=== PATIENT | male | born 1950 | race Caucasian/White ===

== ENCOUNTER 2018-08-04 12:29 | Emergency (ER) | payer MEDICARE, SELFPAY ==
[2018-08-04] VITALS (8 sets, daily range): BP systolic 143–161; BP diastolic 68–82; PULSE 60–119; RESP 10–21; O2SAT 93–96
--- NOTE | 2018-08-04 14:41 | PC.NURSE ---
pt finished eating small bag of cheez-its, brought to chair romeo to have lab work drawn.
[2018-08-04 15:08] LABS: INR 3.7 (0.9-1.3); Prothrombin Time 44.6 SECONDS (10.1-12.7)
--- NOTE | 2018-08-04 15:08 | PC.NURSE ---
pt reports, not feeling well for one week, with nausea, headache and light headedness. denies vomiting and diarrhea. denies fever, just sweating. pt with hx of lower back pain and with physical therapy, future plan to have injections. pt denies trauma,injuries. takes warfarin for DE and Pacemaker
[2018-08-04 15:11] LABS: Add Manual Diff / Slide Review NO; Basophils Absolute Auto 0 /uL (0-100); Basophils Percent Auto 0.3 % (0-2); Eosinophils Absolute Auto 100 /uL (0-450); Hematocrit 38.1 % (41-53); Hemoglobin 12.3 g/dL (13.5-17.5); Lymphocytes Absolute Auto 800 /uL (1100-4500); Lymphocytes Percent Auto 14.9 % (25-40); Mean Corpuscular HGB Conc 32.2 % (30-36); Monocytes Absolute Auto 500 /uL (0-900); Monocytes Percent Auto 8.5 % (3-14); Neutrophils Absolute Auto 4000 /uL (1500-7000); Neutrophils Percent Auto 75.3 % (50-75); PTT Partial Thromboplastin Tim 59 SECONDS (26.4-36.2); Platelet Count 217 X10^3/uL (150-400); Red Blood Cell Count 4.38 X10^6/uL (4.5-5.9); Red Cell Distribution Width 15.3 % (11.6-14.8); White Blood Cell Count 5.4 X10^3/uL (4.5-11.0)
[2018-08-04 15:12] LABS: Alanine Aminotransferase 25 IU/L (21-72); Albumin 4.4 g/dL (3.5-5.0); Albumin Globulin Ratio 1.5 (1.0-2.8); Alkaline Phosphatase 89 U/L (38-126); Aspartate Aminotransferase 24 IU/L (17-59); BUN Creatinine Ratio 21.1 (6-22); Bilirubin Total 1.1 mg/dL (0.2-1.3); Blood Urea Nitrogen 19 mg/dL (9-20); Calcium 9.3 mg/dL (8.4-10.2); Carbon Dioxide 25 mmol/L (22-32); Chloride 104 mmol/L (98-107); Estimated Glomerular Filt Rate > 60.0 mL/min (>60); Globulin 2.9 g/dL (1.7-4.1); Glucose 103 mg/dL (80-110); HEMOLYSIS < 15 (0-50); Lipase < 10 U/L (23-300); Potassium 4.3 mmol/L (3.4-5.1); Sodium 137 mmol/L (137-145); Total Protein 7.3 g/dL (6.3-8.2)
--- NOTE | 2018-08-04 16:38 | ED.NAVMDI ---
HPI - Nausea/Vomiting/Diarrhea <Liza BRI Gipson - Last Filed: 08/04/18 23:29> General Chief complaint: Nausea/Vomiting/Diarrhea Stated complaint: NAUSEA LIGHT HEADED LOWER BACK PAIN Time Seen by Provider: 08/04/18 16:22 Source: patient Mode of arrival: ambulatory Limitations: no limitations History of Present Illness HPI Narrative: 68-year-old male with past medical history of open heart surgery, aortic valve replacement, pacemaker insertion, knee replacement, presents emergency department for nausea for the past week and intermittent headache. States that he has also felt off-balance the past 4 days and this morning he was diaphoretic. Denies vomiting, diarrhea, chest, syncope, vertigo, shortness of breath, abdominal pain, orthopnea, dysuria, change in bowel movements. Related Data Home Medications Medication Instructions Recorded Confirmed Lactobacillus #2-Bifidobacter 1 cap PO DAILY 08/04/18 08/04/18 #1-S. therm 112.5 billion cell capsule acetaminophen 325 mg capsule 325 mg PO Q6H PRN 08/04/18 08/04/18 albuterol sulfate HFA 90 2 puff INHALATION Q6H PRN 08/04/18 08/04/18 mcg/actuation aerosol inhaler amlodipine 10 mg tablet 10 mg PO DAILY 08/04/18 08/04/18 aspirin 81 mg tablet,delayed 81 mg PO DAILY 08/04/18 08/04/18 release atorvastatin 40 mg tablet 40 mg PO DAILY 08/04/18 08/04/18 bupropion HCl SR 150 mg tablet,12 150 mg PO BID 08/04/18 08/04/18 hr sustained-release colchicine 0.6 mg tablet 0.6 mg PO DAILY 08/04/18 08/04/18 disulfiram 250 mg tablet 250 mg PO DAILY 08/04/18 08/04/18 duloxetine 60 mg capsule,delayed 60 mg PO DAILY 08/04/18 08/04/18 release furosemide 20 mg tablet 20 mg PO DAILY 08/04/18 08/04/18 gabapentin 300 mg capsule 300 mg PO DAILY 08/04/18 08/04/18 metoprolol succinate ER 50 mg 50 mg PO DAILY 08/04/18 08/04/18 capsule sprinkle, ext. release 24 hr oxycodone-acetaminophen 5 mg-325 1 tab PO Q4-6H PRN 08/04/18 08/04/[address] 40 mg granules 40 mg PO DAILY 08/04/18 08/04/18 delayed-release for susp in packet potassium chloride ER 10 mEq 10 meq PO DAILY 08/04/18 08/04/18 capsule,extended release sildenafil 50 mg tablet 50 mg PO DAILY PRN 08/04/18 08/04/18 spironolactone 25 mg tablet 25 mg PO DAILY 08/04/18 08/04/18 tadalafil 5 mg tablet 5 mg PO DAILY 08/04/18 08/04/18 tiotropium bromide 18 mcg capsule 1 cap INHALATION DAILY 08/04/18 08/04/18 with inhalation device tramadol 50 mg tablet 50 mg PO DAILY 08/04/18 08/04/18 warfarin 3 mg tablet 3 mg PO DAILY 08/04/18 08/04/18 Allergies Allergy/AdvReac Type Severity Reaction Status Date / Time No Known Drug Allergies Allergy Verified 08/04/18 11:53 Review of Systems <BRI Mccall - Last Filed: 08/04/18 23:29> Constitutional Denies chills, Denies fever(s), Reports headache(s) (Low grade headache for the past few days. ), Denies lethargy and Denies weakness Eyes Denies change in vision, Denies eye discharge, Denies irritation and Denies loss of vision ENT Ears, Nose, Mouth, and Throat: Denies change in voice, Reports headache(s) (Low grade headache for the past few days. ), Denies neck pain and Denies sore throat Cardiovascular Denies chest pain, Denies irregular heart rhythm, Denies lightheadedness, Denies palpitations, Denies dyspnea, Denies dyspnea on exertion and Denies orthopnea Respiratory Denies cough, Denies dyspnea, Denies dyspnea on exertion and Denies wheezing Gastrointestinal Gastrointestinal: Denies abdominal pain, Denies change in bowel habits, Denies diarrhea, Reports nausea and Denies vomiting Genitourinary Denies hematuria, Denies flank pain, Denies urinary incontinence and Denies urinary urgency Musculoskeletal Denies neck pain Integumentary/Breasts Denies pruritus, Denies erythema, Denies rash and Denies wounds Neurologic Denies confusion, Reports headache(s) (Low grade headache for the past few days. ), Denies loss of vision and Denies weakness Psychiatric Denies anxiety, Denies confusion, Denies depression, Denies homicidal ideation and Denies suicidal ideation Endocrine Denies palpitations Hematologic/Lymphatic Denies easy bruising Allergic/Immunologic Denies wheezing PFSH <BRI Mccall - Last Filed: 08/04/18 23:29> Medical History Pacemaker (Chronic) Social History Smoking Status: Former smoker Social History Smoking Status: Former smoker Exam <BRI Mccall - Last Filed: 08/04/18 23:29> Initial Vital Signs Initial Vital Signs: Vital Signs Pulse Rate 119 H 08/04/18 12:34 Respiratory Rate 20 08/04/18 12:34 Blood Pressure 161/82 H 08/04/18 12:34 Pulse Oximetry 93 08/04/18 12:34 Const General: cooperative and well developed Nutritional Appearance: well nourished Orientation: alert, awake, oriented x3 and not confused HENWA Head: normocephalic and atraumatic Ears: external ears normal Nose: external nose normal and No nasal discharge Face and sinus: sinuses nontender, face symmetric, no sinus tenderness and No dry mucous membranes Mouth: oral mucosae normal and moist mucous membranes Teeth and gingiva: dentition normal Throat: tonsils normal and uvula midline Eyes General: appearance normal, both eyes and all related structures Eyelids: eyelids normal Conjunctivae: conjunctivae normal Sclera: sclerae normal Pupils: PERRL EOM: EOM intact bilaterally Neck Neck: normal visual inspection, trachea midline, No lymphadenopathy, No midline deformity and No JVD Lymphatic: No lymphedema Chest Chest: normal inspection of the chest Other: Pacemaker noted on chest. Resp Effort & Inspection: normal respiratory effort, able to speak in complete sentences, no respiratory distress and no use of accessory muscles Auscultation: clear to auscultation bilaterally, no rales, no rhonchi and no wheezes Cardio Rate: regular rate Rhythm: regular rhythm Heart Sounds: no click, no gallops, no murmurs and no rubs Pulses: normal peripheral pulses GI Inspection: non-distended Palpation: soft, no hepatosplenomegaly, No guarding, No pulsatile mass and No tender Auscultation: normal bowel sounds Back/Spine/Pelvis Back: No CVA tenderness Thoracic/Lumbar Spine: thoracic and lumbar spine normal to inspection Skin General: no rashes or lesions noted, No jaundice and No petechiae Neuro General: alert, oriented x3, gait normal and no focal motor deficits Speech: speech normal Extrem General: full ROM, no clubbing, cyanosis or edema, no pedal edema and no calf tenderness Psych Appearance: well kempt Mental Status: mental status grossly normal Attitude: cooperative Thought Content: normal and suicidality Judgment: judgment good <Ayde Grady MD - Last Filed: 08/06/18 12:10> Initial Vital Signs Initial Vital Signs: Vital Signs Pulse Rate 119 H 08/04/18 12:34 Respiratory Rate 20 08/04/18 12:34 Blood Pressure 161/82 H 08/04/18 12:34 Pulse Oximetry 93 08/04/18 12:34 Course <BRI Mccall - Last Filed: 08/04/18 23:29> Course Narrative: After administration of Zofran, patient stated he felt better and wanted to go home. Orders Ordered: Discontinued Medications Sodium Chloride (Normal Saline 0.9%) 1,000 mls @ 500 mls/hr IV BOLUS ONE Stop: 08/04/18 18:45 Last Infusion: 08/04/18 17:57 Dose: 0 mls/hr Admin: 08/04/18 16:57 Dose: 500 mls/hr Ondansetron HCl (Zofran) 4 mg IV NOW ONE Stop: 08/04/18 16:37 Last Admin: 08/04/18 16:46 Dose: 4 mg Consultations Consultation #1: Patient staffed with Dr. Grady Vital Signs - 8 hr 08/04/18 15:47 08/04/18 16:00 08/04/18 16:45 Pulse Rate 65 65 61 Respiratory Rate 15 16 10 L Blood Pressure [Left Arm] 143/72 H 151/68 H 144/69 H Pulse Oximetry 96 95 96 08/04/18 17:00 08/04/18 17:30 08/04/18 18:00 Pulse Rate 63 62 60 Respiratory Rate 14 10 L 12 Blood Pressure [Left Arm] 151/71 H 149/75 H 154/72 H Pulse Oximetry 96 96 96 <Ayde Grady MD - Last Filed: 08/06/18 12:10> Orders Ordered: Discontinued Medications Sodium Chloride (Normal Saline 0.9%) 1,000 mls @ 500 mls/hr IV BOLUS ONE Stop: 08/04/18 18:45 Last Infusion: 08/04/18 17:57 Dose: 0 mls/hr Admin: 08/04/18 16:57 Dose: 500 mls/hr Ondansetron HCl (Zofran) 4 mg IV NOW ONE Stop: 08/04/18 16:37 Last Admin: 08/04/18 16:46 Dose: 4 mg Vital Signs - 8 hr 08/04/18 15:47 08/04/18 16:00 08/04/18 16:45 Pulse Rate 65 65 61 Respiratory Rate 15 16 10 L Blood Pressure [Left Arm] 143/72 H 151/68 H 144/69 H Pulse Oximetry 96 95 96 08/04/18 17:00 08/04/18 17:30 08/04/18 18:00 Pulse Rate 63 62 60 Respiratory Rate 14 10 L 12 Blood Pressure [Left Arm] 151/71 H 149/75 H 154/72 H Pulse Oximetry 96 96 96 MDM - Nausea/Vomiting/Diarrhea <BRI Mccall - Last Filed: 08/04/18 23:29> Medical Records Attestation: I reviewed the patient's medical records. Lab Data Attestation: I reviewed the patient's lab results. Result diagrams: 08/04/18 14:53 08/04/18 14:53 Lab Results 08/04/18 08/04/18 08/04/18 Range/Units 14:53 14:53 14:53 WBC 5.4 (4.5-11.0) X10^3/uL RBC 4.38 L (4.5-5.9) X10^6/uL Hgb 12.3 L (13.5-17.5) g/dL Hct 38.1 L (41-53) % MCV 87.0 (80-100) fL MCH 28.0 (26-34) PG MCHC 32.2 (30-36) % RDW 15.3 H (11.6-14.8) % Plt Count 217 (150-400) X10^3/uL Neut % (Auto) 75.3 H (50-75) % Lymph % (Auto) 14.9 L (25-40) % [place] % (Auto) 8.5 (3-14) % Eos % (Auto) 1.0 L (2-4) % Baso % (Auto) 0.3 (0-2) % Neut # (Auto) 4000 (3135-5768) /uL Lymph # (Auto) 800 L (1837-6380) /uL [place] # (Auto) 500 (0-900) /uL Eos # (Auto) 100 (0-450) /uL Baso # (Auto) 0 (0-100) /uL PT 44.6 H (10.1-12.7) SECONDS INR 3.7 H (0.9-1.3) APTT 59 H (26.4-36.2) SECONDS Sodium 137 (137-145) mmol/L Potassium 4.3 (3.4-5.1) mmol/L Chloride 104 (98-107) mmol/L Carbon Dioxide 25 (22-32) mmol/L BUN 19 (9-20) mg/dL Creatinine 0.90 (0.66-1.25) mg/dL Estimated GFR > 60.0 (>60) mL/min BUN/Creatinine Ratio 21.1 (6-22) Glucose 103 (80-110) mg/dL Calcium 9.3 (8.4-10.2) mg/dL Total Bilirubin 1.1 (0.2-1.3) mg/dL AST 24 (17-59) IU/L ALT 25 (21-72) IU/L Alkaline Phosphatase 89 (38-126) U/L Total Creatine Kinase (55-170) U/L CK-MB (CK-2) CK-MB (CK-2) Rel Index Troponin I (0.01-0.034) ng/mL Total Protein 7.3 (6.3-8.2) g/dL Albumin 4.4 (3.5-5.0) g/dL Globulin 2.9 (1.7-4.1) g/dL Albumin/Globulin Ratio 1.5 (1.0-2.8) Lipase < 10 L (23-300) U/L Urine RBC (0-5/HPF) Urine WBC (0-5/HPF) Urine Bacteria (None) Ur Culture Indicated? 08/04/18 08/04/18 Range/Units 14:53 16:30 WBC (4.5-11.0) X10^3/uL RBC (4.5-5.9) X10^6/uL Hgb (13.5-17.5) g/dL Hct (41-53) % MCV (80-100) fL MCH (26-34) PG MCHC (30-36) % RDW (11.6-14.8) % Plt Count (150-400) X10^3/uL Neut % (Auto) (50-75) % Lymph % (Auto) (25-40) % [place] % (Auto) (3-14) % Eos % (Auto) (2-4) % Baso % (Auto) (0-2) % Neut # (Auto) (1611-5232) /uL Lymph # (Auto) (6031-4759) /uL [place] # (Auto) (0-900) /uL Eos # (Auto) (0-450) /uL Baso # (Auto) (0-100) /uL PT (10.1-12.7) SECONDS INR (0.9-1.3) APTT (26.4-36.2) SECONDS Sodium (137-145) mmol/L Potassium (3.4-5.1) mmol/L Chloride (98-107) mmol/L Carbon Dioxide (22-32) mmol/L BUN (9-20) mg/dL Creatinine (0.66-1.25) mg/dL Estimated GFR (>60) mL/min BUN/Creatinine Ratio (6-22) Glucose (80-110) mg/dL Calcium (8.4-10.2) mg/dL Total Bilirubin (0.2-1.3) mg/dL AST (17-59) IU/L ALT (21-72) IU/L Alkaline Phosphatase (38-126) U/L Total Creatine Kinase 63 (55-170) U/L CK-MB (CK-2) TNP CK-MB (CK-2) Rel Index TNP Troponin I 0.013 (0.01-0.034) ng/mL Total Protein (6.3-8.2) g/dL Albumin (3.5-5.0) g/dL Globulin (1.7-4.1) g/dL Albumin/Globulin Ratio (1.0-2.8) Lipase (23-300) U/L Urine RBC 1-5/hpf (0-5/HPF) Urine WBC 0-1/hpf (0-5/HPF) Urine Bacteria Occasional (0-1) (None) Ur Culture Indicated? Cult not indicated Urine Dip Bedside Urine Glucose Negative Bedside Urine Bilirubin - Negative Bedside Urine Ketone - Negative Urine Specific [place] 1.015 Bedside Urine Occult Blood ++ Bedside Urine pH 6.5 Bedside Urine Protein - Negative Bedside Urine Urobilinogen +/- 1mg Bedside Urine Nitrite - Negative Bedside Urine Leukocytes - Negative Esterase Imaging Data Chest x-ray: Radiologist's impression: [address] [address] XRay Report Signed Patient: Sylvester Singleton#: [id number] : 2Acct:[id number] Age/Sex: 68 / MDate of Service: 08/04/18 Loc: ED Accession Number: [id number] Procedure: XR chest 1V Ordering Provider: Liza Gipson PROCEDURE: XR CHEST 1V INDICATIONS: General malaise, hx of open heart surgery/pacemaker TECHNIQUE: One view of the chest was acquired. COMPARISON: None. FINDINGS: Surgical changes and devices: Sternotomy wires, pacemaking device with dual chamber leads in normal position.. Lungs and pleura: Lungs are abnormal with a mild degree of interstitial prominence perhaps related to prior smoking.. No pleural effusions or pneumothorax. Mediastinum: Mediastinal contours appear normal. Heart size is at the upper limits of normal. Bones and chest wall: No suspicious bony lesions. Overlying soft tissues appear unremarkable. IMPRESSION: Pacemaker device and dual chamber leads normal, prior sternotomy, presumably CABG. Mild interstitial prominence within the lung parenchyma may reflect prior smoking history. No acute CHF or pneumonia seen. Dictated by: Pineda Cox M.D. on 08/04/2018 at 17:04 Approved by: Pineda Cox M.D. on 08/04/2018 at 17:05 ECG Data Attestation: I personally reviewed and interpreted this ECG as follows: Interpretation: Irregular rhythm, heart rate 60 beats per minute, VT interval 170, QTC 494, no ectopy noted in pacemaker noted on EKG. EKG appears like other EKGs. Dr. Grady viewed EKG as well. MDM Narrative Medical decision making narrative: Unclear etiology of the nausea, possibly viral in nature. Less likely cardiac in origin due to negative exam and normal labs. Less likely cholecystitis, pancreatitis, or appendicitis due to abnormal labs. Headache less likely neurologic in origin due to negative neuro exam, no for focal neurological changes, resolution of symptoms after nausea subsided. Discussed the importance of following up with primary care provider for further testing if needed. Strict return precautions given. <Ayde Grady MD - Last Filed: 08/06/18 12:10> Lab Data Lab Results 08/04/18 08/04/18 08/04/18 Range/Units 14:53 14:53 14:53 WBC 5.4 (4.5-11.0) X10^3/uL RBC 4.38 L (4.5-5.9) X10^6/uL Hgb 12.3 L (13.5-17.5) g/dL Hct 38.1 L (41-53) % MCV 87.0 (80-100) fL MCH 28.0 (26-34) PG MCHC 32.2 (30-36) % RDW 15.3 H (11.6-14.8) % Plt Count 217 (150-400) X10^3/uL Neut % (Auto) 75.3 H (50-75) % Lymph % (Auto) 14.9 L (25-40) % [place] % (Auto) 8.5 (3-14) % Eos % (Auto) 1.0 L (2-4) % Baso % (Auto) 0.3 (0-2) % Neut # (Auto) 4000 (8479-2144) /uL Lymph # (Auto) 800 L (5513-8933) /uL [place] # (Auto) 500 (0-900) /uL Eos # (Auto) 100 (0-450) /uL Baso # (Auto) 0 (0-100) /uL PT 44.6 H (10.1-12.7) SECONDS INR 3.7 H (0.9-1.3) APTT 59 H (26.4-36.2) SECONDS Sodium 137 (137-145) mmol/L Potassium 4.3 (3.4-5.1) mmol/L Chloride 104 (98-107) mmol/L Carbon Dioxide 25 (22-32) mmol/L BUN 19 (9-20) mg/dL Creatinine 0.90 (0.66-1.25) mg/dL Estimated GFR > 60.0 (>60) mL/min BUN/Creatinine Ratio 21.1 (6-22) Glucose 103 (80-110) mg/dL Calcium 9.3 (8.4-10.2) mg/dL Total Bilirubin 1.1 (0.2-1.3) mg/dL AST 24 (17-59) IU/L ALT 25 (21-72) IU/L Alkaline Phosphatase 89 (38-126) U/L Total Creatine Kinase (55-170) U/L CK-MB (CK-2) CK-MB (CK-2) Rel Index Troponin I (0.01-0.034) ng/mL Total Protein 7.3 (6.3-8.2) g/dL Albumin 4.4 (3.5-5.0) g/dL Globulin 2.9 (1.7-4.1) g/dL Albumin/Globulin Ratio 1.5 (1.0-2.8) Lipase < 10 L (23-300) U/L Urine RBC (0-5/HPF) Urine WBC (0-5/HPF) Urine Bacteria (None) Ur Culture Indicated? 08/04/18 08/04/18 Range/Units 14:53 16:30 WBC (4.5-11.0) X10^3/uL RBC (4.5-5.9) X10^6/uL Hgb (13.5-17.5) g/dL Hct (41-53) % MCV (80-100) fL MCH (26-34) PG MCHC (30-36) % RDW (11.6-14.8) % Plt Count (150-400) X10^3/uL Neut % (Auto) (50-75) % Lymph % (Auto) (25-40) % [place] % (Auto) (3-14) % Eos % (Auto) (2-4) % Baso % (Auto) (0-2) % Neut # (Auto) (4659-8154) /uL Lymph # (Auto) (5469-7739) /uL [place] # (Auto) (0-900) /uL Eos # (Auto) (0-450) /uL Baso # (Auto) (0-100) /uL PT (10.1-12.7) SECONDS INR (0.9-1.3) APTT (26.4-36.2) SECONDS Sodium (137-145) mmol/L Potassium (3.4-5.1) mmol/L Chloride (98-107) mmol/L Carbon Dioxide (22-32) mmol/L BUN (9-20) mg/dL Creatinine (0.66-1.25) mg/dL Estimated GFR (>60) mL/min BUN/Creatinine Ratio (6-22) Glucose (80-110) mg/dL Calcium (8.4-10.2) mg/dL Total Bilirubin (0.2-1.3) mg/dL AST (17-59) IU/L ALT (21-72) IU/L Alkaline Phosphatase (38-126) U/L Total Creatine Kinase 63 (55-170) U/L CK-MB (CK-2) TNP CK-MB (CK-2) Rel Index TNP Troponin I 0.013 (0.01-0.034) ng/mL Total Protein (6.3-8.2) g/dL Albumin (3.5-5.0) g/dL Globulin (1.7-4.1) g/dL Albumin/Globulin Ratio (1.0-2.8) Lipase (23-300) U/L Urine RBC 1-5/hpf (0-5/HPF) Urine WBC 0-1/hpf (0-5/HPF) Urine Bacteria Occasional (0-1) (None) Ur Culture Indicated? Cult not indicated Urine Dip Bedside Urine Glucose Negative Bedside Urine Bilirubin - Negative Bedside Urine Ketone - Negative Urine Specific [place] 1.015 Bedside Urine Occult Blood ++ Bedside Urine pH 6.5 Bedside Urine Protein - Negative Bedside Urine Urobilinogen +/- 1mg Bedside Urine Nitrite - Negative Bedside Urine Leukocytes - Negative Esterase Discharge Plan Departure Patient Disposition: Home Clinical Impression: Nausea Discharge Date/Time: 08/04/18 18:25 Interventions: ED Discharge Assessment Last Done: 08/04/18 18:24 Instructions: DI for Nausea -- Adult Activity Restrictions/Additional Instructions: As discussed your labs, and imaging are negative for concerning findings. Please follow up with her primary care provider in the next week or so. Return to the emergency department for concerning symptoms such as chest pain, shortness of breath, syncope, dizziness, facial droop, or other concerning symptoms. Prescriptions: No Action atorvastatin 40 mg tablet 40 mg PO DAILY RF: 0 bupropion HCl [Wellbutrin SR] 150 mg tablet sustained-release 12 hr 150 mg PO BID RF: 0 potassium chloride 10 mEq capsule, extended release 10 meq PO DAILY RF: 0 sildenafil 50 mg tablet 50 mg PO DAILY PRN (Reason: Erectile Dysfunction) RF: 0 aspirin [Adult Aspirin Regimen] 81 mg tablet,delayed release (DR/EC) 81 mg PO DAILY RF: 0 tramadol 50 mg tablet 50 mg PO DAILY RF: 0 spironolactone 25 mg tablet 25 mg PO DAILY RF: 0 disulfiram 250 mg tablet 250 mg PO DAILY RF: 0 warfarin 3 mg tablet 3 mg PO DAILY RF: 0 oxycodone-acetaminophen [Percocet] 5-325 mg tablet 1 tab PO Q4-6H PRN (Reason: pain) RF: 0 amlodipine 10 mg tablet 10 mg PO DAILY RF: 0 gabapentin 300 mg capsule 300 mg PO DAILY RF: 0 furosemide 20 mg tablet 20 mg PO DAILY RF: 0 albuterol sulfate [ProAir HFA] 90 mcg/actuation HFA aerosol inhaler 2 puff INHALATION Q6H PRN (Reason: Shortness Of Breath) RF: 0 colchicine 0.6 mg tablet 0.6 mg PO DAILY RF: 0 tadalafil 5 mg tablet 5 mg PO DAILY RF: 0 tiotropium bromide 18 mcg capsule, w/inhalation device 1 cap INHALATION DAILY RF: 0 duloxetine 60 mg capsule,delayed release(DR/EC) 60 mg PO DAILY RF: 0 acetaminophen 325 mg capsule 325 mg PO Q6H PRN (Reason: pain) RF: 0 VSL#3 112.5 billion cell capsule 1 cap PO DAILY RF: 0 pantoprazole [address] for susp in packet 40 mg PO DAILY RF: 0 metoprolol succinate 50 mg cap,sprinkle,ER 24hr dose pack 50 mg PO DAILY RF: 0
[2018-08-04] MEDS: ONDANSETRON 4 MG/2 ML INJ IV (16:46)
--- NOTE | 2018-08-04 16:48 | DI.RAD.S_ITS ---
PROCEDURE: XR CHEST 1V INDICATIONS: General malaise, hx of open heart surgery/pacemaker TECHNIQUE: One view of the chest was acquired. COMPARISON: None. FINDINGS: Surgical changes and devices: Sternotomy wires, pacemaking device with dual chamber leads in normal position.. Lungs and pleura: Lungs are abnormal with a mild degree of interstitial prominence perhaps related to prior smoking.. No pleural effusions or pneumothorax. Mediastinum: Mediastinal contours appear normal. Heart size is at the upper limits of normal. Bones and chest wall: No suspicious bony lesions. Overlying soft tissues appear unremarkable. IMPRESSION: Pacemaker device and dual chamber leads normal, prior sternotomy, presumably CABG. Mild interstitial prominence within the lung parenchyma may reflect prior smoking history. No acute CHF or pneumonia seen. Dictated by: Pineda Cox M.D. on 08/04/2018 at 17:04 Approved by: Pineda Cox M.D. on 08/04/2018 at 17:05
[2018-08-04] MEDS: SODIUM CHLORIDE 0.9% 1,000 ML 500 ML IV (16:57)
[2018-08-04 17:04] LABS: Creatine Kinase 63 U/L (55-170)
[2018-08-04 17:10] LABS: Bacteria Urine Occasional (0-1); Culture Indicated Urine Cult Not Indicated; RBC Urine 1-5/HPF (0-5/HPF); WBC Urine 0-1/HPF (0-5/HPF)
[2018-08-04 17:17] LABS: Troponin I 0.013 ng/mL (0.01-0.034)
== END 2018-08-04 18:25 | disposition home or self-care (01) ==
PROVIDERS: Emergency Medicine; Emergency Provider Nurse Practitioner
DX: R11.0 Nausea (principal); R61 Generalized hyperhidrosis; R51 Headache; R27.0 Ataxia, unspecified; Z95.0 Presence of cardiac pacemaker; Z95.2 Presence of prosthetic heart valve
CPT/HCPCS: 36415; 71045; 80053; 81003; 81015; 82550; 83690; 84484; 85025; 85610; 85730; 93005; 96361; 96374; 99284; 99285; J2405

== ENCOUNTER 2018-09-19 11:44 | Emergency (ER) | payer MEDICARE, SELFPAY ==
[2018-09-19] VITALS (8 sets, daily range): BP systolic 144–159; BP diastolic 60–85; PULSE 67–74; RESP 12–19; TEMP 36.6–36.8; O2SAT 95–99
--- NOTE | 2018-09-19 11:48 | DI.RAD.S_ITS ---
PROCEDURE: XR CHEST 1V INDICATIONS: chest pain TECHNIQUE: One view of the chest was acquired. COMPARISON: [facility], CR, XR CHEST 1V, 08/04/2018, 16:53. FINDINGS: Surgical changes and devices: A left-sided cardiac pacer/defibrillator is present. Median sternotomy changes are noted. Lungs and pleura: Prominent perihilar interstitial markings are identified which have increased in the interim. No definite area of pulmonary consolidation is evident. There is no definite pneumothorax or effusion. Mediastinum: Mediastinal contours appear normal. Heart size is enlarged. There is aortic atherosclerosis. Bones and chest wall: No suspicious bony lesions. Overlying soft tissues appear unremarkable. IMPRESSION: Cardiomegaly with findings suggesting pulmonary edema. Please correlate clinically. Dictated by: Michael Yepez M.D. on 09/19/2018 at 11:24 Approved by: Michael Yepez M.D. on 09/19/2018 at 11:25
--- NOTE | 2018-09-19 11:50 | ED.CHESTPAIN ---
HPI - Chest Pain General Chief Complaint: Chest Pain Stated Complaint: Right arm and Jaw Pain Time Seen by Provider: 09/19/18 11:48 Source: patient and EMS Mode of arrival: EMS Limitations: no limitations History of Present Illness HPI narrative: Patient is a 68-year-old male presenting with chest discomfort. 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 He says that he was walking today your sharp chest pain all across his chest it lasted for about 30 seconds and he had to stop walking. He is now chest pain-free. He says this has never happened to him before. He denies any shortness of breath. He has previously had a pleural effusion when they 1st found his aortic valve abnormality. He says he certainly does not feel like that. Currently pain free. complaint: chest pain Onset (ago): minute(s) Duration: now resolved Onset: during exertion Pain location: substernal Severity: severe Quality: tightness, aching and heaviness Pain radiation: none Relieving factors: rest Exacerbating factors: exertion Related Data Home Medications Medication Instructions Recorded Confirmed Lactobacillus #2-Bifidobacter 1 cap PO DAILY 08/04/18 08/04/18 #1-S. therm 112.5 billion cell capsule acetaminophen 325 mg capsule 325 mg PO Q6H PRN 08/04/18 08/04/18 albuterol sulfate HFA 90 2 puff INHALATION Q6H PRN 08/04/18 08/04/18 mcg/actuation aerosol inhaler amlodipine 10 mg tablet 10 mg PO DAILY 08/04/18 08/04/18 aspirin 81 mg tablet,delayed 81 mg PO DAILY 08/04/18 08/04/18 release atorvastatin 40 mg tablet 40 mg PO DAILY 08/04/18 08/04/18 bupropion HCl SR 150 mg tablet,12 150 mg PO BID 08/04/18 08/04/18 hr sustained-release colchicine 0.6 mg tablet 0.6 mg PO DAILY 08/04/18 08/04/18 disulfiram 250 mg tablet 250 mg PO DAILY 08/04/18 08/04/18 duloxetine 60 mg capsule,delayed 60 mg PO DAILY 08/04/18 08/04/18 release furosemide 20 mg tablet 20 mg PO DAILY 08/04/18 08/04/18 gabapentin 300 mg capsule 300 mg PO DAILY 08/04/18 08/04/18 metoprolol succinate ER 50 mg 50 mg PO DAILY 08/04/18 08/04/18 capsule sprinkle, ext. release 24 hr oxycodone-acetaminophen 5 mg-325 1 tab PO Q4-6H PRN 08/04/18 08/04/[address] 40 mg granules 40 mg PO DAILY 08/04/18 08/04/18 delayed-release for susp in packet potassium chloride ER 10 mEq 10 meq PO DAILY 08/04/18 08/04/18 capsule,extended release sildenafil 50 mg tablet 50 mg PO DAILY PRN 08/04/18 08/04/18 spironolactone 25 mg tablet 25 mg PO DAILY 08/04/18 08/04/18 tadalafil 5 mg tablet 5 mg PO DAILY 08/04/18 08/04/18 tiotropium bromide 18 mcg capsule 1 cap INHALATION DAILY 08/04/18 08/04/18 with inhalation device tramadol 50 mg tablet 50 mg PO DAILY 08/04/18 08/04/18 warfarin 3 mg tablet 3 mg PO DAILY 08/04/18 08/04/18 Allergies Allergy/AdvReac Type Severity Reaction Status Date / Time No Known Drug Allergies Allergy Verified 08/04/18 11:53 Review of Systems Review of Systems GENERAL: Denies chills, fatigue, malaise, fever, sweats, travel HEENT: Denies sinus pain, ear pain, sore throat, difficulty swallowing, neck pain RESPIRATORY: Denies dyspnea, cough, wheezing, hemoptysis, sputum. CARDIOVASCULAR: See HPI GASTROINTESTINAL: Denies nausea, vomiting, abdominal pain, diarrhea, constipation, melena. : Denies dysuria, frequency, incontinence, hematuria, urinary retention, flank pain. MUSCULOSKELETAL: Denies weakness, joint pain, or bony pain SKIN: No rash, no erythema, no pruritus NEUROLOGIC: Denies weakness, dizziness, headache, numbness, change in speech, confusion PSYCHIATRIC: No concerning psychosocial issues. 12 point review of systems is negative except for those stated above and HPI [facility] Medical History Coronary artery disease (Acute) Hypertension (Acute) Pacemaker (Chronic) Surgical History H/O aortic valve replacement (Acute) Social History Smoking Status: Former smoker Social History Smoking Status: Former smoker Exam Initial Vital Signs Initial Vital Signs: Vital Signs Temperature 98.2 F 09/19/18 11:45 Pulse Rate 73 09/19/18 11:45 Respiratory Rate 19 09/19/18 11:45 Blood Pressure 159/85 H 09/19/18 11:45 Pulse Oximetry 99 09/19/18 11:45 GENERAL: Well-appearing, well-nourished and in no acute distress. HEENT: Head atraumatic,EOMI, pupils reactive, face symmetric, CARDIOVASCULAR: Regular rate bowel noted, scar noted on chest RESPIRATORY: Breath sounds equal bilaterally, no wheezes rales or rhonchi. ABDOMEN: Soft, nontender. Normoactive bowel sounds all 4 quadrants. No guarding or rebound. EXTREMITIES: Normal range of motion, no clubbing or edema. Neurovascularly intact NEUROLOGICAL: Alert and oriented x4.Normal gait and speech. Cranial nerves II through XII grossly intact. SKIN: Warm, dry, no laceration, no petechiae, no rashes or lesions. Course Orders Ordered: ED Orders 09/19/18 11:30 B Type Natriuretic Peptide Stat Complete Blood Count AUTO DIFF Stat Comprehensive Metabolic Panel Stat Lipase Stat Partial Thromboplastin Time Stat Prothrombin Time INR Stat Troponin & CK Cardiac Panel Stat 09/19/18 11:48 XR chest 1V Stat EKG-12 Lead Stat 09/19/18 14:30 Troponin I Stat Vital Signs - 8 hr 09/19/18 11:45 09/19/18 12:00 09/19/18 12:30 Temperature 98.2 F Pulse Rate 73 70 71 Respiratory Rate 19 19 15 Blood Pressure 159/85 H Blood Pressure [Left Arm] 149/79 H 145/83 H Pulse Oximetry 99 95 97 09/19/18 13:00 09/19/18 14:00 09/19/18 15:00 Temperature Pulse Rate 71 72 73 Respiratory Rate 16 18 16 Blood Pressure Blood Pressure [Left Arm] 144/60 H 149/74 H 151/75 H Pulse Oximetry 98 98 98 09/19/18 16:12 09/19/18 16:36 Temperature 97.9 F Pulse Rate 74 74 Respiratory Rate 16 19 Blood Pressure 148/75 H Blood Pressure [Left Arm] 148/75 H Pulse Oximetry 97 99 MDM - Chest Pain Lab Data Attestation: I reviewed the patient's lab results. Result diagrams: 09/19/18 11:30 09/19/18 11:30 Lab Results 09/19/18 09/19/18 09/19/18 Range/Units 11:30 11:30 11:30 WBC 7.0 (4.5-11.0) X10^3/uL RBC 4.01 L (4.5-5.9) X10^6/uL Hgb 11.7 L (13.5-17.5) g/dL Hct 35.6 L (41-53) % MCV 88.8 (80-100) fL MCH 29.1 (26-34) PG MCHC 32.8 (30-36) % RDW 16.5 H (11.6-14.8) % Plt Count 257 (150-400) X10^3/uL Neut % (Auto) 74.1 (50-75) % Lymph % (Auto) 11.7 L (25-40) % Treasure % (Auto) 11.9 (3-14) % Eos % (Auto) 2.0 (2-4) % Baso % (Auto) 0.3 (0-2) % Neut # (Auto) 5200 (4024-7346) /uL Lymph # (Auto) 800 L (8946-4766) /uL Treasure # (Auto) 800 (0-900) /uL Eos # (Auto) 100 (0-450) /uL Baso # (Auto) 0 (0-100) /uL PT 32.1 H (10.1-12.7) SECONDS INR 2.7 H (0.9-1.3) APTT 54 H D (26.4-36.2) SECONDS Sodium 140 (137-145) mmol/L Potassium 4.3 (3.4-5.1) mmol/L Chloride 104 (98-107) mmol/L Carbon Dioxide 28 (22-32) mmol/L BUN 18 (9-20) mg/dL Creatinine 0.80 (0.66-1.25) mg/dL Estimated GFR > 60.0 (>60) mL/min BUN/Creatinine Ratio 22.5 H (6-22) Glucose 114 H (80-110) mg/dL Calcium 9.0 (8.4-10.2) mg/dL Total Bilirubin 0.9 (0.2-1.3) mg/dL AST 32 (17-59) IU/L ALT 41 (21-72) IU/L Alkaline Phosphatase 143 H (38-126) U/L Total Creatine Kinase 148 (55-170) U/L CK-MB (CK-2) 1.98 (<2.37) ng/mL CK-MB (CK-2) Rel Index 1.3 L (1.5-5.0) % Troponin I 0.016 (0.01-0.034) ng/mL B-Natriuretic Peptide 489 H (<100) Total Protein 6.9 (6.3-8.2) g/dL Albumin 3.8 (3.5-5.0) g/dL Globulin 3.1 (1.7-4.1) g/dL Albumin/Globulin Ratio 1.2 (1.0-2.8) Lipase 11 L (23-300) U/L 09/19/18 Range/Units 14:30 WBC (4.5-11.0) X10^3/uL RBC (4.5-5.9) X10^6/uL Hgb (13.5-17.5) g/dL Hct (41-53) % MCV (80-100) fL MCH (26-34) PG MCHC (30-36) % RDW (11.6-14.8) % Plt Count (150-400) X10^3/uL Neut % (Auto) (50-75) % Lymph % (Auto) (25-40) % Treasure % (Auto) (3-14) % Eos % (Auto) (2-4) % Baso % (Auto) (0-2) % Neut # (Auto) (5038-3388) /uL Lymph # (Auto) (8176-7434) /uL Treasure # (Auto) (0-900) /uL Eos # (Auto) (0-450) /uL Baso # (Auto) (0-100) /uL PT (10.1-12.7) SECONDS INR (0.9-1.3) APTT (26.4-36.2) SECONDS Sodium (137-145) mmol/L Potassium (3.4-5.1) mmol/L Chloride (98-107) mmol/L Carbon Dioxide (22-32) mmol/L BUN (9-20) mg/dL Creatinine (0.66-1.25) mg/dL Estimated GFR (>60) mL/min BUN/Creatinine Ratio (6-22) Glucose (80-110) mg/dL Calcium (8.4-10.2) mg/dL Total Bilirubin (0.2-1.3) mg/dL AST (17-59) IU/L ALT (21-72) IU/L Alkaline Phosphatase (38-126) U/L Total Creatine Kinase (55-170) U/L CK-MB (CK-2) (<2.37) ng/mL CK-MB (CK-2) Rel Index (1.5-5.0) % Troponin I 0.015 (0.01-0.034) ng/mL B-Natriuretic Peptide (<100) Total Protein (6.3-8.2) g/dL Albumin (3.5-5.0) g/dL Globulin (1.7-4.1) g/dL Albumin/Globulin Ratio (1.0-2.8) Lipase (23-300) U/L Imaging Data Chest x-ray: Radiologist's impression: PROCEDURE: XR CHEST 1V INDICATIONS: chest pain TECHNIQUE: One view of the chest was acquired. COMPARISON: [facility], , XR CHEST 1V, 08/04/2018, 16:53. FINDINGS: Surgical changes and devices: A left-sided cardiac pacer/defibrillator is present. Median sternotomy changes are noted. Lungs and pleura: Prominent perihilar interstitial markings are identified which have increased in the interim. No definite area of pulmonary consolidation is evident. There is no definite pneumothorax or effusion. Mediastinum: Mediastinal contours appear normal. Heart size is enlarged. There is aortic atherosclerosis. Bones and chest wall: No suspicious bony lesions. Overlying soft tissues appear unremarkable. IMPRESSION: Cardiomegaly with findings suggesting pulmonary edema. Please correlate clinically. Dictated by: Michael Yepez M.D. on 09/19/2018 at 11:24 ECG Data Attestation: I personally reviewed and interpreted this ECG as follows: Prior ECG tracings: not available for review Interpretation: Paced rhythm rate [address] changes similar to previous EKG EKG 2. Paced rhythm rate [address] changes similar to prior MDM Narrative Medical decision making narrative: 13:20 Dr. Smith cardiology as [facility] has been consulted. I have updated him on patient's symptoms and test results. Sounds like stable angina. Recommend increasing his metoprolol he was previously on 50 mg once a day recommend increasing it to 75mg once daily. I called and spoke with the pharmacy he states that he is on 150 mg once a day to in the morning 1 at night. Supple increase it to 200 mg twice a day. He will follow up with his home health care respiratory therapist at in [place] Patient has 2-troponins he has been chest pain-free in the ED his entire stay. Discharge Plan Departure Patient Disposition: Home Clinical Impression: Stable angina Discharge Date/Time: 09/19/18 16:36 Interventions: ED Discharge Assessment Last Done: 09/19/18 16:36 Instructions: DI for Angina Activity Restrictions/Additional Instructions: *You have been diagnosed with stable angina *What to do: I spoke with your home health care respiratory therapist he recommended increasing your metoprolol. Please follow up with her Cardiology will likely need LP stress test. *Continue to take medications as directed Increase metoprolol to 200 mg daily divided by 100 in the morning and 100 at night *Follow up with your primary care provider in 2-3 days *Return to ER if you should have increasing chest pain shortness of breath passing out or any new, worsening or concerning symptoms Prescriptions: No Action atorvastatin 40 mg tablet 40 mg PO DAILY RF: 0 bupropion HCl [Wellbutrin SR] 150 mg tablet sustained-release 12 hr 150 mg PO BID RF: 0 potassium chloride 10 mEq capsule, extended release 10 meq PO DAILY RF: 0 sildenafil 50 mg tablet 50 mg PO DAILY PRN (Reason: Erectile Dysfunction) RF: 0 aspirin [Adult Aspirin Regimen] 81 mg tablet,delayed release (DR/EC) 81 mg PO DAILY RF: 0 tramadol 50 mg tablet 50 mg PO DAILY RF: 0 spironolactone 25 mg tablet 25 mg PO DAILY RF: 0 disulfiram 250 mg tablet 250 mg PO DAILY RF: 0 warfarin 3 mg tablet 3 mg PO DAILY RF: 0 oxycodone-acetaminophen [Percocet] 5-325 mg tablet 1 tab PO Q4-6H PRN (Reason: pain) RF: 0 amlodipine 10 mg tablet 10 mg PO DAILY RF: 0 gabapentin 300 mg capsule 300 mg PO DAILY RF: 0 furosemide 20 mg tablet 20 mg PO DAILY RF: 0 albuterol sulfate [ProAir HFA] 90 mcg/actuation HFA aerosol inhaler 2 puff INHALATION Q6H PRN (Reason: Shortness Of Breath) RF: 0 colchicine 0.6 mg tablet 0.6 mg PO DAILY RF: 0 tadalafil 5 mg tablet 5 mg PO DAILY RF: 0 tiotropium bromide 18 mcg capsule, w/inhalation device 1 cap INHALATION DAILY RF: 0 duloxetine 60 mg capsule,delayed release(DR/EC) 60 mg PO DAILY RF: 0 acetaminophen 325 mg capsule 325 mg PO Q6H PRN (Reason: pain) RF: 0 VSL#3 112.5 billion cell capsule 1 cap PO DAILY RF: 0 pantoprazole [address] for susp in packet 40 mg PO DAILY RF: 0 metoprolol succinate 50 mg cap,sprinkle,ER 24hr dose pack 50 mg PO DAILY RF: 0
--- NOTE | 2018-09-19 11:54 | ED_ITS ---
HPI - Chest Pain General Chief Complaint: Chest Pain Stated Complaint: Right arm and Jaw Pain Time Seen by Provider: 09/19/18 11:48 Source: patient and EMS Mode of arrival: EMS Limitations: no limitations History of Present Illness HPI narrative: Patient is a 68-year-old male presenting with chest discomfort. 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 He says that he was walking today your sharp chest pain all across his chest it lasted for about 30 seconds and he had to stop walking. He is now chest pain-free. He says this has never happened to him before. He denies any shortness of breath. He has previously had a pleural effusion when they 1st found his aortic valve abnormality. He says he certainly does not feel like that. Currently pain free. complaint: chest pain Onset (ago): minute(s) Duration: now resolved Onset: during exertion Pain location: substernal Severity: severe Quality: tightness, aching and heaviness Pain radiation: none Relieving factors: rest Exacerbating factors: exertion Related Data Home Medications Medication Instructions Recorded Confirmed Lactobacillus #2-Bifidobacter 1 cap PO DAILY 08/04/18 08/04/18 #1-S. therm 112.5 billion cell capsule acetaminophen 325 mg capsule 325 mg PO Q6H PRN 08/04/18 08/04/18 albuterol sulfate HFA 90 2 puff INHALATION Q6H PRN 08/04/18 08/04/18 mcg/actuation aerosol inhaler amlodipine 10 mg tablet 10 mg PO DAILY 08/04/18 08/04/18 aspirin 81 mg tablet,delayed 81 mg PO DAILY 08/04/18 08/04/18 release atorvastatin 40 mg tablet 40 mg PO DAILY 08/04/18 08/04/18 bupropion HCl SR 150 mg tablet,12 150 mg PO BID 08/04/18 08/04/18 hr sustained-release colchicine 0.6 mg tablet 0.6 mg PO DAILY 08/04/18 08/04/18 disulfiram 250 mg tablet 250 mg PO DAILY 08/04/18 08/04/18 duloxetine 60 mg capsule,delayed 60 mg PO DAILY 08/04/18 08/04/18 release furosemide 20 mg tablet 20 mg PO DAILY 08/04/18 08/04/18 gabapentin 300 mg capsule 300 mg PO DAILY 08/04/18 08/04/18 metoprolol succinate ER 50 mg 50 mg PO DAILY 08/04/18 08/04/18 capsule sprinkle, ext. release 24 hr oxycodone-acetaminophen 5 mg-325 1 tab PO Q4-6H PRN 08/04/18 08/04/[address] 40 mg granules 40 mg PO DAILY 08/04/18 08/04/18 delayed-release for susp in packet potassium chloride ER 10 mEq 10 meq PO DAILY 08/04/18 08/04/18 capsule,extended release sildenafil 50 mg tablet 50 mg PO DAILY PRN 08/04/18 08/04/18 spironolactone 25 mg tablet 25 mg PO DAILY 08/04/18 08/04/18 tadalafil 5 mg tablet 5 mg PO DAILY 08/04/18 08/04/18 tiotropium bromide 18 mcg capsule 1 cap INHALATION DAILY 08/04/18 08/04/18 with inhalation device tramadol 50 mg tablet 50 mg PO DAILY 08/04/18 08/04/18 warfarin 3 mg tablet 3 mg PO DAILY 08/04/18 08/04/18 Allergies Allergy/AdvReac Type Severity Reaction Status Date / Time No Known Drug Allergies Allergy Verified 08/04/18 11:53 Review of Systems Review of Systems GENERAL: Denies chills, fatigue, malaise, fever, sweats, travel HEENT: Denies sinus pain, ear pain, sore throat, difficulty swallowing, neck pa in RESPIRATORY: Denies dyspnea, cough, wheezing, hemoptysis, sputum. CARDIOVASCULAR: See HPI GASTROINTESTINAL: Denies nausea, vomiting, abdominal pain, diarrhea, constipation, melena. : Denies dysuria, frequency, incontinence, hematuria, urinary retention, flank pain. MUSCULOSKELETAL: Denies weakness, joint pain, or bony pain SKIN: No rash, no erythema, no pruritus NEUROLOGIC: Denies weakness, dizziness, headache, numbness, change in speech, confusion PSYCHIATRIC: No concerning psychosocial issues. 12 point review of systems is negative except for those stated above and HPI [facility] Medical History Coronary artery disease (Acute) Hypertension (Acute) Pacemaker (Chronic) Surgical History H/O aortic valve replacement (Acute) Social History Smoking Status: Former smoker Social History Smoking Status: Former smoker Exam Initial Vital Signs Initial Vital Signs: Vital Signs Temperature 98.2 F 09/19/18 11:45 Pulse Rate 73 09/19/18 11:45 Respiratory Rate 19 09/19/18 11:45 Blood Pressure 159/85 H 09/19/18 11:45 Pulse Oximetry 99 09/19/18 11:45 GENERAL: Well-appearing, well-nourished and in no acute distress. HEENT: Head atraumatic,EOMI, pupils reactive, face symmetric, CARDIOVASCULAR: Regular rate bowel noted, scar noted on chest RESPIRATORY: Breath sounds equal bilaterally, no wheezes rales or rhonchi. ABDOMEN: Soft, nontender. Normoactive bowel sounds all 4 quadrants. No guarding or rebound. EXTREMITIES: Normal range of motion, no clubbing or edema. Neurovascularly in tact NEUROLOGICAL: Alert and oriented x4.Normal gait and speech. Cranial nerves II through XII grossly intact. SKIN: Warm, dry, no laceration, no petechiae, no rashes or lesions. Course Orders Ordered: ED Orders 09/19/18 11:30 B Type Natriuretic Peptide Stat Complete Blood Count AUTO DIFF Stat Comprehensive Metabolic Panel Stat Lipase Stat Partial Thromboplastin Time Stat Prothrombin Time INR Stat Troponin & CK Cardiac Panel Stat 09/19/18 11:48 XR chest 1V Stat EKG-12 Lead Stat 09/19/18 14:30 Troponin I Stat Vital Signs - 8 hr 09/19/18 11:45 09/19/18 12:00 09/19/18 12:30 Temperature 98.2 F Pulse Rate 73 70 71 Respiratory Rate 19 19 15 Blood Pressure 159/85 H Blood Pressure [Left Arm] 149/79 H 145/83 H Pulse Oximetry 99 95 97 09/19/18 13:00 09/19/18 14:00 09/19/18 15:00 Temperature Pulse Rate 71 72 73 Respiratory Rate 16 18 16 Blood Pressure Blood Pressure [Left Arm] 144/60 H 149/74 H 151/75 H Pulse Oximetry 98 98 98 09/19/18 16:12 09/19/18 16:36 Temperature 97.9 F Pulse Rate 74 74 Respiratory Rate 16 19 Blood Pressure 148/75 H Blood Pressure [Left Arm] 148/75 H Pulse Oximetry 97 99 MDM - Chest Pain Lab Data Attestation: I reviewed the patient's lab results. Result diagrams: 09/19/18 11:30 09/19/18 11:30 Lab Results 09/19/18 09/19/18 09/19/18 Range/Units 11:30 11:30 11:30 WBC 7.0 (4.5-11.0) X10^3/uL RBC 4.01 L (4.5-5.9) X10^6/uL Hgb 11.7 L (13.5-17.5) g/dL Hct 35.6 L (41-53) % MCV 88.8 (80-100) fL MCH 29.1 (26-34) PG MCHC 32.8 (30-36) % RDW 16.5 H (11.6-14.8) % Plt Count 257 (150-400) X10^3/uL Neut % (Auto) 74.1 (50-75) % Lymph % (Auto) 11.7 L (25-40) % [place] % (Auto) 11.9 (3-14) % Eos % (Auto) 2.0 (2-4) % Baso % (Auto) 0.3 (0-2) % Neut # (Auto) 5200 (6244-4723) /uL Lymph # (Auto) 800 L (6725-0452) /uL [place] # (Auto) 800 (0-900) /uL Eos # (Auto) 100 (0-450) /uL Baso # (Auto) 0 (0-100) /uL PT 32.1 H (10.1-12.7) SECONDS INR 2.7 H (0.9-1.3) APTT 54 H D (26.4-36.2) SECONDS Sodium 140 (137-145) mmol/L Potassium 4.3 (3.4-5.1) mmol/L Chloride 104 (98-107) mmol/L Carbon Dioxide 28 (22-32) mmol/L BUN 18 (9-20) mg/dL Creatinine 0.80 (0.66-1.25) mg/dL Estimated GFR > 60.0 (>60) mL/min BUN/Creatinine Ratio 22.5 H (6-22) Glucose 114 H (80-110) mg/dL Calcium 9.0 (8.4-10.2) mg/dL Total Bilirubin 0.9 (0.2-1.3) mg/dL AST 32 (17-59) IU/L ALT 41 (21-72) IU/L Alkaline Phosphatase 143 H (38-126) U/L Total Creatine Kinase 148 (55-170) U/L CK-MB (CK-2) 1.98 (<2.37) ng/mL CK-MB (CK-2) Rel Index 1.3 L (1.5-5.0) % Troponin I 0.016 (0.01-0.034) ng/mL B-Natriuretic Peptide 489 H (<100) Total Protein 6.9 (6.3-8.2) g/dL Albumin 3.8 (3.5-5.0) g/dL Globulin 3.1 (1.7-4.1) g/dL Albumin/Globulin Ratio 1.2 (1.0-2.8) Lipase 11 L (23-300) U/L /09/02 Range/Units 14:30 WBC (4.5-11.0) X10^3/uL RBC (4.5-5.9) X10^6/uL Hgb (13.5-17.5) g/dL Hct (41-53) % MCV (80-100) fL MCH (26-34) PG MCHC (30-36) % RDW (11.6-14.8) % Plt Count (150-400) X10^3/uL Neut % (Auto) (50-75) % Lymph % (Auto) (25-40) % [place] % (Auto) (3-14) % Eos % (Auto) (2-4) % Baso % (Auto) (0-2) % Neut # (Auto) (3552-0539) /uL Lymph # (Auto) (6600-0252) /uL [place] # (Auto) (0-900) /uL Eos # (Auto) (0-450) /uL Baso # (Auto) (0-100) /uL PT (10.1-12.7) SECONDS INR (0.9-1.3) APTT (26.4-36.2) SECONDS Sodium (137-145) mmol/L Potassium (3.4-5.1) mmol/L Chloride (98-107) mmol/L Carbon Dioxide (22-32) mmol/L BUN (9-20) mg/dL Creatinine (0.66-1.25) mg/dL Estimated GFR (>60) mL/min BUN/Creatinine Ratio (6-22) Glucose (80-110) mg/dL Calcium (8.4-10.2) mg/dL Total Bilirubin (0.2-1.3) mg/dL AST (17-59) IU/L ALT (21-72) IU/L Alkaline Phosphatase (38-126) U/L Total Creatine Kinase (55-170) U/L CK-MB (CK-2) (<2.37) ng/mL CK-MB (CK-2) Rel Index (1.5-5.0) % Troponin I 0.015 (0.01-0.034) ng/mL B-Natriuretic Peptide (<100) Total Protein (6.3-8.2) g/dL Albumin (3.5-5.0) g/dL Globulin (1.7-4.1) g/dL Albumin/Globulin Ratio (1.0-2.8) Lipase (23-300) U/L Imaging Data Chest x-ray: Radiologist's impression: PROCEDURE: XR CHEST 1V INDICATIONS: chest pain TECHNIQUE: One view of the chest was acquired. COMPARISON: [facility], , XR CHEST 1V, 08/04/2018, 16:53. FINDINGS: Surgical changes and devices: A left-sided cardiac pacer/defibrillator is present. Median sternotomy changes are noted. Lungs and pleura: Prominent perihilar interstitial markings are identified which have increased in the interim. No definite area of pulmonary consolidation is evident. There is no definite pneumothorax or effusion. Mediastinum: Mediastinal contours appear normal. Heart size is enlarged. There is aortic atherosclerosis. Bones and chest wall: No suspicious bony lesions. Overlying soft tissues appear unremarkable. IMPRESSION: Cardiomegaly with findings suggesting pulmonary edema. Please correlate clinically. Dictated by: Michael Yepez M.D. on 09/19/2018 at 11:24 ECG Data Attestation: I personally reviewed and interpreted this ECG as follows: Prior ECG tracings: not available for review Interpretation: Paced rhythm rate [address] changes similar to previous EKG EKG 2. Paced rhythm rate [address] changes similar to prior MDM Narrative Medical decision making narrative: 13:20 Dr. Smith cardiology as [facility] has been consulted. I have updated him on patient's symptoms and test results. Sounds like stable angina. Recommend increasing his metoprolol he was previously on 50 mg once a day recommend increasing it to 75mg once daily. I called and spoke with the pharmacy he states that he is on 150 mg once a day to in the morning 1 at night. Supple increase it to 200 mg twice a day. He will follow up with his commercial relationship manager at in [place] Patient has 2-troponins he has been chest pain-free in the ED his entire stay. Discharge Plan Departure Patient Disposition: Home Clinical Impression: Stable angina Discharge Date/Time: 09/19/18 16:36 Interventions: ED Discharge Assessment Last Done: 09/19/18 16:36 Instructions: DI for Angina Activity Restrictions/Additional Instructions: *You have been diagnosed with stable angina *What to do: I spoke with your commercial relationship manager he recommended increasing your metoprolol. Please follow up with her Cardiology will likely need LP stress test. *Continue to take medications as directed Increase metoprolol to 200 mg daily divided by 100 in the morning and 100 at night *Follow up with your primary care provider in 2-3 days *Return to ER if you should have increasing chest pain shortness of breath passing out or any new, worsening or concerning symptoms Prescriptions: No Action atorvastatin 40 mg tablet 40 mg PO DAILY RF: 0 bupropion HCl [Wellbutrin SR] 150 mg tablet sustained-release 12 hr 150 mg PO BID RF: 0 potassium chloride 10 mEq capsule, extended release 10 meq PO DAILY RF: 0 sildenafil 50 mg tablet 50 mg PO DAILY PRN (Reason: Erectile Dysfunction) RF: 0 aspirin [Adult Aspirin Regimen] 81 mg tablet,delayed release (DR/EC) 81 mg PO DAILY RF: 0 tramadol 50 mg tablet 50 mg PO DAILY RF: 0 spironolactone 25 mg tablet 25 mg PO DAILY RF: 0 disulfiram 250 mg tablet 250 mg PO DAILY RF: 0 warfarin 3 mg tablet 3 mg PO DAILY RF: 0 oxycodone-acetaminophen [Percocet] 5-325 mg tablet 1 tab PO Q4-6H PRN (Reason: pain) RF: 0 amlodipine 10 mg tablet 10 mg PO DAILY RF: 0 gabapentin 300 mg capsule 300 mg PO DAILY RF: 0 furosemide 20 mg tablet 20 mg PO DAILY RF: 0 albuterol sulfate [ProAir HFA] 90 mcg/actuation HFA aerosol inhaler 2 puff INHALATION Q6H PRN (Reason: Shortness Of Breath) RF: 0 colchicine 0.6 mg tablet 0.6 mg PO DAILY RF: 0 tadalafil 5 mg tablet 5 mg PO DAILY RF: 0 tiotropium bromide 18 mcg capsule, w/inhalation device 1 cap INHALATION DAILY RF: 0 duloxetine 60 mg capsule,delayed release(DR/EC) 60 mg PO DAILY RF: 0 acetaminophen 325 mg capsule 325 mg PO Q6H PRN (Reason: pain) RF: 0 VSL#3 112.5 billion cell capsule 1 cap PO DAILY RF: 0 pantoprazole [address] for susp in packet 40 mg PO DAILY RF: 0 metoprolol succinate 50 mg cap,sprinkle,ER 24hr dose pack 50 mg PO DAILY RF: 0
[2018-09-19 12:08] LABS: Add Manual Diff / Slide Review NO; Basophils Absolute Auto 0 /uL (0-100); Basophils Percent Auto 0.3 % (0-2); Eosinophils Absolute Auto 100 /uL (0-450); Hematocrit 35.6 % (41-53); Hemoglobin 11.7 g/dL (13.5-17.5); Lymphocytes Absolute Auto 800 /uL (1100-4500); Lymphocytes Percent Auto 11.7 % (25-40); Mean Corpuscular HGB Conc 32.8 % (30-36); Mean Corpuscular Hemoglobin 29.1 PG (26-34); Mean Corpuscular Volume 88.8 fL (80-100); Monocytes Absolute Auto 800 /uL (0-900); Monocytes Percent Auto 11.9 % (3-14); Neutrophils Absolute Auto 5200 /uL (1500-7000); Neutrophils Percent Auto 74.1 % (50-75); Platelet Count 257 X10^3/uL (150-400); Red Blood Cell Count 4.01 X10^6/uL (4.5-5.9); Red Cell Distribution Width 16.5 % (11.6-14.8)
[2018-09-19 12:09] LABS: INR 2.7 (0.9-1.3); Prothrombin Time 32.1 SECONDS (10.1-12.7)
[2018-09-19 12:12] LABS: PTT Partial Thromboplastin Tim 54 SECONDS (26.4-36.2)
[2018-09-19 12:14] LABS: Alanine Aminotransferase 41 IU/L (21-72); Albumin 3.8 g/dL (3.5-5.0); Albumin Globulin Ratio 1.2 (1.0-2.8); Alkaline Phosphatase 143 U/L (38-126); Aspartate Aminotransferase 32 IU/L (17-59); BUN Creatinine Ratio 22.5 (6-22); Bilirubin Total 0.9 mg/dL (0.2-1.3); Blood Urea Nitrogen 18 mg/dL (9-20); Carbon Dioxide 28 mmol/L (22-32); Chloride 104 mmol/L (98-107); Creatine Kinase 148 U/L (55-170); Estimated Glomerular Filt Rate > 60.0 mL/min (>60); Globulin 3.1 g/dL (1.7-4.1); Glucose 114 mg/dL (80-110); HEMOLYSIS < 15 (0-50); Lipase 11 U/L (23-300); Potassium 4.3 mmol/L (3.4-5.1); Sodium 140 mmol/L (137-145); Total Protein 6.9 g/dL (6.3-8.2)
[2018-09-19 12:25] LABS: Troponin I 0.016 ng/mL (0.01-0.034)
[2018-09-19 12:29] LABS: B Type Natriuretic Peptide 489 (<100); CKMB % Relative Index 1.3 % (1.5-5.0); Creatine Kinase MB 1.98 ng/mL (<2.37)
--- NOTE | 2018-09-19 13:14 | PC.NURSE ---
Patient resting quietly. Denies any needs at this time. Advised of need for repeat lab draw and 1430. Denies pain at this time in his chest. States I always have a little dull pain in my right shoulder. It has problems.
[2018-09-19 16:13] LABS: Troponin I 0.015 ng/mL (0.01-0.034)
== END 2018-09-19 16:36 | disposition home or self-care (01) ==
PROVIDERS: Emergency Provider Emergency Medicine
DX: I20.8 Other forms of angina pectoris (principal); Z95.1 Presence of aortocoronary bypass graft
CPT/HCPCS: 36415; 36591; 71045; 80053; 82550; 82553; 83690; 83880; 84484; 85025; 85610; 85730; 93005; 93010; 99284; 99285

== ENCOUNTER → 2018-12-23 11:19 | Outpatient (CLI) | payer MEDICARE, SELFPAY ==
--- NOTE | 2018-12-23 11:21 | DI.RAD.S_ITS ---
PROCEDURE: XR SHOULDER RT MIN 2V INDICATIONS: Shoulder dislocation TECHNIQUE: 3 views of the shoulder were acquired. COMPARISON: None. FINDINGS: Bones: No fractures or dislocations. No suspicious bony lesions. Visualized ribs appear intact. Soft tissues: No suspicious soft tissue calcifications. IMPRESSION: No acute radiographic findings. If there is continued pain, followup exam or additional imaging such as MRI or CT could be performed for further assessment. Dictated by: Dayanara Lewis M.D. on 12/23/2018 at 16:18 Approved by: Dayanara Lewis M.D. on 12/23/2018 at 16:18
== END ==
PROVIDERS: Visit Provider Physical Medicine & Rehabilitation
DX: M25.511 Pain in right shoulder (principal); M24.411 Recurrent dislocation, right shoulder; M47.27 Other spondylosis with radiculopathy, lumbosacral region; M41.50 Other secondary scoliosis, site unspecified; Z95.2 Presence of prosthetic heart valve; Z96.653 Presence of artificial knee joint, bilateral
CPT/HCPCS: 73030; 99214

== ENCOUNTER 2019-02-10 08:15 | Outpatient (RCR) | payer MEDICARE, SELFPAY ==
--- NOTE | 2018-08-18 18:03 | PT.OIE ---
Current Diagnoses Intracardiac thrombosis, not elsewhere classified (08/18/18) Spinal stenosis, lumbar region without neurogenic claudication (08/18/18) Radiculopathy, lumbar region (08/18/18) Lumbago with sciatica, unspecified side (08/18/18) Unspecified abnormalities of gait and mobility (08/18/18) Abnormal posture (08/18/18) Weakness (08/18/18) Encounter for therapeutic drug level monitoring (08/18/18) snf (current) use of anticoagulants (08/18/18) Past Medical History (Last Reviewed 08/04/18 @ 23:22 by BRI Mccall) Pacemaker (Chronic) Provider Visit Care Team Role Provider Type Salome Kee Attending Provider Non-Staff Specialty: Physical Medicine and Rehab Address: [address] [place] [address], [id number] Email: Physical Therapy Initial Evaluation PT-OP-A Visit Information Start: 08/17/18 18:53 Freq: Status: Active Protocol: Document 08/18/18 10:30 [facility] (Rec: 08/18/18 11:16 [facility] [id number]) Out-Patient Physical Therapy Visit Information Visit Information Visit Type Initial Evaluation Visit Start Time 10:30 Visit Stop Time 11:30 Total Visit Minutes 60 Visit Number 1/ Number of ESCROW CLERK Visits 0 PT-OP-B Current Condition Start: 08/17/18 18:53 Freq: Status: Active Protocol: Document 08/18/18 10:30 [facility] (Rec: 08/18/18 11:16 [facility] [id number]) Current Condition History of Current Condition Onset Date 2 months ago flare up Current Complaints LBP & R leg pain History of Current Condition Pt reports 30 year history of back pain with a recent episode. 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 Pt reports he was walking to get the paper about 2 months ago and his R side gave out and pain went down leg and had to grab mailbox to stay up. THis is the first time it has gone down his leg. He went to a doctor who sent him to do PT. Pt reports he has B ant ankle pain that limits his mobility. Reports he has scoliosis. He has talked to doctor about doing traction because manual traction has helped in the past. Prior Treatments and Tests PT on and off over the years; reports xrays; chiropractic in the past Future Testing and Treatments Planned Epidural possibly Treatment Goals Patient/Caregiver Goals Wants to be able to walk and back to walking about a 3 mile walk and at least 1 mile; be able to exercise to lose weight PT-OP-C Subjective Start: 08/17/18 18:53 Freq: Status: Active Protocol: Document 08/18/18 10:30 [facility] (Rec: 08/18/18 11:16 [facility] [id number]) Patient Questionnaires Oswestry Low Back Index Oswestry Score 40 OP-PT Pain Assessment Location low back Pain Location Details R sided ant hip & thigh Intensity 7 Scale Used Numeric (1 - 10) Description Aching Sharp Description- Other 10/10 at worst Frequency Constant Pain Duration about 1 hour if he does heat, stretches & rests Pain Aggravating Factors Standing Walking Lifting Pain Alleviating Factors Heat Sitting Other Pain Alleviating Factors bending stretch; laying down PT-OP-F Manual Assessment Start: 08/17/18 18:53 Freq: Status: Active Protocol: Document 08/18/18 10:30 [facility] (Rec: 08/18/18 11:16 [facility] [id number]) Manual Assessments Soft Tissue Assessment Soft Tissue Mobility Assessment Tightness R paraspinals & QL & glutes R>L Joint Mobility Assessment Joint Mobility Assessment Iliac crest & R greater trochanter higher in standing; PT-OP-G Mobility & Gait Start: 08/17/18 18:53 Freq: Status: Active Protocol: Document 08/18/18 10:30 [facility] (Rec: 08/18/18 11:16 [facility] [id number]) OP Gait Assessment Comments Gait Comments Pt has lat leaning during push off with no ant elevation/ post depression PT-OP-J Posture/Palpation/Skin Start: 08/17/18 18:53 Freq: Status: Active Protocol: Document 08/18/18 10:30 [facility] (Rec: 08/18/18 11:16 [facility] [id number]) Posture Evaluation Loida Postural Classification System Loida Postural Classifications Anterior/Posterior Lumbar Protective Mechanism Left AP 1 Lumbar Protective Mechanism Right AP 1 Lumbar Protective Mechanism Left PA 1 Lumbar Protective Mechanism Right PA 1 PT-OP-K Range of Motion Start: 08/17/18 18:53 Freq: Status: Active Protocol: Document 08/18/18 10:30 [facility] (Rec: 08/18/18 11:16 [facility] [id number]) Lumbar Spine Range of Motion Lumbar Spine Active Degrees Flexion 51 Extension 20 Rotation Left 60 Rotation Right 48 Lateral Flexion Left 15 Lateral Flexion Right 23 ROM Limitations Pain PT-OP-L Special Tests Start: 08/17/18 18:53 Freq: Status: Active Protocol: Document 08/18/18 10:30 [facility] (Rec: 08/18/18 11:16 [facility] [id number]) Special Tests Lumbar Spine Special Tests traction Test Results long axis -relief Straight Leg Raise Test Results positive R; HS tight L Slump Test Results positive R PT-OP-M Strength Start: 08/17/18 18:53 Freq: Status: Active Protocol: Document 08/18/18 10:30 [facility] (Rec: 08/18/18 11:16 [facility] [id number]) Hip Strength Hip Manual Muscle Testing Right Flexion (L2) 4- Good- Abduction 3+ Fair+ External Rotation 4- Good- Internal Rotation 5 Normal Left Flexion (L2) 4- Good- Extension (S1) 3+ Fair+ Abduction 3+ Fair+ External Rotation 4+ Good+ Internal Rotation 5 Normal Knee Strength Knee Manual Muscle Testing Right Flexion (S2) 4+ Good+ Extension (L3) 4 Good Left Flexion (S2) 5 Normal Extension (L3) 5 Normal Ankle/Foot Strength Ankle and Foot Manual Muscle Testing Right Dorsiflexion (L4) 5 Normal Plantarflexion (S1) 4 Good Comments tested seated Left Dorsiflexion (L4) 5 Normal Plantarflexion (S1) 5 Normal Comments tested seated PT-OP-Q Treatments Start: 08/17/18 18:53 Freq: Status: Active Protocol: Document 08/18/18 10:30 [facility] (Rec: 08/18/18 11:16 [facility] [id number]) Therapeutic Exercises Supine Exercises pelvic tilt Supine Exercise Name post Reps/Minutes 5 Comments focus on breathing Sidelying Exercises abd Sidelying Exercise Name hip Side bilateral Reps/Minutes 15 PT-OP-R Modalities Start: 08/17/18 18:53 Freq: Status: Active Protocol: Document 08/18/18 10:30 [facility] (Rec: 08/18/18 17:58 [facility] [id number]) Hot Pack/Cold Pack Treatment Hot Pack Location lumbar Patient Position Hooklying Treatment Duration (minutes) 15 PT-OP-T Assessment and Plan Start: 08/17/18 18:53 Freq: Status: Active Protocol: Document 08/18/18 10:30 [facility] (Rec: 08/18/18 11:16 [facility] [id number]) Physical Therapy Assessment Rehab Potential Rehabilitation Potential Good Evaluation Complexity Number of Personal Factors/Comorbidities 3 or More Number of Body Systems Impaired 4 or More Clinical Presentation at Evaluation Evolving Impairments Impairments Activity Tolerance Balance Functional Activities Functional Mobility Gait Pain Posture ROM Soft Tissue Mobility Strength Goals gait Lock Stitch Channeler Goal (LTG) Pt will be able to amb 1 mile with no more than 2 point on 0 -10 pain scale increase. LTG Duration 10/18/18 SRINATH Short Term Goal (STG) Pt will show an improvement in functional ability with improvement of SRINATH to 15/50. STG Duration 09/17/18 Lock Stitch Channeler Goal (LTG) Pt will show an improvement in functional ability with improvement of SRINATH to 10/50. LTG Duration 10/18/18 strength Short Term Goal (STG) Pt will be indep with appropriate HEP & gym program in order to cont on his pain management & weight management safely. STG Duration 09/17/18 Longterm Goal (LTG) Pt will score 4/5 LPM & 5/5 LE strength in order to demonstrate improved core control & improve his ability to do daily tasks. LTG Duration 10/18/18 Assessment Summary Assessment Pt presents with exhasterbation of chronic LBP with this onset including radicular RLE symptoms. Pt does not have current home program for management or appropriate strength/cardio program for his back in order to work on his ability to lose weight. He is significantly limited in his functional tasks and would benefit from skilled PT to address dec ROM, dec strength, impaired gait & dec activity tolerance. Physical Therapy Plan Frequency and Duration Frequency of Treatment 2x/Week Duration of Treatment 2 months Plan of Care Start Date 08/18/18 Plan of Care End Date 10/18/18 Therapeutic Interventions Therapeutic Interventions Aquatic Therapy Balance Training Gait Training Home Exercise Program Joint Mobilizations Manual Therapy Neuromuscular Re-education Patient/Caregiver Education Self-Care/Home Management Soft Tissue Mobilization Taping Therapeutic Activities Therapeutic Exercises Modalities Cold Pack/Ice Massage Electric Stimulation Hot Packs Infrared Therapy Traction- Mechanical Ultrasound Next Visit Focus/Plan Next Note Type Treatment Note Next Visit Plan Advance core stability & postural training; STM & joint mobility; mechanical traction
--- NOTE | 2018-08-18 18:03 | PT.OPPOC ---
Current Diagnoses Intracardiac thrombosis, not elsewhere classified (08/18/18) Spinal stenosis, lumbar region without neurogenic claudication (08/18/18) Radiculopathy, lumbar region (08/18/18) Lumbago with sciatica, unspecified side (08/18/18) Unspecified abnormalities of gait and mobility (08/18/18) Abnormal posture (08/18/18) Weakness (08/18/18) Encounter for therapeutic drug level monitoring (08/18/18) care home (current) use of anticoagulants (08/18/18) Provider Visit Care Team Role Provider Type Salome Kee Attending Provider Non-Staff Specialty: Physical Medicine and Rehab Address: [address] [place] [address], [facility] Email: Plan Of Care PT-OP-T Assessment and Plan Start: 08/17/18 18:53 Freq: Status: Active Protocol: Document 08/18/18 10:30 [facility] (Rec: 08/18/18 11:16 [facility] [id number]) Physical Therapy Assessment Rehab Potential Rehabilitation Potential Good Evaluation Complexity Number of Personal Factors/Comorbidities 3 or More Number of Body Systems Impaired 4 or More Clinical Presentation at Evaluation Evolving Impairments Impairments Activity Tolerance Balance Functional Activities Functional Mobility Gait Pain Posture ROM Soft Tissue Mobility Strength Goals gait Detention Goal (LTG) Pt will be able to amb 1 mile with no more than 2 point on 0 -10 pain scale increase. LTG Duration 10/18/18 SRINATH Short Term Goal (STG) Pt will show an improvement in functional ability with improvement of SRINATH to 15/50. STG Duration 09/17/18 Detention Goal (LTG) Pt will show an improvement in functional ability with improvement of SRINATH to 10/50. LTG Duration 10/18/18 strength Short Term Goal (STG) Pt will be indep with appropriate HEP & gym program in order to cont on his pain management & weight management safely. STG Duration 09/17/18 District Customs Director Goal (LTG) Pt will score 4/5 LPM & 5/5 LE strength in order to demonstrate improved core control & improve his ability to do daily tasks. LTG Duration 10/18/18 Assessment Summary Assessment Pt presents with exhasterbation of chronic LBP with this onset including radicular RLE symptoms. Pt does not have current home program for management or appropriate strength/cardio program for his back in order to work on his ability to lose weight. He is significantly limited in his functional tasks and would benefit from skilled PT to address dec ROM, dec strength, impaired gait & dec activity tolerance. Physical Therapy Plan Frequency and Duration Frequency of Treatment 2x/Week Duration of Treatment 2 months Plan of Care Start Date 08/18/18 Plan of Care End Date 10/18/18 Therapeutic Interventions Therapeutic Interventions Aquatic Therapy Balance Training Gait Training Home Exercise Program Joint Mobilizations Manual Therapy Neuromuscular Re-education Patient/Caregiver Education Self-Care/Home Management Soft Tissue Mobilization Taping Therapeutic Activities Therapeutic Exercises Modalities Cold Pack/Ice Massage Electric Stimulation Hot Packs Infrared Therapy Traction- Mechanical Ultrasound Next Visit Focus/Plan Next Note Type Treatment Note Next Visit Plan Advance core stability & postural training; STM & joint mobility; mechanical traction Plan of Care Dates Plan of Care Start Date 08/18/18 Plan of Care End Date 10/18/18 Please Sign and Return: I have reviewed this Plan of Care and certify that the skilled therapy services above are required to meet the patient?s needs. Physician Signature Date Printed Name and Credentials Clinical Instructor Signature Printed Name and Credentials
--- NOTE | 2018-08-20 10:43 | PT.OTN ---
Current Diagnoses Intracardiac thrombosis, not elsewhere classified (08/20/18) Spinal stenosis, lumbar region without neurogenic claudication (08/20/18) Radiculopathy, lumbar region (08/20/18) Lumbago with sciatica, unspecified side (08/20/18) Unspecified abnormalities of gait and mobility (08/20/18) Abnormal posture (08/20/18) Weakness (08/20/18) Encounter for therapeutic drug level monitoring (08/20/18) [facility] (current) use of anticoagulants (08/20/18) Physical Therapy Treatment Note PT-OP-A Visit Information Start: 08/17/18 18:53 Freq: Status: Active Protocol: Document 08/20/18 09:50 [facility] (Rec: 08/20/18 10:43 [facility] [id number]) Out-Patient Physical Therapy Visit Information Visit Information Visit Type Treatment Note Visit Start Time 09:50 Visit Stop Time 10:45 Total Visit Minutes 55 Visit Number 2/10 Number of BOOSTER PUMP OILER Visits 0 PT-OP-B Current Condition Start: 08/17/18 18:53 Freq: Status: Active Protocol: Document 08/18/18 10:30 [facility] (Rec: 08/18/18 11:16 [facility] [id number]) Current Condition History of Current Condition Onset Date 2 months ago flare up Current Complaints LBP & R leg pain History of Current Condition Pt reports 30 year history of back pain with a recent episode. 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 Pt reports he was walking to get the paper about 2 months ago and his R side gave out and pain went down leg and had to grab mailbox to stay up. THis is the first time it has gone down his leg. He went to a doctor who sent him to do PT. Pt reports he has B ant ankle pain that limits his mobility. Reports he has scoliosis. He has talked to doctor about doing traction because manual traction has helped in the past. Prior Treatments and Tests PT on and off over the years; reports xrays; chiropractic in the past Future Testing and Treatments Planned Epidural possibly Treatment Goals Patient/Caregiver Goals Wants to be able to walk and back to walking about a 3 mile walk and at least 1 mile; be able to exercise to lose weight PT-OP-C Subjective Start: 08/17/18 18:53 Freq: Status: Active Protocol: Document 08/20/18 09:50 [facility] (Rec: 08/20/18 10:43 [facility] [id number]) OP-PT Subjective Patient Comments Patient Comments Pt reports he did his exercises. PT-OP-F Manual Assessment Start: 08/17/18 18:53 Freq: Status: Active Protocol: Document 08/18/18 10:30 [facility] (Rec: 08/18/18 11:16 [facility] [id number]) Manual Assessments Soft Tissue Assessment Soft Tissue Mobility Assessment Tightness R paraspinals & QL & glutes R>L Joint Mobility Assessment Joint Mobility Assessment Iliac crest & R greater trochanter higher in standing; PT-OP-G Mobility & Gait Start: 08/17/18 18:53 Freq: Status: Active Protocol: Document 08/18/18 10:30 [facility] (Rec: 08/18/18 11:16 [facility] [id number]) OP Gait Assessment Comments Gait Comments Pt has lat leaning during push off with no ant elevation/ post depression PT-OP-J Posture/Palpation/Skin Start: 08/17/18 18:53 Freq: Status: Active Protocol: Document 08/18/18 10:30 [facility] (Rec: 08/18/18 11:16 [facility] [id number]) Posture Evaluation Loida Postural Classification System Loida Postural Classifications Anterior/Posterior Lumbar Protective Mechanism Left AP 1 Lumbar Protective Mechanism Right AP 1 Lumbar Protective Mechanism Left PA 1 Lumbar Protective Mechanism Right PA 1 PT-OP-K Range of Motion Start: 08/17/18 18:53 Freq: Status: Active Protocol: Document 08/18/18 10:30 [facility] (Rec: 08/18/18 11:16 [facility] [id number]) Lumbar Spine Range of Motion Lumbar Spine Active Degrees Flexion 51 Extension 20 Rotation Left 60 Rotation Right 48 Lateral Flexion Left 15 Lateral Flexion Right 23 ROM Limitations Pain PT-OP-L Special Tests Start: 08/17/18 18:53 Freq: Status: Active Protocol: Document 08/18/18 10:30 [facility] (Rec: 08/18/18 11:16 [facility] [id number]) Special Tests Lumbar Spine Special Tests traction Test Results long axis -relief Straight Leg Raise Test Results positive R; HS tight L Slump Test Results positive R PT-OP-M Strength Start: 08/17/18 18:53 Freq: Status: Active Protocol: Document 08/18/18 10:30 [facility] (Rec: 08/18/18 11:16 [facility] [id number]) Hip Strength Hip Manual Muscle Testing Right Flexion (L2) 4- Good- Abduction 3+ Fair+ External Rotation 4- Good- Internal Rotation 5 Normal Left Flexion (L2) 4- Good- Extension (S1) 3+ Fair+ Abduction 3+ Fair+ External Rotation 4+ Good+ Internal Rotation 5 Normal Knee Strength Knee Manual Muscle Testing Right Flexion (S2) 4+ Good+ Extension (L3) 4 Good Left Flexion (S2) 5 Normal Extension (L3) 5 Normal Ankle/Foot Strength Ankle and Foot Manual Muscle Testing Right Dorsiflexion (L4) 5 Normal Plantarflexion (S1) 4 Good Comments tested seated Left Dorsiflexion (L4) 5 Normal Plantarflexion (S1) 5 Normal Comments tested seated PT-OP-Q Treatments Start: 08/17/18 18:53 Freq: Status: Active Protocol: Document 08/20/18 09:50 [facility] (Rec: 08/20/18 10:43 [facility] [id number]) Cardio Equipment Recumbent Stepper (Sci-Fit) Duration (Minutes) 7 Resistance 4 Seat Position 15 Gym Equipment Shuttle Recovery Bilateral Squats Resistance 100# Shuttle Recovery Platform Stable Reps/Time 2 sets to fatigue Therapeutic Exercises Supine Exercises pelvic tilt Supine Exercise Name post Reps/Minutes 15 Comments focus on breathing Sidelying Exercises abd Sidelying Exercise Name hip Side bilateral Reps/Minutes 15 Manual Therapy Treatment Soft Tissue Mobilization QL & ES R Body Location R Mobilization Type Rolling Intensity/Depth Moderate PT-OP-R Modalities Start: 08/17/18 18:53 Freq: Status: Active Protocol: Document 08/20/18 09:50 [facility] (Rec: 08/20/18 10:43 [facility] [id number]) Hot Pack/Cold Pack Treatment Hot Pack Location lumbar Patient Position Hooklying Treatment Duration (minutes) 15 Spinal Traction Traction Treatment Lumbar Method Mechanical Patient Position Hooklying Duration of Treatment (Minutes) 10 Traction Treatment Comment Urvashi PT-OP-T Assessment and Plan Start: 08/17/18 18:53 Freq: Status: Active Protocol: Document 08/20/18 09:50 [facility] (Rec: 08/20/18 10:43 [facility] [id number]) Physical Therapy Assessment Goals gait Biology Tutor Goal (LTG) Pt will be able to amb 1 mile with no more than 2 point on 0 -10 pain scale increase. LTG Duration 10/18/18 SRINATH Short Term Goal (STG) Pt will show an improvement in functional ability with improvement of SRINATH to 15/50. STG Duration 09/17/18 Snf Goal (LTG) Pt will show an improvement in functional ability with improvement of SRINATH to 10/50. LTG Duration 10/18/18 strength Short Term Goal (STG) Pt will be indep with appropriate HEP & gym program in order to cont on his pain management & weight management safely. STG Duration 09/17/18 Snf Goal (LTG) Pt will score 4/5 LPM & 5/5 LE strength in order to demonstrate improved core control & improve his ability to do daily tasks. LTG Duration 10/18/18 Assessment Summary Assessment Pt was able to tolerate gym machines well without inc pain and required cueing with his HEP. Pt reports relief with traction and no increase in pain. Relief with heat. Physical Therapy Plan Frequency and Duration Frequency of Treatment 2x/Week Duration of Treatment 2 months Plan of Care Start Date 08/18/18 Plan of Care End Date 10/18/18 Next Visit Focus/Plan Next Note Type Treatment Note Next Visit Plan Advance core stability & assess tolerance to traction
--- NOTE | 2018-08-24 09:51 | PT.OTN ---
Current Diagnoses Intracardiac thrombosis, not elsewhere classified (08/24/18) Spinal stenosis, lumbar region without neurogenic claudication (08/24/18) Radiculopathy, lumbar region (08/24/18) Lumbago with sciatica, unspecified side (08/24/18) Unspecified abnormalities of gait and mobility (08/24/18) Abnormal posture (08/24/18) Weakness (08/24/18) Encounter for therapeutic drug level monitoring (08/24/18) [facility] (current) use of anticoagulants (08/24/18) Physical Therapy Treatment Note PT-OP-A Visit Information Start: 08/17/18 18:53 Freq: Status: Active Protocol: Document 08/24/18 09:00 [facility] (Rec: 08/24/18 09:51 [facility] [id number]) Out-Patient Physical Therapy Visit Information Visit Information Visit Type Treatment Note Visit Start Time 09:00 Visit Stop Time 09:55 Total Visit Minutes 55 Visit Number 3/10 Number of LPN HOME HEALTH Visits 0 PT-OP-B Current Condition Start: 08/17/18 18:53 Freq: Status: Active Protocol: Document 08/18/18 10:30 [facility] (Rec: 08/18/18 11:16 [facility] [id number]) Current Condition History of Current Condition Onset Date 2 months ago flare up Current Complaints LBP & R leg pain History of Current Condition Pt reports 30 year history of back pain with a recent episode. 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 Pt reports he was walking to get the paper about 2 months ago and his R side gave out and pain went down leg and had to grab mailbox to stay up. THis is the first time it has gone down his leg. He went to a doctor who sent him to do PT. Pt reports he has B ant ankle pain that limits his mobility. Reports he has scoliosis. He has talked to doctor about doing traction because manual traction has helped in the past. Prior Treatments and Tests PT on and off over the years; reports xrays; chiropractic in the past Future Testing and Treatments Planned Epidural possibly Treatment Goals Patient/Caregiver Goals Wants to be able to walk and back to walking about a 3 mile walk and at least 1 mile; be able to exercise to lose weight PT-OP-C Subjective Start: 08/17/18 18:53 Freq: Status: Active Protocol: Document 08/24/18 09:00 [facility] (Rec: 08/24/18 09:51 [facility] [id number]) OP-PT Subjective Patient Comments Patient Comments Pt reports he did not do his exercises. Reports he felt good after last session. PT-OP-F Manual Assessment Start: 08/17/18 18:53 Freq: Status: Active Protocol: Document 08/18/18 10:30 [facility] (Rec: 08/18/18 11:16 [facility] [id number]) Manual Assessments Soft Tissue Assessment Soft Tissue Mobility Assessment Tightness R paraspinals & QL & glutes R>L Joint Mobility Assessment Joint Mobility Assessment Iliac crest & R greater trochanter higher in standing; PT-OP-G Mobility & Gait Start: 08/17/18 18:53 Freq: Status: Active Protocol: Document 08/18/18 10:30 [facility] (Rec: 08/18/18 11:16 [facility] [id number]) OP Gait Assessment Comments Gait Comments Pt has lat leaning during push off with no ant elevation/ post depression PT-OP-J Posture/Palpation/Skin Start: 08/17/18 18:53 Freq: Status: Active Protocol: Document 08/18/18 10:30 [facility] (Rec: 08/18/18 11:16 [facility] [id number]) Posture Evaluation L[place]a Postural Classification System L[place]a Postural Classifications Anterior/Posterior Lumbar Protective Mechanism Left AP 1 Lumbar Protective Mechanism Right AP 1 Lumbar Protective Mechanism Left PA 1 Lumbar Protective Mechanism Right PA 1 PT-OP-K Range of Motion Start: 08/17/18 18:53 Freq: Status: Active Protocol: Document 08/18/18 10:30 [facility] (Rec: 08/18/18 11:16 [facility] [id number]) Lumbar Spine Range of Motion Lumbar Spine Active Degrees Flexion 51 Extension 20 Rotation Left 60 Rotation Right 48 Lateral Flexion Left 15 Lateral Flexion Right 23 ROM Limitations Pain PT-OP-L Special Tests Start: 08/17/18 18:53 Freq: Status: Active Protocol: Document 08/18/18 10:30 [facility] (Rec: 08/18/18 11:16 [facility] [id number]) Special Tests Lumbar Spine Special Tests traction Test Results long axis -relief Straight Leg Raise Test Results positive R; HS tight L Slump Test Results positive R PT-OP-M Strength Start: 08/17/18 18:53 Freq: Status: Active Protocol: Document 08/18/18 10:30 [facility] (Rec: 08/18/18 11:16 [facility] [id number]) Hip Strength Hip Manual Muscle Testing Right Flexion (L2) 4- Good- Abduction 3+ Fair+ External Rotation 4- Good- Internal Rotation 5 Normal Left Flexion (L2) 4- Good- Extension (S1) 3+ Fair+ Abduction 3+ Fair+ External Rotation 4+ Good+ Internal Rotation 5 Normal Knee Strength Knee Manual Muscle Testing Right Flexion (S2) 4+ Good+ Extension (L3) 4 Good Left Flexion (S2) 5 Normal Extension (L3) 5 Normal Ankle/Foot Strength Ankle and Foot Manual Muscle Testing Right Dorsiflexion (L4) 5 Normal Plantarflexion (S1) 4 Good Comments tested seated Left Dorsiflexion (L4) 5 Normal Plantarflexion (S1) 5 Normal Comments tested seated PT-OP-Q Treatments Start: 08/17/18 18:53 Freq: Status: Active Protocol: Document 08/24/18 09:00 [facility] (Rec: 08/24/18 09:51 [facility] [id number]) Cardio Equipment Recumbent Bicycle Duration (Minutes) 6 Resistance 6 Seat Position 10 Gym Equipment Cable Column (Body Solid) Hip Abduction Resistance 3 plates Reps/Time 2 sets to fatigue Shuttle Recovery Bilateral Squats Resistance 100# Shuttle Recovery Platform Stable Reps/Time 2 sets to fatigue Manual Therapy Treatment Soft Tissue Mobilization QL & ES R Body Location R Mobilization Type Rolling Intensity/Depth Moderate PT-OP-R Modalities Start: 08/17/18 18:53 Freq: Status: Active Protocol: Document 08/24/18 09:00 [facility] (Rec: 08/24/18 09:51 [facility] [id number]) Hot Pack/Cold Pack Treatment Hot Pack Location lumbar Patient Position Hooklying Treatment Duration (minutes) 15 Spinal Traction Traction Treatment Lumbar Method Mechanical Patient Position Hooklying Force Applied (Pounds) 55 Duration of Treatment (Minutes) 10 Traction Treatment Comment Urvashi PT-OP-T Assessment and Plan Start: 08/17/18 18:53 Freq: Status: Active Protocol: Document 08/24/18 09:00 [facility] (Rec: 08/24/18 09:51 [facility] [id number]) Physical Therapy Assessment Goals gait Fpc Goal (LTG) Pt will be able to amb 1 mile with no more than 2 point on 0 -10 pain scale increase. LTG Duration 10/18/18 SRINATH Short Term Goal (STG) Pt will show an improvement in functional ability with improvement of SRINATH to 15/50. STG Duration 09/17/18 Communication Electronic Technician Goal (LTG) Pt will show an improvement in functional ability with improvement of SRINATH to 10/50. LTG Duration 10/18/18 strength Short Term Goal (STG) Pt will be indep with appropriate HEP & gym program in order to cont on his pain management & weight management safely. STG Duration 09/17/18 Communication Electronic Technician Goal (LTG) Pt will score 4/5 LPM & 5/5 LE strength in order to demonstrate improved core control & improve his ability to do daily tasks. LTG Duration 10/18/18 Assessment Summary Assessment Pt able to tolerate new exercise machines today without inc pain and was educated on use of these gym options. He required dec cueing for breathing today and was educated on starting small bouts of walking as tolerated. Physical Therapy Plan Frequency and Duration Frequency of Treatment 2x/Week Duration of Treatment 2 months Plan of Care Start Date 08/18/18 Plan of Care End Date 10/18/18 Next Visit Focus/Plan Next Note Type Treatment Note Next Visit Plan Cont to advance core stability & encourage HEP independence
--- NOTE | 2018-08-28 15:55 | PT.OTN ---
Current Diagnoses Intracardiac thrombosis, not elsewhere classified (08/28/18) Spinal stenosis, lumbar region without neurogenic claudication (08/28/18) Radiculopathy, lumbar region (08/28/18) Lumbago with sciatica, unspecified side (08/28/18) Unspecified abnormalities of gait and mobility (08/28/18) Abnormal posture (08/28/18) Weakness (08/28/18) Encounter for therapeutic drug level monitoring (08/28/18) detention (current) use of anticoagulants (08/28/18) Physical Therapy Treatment Note PT-OP-A Visit Information Start: 08/17/18 18:53 Freq: Status: Active Protocol: Document 08/28/18 12:30 [facility] (Rec: 08/28/18 15:55 [facility] [id number]) Out-Patient Physical Therapy Visit Information Visit Information Visit Type Aquatic Treatment Note Visit Start Time 12:30 Visit Stop Time 13:15 Total Visit Minutes 45 Visit Number 4/10 Number of BLOCKER HAND Visits 1 PT-OP-B Current Condition Start: 08/17/18 18:53 Freq: Status: Active Protocol: Document 08/18/18 10:30 [facility] (Rec: 08/18/18 11:16 [facility] [id number]) Current Condition History of Current Condition Onset Date 2 months ago flare up Current Complaints LBP & R leg pain History of Current Condition Pt reports 30 year history of back pain with a recent episode. 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 Pt reports he was walking to get the paper about 2 months ago and his R side gave out and pain went down leg and had to grab mailbox to stay up. THis is the first time it has gone down his leg. He went to a doctor who sent him to do PT. Pt reports he has B ant ankle pain that limits his mobility. Reports he has scoliosis. He has talked to doctor about doing traction because manual traction has helped in the past. Prior Treatments and Tests PT on and off over the years; reports xrays; chiropractic in the past Future Testing and Treatments Planned Epidural possibly Treatment Goals Patient/Caregiver Goals Wants to be able to walk and back to walking about a 3 mile walk and at least 1 mile; be able to exercise to lose weight PT-OP-C Subjective Start: 08/17/18 18:53 Freq: Status: Active Protocol: Document 08/28/18 12:30 [facility] (Rec: 08/28/18 15:55 [facility] [id number]) OP-PT Subjective Patient Comments Patient Comments Pt states he is not experiencing pain right now, just back stiffness. Reports having cortisone injection which reduced the pain. PT-OP-F Manual Assessment Start: 08/17/18 18:53 Freq: Status: Active Protocol: Document 08/18/18 10:30 [facility] (Rec: 08/18/18 11:16 [facility] [id number]) Manual Assessments Soft Tissue Assessment Soft Tissue Mobility Assessment Tightness R paraspinals & QL & glutes R>L Joint Mobility Assessment Joint Mobility Assessment Iliac crest & R greater trochanter higher in standing; PT-OP-G Mobility & Gait Start: 08/17/18 18:53 Freq: Status: Active Protocol: Document 08/18/18 10:30 [facility] (Rec: 08/18/18 11:16 [facility] [id number]) OP Gait Assessment Comments Gait Comments Pt has lat leaning during push off with no ant elevation/ post depression PT-OP-J Posture/Palpation/Skin Start: 08/17/18 18:53 Freq: Status: Active Protocol: Document 08/18/18 10:30 [facility] (Rec: 08/18/18 11:16 [facility] [id number]) Posture Evaluation [place] Postural Classification System [place] Postural Classifications Anterior/Posterior Lumbar Protective Mechanism Left AP 1 Lumbar Protective Mechanism Right AP 1 Lumbar Protective Mechanism Left PA 1 Lumbar Protective Mechanism Right PA 1 PT-OP-K Range of Motion Start: 08/17/18 18:53 Freq: Status: Active Protocol: Document 08/18/18 10:30 [facility] (Rec: 08/18/18 11:16 [facility] [id number]) Lumbar Spine Range of Motion Lumbar Spine Active Degrees Flexion 51 Extension 20 Rotation Left 60 Rotation Right 48 Lateral Flexion Left 15 Lateral Flexion Right 23 ROM Limitations Pain PT-OP-L Special Tests Start: 08/17/18 18:53 Freq: Status: Active Protocol: Document 08/18/18 10:30 [facility] (Rec: 08/18/18 11:16 [facility] [id number]) Special Tests Lumbar Spine Special Tests traction Test Results long axis -relief Straight Leg Raise Test Results positive R; HS tight L Slump Test Results positive R PT-OP-M Strength Start: 08/17/18 18:53 Freq: Status: Active Protocol: Document 08/18/18 10:30 [facility] (Rec: 08/18/18 11:16 [facility] [id number]) Hip Strength Hip Manual Muscle Testing Right Flexion (L2) 4- Good- Abduction 3+ Fair+ External Rotation 4- Good- Internal Rotation 5 Normal Left Flexion (L2) 4- Good- Extension (S1) 3+ Fair+ Abduction 3+ Fair+ External Rotation 4+ Good+ Internal Rotation 5 Normal Knee Strength Knee Manual Muscle Testing Right Flexion (S2) 4+ Good+ Extension (L3) 4 Good Left Flexion (S2) 5 Normal Extension (L3) 5 Normal Ankle/Foot Strength Ankle and Foot Manual Muscle Testing Right Dorsiflexion (L4) 5 Normal Plantarflexion (S1) 4 Good Comments tested seated Left Dorsiflexion (L4) 5 Normal Plantarflexion (S1) 5 Normal Comments tested seated PT-OP-Q Treatments Start: 08/17/18 18:53 Freq: Status: Active Protocol: Document 08/24/18 09:00 [facility] (Rec: 08/24/18 09:51 [facility] [id number]) Cardio Equipment Recumbent Bicycle Duration (Minutes) 6 Resistance 6 Seat Position 10 Gym Equipment Cable Column (Body Solid) Hip Abduction Resistance 3 plates Reps/Time 2 sets to fatigue Shuttle Recovery Bilateral Squats Resistance 100# Shuttle Recovery Platform Stable Reps/Time 2 sets to fatigue Manual Therapy Treatment Soft Tissue Mobilization QL & ES R Body Location R Mobilization Type Rolling Intensity/Depth Moderate PT-OP-R Modalities Start: 08/17/18 18:53 Freq: Status: Active Protocol: Document 08/24/18 09:00 [facility] (Rec: 08/24/18 09:51 [facility] [id number]) Hot Pack/Cold Pack Treatment Hot Pack Location lumbar Patient Position Hooklying Treatment Duration (minutes) 15 Spinal Traction Traction Treatment Lumbar Method Mechanical Patient Position Hooklying Force Applied (Pounds) 55 Duration of Treatment (Minutes) 10 Traction Treatment Comment Urvashi PT-OP-S Aquatic Treatment Start: 08/28/18 15:27 Freq: Status: Active Protocol: Document 08/28/18 12:30 [facility] (Rec: 08/28/18 15:55 [facility]J [id number]) Aquatics Treatment Pool Entry/Exit Pool Entry/Exit Method Stairs Assistance Standby Assistance Verbal Cues Water Walking Sideways Water Level Chest Level Level of Assistance Standby Assistance Verbal Cues Monster Walk Water Level Chest Level Level of Assistance Standby Assistance Verbal Cues [place] May Water Level Chest Level Level of Assistance Standby Assistance Verbal Cues Backwards Water Level Chest Level Level of Assistance Standby Assistance Verbal Cues Forwards Water Level Chest Level Level of Assistance Standby Assistance Verbal Cues Comments cues for posture and recrip gait pattern Lower Extremity Exercises squats at wall Water Level Chest Level Comments cuing for mm activation sequence Hs curls Body Position Standing Water Level Chest Level Comments manual assist for posture flex/ext, ab/ad Details at wall Water Level Chest Level Reps/Duration 10 bilat Comments gentle mvmts Lower Extremity Stretches SKTC bilat Details at wall Water Level Chest Level Reps/Duration 2 x 30 Comments with posterior pelvic tilt HS, ITB Details standing at wall Equipment Small Noodle Reps/Duration 2 x 30 Upper Extremity Exercises flex/ext, ab/ad, horiz ab/ad Body Position Standing Water Level Chest Level Reps/Duration 10 each Comments cues for core stabilization Spinal Exercises squat at wall Details facing wall for support Water Level Chest Level Reps/Duration 10 Comments mm sequence activation Balance SLS Details hand hold Reps/Duration 2 min alternating perturbations Body Position Standing Water Level Chest Level Reps/Duration 2 min Comments cues for core activation Erath Activities Erath Activities Bicycle [place] Hip Abduction/Adduction Equipment blue float Duration 15 min Comments gentle movements encouraging glute activation and upright posture Manual Techniques Aquatic Manual Traction wall hang with 2.5 wts 8 min PT-OP-T Assessment and Plan Start: 08/17/18 18:53 Freq: Status: Active Protocol: Document 08/28/18 12:30 [facility] (Rec: 08/28/18 15:55 [facility] [id number]) Physical Therapy Assessment Rehab Potential Rehabilitation Potential Good Evaluation Complexity Number of Personal Factors/Comorbidities 3 or More Number of Body Systems Impaired 4 or More Clinical Presentation at Evaluation Evolving Impairments Impairments Activity Tolerance Balance Functional Activities Functional Mobility Gait Pain Posture ROM Soft Tissue Mobility Strength Other Concerns Fall Risk walking on pool deck Goals gait Group Home Goal (LTG) Pt will be able to amb 1 mile with no more than 2 point on 0 -10 pain scale increase. LTG Duration 10/18/18 SRINATH Short Term Goal (STG) Pt will show an improvement in functional ability with improvement of SRINATH to 15/50. STG Duration 09/17/18 Group Home Goal (LTG) Pt will show an improvement in functional ability with improvement of SRINATH to 10/50. LTG Duration 10/18/18 strength Short Term Goal (STG) Pt will be indep with appropriate HEP & gym program in order to cont on his pain management & weight management safely. STG Duration 09/17/18 Student Affairs Vice President Goal (LTG) Pt will score 4/5 LPM & 5/5 LE strength in order to demonstrate improved core control & improve his ability to do daily tasks. LTG Duration 10/18/18 Assessment Summary Assessment Pt directed to keep exercises gentle due to recent injection . Requires cuing for posture and muscle activation. Tolerated exercises well. Physical Therapy Plan Frequency and Duration Frequency of Treatment 2x/Week Duration of Treatment 2 months Plan of Care Start Date 08/18/18 Plan of Care End Date 10/18/18 Therapeutic Interventions Therapeutic Interventions Aquatic Therapy Balance Training Gait Training Home Exercise Program Joint Mobilizations Manual Therapy Neuromuscular Re-education Patient/Caregiver Education Self-Care/Home Management Soft Tissue Mobilization Taping Therapeutic Activities Therapeutic Exercises Modalities Cold Pack/Ice Massage Electric Stimulation Hot Packs Infrared Therapy Traction- Mechanical Ultrasound Next Visit Focus/Plan Next Note Type Treatment Note Next Visit Plan Cont to advance core stability & encourage HEP independence, Increase intensity as tolerated focusing on glute and core strength.
--- NOTE | 2018-08-31 14:09 | PT.OTN ---
Current Diagnoses Intracardiac thrombosis, not elsewhere classified (08/28/18) Spinal stenosis, lumbar region without neurogenic claudication (08/28/18) Radiculopathy, lumbar region (08/28/18) Lumbago with sciatica, unspecified side (08/28/18) Unspecified abnormalities of gait and mobility (08/28/18) Abnormal posture (08/28/18) Weakness (08/28/18) Encounter for therapeutic drug level monitoring (08/28/18) [facility] (current) use of anticoagulants (08/28/18) Physical Therapy Treatment Note PT-OP-A Visit Information Start: 08/17/18 18:53 Freq: Status: Active Protocol: Document 08/28/18 12:30 LJ (Rec: 08/28/18 15:55 LJ [id number]) Out-Patient Physical Therapy Visit Information Visit Information Visit Type Aquatic Treatment Note Visit Start Time 12:30 Visit Stop Time 13:15 Total Visit Minutes 45 Visit Number 4/10 Number of PHOTOGRAPHIC LABORATORY TECHNICIAN Visits 1 PT-OP-B Current Condition Start: 08/17/18 18:53 Freq: Status: Active Protocol: Document 08/18/18 10:30 [facility] (Rec: 08/18/18 11:16 [facility] [id number]) Current Condition History of Current Condition Onset Date 2 months ago flare up Current Complaints LBP & R leg pain History of Current Condition Pt reports 30 year history of back pain with a recent episode. 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 Pt reports he was walking to get the paper about 2 months ago and his R side gave out and pain went down leg and had to grab mailbox to stay up. THis is the first time it has gone down his leg. He went to a doctor who sent him to do PT. Pt reports he has B ant ankle pain that limits his mobility. Reports he has scoliosis. He has talked to doctor about doing traction because manual traction has helped in the past. Prior Treatments and Tests PT on and off over the years; reports xrays; chiropractic in the past Future Testing and Treatments Planned Epidural possibly Treatment Goals Patient/Caregiver Goals Wants to be able to walk and back to walking about a 3 mile walk and at least 1 mile; be able to exercise to lose weight PT-OP-C Subjective Start: 08/17/18 18:53 Freq: Status: Active Protocol: Document 08/31/18 14:09 LJ (Rec: 08/31/18 14:09 LJ [id number]) OP-PT Subjective Patient Comments Patient Comments Now show PT-OP-F Manual Assessment Start: 08/17/18 18:53 Freq: Status: Active Protocol: Document 08/18/18 10:30 LR (Rec: 08/18/18 11:16 [facility] [id number]) Manual Assessments Soft Tissue Assessment Soft Tissue Mobility Assessment Tightness R paraspinals & QL & glutes R>L Joint Mobility Assessment Joint Mobility Assessment Iliac crest & R greater trochanter higher in standing; PT-OP-G Mobility & Gait Start: 08/17/18 18:53 Freq: Status: Active Protocol: Document 08/18/18 10:30 LR (Rec: 08/18/18 11:16 [facility] [id number]) OP Gait Assessment Comments Gait Comments Pt has lat leaning during push off with no ant elevation/ post depression PT-OP-J Posture/Palpation/Skin Start: 08/17/18 18:53 Freq: Status: Active Protocol: Document 08/18/18 10:30 [facility] (Rec: 08/18/18 11:16 [facility] [id number]) Posture Evaluation [place] Postural Classification System [place] Postural Classifications Anterior/Posterior Lumbar Protective Mechanism Left AP 1 Lumbar Protective Mechanism Right AP 1 Lumbar Protective Mechanism Left PA 1 Lumbar Protective Mechanism Right PA 1 PT-OP-K Range of Motion Start: 08/17/18 18:53 Freq: Status: Active Protocol: Document 08/18/18 10:30 [facility] (Rec: 08/18/18 11:16 [facility] [id number]) Lumbar Spine Range of Motion Lumbar Spine Active Degrees Flexion 51 Extension 20 Rotation Left 60 Rotation Right 48 Lateral Flexion Left 15 Lateral Flexion Right 23 ROM Limitations Pain PT-OP-L Special Tests Start: 08/17/18 18:53 Freq: Status: Active Protocol: Document 08/18/18 10:30 [facility] (Rec: 08/18/18 11:16 [facility] [id number]) Special Tests Lumbar Spine Special Tests traction Test Results long axis -relief Straight Leg Raise Test Results positive R; HS tight L Slump Test Results positive R PT-OP-M Strength Start: 08/17/18 18:53 Freq: Status: Active Protocol: Document 08/18/18 10:30 [facility] (Rec: 08/18/18 11:16 [facility] [id number]) Hip Strength Hip Manual Muscle Testing Right Flexion (L2) 4- Good- Abduction 3+ Fair+ External Rotation 4- Good- Internal Rotation 5 Normal Left Flexion (L2) 4- Good- Extension (S1) 3+ Fair+ Abduction 3+ Fair+ External Rotation 4+ Good+ Internal Rotation 5 Normal Knee Strength Knee Manual Muscle Testing Right Flexion (S2) 4+ Good+ Extension (L3) 4 Good Left Flexion (S2) 5 Normal Extension (L3) 5 Normal Ankle/Foot Strength Ankle and Foot Manual Muscle Testing Right Dorsiflexion (L4) 5 Normal Plantarflexion (S1) 4 Good Comments tested seated Left Dorsiflexion (L4) 5 Normal Plantarflexion (S1) 5 Normal Comments tested seated PT-OP-Q Treatments Start: 08/17/18 18:53 Freq: Status: Active Protocol: Document 08/24/18 09:00 [facility] (Rec: 08/24/18 09:51 [facility] [id number]) Cardio Equipment Recumbent Bicycle Duration (Minutes) 6 Resistance 6 Seat Position 10 Gym Equipment Cable Column (Body Solid) Hip Abduction Resistance 3 plates Reps/Time 2 sets to fatigue Shuttle Recovery Bilateral Squats Resistance 100# Shuttle Recovery Platform Stable Reps/Time 2 sets to fatigue Manual Therapy Treatment Soft Tissue Mobilization QL & ES R Body Location R Mobilization Type Rolling Intensity/Depth Moderate PT-OP-R Modalities Start: 08/17/18 18:53 Freq: Status: Active Protocol: Document 08/24/18 09:00 [facility] (Rec: 08/24/18 09:51 [facility] [id number]) Hot Pack/Cold Pack Treatment Hot Pack Location lumbar Patient Position Hooklying Treatment Duration (minutes) 15 Spinal Traction Traction Treatment Lumbar Method Mechanical Patient Position Hooklying Force Applied (Pounds) 55 Duration of Treatment (Minutes) 10 Traction Treatment Comment [place] PT-OP-S Aquatic Treatment Start: 08/28/18 15:27 Freq: Status: Active Protocol: Document 08/28/18 12:30 LJ (Rec: 08/28/18 15:55 LJ [email or web address]) Aquatics Treatment Pool Entry/Exit Pool Entry/Exit Method Stairs Assistance Standby Assistance Verbal Cues Water Walking Sideways Water Level Chest Level Level of Assistance Standby Assistance Verbal Cues Monster Walk Water Level Chest Level Level of Assistance Standby Assistance Verbal Cues [place] Water Level Chest Level Level of Assistance Standby Assistance Verbal Cues Backwards Water Level Chest Level Level of Assistance Standby Assistance Verbal Cues Forwards Water Level Chest Level Level of Assistance Standby Assistance Verbal Cues Comments cues for posture and recrip gait pattern Lower Extremity Exercises squats at wall Water Level Chest Level Comments cuing for mm activation sequence Hs curls Body Position Standing Water Level Chest Level Comments manual assist for posture flex/ext, ab/ad Details at wall Water Level Chest Level Reps/Duration 10 bilat Comments gentle mvmts Lower Extremity Stretches SKTC bilat Details at wall Water Level Chest Level Reps/Duration 2 x 30 Comments with posterior pelvic tilt HS, ITB Details standing at wall Equipment Small Noodle Reps/Duration 2 x 30 Upper Extremity Exercises flex/ext, ab/ad, horiz ab/ad Body Position Standing Water Level Chest Level Reps/Duration 10 each Comments cues for core stabilization Spinal Exercises squat at wall Details facing wall for support Water Level Chest Level Reps/Duration 10 Comments mm sequence activation Balance SLS Details hand hold Reps/Duration 2 min alternating perturbations Body Position Standing Water Level Chest Level Reps/Duration 2 min Comments cues for core activation [place] Activities [place] Activities Bicycle [place] Hip Abduction/Adduction Equipment blue float Duration 15 min Comments gentle movements encouraging glute activation and upright posture Manual Techniques Aquatic Manual Traction wall hang with 2.5 wts 8 min PT-OP-T Assessment and Plan Start: 08/17/18 18:53 Freq: Status: Active Protocol: Document 08/28/18 12:30 SON (Rec: 08/28/18 15:55 [facility] [id number]) Physical Therapy Assessment Rehab Potential Rehabilitation Potential Good Evaluation Complexity Number of Personal Factors/Comorbidities 3 or More Number of Body Systems Impaired 4 or More Clinical Presentation at Evaluation Evolving Impairments Impairments Activity Tolerance Balance Functional Activities Functional Mobility Gait Pain Posture ROM Soft Tissue Mobility Strength Other Concerns Fall Risk walking on pool deck Goals gait [employer] Goal (LTG) Pt will be able to amb 1 mile with no more than 2 point on 0 -10 pain scale increase. LTG Duration 10/18/18 SRINATH Short Term Goal (STG) Pt will show an improvement in functional ability with improvement of SRINATH to 15/50. STG Duration 09/17/18 Correction Goal (LTG) Pt will show an improvement in functional ability with improvement of SRINATH to 10/50. LTG Duration 10/18/18 strength Short Term Goal (STG) Pt will be indep with appropriate HEP & gym program in order to cont on his pain management & weight management safely. STG Duration 09/17/18 [employer] Goal (LTG) Pt will score 4/5 LPM & 5/5 LE strength in order to demonstrate improved core control & improve his ability to do daily tasks. LTG Duration 10/18/18 Assessment Summary Assessment Pt directed to keep exercises gentle due to recent injection . Requires cuing for posture and muscle activation. Tolerated exercises well. Physical Therapy Plan Frequency and Duration Frequency of Treatment 2x/Week Duration of Treatment 2 months Plan of Care Start Date 08/18/18 Plan of Care End Date 10/18/18 Therapeutic Interventions Therapeutic Interventions Aquatic Therapy Balance Training Gait Training Home Exercise Program Joint Mobilizations Manual Therapy Neuromuscular Re-education Patient/Caregiver Education Self-Care/Home Management Soft Tissue Mobilization Taping Therapeutic Activities Therapeutic Exercises Modalities Cold Pack/Ice Massage Electric Stimulation Hot Packs Infrared Therapy Traction- Mechanical Ultrasound Next Visit Focus/Plan Next Note Type Treatment Note Next Visit Plan Cont to advance core stability & encourage HEP independence, Increase intensity as tolerated focusing on glute and core strength.
--- NOTE | 2018-09-03 15:00 | PT.OTN ---
Current Diagnoses Intracardiac thrombosis, not elsewhere classified (09/03/18) Spinal stenosis, lumbar region without neurogenic claudication (09/03/18) Radiculopathy, lumbar region (09/03/18) Lumbago with sciatica, unspecified side (09/03/18) Unspecified abnormalities of gait and mobility (09/03/18) Abnormal posture (09/03/18) Weakness (09/03/18) Encounter for therapeutic drug level monitoring (09/03/18) [facility] (current) use of anticoagulants (09/03/18) Physical Therapy Treatment Note PT-OP-A Visit Information Start: 08/17/18 18:53 Freq: Status: Active Protocol: Document 09/03/18 10:33 [facility]N (Rec: 09/03/18 11:19 N [id number]) Out-Patient Physical Therapy Visit Information Visit Information Visit Type Treatment Note Visit Start Time 10:33 Visit Stop Time 11:18 Total Visit Minutes 45 Visit Number 07/24 PT-OP-B Current Condition Start: 08/17/18 18:53 Freq: Status: Active Protocol: Document 08/18/18 10:30 LR (Rec: 08/18/18 11:16 [facility] [id number]) Current Condition History of Current Condition Onset Date 2 months ago flare up Current Complaints LBP & R leg pain History of Current Condition Pt reports 30 year history of back pain with a recent episode. 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 Pt reports he was walking to get the paper about 2 months ago and his R side gave out and pain went down leg and had to grab mailbox to stay up. THis is the first time it has gone down his leg. He went to a doctor who sent him to do PT. Pt reports he has B ant ankle pain that limits his mobility. Reports he has scoliosis. He has talked to doctor about doing traction because manual traction has helped in the past. Prior Treatments and Tests PT on and off over the years; reports xrays; chiropractic in the past Future Testing and Treatments Planned Epidural possibly Treatment Goals Patient/Caregiver Goals Wants to be able to walk and back to walking about a 3 mile walk and at least 1 mile; be able to exercise to lose weight PT-OP-C Subjective Start: 08/17/18 18:53 Freq: Status: Active Protocol: Document 09/03/18 10:33 [facility] (Rec: 09/03/18 11:19 LR [id number]) OP-PT Subjective Patient Comments Patient Comments Had aquatic therapy last Fri and that night threw back out during the night. Pain today 06/24. Had epidural in the back 9 days ago. Pain in the R leg was better, and the leg didn't feel like his leg was going to collapse. Now having intermittent onset of R leg pain. PT-OP-F Manual Assessment Start: 08/17/18 18:53 Freq: Status: Active Protocol: Document 08/18/18 10:30 [facility] (Rec: 08/18/18 11:16 [facility] [id number]) Manual Assessments Soft Tissue Assessment Soft Tissue Mobility Assessment Tightness R paraspinals & QL & glutes R>L Joint Mobility Assessment Joint Mobility Assessment Iliac crest & R greater trochanter higher in standing; PT-OP-G Mobility & Gait Start: 08/17/18 18:53 Freq: Status: Active Protocol: Document 08/18/18 10:30 [facility] (Rec: 08/18/18 11:16 [facility] [id number]) OP Gait Assessment Comments Gait Comments Pt has lat leaning during push off with no ant elevation/ post depression PT-OP-J Posture/Palpation/Skin Start: 08/17/18 18:53 Freq: Status: Active Protocol: Document 08/18/18 10:30 [facility] (Rec: 08/18/18 11:16 [facility] [id number]) Posture Evaluation [facility] Postural Classification System [place] Postural Classifications Anterior/Posterior Lumbar Protective Mechanism Left AP 1 Lumbar Protective Mechanism Right AP 1 Lumbar Protective Mechanism Left PA 1 Lumbar Protective Mechanism Right PA 1 PT-OP-K Range of Motion Start: 08/17/18 18:53 Freq: Status: Active Protocol: Document 08/18/18 10:30 LR (Rec: 08/18/18 11:16 [facility] [id number]) Lumbar Spine Range of Motion Lumbar Spine Active Degrees Flexion 51 Extension 20 Rotation Left 60 Rotation Right 48 Lateral Flexion Left 15 Lateral Flexion Right 23 ROM Limitations Pain PT-OP-L Special Tests Start: 08/17/18 18:53 Freq: Status: Active Protocol: Document 08/18/18 10:30 [facility] (Rec: 08/18/18 11:16 [facility] [id number]) Special Tests Lumbar Spine Special Tests traction Test Results long axis -relief Straight Leg Raise Test Results positive R; HS tight L Slump Test Results positive R PT-OP-M Strength Start: 08/17/18 18:53 Freq: Status: Active Protocol: Document 08/18/18 10:30 LR (Rec: 08/18/18 11:16 [facility] [id number]) Hip Strength Hip Manual Muscle Testing Right Flexion (L2) 4- Good- Abduction 3+ Fair+ External Rotation 4- Good- Internal Rotation 5 Normal Left Flexion (L2) 4- Good- Extension (S1) 3+ Fair+ Abduction 3+ Fair+ External Rotation 4+ Good+ Internal Rotation 5 Normal Knee Strength Knee Manual Muscle Testing Right Flexion (S2) 4+ Good+ Extension (L3) 4 Good Left Flexion (S2) 5 Normal Extension (L3) 5 Normal Ankle/Foot Strength Ankle and Foot Manual Muscle Testing Right Dorsiflexion (L4) 5 Normal Plantarflexion (S1) 4 Good Comments tested seated Left Dorsiflexion (L4) 5 Normal Plantarflexion (S1) 5 Normal Comments tested seated PT-OP-Q Treatments Start: 08/17/18 18:53 Freq: Status: Active Protocol: Document 09/03/18 10:33 LR (Rec: 09/03/18 11:19 [facility] [id number]) Gym Equipment Cable Column (Body Solid) Hip Abduction Resistance 3 plates Reps/Time 2 sets to fatigue Shuttle Recovery Bilateral Squats Details with breathing cuing as needed Resistance 100# Shuttle Recovery Platform Stable Reps/Time 20x 2 sets Therapeutic Exercises Sitting Exercises Sit to Stand Sitting Exercise Name Sit to stand, hip hinging Reps/Minutes 6x Comments Pt legs fatigued at end. Knee Flex/Ext w/core neutral Sitting Exercise Name Knee flex ext w/core neutral Side bilateral Equipment Used 5# on each leg Reps/Minutes 10x3 Standing Exercises Step ups Standing Exercise Name Step ups: 8, 4 Side bilateral Equipment Used 8, 4 steps & parallel bars Comments Primarily 4 step due to lack of trunk control with 8 step; posture trng Therapeutic Activity Therapeutic Activity Sit to Stand Name Sit to Stand (hip hinging) Reps/Minutes 3' Manual Therapy Treatment Manual Traction Lumbar Details Manual Lumbar traction with belt Body Position Hooklying Reps/Duration 5' Comments Pain decreased 4/10 to 2/10. Self-Care/Home Management Treatment Education Patient Education Body Mechanics Home Exercise Program Posture Other Education Body mechanics training/ education for moving of garbage cans with suggestion of pt pushing garbage cans one at a time vs both together. Activities Self-Care/Home Management Activities I/S pt in self care ex: Sit to Stand with sitting on solid to the ground chair to avoid sliding of the chair out from under him; Step ups onto a solid surface of 4 or less with hand support and squeezing of gluteals while stepping up and at end of sequence, and proper posturing ; and handling one garbage can at a time to give opportunity to increase walking distance. PT-OP-R Modalities Start: 08/17/18 18:53 Freq: Status: Active Protocol: Document 08/24/18 09:00 [facility] (Rec: 08/24/18 09:51 [facility] [id number]) Hot Pack/Cold Pack Treatment Hot Pack Location lumbar Patient Position Hooklying Treatment Duration (minutes) 15 Spinal Traction Traction Treatment Lumbar Method Mechanical Patient Position Hooklying Force Applied (Pounds) 55 Duration of Treatment (Minutes) 10 Traction Treatment Comment [place] PT-OP-S Aquatic Treatment Start: 08/28/18 15:27 Freq: Status: Active Protocol: Document 08/28/18 12:30 LJ (Rec: 08/28/18 15:55 LJ [id number]) Aquatics Treatment Pool Entry/Exit Pool Entry/Exit Method Stairs Assistance Standby Assistance Verbal Cues Water Walking Sideways Water Level Chest Level Level of Assistance Standby Assistance Verbal Cues Monster Walk Water Level Chest Level Level of Assistance Standby Assistance Verbal Cues [place] Water Level Chest Level Level of Assistance Standby Assistance Verbal Cues Backwards Water Level Chest Level Level of Assistance Standby Assistance Verbal Cues [place] Water Level Chest Level Level of Assistance Standby Assistance Verbal Cues Comments cues for posture and recrip gait pattern Lower Extremity Exercises squats at wall Water Level Chest Level Comments cuing for mm activation sequence Hs curls Body Position Standing Water Level Chest Level Comments manual assist for posture flex/ext, ab/ad Details at wall Water Level Chest Level Reps/Duration 10 bilat Comments gentle mvmts Lower Extremity Stretches SKTC bilat Details at wall Water Level Chest Level Reps/Duration 2 x 30 Comments with posterior pelvic tilt HS, ITB Details standing at wall Equipment Small Noodle Reps/Duration 2 x 30 Upper Extremity Exercises flex/ext, ab/ad, horiz ab/ad Body Position Standing Water Level Chest Level Reps/Duration 10 each Comments cues for core stabilization Spinal Exercises squat at wall Details facing wall for support Water Level Chest Level Reps/Duration 10 Comments mm sequence activation Balance SLS Details hand hold Reps/Duration 2 min alternating perturbations Body Position Standing Water Level Chest Level Reps/Duration 2 min Comments cues for core activation [place] Activities [place] Activities Bicycle [place] Hip Abduction/Adduction Equipment blue float Duration 15 min Comments gentle movements encouraging glute activation and upright posture Manual Techniques Aquatic Manual Traction wall hang with 2.5 wts 8 min PT-OP-T Assessment and Plan Start: 08/17/18 18:53 Freq: Status: Active Protocol: Document 09/03/18 10:33 [facility] (Rec: 09/03/18 11:19 [facility] [id number]) Physical Therapy Assessment Assessment Summary Assessment Pt may need further body mechanics training for ADLs. He showed improved form with sit to stand transfers but had poor posturing with stair ambulation. Pt is having some return of pain post injection that very well may be posture and body mechanics form related. +response to manual lumbar traction. Physical Therapy Plan Frequency and Duration Frequency of Treatment 2x/Week Duration of Treatment 2 months Plan of Care Start Date 08/18/18 Plan of Care End Date 10/18/18 Next Visit Focus/Plan Next Note Type Treatment Note Next Visit Plan Cont to advance core stability & encourage HEP independence, Increase intensity as tolerated focusing on gluteal and core strength. Might try adding TM for initiation of walking program.
--- NOTE | 2018-09-07 13:22 | PT.OTN ---
Current Diagnoses Intracardiac thrombosis, not elsewhere classified (09/03/18) Spinal stenosis, lumbar region without neurogenic claudication (09/03/18) Radiculopathy, lumbar region (09/03/18) Lumbago with sciatica, unspecified side (09/03/18) Unspecified abnormalities of gait and mobility (09/03/18) Abnormal posture (09/03/18) Weakness (09/03/18) Encounter for therapeutic drug level monitoring (09/03/18) residential (current) use of anticoagulants (09/03/18) Physical Therapy Treatment Note PT-OP-A Visit Information Start: 08/17/18 18:53 Freq: Status: Active Protocol: Document 09/07/18 11:00 CLB (Rec: 09/07/18 13:22 CLB [id number]) Out-Patient Physical Therapy Visit Information Visit Information Visit Type Aquatic Treatment Note Visit Start Time 11:00 Visit Stop Time 11:45 Total Visit Minutes 46 Visit Number 6/10 Number of RN PRIVATE DUTY Visits 1 PT-OP-B Current Condition Start: 08/17/18 18:53 Freq: Status: Active Protocol: Document 08/18/18 10:30 [facility] (Rec: 08/18/18 11:16 [facility] [id number]) Current Condition History of Current Condition Onset Date 2 months ago flare up Current Complaints LBP & R leg pain History of Current Condition Pt reports 30 year history of back pain with a recent episode. 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 Pt reports he was walking to get the paper about 2 months ago and his R side gave out and pain went down leg and had to grab mailbox to stay up. THis is the first time it has gone down his leg. He went to a doctor who sent him to do PT. Pt reports he has B ant ankle pain that limits his mobility. Reports he has scoliosis. He has talked to doctor about doing traction because manual traction has helped in the past. Prior Treatments and Tests PT on and off over the years; reports xrays; chiropractic in the past Future Testing and Treatments Planned Epidural possibly Treatment Goals Patient/Caregiver Goals Wants to be able to walk and back to walking about a 3 mile walk and at least 1 mile; be able to exercise to lose weight PT-OP-C Subjective Start: 08/17/18 18:53 Freq: Status: Active Protocol: Document 09/07/18 11:00 CLB (Rec: 09/07/18 13:22 CLB [id number]) OP-PT Subjective Patient Comments Patient Comments Pt stated he was very stiff for four days after last weeks aquatic session. Pt also stated he fell outside on his bottom on but was not injured. He stated he has a 4WW but does not like to use it. PT-OP-F Manual Assessment Start: 08/17/18 18:53 Freq: Status: Active Protocol: Document 08/18/18 10:30 LR (Rec: 08/18/18 11:16 [facility] [id number]) Manual Assessments Soft Tissue Assessment Soft Tissue Mobility Assessment Tightness R paraspinals & QL & glutes R>L Joint Mobility Assessment Joint Mobility Assessment Iliac crest & R greater trochanter higher in standing; PT-OP-G Mobility & Gait Start: 08/17/18 18:53 Freq: Status: Active Protocol: Document 08/18/18 10:30 LR (Rec: 08/18/18 11:16 [facility] [id number]) OP Gait Assessment Comments Gait Comments Pt has lat leaning during push off with no ant elevation/ post depression PT-OP-J Posture/Palpation/Skin Start: 08/17/18 18:53 Freq: Status: Active Protocol: Document 08/18/18 10:30 LR (Rec: 08/18/18 11:16 [facility] [id number]) Posture Evaluation Loida Postural Classification System Loida Postural Classifications Anterior/Posterior Lumbar Protective Mechanism Left AP 1 Lumbar Protective Mechanism Right AP 1 Lumbar Protective Mechanism Left PA 1 Lumbar Protective Mechanism Right PA 1 PT-OP-K Range of Motion Start: 08/17/18 18:53 Freq: Status: Active Protocol: Document 08/18/18 10:30 LR (Rec: 08/18/18 11:16 [facility] [id number]) Lumbar Spine Range of Motion Lumbar Spine Active Degrees Flexion 51 Extension 20 Rotation Left 60 Rotation Right 48 Lateral Flexion Left 15 Lateral Flexion Right 23 ROM Limitations Pain PT-OP-L Special Tests Start: 08/17/18 18:53 Freq: Status: Active Protocol: Document 08/18/18 10:30 LR (Rec: 08/18/18 11:16 [facility] [id number]) Special Tests Lumbar Spine Special Tests traction Test Results long axis -relief Straight Leg Raise Test Results positive R; HS tight L Slump Test Results positive R PT-OP-M Strength Start: 08/17/18 18:53 Freq: Status: Active Protocol: Document 08/18/18 10:30 LR (Rec: 08/18/18 11:16 LR [id number]) Hip Strength Hip Manual Muscle Testing Right Flexion (L2) 4- Good- Abduction 3+ Fair+ External Rotation 4- Good- Internal Rotation 5 Normal Left Flexion (L2) 4- Good- Extension (S1) 3+ Fair+ Abduction 3+ Fair+ External Rotation 4+ Good+ Internal Rotation 5 Normal Knee Strength Knee Manual Muscle Testing Right Flexion (S2) 4+ Good+ Extension (L3) 4 Good Left Flexion (S2) 5 Normal Extension (L3) 5 Normal Ankle/Foot Strength Ankle and Foot Manual Muscle Testing Right Dorsiflexion (L4) 5 Normal Plantarflexion (S1) 4 Good Comments tested seated Left Dorsiflexion (L4) 5 Normal Plantarflexion (S1) 5 Normal Comments tested seated PT-OP-Q Treatments Start: 08/17/18 18:53 Freq: Status: Active Protocol: Document 09/03/18 10:33 LRN (Rec: 09/03/18 11:19 LRN [id number]) Gym Equipment Cable Column (Body Solid) Hip Abduction Resistance 3 plates Reps/Time 2 sets to fatigue Shuttle Recovery Bilateral Squats Details with breathing cuing as needed Resistance 100# Shuttle Recovery Platform Stable Reps/Time 20x 2 sets Therapeutic Exercises Sitting Exercises Sit to Stand Sitting Exercise Name Sit to stand, hip hinging Reps/Minutes 6x Comments Pt legs fatigued at end. Knee Flex/Ext w/core neutral Sitting Exercise Name Knee flex ext w/core neutral Side bilateral Equipment Used 5# on each leg Reps/Minutes 10x3 Standing Exercises Step ups Standing Exercise Name Step ups: 8, 4 Side bilateral Equipment Used 8, 4 steps & parallel bars Comments Primarily 4 step due to lack of trunk control with 8 step; posture trng Therapeutic Activity Therapeutic Activity Sit to Stand Name Sit to Stand (hip hinging) Reps/Minutes 3' Manual Therapy Treatment Manual Traction Lumbar Details Manual Lumbar traction with belt Body Position Hooklying Reps/Duration 5' Comments Pain decreased 4/10 to 2/10. Self-Care/Home Management Treatment Education Patient Education Body Mechanics Home Exercise Program Posture Other Education Body mechanics training/ education for moving of garbage cans with suggestion of pt pushing garbage cans one at a time vs both together. Activities Self-Care/Home Management Activities I/S pt in self care ex: Sit to Stand with sitting on solid to the ground chair to avoid sliding of the chair out from under him; Step ups onto a solid surface of 4 or less with hand support and squeezing of gluteals while stepping up and at end of sequence, and proper posturing ; and handling one garbage can at a time to give opportunity to increase walking distance. PT-OP-R Modalities Start: 08/17/18 18:53 Freq: Status: Active Protocol: Document 08/24/18 09:00 LRH (Rec: 08/24/18 09:51 LR [id number]) Hot Pack/Cold Pack Treatment Hot Pack Location lumbar Patient Position Hooklying Treatment Duration (minutes) 15 Spinal Traction Traction Treatment Lumbar Method Mechanical Patient Position Hooklying Force Applied (Pounds) 55 Duration of Treatment (Minutes) 10 Traction Treatment Comment Urvashi PT-OP-S Aquatic Treatment Start: 08/28/18 15:27 Freq: Status: Active Protocol: Document 09/07/18 11:00 CLB (Rec: 09/07/18 13:22 CLB [id number]) Aquatics Treatment Pool Entry/Exit Pool Entry/Exit Method Stairs Assistance Standby Assistance Verbal Cues Water Walking Sideways Water Level Chest Level Level of Assistance Standby Assistance Verbal Cues Monster Walk Water Level Chest Level Level of Assistance Standby Assistance Verbal Cues [place] Water Level Chest Level Level of Assistance Standby Assistance Verbal Cues Backwards Water Level Chest Level Level of Assistance Standby Assistance Verbal Cues [place] Water Level Chest Level Level of Assistance Standby Assistance Verbal Cues Comments cues for posture and recrip gait pattern Lower Extremity Exercises squats at wall Water Level Chest Level Comments cuing for mm activation sequence Hs curls Body Position Standing Water Level Chest Level Comments manual assist for posture flex/ext, ab/ad Details at wall Water Level Chest Level Reps/Duration 10 bilat Comments gentle mvmts Lower Extremity Stretches SKTC bilat Details at wall Water Level Chest Level Reps/Duration 2 x 30 Comments with posterior pelvic tilt HS, ITB Details standing at wall Equipment Small Noodle Reps/Duration 2 x 30 [place] Activities [place] Activities Bicycle [place] Hip Abduction/Adduction Equipment blue float Duration 10 min Comments gentle movements encouraging glute activation and upright posture Manual Techniques Aquatic Manual Traction wall hang with 2.5 wts 8 min PT-OP-T Assessment and Plan Start: 08/17/18 18:53 Freq: Status: Active Protocol: Document 09/07/18 11:00 CLB (Rec: 09/07/18 13:22 CLB [id number]) Physical Therapy Assessment Goals gait Hot Plate Plywood Press Offbearer Goal (LTG) Pt will be able to amb 1 mile with no more than 2 point on 0 -10 pain scale increase. LTG Duration 10/18/18 SRINATH Short Term Goal (STG) Pt will show an improvement in functional ability with improvement of SRINATH to 15/50. STG Duration 09/17/18 Hot Plate Plywood Press Offbearer Goal (LTG) Pt will show an improvement in functional ability with improvement of SRINATH to 10/50. LTG Duration 10/18/18 strength Short Term Goal (STG) Pt will be indep with appropriate HEP & gym program in order to cont on his pain management & weight management safely. STG Duration 09/17/18 Intermediate Goal (LTG) Pt will score 4/5 LPM & 5/5 LE strength in order to demonstrate improved core control & improve his ability to do daily tasks. LTG Duration 10/18/18 Assessment Summary Assessment Pt able to perform all aquatic exercises without c/o increased pain. Pt requires verbal cues for mm activation and posture throughout tx session. Physical Therapy Plan Frequency and Duration Frequency of Treatment 2x/Week Duration of Treatment 2 months Plan of Care Start Date 08/18/18 Plan of Care End Date 10/18/18 Therapeutic Interventions Therapeutic Interventions Aquatic Therapy Balance Training Gait Training Home Exercise Program Joint Mobilizations Manual Therapy Neuromuscular Re-education Patient/Caregiver Education Self-Care/Home Management Soft Tissue Mobilization Taping Therapeutic Activities Therapeutic Exercises Modalities Cold Pack/Ice Massage Electric Stimulation Hot Packs Infrared Therapy Traction- Mechanical Ultrasound Next Visit Focus/Plan Next Note Type Treatment Note Next Visit Plan Cont to advance core stability & encourage HEP independence, Increase intensity as tolerated focusing on gluteal and core strength. Might try adding TM for initiation of walking program.
--- NOTE | 2018-09-08 15:43 | PT.OTN ---
Current Diagnoses Intracardiac thrombosis, not elsewhere classified (09/08/18) Spinal stenosis, lumbar region without neurogenic claudication (09/08/18) Radiculopathy, lumbar region (09/08/18) Lumbago with sciatica, unspecified side (09/08/18) Unspecified abnormalities of gait and mobility (09/08/18) Abnormal posture (09/08/18) Weakness (09/08/18) Encounter for therapeutic drug level monitoring (09/08/18) long-term (current) use of anticoagulants (09/08/18) Physical Therapy Treatment Note PT-OP-A Visit Information Start: 08/17/18 18:53 Freq: Status: Active Protocol: Document 09/08/18 11:15 GGD (Rec: 09/08/18 15:42 GGD [id number]) Out-Patient Physical Therapy Visit Information Visit Information Visit Type Treatment Note Visit Start Time 11:15 Visit Stop Time 12:00 Total Visit Minutes 45 Visit Number 6/10 Number of OIL LABORATORY ANALYST Visits 2 PT-OP-B Current Condition Start: 08/17/18 18:53 Freq: Status: Active Protocol: Document 08/18/18 10:30 [facility] (Rec: 08/18/18 11:16 [facility] [id number]) Current Condition History of Current Condition Onset Date 2 months ago flare up Current Complaints LBP & R leg pain History of Current Condition Pt reports 30 year history of back pain with a recent episode. 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 Pt reports he was walking to get the paper about 2 months ago and his R side gave out and pain went down leg and had to grab mailbox to stay up. THis is the first time it has gone down his leg. He went to a doctor who sent him to do PT. Pt reports he has B ant ankle pain that limits his mobility. Reports he has scoliosis. He has talked to doctor about doing traction because manual traction has helped in the past. Prior Treatments and Tests PT on and off over the years; reports xrays; chiropractic in the past Future Testing and Treatments Planned Epidural possibly Treatment Goals Patient/Caregiver Goals Wants to be able to walk and back to walking about a 3 mile walk and at least 1 mile; be able to exercise to lose weight PT-OP-C Subjective Start: 08/17/18 18:53 Freq: Status: Active Protocol: Document 09/08/18 11:15 GGD (Rec: 09/08/18 15:42 GGD [id number]) OP-PT Subjective Patient Comments Patient Comments Pt state he is stiff after the pool yesterday. HE reports having very little sleep yesterday. PT-OP-F Manual Assessment Start: 08/17/18 18:53 Freq: Status: Active Protocol: Document 08/18/18 10:30 LR (Rec: 08/18/18 11:16 [facility] [id number]) Manual Assessments Soft Tissue Assessment Soft Tissue Mobility Assessment Tightness R paraspinals & QL & glutes R>L Joint Mobility Assessment Joint Mobility Assessment Iliac crest & R greater trochanter higher in standing; PT-OP-G Mobility & Gait Start: 08/17/18 18:53 Freq: Status: Active Protocol: Document 08/18/18 10:30 LR (Rec: 08/18/18 11:16 [facility] [id number]) OP Gait Assessment Comments Gait Comments Pt has lat leaning during push off with no ant elevation/ post depression PT-OP-J Posture/Palpation/Skin Start: 08/17/18 18:53 Freq: Status: Active Protocol: Document 08/18/18 10:30 [facility] (Rec: 08/18/18 11:16 [facility] [id number]) Posture Evaluation Loida Postural Classification System [place] Postural Classifications Anterior/Posterior Lumbar Protective Mechanism Left AP 1 Lumbar Protective Mechanism Right AP 1 Lumbar Protective Mechanism Left PA 1 Lumbar Protective Mechanism Right PA 1 PT-OP-K Range of Motion Start: 08/17/18 18:53 Freq: Status: Active Protocol: Document 08/18/18 10:30 LR (Rec: 08/18/18 11:16 [facility] [id number]) Lumbar Spine Range of Motion Lumbar Spine Active Degrees Flexion 51 Extension 20 Rotation Left 60 Rotation Right 48 Lateral Flexion Left 15 Lateral Flexion Right 23 ROM Limitations Pain PT-OP-L Special Tests Start: 08/17/18 18:53 Freq: Status: Active Protocol: Document 08/18/18 10:30 LR (Rec: 08/18/18 11:16 [facility] [id number]) Special Tests Lumbar Spine Special Tests traction Test Results long axis -relief Straight Leg Raise Test Results positive R; HS tight L Slump Test Results positive R PT-OP-M Strength Start: 08/17/18 18:53 Freq: Status: Active Protocol: Document 08/18/18 10:30 [facility] (Rec: 08/18/18 11:16 [facility] [id number]) Hip Strength Hip Manual Muscle Testing Right Flexion (L2) 4- Good- Abduction 3+ Fair+ External Rotation 4- Good- Internal Rotation 5 Normal Left Flexion (L2) 4- Good- Extension (S1) 3+ Fair+ Abduction 3+ Fair+ External Rotation 4+ Good+ Internal Rotation 5 Normal Knee Strength Knee Manual Muscle Testing Right Flexion (S2) 4+ Good+ Extension (L3) 4 Good Left Flexion (S2) 5 Normal Extension (L3) 5 Normal Ankle/Foot Strength Ankle and Foot Manual Muscle Testing Right Dorsiflexion (L4) 5 Normal Plantarflexion (S1) 4 Good Comments tested seated Left Dorsiflexion (L4) 5 Normal Plantarflexion (S1) 5 Normal Comments tested seated PT-OP-Q Treatments Start: 08/17/18 18:53 Freq: Status: Active Protocol: Document 09/08/18 11:15 GGD (Rec: 09/08/18 15:42 GGD [id number]) Gym Equipment Cable Column (Body Solid) Hip Abduction Resistance 3 plates Reps/Time 2 sets to fatigue Shuttle Recovery Bilateral Squats Details with breathing cuing as needed Resistance 100# Shuttle Recovery Platform Stable Reps/Time 20x 2 sets Therapeutic Exercises Sitting Exercises Sit to Stand Sitting Exercise Name Sit to stand, hip hinging Reps/Minutes 6x Comments Pt legs fatigued at end. Knee Flex/Ext w/core neutral Sitting Exercise Name Knee flex ext w/core neutral Side bilateral Equipment Used 5# on each leg Reps/Minutes 10x3 Manual Therapy Treatment Soft Tissue Mobilization QL & ES R Body Location R Mobilization Type Rolling Intensity/Depth Moderate Body Position Sidelying Manual Traction Lumbar Details Manual Lumbar traction with belt Body Position Hooklying Reps/Duration 5' Comments Pain decreased 4/10 to 2/10. PT-OP-R Modalities Start: 08/17/18 18:53 Freq: Status: Active Protocol: Document 08/24/18 09:00 [facility] (Rec: 08/24/18 09:51 [facility] [id number]) Hot Pack/Cold Pack Treatment Hot Pack Location lumbar Patient Position Hooklying Treatment Duration (minutes) 15 Spinal Traction Traction Treatment Lumbar Method Mechanical Patient Position Hooklying Force Applied (Pounds) 55 Duration of Treatment (Minutes) 10 Traction Treatment Comment Urvashi PT-OP-S Aquatic Treatment Start: 08/28/18 15:27 Freq: Status: Active Protocol: Document 09/07/18 11:00 CLB (Rec: 09/07/18 13:22 CLB [id number]) Aquatics Treatment Pool Entry/Exit Pool Entry/Exit Method Stairs Assistance Standby Assistance Verbal Cues Water Walking Sideways Water Level Chest Level Level of Assistance Standby Assistance Verbal Cues Monster Walk Water Level Chest Level Level of Assistance Standby Assistance Verbal Cues [employer] Water Level Chest Level Level of Assistance Standby Assistance Verbal Cues Backwards Water Level Chest Level Level of Assistance Standby Assistance Verbal Cues [place] Water Level Chest Level Level of Assistance Standby Assistance Verbal Cues Comments cues for posture and recrip gait pattern Lower Extremity Exercises squats at wall Water Level Chest Level Comments cuing for mm activation sequence Hs curls Body Position Standing Water Level Chest Level Comments manual assist for posture flex/ext, ab/ad Details at wall Water Level Chest Level Reps/Duration 10 bilat Comments gentle mvmts Lower Extremity Stretches SKTC bilat Details at wall Water Level Chest Level Reps/Duration 2 x 30 Comments with posterior pelvic tilt HS, ITB Details standing at wall Equipment Small Noodle Reps/Duration 2 x 30 [place] Activities [place] Activities Bicycle [place] Hip Abduction/Adduction Equipment blue float Duration 10 min Comments gentle movements encouraging glute activation and upright posture Manual Techniques Aquatic Manual Traction wall hang with 2.5 wts 8 min PT-OP-T Assessment and Plan Start: 08/17/18 18:53 Freq: Status: Active Protocol: Document 09/08/18 11:15 GGD (Rec: 09/08/18 15:42 GGD [id number]) Physical Therapy Assessment Assessment Summary Assessment Pt fatigued quickly with exercises. He need cues for body mechanics. HE did have decrease in pain with treatment. Physical Therapy Plan Frequency and Duration Frequency of Treatment 2x/Week Duration of Treatment 2 months Plan of Care Start Date 08/18/18 Plan of Care End Date 10/18/18 Next Visit Focus/Plan Next Note Type Treatment Note Next Visit Plan Cont to advance core stability & encourage HEP independence, Increase intensity as tolerated focusing on gluteal and core strength. Might try adding TM for initiation of walking program.
--- NOTE | 2018-09-22 18:15 | PT.OTN ---
Current Diagnoses Intracardiac thrombosis, not elsewhere classified (09/22/18) Spinal stenosis, lumbar region without neurogenic claudication (09/22/18) Radiculopathy, lumbar region (09/22/18) Lumbago with sciatica, unspecified side (09/22/18) Unspecified abnormalities of gait and mobility (09/22/18) Abnormal posture (09/22/18) Weakness (09/22/18) Encounter for therapeutic drug level monitoring (09/22/18) jail (current) use of anticoagulants (09/22/18) Physical Therapy Treatment Note PT-OP-A Visit Information Start: 08/17/18 18:53 Freq: Status: Active Protocol: Document 09/22/18 16:50 [facility] (Rec: 09/22/18 18:14 [facility] [id number]) Out-Patient Physical Therapy Visit Information Visit Information Visit Type Treatment Note Visit Start Time 16:45 Visit Stop Time 17:25 Total Visit Minutes 40 Visit Number 9/10 Number of PERINATAL SPECIALIST Visits 0 PT-OP-B Current Condition Start: 08/17/18 18:53 Freq: Status: Active Protocol: Document 08/18/18 10:30 [facility] (Rec: 08/18/18 11:16 [facility] [id number]) Current Condition History of Current Condition Onset Date 2 months ago flare up Current Complaints LBP & R leg pain History of Current Condition Pt reports 30 year history of back pain with a recent episode. 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 Pt reports he was walking to get the paper about 2 months ago and his R side gave out and pain went down leg and had to grab mailbox to stay up. THis is the first time it has gone down his leg. He went to a doctor who sent him to do PT. Pt reports he has B ant ankle pain that limits his mobility. Reports he has scoliosis. He has talked to doctor about doing traction because manual traction has helped in the past. Prior Treatments and Tests PT on and off over the years; reports xrays; chiropractic in the past Future Testing and Treatments Planned Epidural possibly Treatment Goals Patient/Caregiver Goals Wants to be able to walk and back to walking about a 3 mile walk and at least 1 mile; be able to exercise to lose weight PT-OP-C Subjective Start: 08/17/18 18:53 Freq: Status: Active Protocol: Document 09/22/18 16:50 [facility] (Rec: 09/22/18 18:14 [facility] [id number]) OP-PT Subjective Patient Comments Patient Comments Pt reports feeling better with PT. REports he has not done much d/t having bronchitis and seeing MD re: this. PT-OP-F Manual Assessment Start: 08/17/18 18:53 Freq: Status: Active Protocol: Document 08/18/18 10:30 [facility] (Rec: 08/18/18 11:16 [facility] [id number]) Manual Assessments Soft Tissue Assessment Soft Tissue Mobility Assessment Tightness R paraspinals & QL & glutes R>L Joint Mobility Assessment Joint Mobility Assessment Iliac crest & R greater trochanter higher in standing; PT-OP-G Mobility & Gait Start: 08/17/18 18:53 Freq: Status: Active Protocol: Document 08/18/18 10:30 [facility] (Rec: 08/18/18 11:16 [facility] [id number]) OP Gait Assessment Comments Gait Comments Pt has lat leaning during push off with no ant elevation/ post depression PT-OP-J Posture/Palpation/Skin Start: 08/17/18 18:53 Freq: Status: Active Protocol: Document 08/18/18 10:30 [facility] (Rec: 08/18/18 11:16 [facility] [id number]) Posture Evaluation [place] Postural Classification System [place] Postural Classifications Anterior/Posterior Lumbar Protective Mechanism Left AP 1 Lumbar Protective Mechanism Right AP 1 Lumbar Protective Mechanism Left PA 1 Lumbar Protective Mechanism Right PA 1 PT-OP-K Range of Motion Start: 08/17/18 18:53 Freq: Status: Active Protocol: Document 08/18/18 10:30 [facility] (Rec: 08/18/18 11:16 [facility] [id number]) Lumbar Spine Range of Motion Lumbar Spine Active Degrees Flexion 51 Extension 20 Rotation Left 60 Rotation Right 48 Lateral Flexion Left 15 Lateral Flexion Right 23 ROM Limitations Pain PT-OP-L Special Tests Start: 08/17/18 18:53 Freq: Status: Active Protocol: Document 08/18/18 10:30 [facility] (Rec: 08/18/18 11:16 [facility] [id number]) Special Tests Lumbar Spine Special Tests traction Test Results long axis -relief Straight Leg Raise Test Results positive R; HS tight L Slump Test Results positive R PT-OP-M Strength Start: 08/17/18 18:53 Freq: Status: Active Protocol: Document 08/18/18 10:30 [facility] (Rec: 08/18/18 11:16 [facility] [id number]) Hip Strength Hip Manual Muscle Testing Right Flexion (L2) 4- Good- Abduction 3+ Fair+ External Rotation 4- Good- Internal Rotation 5 Normal Left Flexion (L2) 4- Good- Extension (S1) 3+ Fair+ Abduction 3+ Fair+ External Rotation 4+ Good+ Internal Rotation 5 Normal Knee Strength Knee Manual Muscle Testing Right Flexion (S2) 4+ Good+ Extension (L3) 4 Good Left Flexion (S2) 5 Normal Extension (L3) 5 Normal Ankle/Foot Strength Ankle and Foot Manual Muscle Testing Right Dorsiflexion (L4) 5 Normal Plantarflexion (S1) 4 Good Comments tested seated Left Dorsiflexion (L4) 5 Normal Plantarflexion (S1) 5 Normal Comments tested seated PT-OP-Q Treatments Start: 08/17/18 18:53 Freq: Status: Active Protocol: Document 09/22/18 16:50 [facility] (Rec: 09/22/18 18:14 [facility] [id number]) Cardio Equipment Recumbent Bicycle Duration (Minutes) 5 Resistance 9 Seat Position 11 Gym Equipment Shuttle Balance yellow clips Details WBOS fwd & side Comments in neutral and with head turns Therapeutic Exercises Standing Exercises side step Side bilateral Reps/Minutes 20ft Step ups Standing Exercise Name 5 in Side bilateral Reps/Minutes 2x10 Manual Therapy Treatment Soft Tissue Mobilization QL & ES R Body Location R Mobilization Type Rolling Intensity/Depth Moderate Body Position Sidelying Manual Traction Lumbar Details Manual Lumbar traction with belt & long axis Body Position Supine Reps/Duration 5' Comments Pain decreased Neuro Re-Education Treatment Balance Activities tandem stance Details B PT-OP-R Modalities Start: 08/17/18 18:53 Freq: Status: Active Protocol: Document 08/24/18 09:00 [facility] (Rec: 08/24/18 09:51 [facility] [id number]) Hot Pack/Cold Pack Treatment Hot Pack Location lumbar Patient Position Hooklying Treatment Duration (minutes) 15 Spinal Traction Traction Treatment Lumbar Method Mechanical Patient Position Hooklying Force Applied (Pounds) 55 Duration of Treatment (Minutes) 10 Traction Treatment Comment Urvashi PT-OP-S Aquatic Treatment Start: 08/28/18 15:27 Freq: Status: Active Protocol: Document 09/14/18 12:15 [facility] (Rec: 09/22/18 16:34 [facility] [id number]) Aquatics Treatment Pool Entry/Exit Pool Entry/Exit Method Stairs Assistance Standby Assistance Verbal Cues Water Walking Sideways Water Level Chest Level Level of Assistance Standby Assistance Verbal Cues Monster Walk Water Level Chest Level Level of Assistance Standby Assistance Verbal Cues Lamar May Water Level Chest Level Level of Assistance Standby Assistance Verbal Cues Backwards Water Level Chest Level Level of Assistance Standby Assistance Verbal Cues Forwards Water Level Chest Level Level of Assistance Standby Assistance Verbal Cues Comments cues for posture and recrip gait pattern Lower Extremity Exercises squats at wall Water Level Chest Level Comments cuing for mm activation sequence Hs curls Body Position Standing Water Level Chest Level Comments manual assist for posture flex/ext, ab/ad Details at wall Water Level Chest Level Reps/Duration 10 bilat Comments gentle mvmts Lower Extremity Stretches SKTC bilat Details at wall Water Level Chest Level Reps/Duration 2 x 30 Comments with posterior pelvic tilt HS, ITB Details standing at wall Equipment Small Noodle Reps/Duration 2 x 30 Upper Extremity Exercises flex/ext, ab/ad, horiz ab/ad Body Position Standing Water Level Chest Level Reps/Duration 10 each Comments cues for core stabilization [place] Activities [place] Activities Bicycle [place] Hip Abduction/Adduction Equipment blue float Duration 10 min Comments gentle movements encouraging glute activation and upright posture Manual Techniques Aquatic Manual Traction wall hang with 2.5 wts 8 min PT-OP-T Assessment and Plan Start: 08/17/18 18:53 Freq: Status: Active Protocol: Document 09/22/18 16:50 [facility] (Rec: 09/22/18 18:14 [facility] [id number]) Physical Therapy Assessment Goals gait Aba Therapist Goal (LTG) Pt will be able to amb 1 mile with no more than 2 point on 0 -10 pain scale increase. LTG Duration 10/18/18 SRINATH Short Term Goal (STG) Pt will show an improvement in functional ability with improvement of SRINATH to 15/50. STG Duration 09/17/18 Senior Living Goal (LTG) Pt will show an improvement in functional ability with improvement of SRINATH to 10/50. LTG Duration 10/18/18 strength Short Term Goal (STG) Pt will be indep with appropriate HEP & gym program in order to cont on his pain management & weight management safely. STG Duration 09/17/18 Senior Living Goal (LTG) Pt will score 4/5 LPM & 5/5 LE strength in order to demonstrate improved core control & improve his ability to do daily tasks. LTG Duration 10/18/18 Assessment Summary Assessment Pt improved with ability to perform step ups when given PT hands vs use of rail in order to dec UE use & further LE use. He is improving with soft tissue mobility and reports relief with traction.
--- NOTE | 2018-10-05 13:00 | PT.OPPN ---
Current Diagnoses Intracardiac thrombosis, not elsewhere classified (10/05/18) Spinal stenosis, lumbar region without neurogenic claudication (10/05/18) Radiculopathy, lumbar region (10/05/18) Lumbago with sciatica, unspecified side (10/05/18) Unspecified abnormalities of gait and mobility (10/05/18) Abnormal posture (10/05/18) Weakness (10/05/18) Encounter for therapeutic drug level monitoring (10/05/18) detention (current) use of anticoagulants (10/05/18) Physical Therapy Progress Note PT-OP-A Visit Information Start: 08/17/18 18:53 Freq: Status: Active Protocol: Document 10/05/18 13:00 LJ (Rec: 10/05/18 14:56 LJ [email or web address]) Out-Patient Physical Therapy Visit Information Visit Information Visit Type Aquatic Treatment Note Visit Start Time 13:00 Visit Stop Time 13:45 Total Visit Minutes 45 Visit Number 10/10 Number of WAREHOUSE MANAGER Visits 1 PT-OP-B Current Condition Start: 08/17/18 18:53 Freq: Status: Active Protocol: Document 08/18/18 10:30 [facility] (Rec: 08/18/18 11:16 [facility] [id number]) Current Condition History of Current Condition Onset Date 2 months ago flare up Current Complaints LBP & R leg pain History of Current Condition Pt reports 30 year history of back pain with a recent episode. 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 Pt reports he was walking to get the paper about 2 months ago and his R side gave out and pain went down leg and had to grab mailbox to stay up. THis is the first time it has gone down his leg. He went to a doctor who sent him to do PT. Pt reports he has B ant ankle pain that limits his mobility. Reports he has scoliosis. He has talked to doctor about doing traction because manual traction has helped in the past. Prior Treatments and Tests PT on and off over the years; reports xrays; chiropractic in the past Future Testing and Treatments Planned Epidural possibly Treatment Goals Patient/Caregiver Goals Wants to be able to walk and back to walking about a 3 mile walk and at least 1 mile; be able to exercise to lose weight PT-OP-C Subjective Start: 08/17/18 18:53 Freq: Status: Active Protocol: Document 10/05/18 13:00 LJ (Rec: 10/05/18 14:56 LJ [email or web address]) OP-PT Subjective Patient Comments Patient Comments Pt states he is feeling better since having bronchitis. He says his back has not been bothering him but he has felt weak. PT-OP-F Manual Assessment Start: 08/17/18 18:53 Freq: Status: Active Protocol: Document 08/18/18 10:30 LR (Rec: 08/18/18 11:16 [facility] [id number]) Manual Assessments Soft Tissue Assessment Soft Tissue Mobility Assessment Tightness R paraspinals & QL & glutes R>L Joint Mobility Assessment Joint Mobility Assessment Iliac crest & R greater trochanter higher in standing; PT-OP-G Mobility & Gait Start: 08/17/18 18:53 Freq: Status: Active Protocol: Document 08/18/18 10:30 [facility] (Rec: 08/18/18 11:16 [facility] [id number]) OP Gait Assessment Comments Gait Comments Pt has lat leaning during push off with no ant elevation/ post depression PT-OP-J Posture/Palpation/Skin Start: 08/17/18 18:53 Freq: Status: Active Protocol: Document 08/18/18 10:30 [facility] (Rec: 08/18/18 11:16 [facility] [id number]) Posture Evaluation Loida Postural Classification System Loida Postural Classifications Anterior/Posterior Lumbar Protective Mechanism Left AP 1 Lumbar Protective Mechanism Right AP 1 Lumbar Protective Mechanism Left PA 1 Lumbar Protective Mechanism Right PA 1 PT-OP-K Range of Motion Start: 08/17/18 18:53 Freq: Status: Active Protocol: Document 08/18/18 10:30 [facility] (Rec: 08/18/18 11:16 [facility] [id number]) Lumbar Spine Range of Motion Lumbar Spine Active Degrees Flexion 51 Extension 20 Rotation Left 60 Rotation Right 48 Lateral Flexion Left 15 Lateral Flexion Right 23 ROM Limitations Pain PT-OP-L Special Tests Start: 08/17/18 18:53 Freq: Status: Active Protocol: Document 08/18/18 10:30 [facility] (Rec: 08/18/18 11:16 [facility] [id number]) Special Tests Lumbar Spine Special Tests traction Test Results long axis -relief Straight Leg Raise Test Results positive R; HS tight L Slump Test Results positive R PT-OP-M Strength Start: 08/17/18 18:53 Freq: Status: Active Protocol: Document 08/18/18 10:30 [facility] (Rec: 08/18/18 11:16 [facility] [id number]) Hip Strength Hip Manual Muscle Testing Right Flexion (L2) 4- Good- Abduction 3+ Fair+ External Rotation 4- Good- Internal Rotation 5 Normal Left Flexion (L2) 4- Good- Extension (S1) 3+ Fair+ Abduction 3+ Fair+ External Rotation 4+ Good+ Internal Rotation 5 Normal Knee Strength Knee Manual Muscle Testing Right Flexion (S2) 4+ Good+ Extension (L3) 4 Good Left Flexion (S2) 5 Normal Extension (L3) 5 Normal Ankle/Foot Strength Ankle and Foot Manual Muscle Testing Right Dorsiflexion (L4) 5 Normal Plantarflexion (S1) 4 Good Comments tested seated Left Dorsiflexion (L4) 5 Normal Plantarflexion (S1) 5 Normal Comments tested seated PT-OP-T Assessment and Plan Start: 08/17/18 18:53 Freq: Status: Active Protocol: Document 10/05/18 13:00 SON (Rec: 10/05/18 14:56 LJ [email or web address]) Physical Therapy Assessment Goals gait Director [employer] Goal (LTG) Pt will be able to amb 1 mile with no more than 2 point on 0 -10 pain scale increase. LTG Duration 10/18/18 SRINATH Short Term Goal (STG) Pt will show an improvement in functional ability with improvement of SRINATH to 15/50. STG Duration 09/17/18 Detention Goal (LTG) Pt will show an improvement in functional ability with improvement of SRINATH to 10/50. LTG Duration 10/18/18 strength Short Term Goal (STG) Pt will be indep with appropriate HEP & gym program in order to cont on his pain management & weight management safely. STG Duration 09/17/18 Detention Goal (LTG) Pt will score 4/5 LPM & 5/5 LE strength in order to demonstrate improved core control & improve his ability to do daily tasks. LTG Duration 10/18/18 Assessment Summary Assessment Pt requiring cuing for posture and core stabilization. Able to correct without difficulty but eventually looses stabilization and needs cuing again. Physical Therapy Plan Frequency and Duration Frequency of Treatment 2x/Week Duration of Treatment 2 months Plan of Care Start Date 08/18/18 Plan of Care End Date 10/18/18 Therapeutic Interventions Therapeutic Interventions Aquatic Therapy Balance Training Gait Training Home Exercise Program Joint Mobilizations Manual Therapy Neuromuscular Re-education Patient/Caregiver Education Self-Care/Home Management Soft Tissue Mobilization Taping Therapeutic Activities Therapeutic Exercises Modalities Cold Pack/Ice Massage Electric Stimulation Hot Packs Infrared Therapy Traction- Mechanical Ultrasound Next Visit Focus/Plan Next Note Type Treatment Note Next Visit Plan Progress ther ex as tolerated for core stabilization and pain management.
--- NOTE | 2018-10-05 14:56 | PT.OTN ---
Current Diagnoses Intracardiac thrombosis, not elsewhere classified (09/22/18) Spinal stenosis, lumbar region without neurogenic claudication (09/22/18) Radiculopathy, lumbar region (09/22/18) Lumbago with sciatica, unspecified side (09/22/18) Unspecified abnormalities of gait and mobility (09/22/18) Abnormal posture (09/22/18) Weakness (09/22/18) Encounter for therapeutic drug level monitoring (09/22/18) snf (current) use of anticoagulants (09/22/18) Physical Therapy Treatment Note PT-OP-A Visit Information Start: 08/17/18 18:53 Freq: Status: Active Protocol: Document 10/05/18 13:00 LJ (Rec: 10/05/18 14:56 LJ [email or web address]) Out-Patient Physical Therapy Visit Information Visit Information Visit Type Aquatic Treatment Note Visit Start Time 13:00 Visit Stop Time 13:45 Total Visit Minutes 45 Visit Number 10/10 Number of MANAGER GOVERNMENT Visits 1 PT-OP-B Current Condition Start: 08/17/18 18:53 Freq: Status: Active Protocol: Document 08/18/18 10:30 [facility] (Rec: 08/18/18 11:16 [facility] [id number]) Current Condition History of Current Condition Onset Date 2 months ago flare up Current Complaints LBP & R leg pain History of Current Condition Pt reports 30 year history of back pain with a recent episode. 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 Pt reports he was walking to get the paper about 2 months ago and his R side gave out and pain went down leg and had to grab mailbox to stay up. THis is the first time it has gone down his leg. He went to a doctor who sent him to do PT. Pt reports he has B ant ankle pain that limits his mobility. Reports he has scoliosis. He has talked to doctor about doing traction because manual traction has helped in the past. Prior Treatments and Tests PT on and off over the years; reports xrays; chiropractic in the past Future Testing and Treatments Planned Epidural possibly Treatment Goals Patient/Caregiver Goals Wants to be able to walk and back to walking about a 3 mile walk and at least 1 mile; be able to exercise to lose weight PT-OP-C Subjective Start: 08/17/18 18:53 Freq: Status: Active Protocol: Document 10/05/18 13:00 LJ (Rec: 10/05/18 14:56 LJ [email or web address]) OP-PT Subjective Patient Comments Patient Comments Pt states he is feeling better since having bronchitis. He says his back has not been bothering him but he has felt weak. PT-OP-F Manual Assessment Start: 08/17/18 18:53 Freq: Status: Active Protocol: Document 08/18/18 10:30 LR (Rec: 08/18/18 11:16 [facility] [id number]) Manual Assessments Soft Tissue Assessment Soft Tissue Mobility Assessment Tightness R paraspinals & QL & glutes R>L Joint Mobility Assessment Joint Mobility Assessment Iliac crest & R greater trochanter higher in standing; PT-OP-G Mobility & Gait Start: 08/17/18 18:53 Freq: Status: Active Protocol: Document 08/18/18 10:30 [facility] (Rec: 08/18/18 11:16 [facility] [id number]) OP Gait Assessment Comments Gait Comments Pt has lat leaning during push off with no ant elevation/ post depression PT-OP-J Posture/Palpation/Skin Start: 08/17/18 18:53 Freq: Status: Active Protocol: Document 08/18/18 10:30 [facility] (Rec: 08/18/18 11:16 [facility] [id number]) Posture Evaluation [place] Postural Classification System [place] Postural Classifications Anterior/Posterior Lumbar Protective Mechanism Left AP 1 Lumbar Protective Mechanism Right AP 1 Lumbar Protective Mechanism Left PA 1 Lumbar Protective Mechanism Right PA 1 PT-OP-K Range of Motion Start: 08/17/18 18:53 Freq: Status: Active Protocol: Document 08/18/18 10:30 [facility] (Rec: 08/18/18 11:16 [facility] [id number]) Lumbar Spine Range of Motion Lumbar Spine Active Degrees Flexion 51 Extension 20 Rotation Left 60 Rotation Right 48 Lateral Flexion Left 15 Lateral Flexion Right 23 ROM Limitations Pain PT-OP-L Special Tests Start: 08/17/18 18:53 Freq: Status: Active Protocol: Document 08/18/18 10:30 [facility] (Rec: 08/18/18 11:16 [facility] [id number]) Special Tests Lumbar Spine Special Tests traction Test Results long axis -relief Straight Leg Raise Test Results positive R; HS tight L Slump Test Results positive R PT-OP-M Strength Start: 08/17/18 18:53 Freq: Status: Active Protocol: Document 08/18/18 10:30 [facility] (Rec: 08/18/18 11:16 [facility] [id number]) Hip Strength Hip Manual Muscle Testing Right Flexion (L2) 4- Good- Abduction 3+ Fair+ External Rotation 4- Good- Internal Rotation 5 Normal Left Flexion (L2) 4- Good- Extension (S1) 3+ Fair+ Abduction 3+ Fair+ External Rotation 4+ Good+ Internal Rotation 5 Normal Knee Strength Knee Manual Muscle Testing Right Flexion (S2) 4+ Good+ Extension (L3) 4 Good Left Flexion (S2) 5 Normal Extension (L3) 5 Normal Ankle/Foot Strength Ankle and Foot Manual Muscle Testing Right Dorsiflexion (L4) 5 Normal Plantarflexion (S1) 4 Good Comments tested seated Left Dorsiflexion (L4) 5 Normal Plantarflexion (S1) 5 Normal Comments tested seated PT-OP-Q Treatments Start: 08/17/18 18:53 Freq: Status: Active Protocol: Document 09/22/18 16:50 [facility] (Rec: 09/22/18 18:14 [facility] [id number]) Cardio Equipment Recumbent Bicycle Duration (Minutes) 5 Resistance 9 Seat Position 11 Gym Equipment Shuttle Balance yellow clips Details WBOS fwd & side Comments in neutral and with head turns Therapeutic Exercises Standing Exercises side step Side bilateral Reps/Minutes 20ft Step ups Standing Exercise Name 5 in Side bilateral Reps/Minutes 2x10 Manual Therapy Treatment Soft Tissue Mobilization QL & ES R Body Location R Mobilization Type Rolling Intensity/Depth Moderate Body Position Sidelying Manual Traction Lumbar Details Manual Lumbar traction with belt & long axis Body Position Supine Reps/Duration 5' Comments Pain decreased Neuro Re-Education Treatment Balance Activities tandem stance Details B PT-OP-R Modalities Start: 08/17/18 18:53 Freq: Status: Active Protocol: Document 08/24/18 09:00 [facility] (Rec: 08/24/18 09:51 [facility] [id number]) Hot Pack/Cold Pack Treatment Hot Pack Location lumbar Patient Position Hooklying Treatment Duration (minutes) 15 Spinal Traction Traction Treatment Lumbar Method Mechanical Patient Position Hooklying Force Applied (Pounds) 55 Duration of Treatment (Minutes) 10 Traction Treatment Comment [place] PT-OP-S Aquatic Treatment Start: 08/28/18 15:27 Freq: Status: Active Protocol: Document 10/05/18 13:00 (Rec: 10/05/18 14:56 [email or web address]) Aquatics Treatment Pool Entry/Exit Pool Entry/Exit Method Stairs Assistance Standby Assistance Verbal Cues Water Walking Sideways Water Level Chest Level Level of Assistance Standby Assistance Verbal Cues Comments ab/ad arms Monster Walk Water Level Chest Level Level of Assistance Standby Assistance Verbal Cues [place] Water Level Chest Level Level of Assistance Standby Assistance Verbal Cues Backwards Water Level Chest Level Level of Assistance Standby Assistance Verbal Cues [place] Water Level Chest Level Level of Assistance Standby Assistance Verbal Cues Comments cues for posture and recrip gait pattern Lower Extremity Exercises squats at wall Water Level Chest Level Comments cuing for mm activation sequence Hs curls Body Position Standing Water Level Chest Level Comments manual assist for posture Lower Extremity Stretches SKTC bilat Details at wall Water Level Chest Level Reps/Duration 2 x 30 Comments with posterior pelvic tilt HS, ITB Details standing at wall Equipment Small Noodle Reps/Duration 2 x 30 Upper Extremity Exercises flex/ext, ab/ad, horiz ab/ad Body Position Standing Water Level Chest Level Reps/Duration 10 each Comments cues for core stabilization [place] Activities [place] Activities Bicycle [place] Hip Abduction/Adduction Equipment blue float Duration 10 min Comments gentle movements encouraging glute activation and upright posture PT-OP-T Assessment and Plan Start: 08/17/18 18:53 Freq: Status: Active Protocol: Document 10/05/18 13:00 (Rec: 10/05/18 14:56 [email or web address]) Physical Therapy Assessment Goals gait Spinning Machine Tender Goal (LTG) Pt will be able to amb 1 mile with no more than 2 point on 0 -10 pain scale increase. LTG Duration 10/18/18 SRINATH Short Term Goal (STG) Pt will show an improvement in functional ability with improvement of SRINATH to 15/50. STG Duration 09/17/18 Shelter Goal (LTG) Pt will show an improvement in functional ability with improvement of SRINATH to 10/50. LTG Duration 10/18/18 strength Short Term Goal (STG) Pt will be indep with appropriate HEP & gym program in order to cont on his pain management & weight management safely. STG Duration 09/17/18 Shelter Goal (LTG) Pt will score 4/5 LPM & 5/5 LE strength in order to demonstrate improved core control & improve his ability to do daily tasks. LTG Duration 10/18/18 Assessment Summary Assessment Pt requiring cuing for posture and core stabilization. Able to correct without difficulty but eventually looses stabilization and needs cuing again. Physical Therapy Plan Frequency and Duration Frequency of Treatment 2x/Week Duration of Treatment 2 months Plan of Care Start Date 08/18/18 Plan of Care End Date 10/18/18 Therapeutic Interventions Therapeutic Interventions Aquatic Therapy Balance Training Gait Training Home Exercise Program Joint Mobilizations Manual Therapy Neuromuscular Re-education Patient/Caregiver Education Self-Care/Home Management Soft Tissue Mobilization Taping Therapeutic Activities Therapeutic Exercises Modalities Cold Pack/Ice Massage Electric Stimulation Hot Packs Infrared Therapy Traction- Mechanical Ultrasound Next Visit Focus/Plan Next Note Type Treatment Note Next Visit Plan Progress ther ex as tolerated for core stabilization and pain management.
--- NOTE | 2018-10-12 15:01 | PT.OTN ---
Current Diagnoses Intracardiac thrombosis, not elsewhere classified (10/05/18) Spinal stenosis, lumbar region without neurogenic claudication (10/05/18) Radiculopathy, lumbar region (10/05/18) Lumbago with sciatica, unspecified side (10/05/18) Unspecified abnormalities of gait and mobility (10/05/18) Abnormal posture (10/05/18) Weakness (10/05/18) Encounter for therapeutic drug level monitoring (10/05/18) prison (current) use of anticoagulants (10/05/18) Physical Therapy Treatment Note PT-OP-A Visit Information Start: 08/17/18 18:53 Freq: Status: Active Protocol: Document 10/12/18 12:15 LJ (Rec: 10/12/18 15:00 LJ [email or web address]) Out-Patient Physical Therapy Visit Information Visit Information Visit Type Aquatic Treatment Note Visit Start Time 12:15 Visit Stop Time 13:00 Total Visit Minutes 45 Visit Number 11 Number of BOTTOMING MACHINE OPERATOR Visits 2 PT-OP-B Current Condition Start: 08/17/18 18:53 Freq: Status: Active Protocol: Document 08/18/18 10:30 [facility] (Rec: 08/18/18 11:16 [facility] [id number]) Current Condition History of Current Condition Onset Date 2 months ago flare up Current Complaints LBP & R leg pain History of Current Condition Pt reports 30 year history of back pain with a recent episode. 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 Pt reports he was walking to get the paper about 2 months ago and his R side gave out and pain went down leg and had to grab mailbox to stay up. THis is the first time it has gone down his leg. He went to a doctor who sent him to do PT. Pt reports he has B ant ankle pain that limits his mobility. Reports he has scoliosis. He has talked to doctor about doing traction because manual traction has helped in the past. Prior Treatments and Tests PT on and off over the years; reports xrays; chiropractic in the past Future Testing and Treatments Planned Epidural possibly Treatment Goals Patient/Caregiver Goals Wants to be able to walk and back to walking about a 3 mile walk and at least 1 mile; be able to exercise to lose weight PT-OP-C Subjective Start: 08/17/18 18:53 Freq: Status: Active Protocol: Document 10/12/18 12:15 LJ (Rec: 10/12/18 15:00 LJ [email or web address]) OP-PT Subjective Patient Comments Patient Comments Pt states his back is sore today. Uncertain as to the cause of increased pain. PT-OP-F Manual Assessment Start: 08/17/18 18:53 Freq: Status: Active Protocol: Document 08/18/18 10:30 [facility] (Rec: 08/18/18 11:16 [facility] [id number]) Manual Assessments Soft Tissue Assessment Soft Tissue Mobility Assessment Tightness R paraspinals & QL & glutes R>L Joint Mobility Assessment Joint Mobility Assessment Iliac crest & R greater trochanter higher in standing; PT-OP-G Mobility & Gait Start: 08/17/18 18:53 Freq: Status: Active Protocol: Document 08/18/18 10:30 [facility] (Rec: 08/18/18 11:16 [facility] [id number]) OP Gait Assessment Comments Gait Comments Pt has lat leaning during push off with no ant elevation/ post depression PT-OP-J Posture/Palpation/Skin Start: 08/17/18 18:53 Freq: Status: Active Protocol: Document 08/18/18 10:30 [facility] (Rec: 08/18/18 11:16 [facility] [id number]) Posture Evaluation Loida Postural Classification System Loida Postural Classifications Anterior/Posterior Lumbar Protective Mechanism Left AP 1 Lumbar Protective Mechanism Right AP 1 Lumbar Protective Mechanism Left PA 1 Lumbar Protective Mechanism Right PA 1 PT-OP-K Range of Motion Start: 08/17/18 18:53 Freq: Status: Active Protocol: Document 08/18/18 10:30 [facility] (Rec: 08/18/18 11:16 [facility] [id number]) Lumbar Spine Range of Motion Lumbar Spine Active Degrees Flexion 51 Extension 20 Rotation Left 60 Rotation Right 48 Lateral Flexion Left 15 Lateral Flexion Right 23 ROM Limitations Pain PT-OP-L Special Tests Start: 08/17/18 18:53 Freq: Status: Active Protocol: Document 08/18/18 10:30 [facility] (Rec: 08/18/18 11:16 [facility] [id number]) Special Tests Lumbar Spine Special Tests traction Test Results long axis -relief Straight Leg Raise Test Results positive R; HS tight L Slump Test Results positive R PT-OP-M Strength Start: 08/17/18 18:53 Freq: Status: Active Protocol: Document 08/18/18 10:30 LR (Rec: 08/18/18 11:16 [facility] [id number]) Hip Strength Hip Manual Muscle Testing Right Flexion (L2) 4- Good- Abduction 3+ Fair+ External Rotation 4- Good- Internal Rotation 5 Normal Left Flexion (L2) 4- Good- Extension (S1) 3+ Fair+ Abduction 3+ Fair+ External Rotation 4+ Good+ Internal Rotation 5 Normal Knee Strength Knee Manual Muscle Testing Right Flexion (S2) 4+ Good+ Extension (L3) 4 Good Left Flexion (S2) 5 Normal Extension (L3) 5 Normal Ankle/Foot Strength Ankle and Foot Manual Muscle Testing Right Dorsiflexion (L4) 5 Normal Plantarflexion (S1) 4 Good Comments tested seated Left Dorsiflexion (L4) 5 Normal Plantarflexion (S1) 5 Normal Comments tested seated PT-OP-Q Treatments Start: 08/17/18 18:53 Freq: Status: Active Protocol: Document 09/22/18 16:50 [facility] (Rec: 09/22/18 18:14 [facility] [id number]) Cardio Equipment Recumbent Bicycle Duration (Minutes) 5 Resistance 9 Seat Position 11 Gym Equipment Shuttle Balance yellow clips Details WBOS fwd & side Comments in neutral and with head turns Therapeutic Exercises Standing Exercises side step Side bilateral Reps/Minutes 20ft Step ups Standing Exercise Name 5 in Side bilateral Reps/Minutes 2x10 Manual Therapy Treatment Soft Tissue Mobilization QL & ES R Body Location R Mobilization Type Rolling Intensity/Depth Moderate Body Position Sidelying Manual Traction Lumbar Details Manual Lumbar traction with belt & long axis Body Position Supine Reps/Duration 5' Comments Pain decreased Neuro Re-Education Treatment Balance Activities tandem stance Details B PT-OP-R Modalities Start: 08/17/18 18:53 Freq: Status: Active Protocol: Document 08/24/18 09:00 LR (Rec: 08/24/18 09:51 [facility] [id number]) Hot Pack/Cold Pack Treatment Hot Pack Location lumbar Patient Position Hooklying Treatment Duration (minutes) 15 Spinal Traction Traction Treatment Lumbar Method Mechanical Patient Position Hooklying Force Applied (Pounds) 55 Duration of Treatment (Minutes) 10 Traction Treatment Comment Urvahsi PT-OP-S Aquatic Treatment Start: 08/28/18 15:27 Freq: Status: Active Protocol: Document 10/12/18 12:15 LJ (Rec: 10/12/18 15:00 SON [email or web address]) Aquatics Treatment Pool Entry/Exit Pool Entry/Exit Method Stairs Assistance Standby Assistance Verbal Cues Water Walking Sideways Water Level Chest Level Walking Equipment Ankle Weight- 2.5# Level of Assistance Standby Assistance Verbal Cues Comments ab/ad arms Monster Walk Water Level Chest Level Walking Equipment Ankle Weight- 2.5# Level of Assistance Standby Assistance Verbal Cues [place] March Water Level Chest Level Level of Assistance Standby Assistance Verbal Cues Comments diagonal and straight Backwards Water Level Chest Level Walking Equipment Ankle Weight- 2.5# Level of Assistance Standby Assistance Verbal Cues Comments reverse breast stroke arms Forwards Water Level Chest Level Walking Equipment Ankle Weight- 2.5# Level of Assistance Standby Assistance Verbal Cues Comments cues for posture and recrip gait pattern Lower Extremity Exercises squats at wall Water Level Chest Level Comments cuing for mm activation sequence Hs curls Body Position Standing Water Level Chest Level Comments manual assist for posture Lower Extremity Stretches SKTC bilat Details at wall Water Level Chest Level Reps/Duration 2 x 30 Comments with posterior pelvic tilt HS, ITB Details standing at wall Equipment Small Noodle Reps/Duration 2 x 30 Spinal Exercises rotation with hand paddles Body Position Standing Water Level Chest Level Equipment UE paddles Reps/Duration 15 each direction Comments cuing for scap depression and activating obliques Ocate Activities Ocate Activities Bicycle [place] Equipment blue float Duration 15 Comments gentle movements encouraging glute activation and upright posture Manual Techniques Aquatic Manual Traction wall hang with 2.5 wts 8 min PT-OP-T Assessment and Plan Start: 08/17/18 18:53 Freq: Status: Active Protocol: Document 10/12/18 12:15 SON (Rec: 10/12/18 15:00 SON [email or web address]) Physical Therapy Assessment Goals gait Biofuels Production Technician Goal (LTG) Pt will be able to amb 1 mile with no more than 2 point on 0 -10 pain scale increase. 10/05/18: goal progress LTG Duration 10/18/18 SRINATH Short Term Goal (STG) Pt will show an improvement in functional ability with improvement of SRINATH to 15/50. 10/05/18: goal progress STG Duration 09/17/18 Biofuels Production Technician Goal (LTG) Pt will show an improvement in functional ability with improvement of SRINATH to 10/50. LTG Duration 10/18/18 strength Short Term Goal (STG) Pt will be indep with appropriate HEP & gym program in order to cont on his pain management & weight management safely. 10/05/18: goal progress STG Duration 09/17/18 Halfway Goal (LTG) Pt will score 4/5 LPM & 5/5 LE strength in order to demonstrate improved core control & improve his ability to do daily tasks. LTG Duration 10/18/18 Assessment Summary Assessment Pt requiring cuing for most shallow water exercises for maintaining upright posture and bringing lower up to chest rather than chest down to knees. With manual cuing pt able to retract shoulder blades and maintain better posture but needs frequent reminders. Physical Therapy Plan Frequency and Duration Frequency of Treatment 2x/Week Duration of Treatment 2 months Plan of Care Start Date 08/18/18 Plan of Care End Date 10/18/18 Therapeutic Interventions Therapeutic Interventions Aquatic Therapy Balance Training Gait Training Home Exercise Program Joint Mobilizations Manual Therapy Neuromuscular Re-education Patient/Caregiver Education Self-Care/Home Management Soft Tissue Mobilization Taping Therapeutic Activities Therapeutic Exercises Modalities Cold Pack/Ice Massage Electric Stimulation Hot Packs Infrared Therapy Traction- Mechanical Ultrasound Next Visit Focus/Plan Next Note Type Treatment Note Next Visit Plan Progress ther ex as tolerated for core stabilization and pain management.
--- NOTE | 2018-10-15 13:56 | PT.OTN ---
Current Diagnoses Intracardiac thrombosis, not elsewhere classified (10/15/18) Spinal stenosis, lumbar region without neurogenic claudication (10/15/18) Radiculopathy, lumbar region (10/15/18) Lumbago with sciatica, unspecified side (10/15/18) Unspecified abnormalities of gait and mobility (10/15/18) Abnormal posture (10/15/18) Weakness (10/15/18) Encounter for therapeutic drug level monitoring (10/15/18) [facility] (current) use of anticoagulants (10/15/18) Physical Therapy Treatment Note PT-OP-A Visit Information Start: 08/17/18 18:53 Freq: Status: Active Protocol: Document 10/15/18 11:34 AR (Rec: 10/15/18 11:45 AR [id number]) Out-Patient Physical Therapy Visit Information Visit Information Visit Type Progress Note Visit Start Time 09:05 Visit Stop Time 09:45 Total Visit Minutes 40 Visit Number 12 Number of MOBILE NURSE Visits 0 PT-OP-B Current Condition Start: 08/17/18 18:53 Freq: Status: Active Protocol: Document 08/18/18 10:30 [facility] (Rec: 08/18/18 11:16 [facility] [id number]) Current Condition History of Current Condition Onset Date 2 months ago flare up Current Complaints LBP & R leg pain History of Current Condition Pt reports 30 year history of back pain with a recent episode. 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 Pt reports he was walking to get the paper about 2 months ago and his R side gave out and pain went down leg and had to grab mailbox to stay up. THis is the first time it has gone down his leg. He went to a doctor who sent him to do PT. Pt reports he has B ant ankle pain that limits his mobility. Reports he has scoliosis. He has talked to doctor about doing traction because manual traction has helped in the past. Prior Treatments and Tests PT on and off over the years; reports xrays; chiropractic in the past Future Testing and Treatments Planned Epidural possibly Treatment Goals Patient/Caregiver Goals Wants to be able to walk and back to walking about a 3 mile walk and at least 1 mile; be able to exercise to lose weight PT-OP-C Subjective Start: 08/17/18 18:53 Freq: Status: Active Protocol: Document 10/15/18 11:34 AR (Rec: 10/15/18 11:45 AR [email or web address]) OP-PT Subjective Patient Comments Patient Comments Pt reports he cannot schedule aquatic and land therapy on consecutive days as he was very sore after the last aquatic session. Pt reported that he will be going to acupuncture soon to help his back pain. Pt is still hoping to go to the gym but has not looked into a membership yet. PT-OP-F Manual Assessment Start: 08/17/18 18:53 Freq: Status: Active Protocol: Document 08/18/18 10:30 LR (Rec: 08/18/18 11:16 [facility] [id number]) Manual Assessments Soft Tissue Assessment Soft Tissue Mobility Assessment Tightness R paraspinals & QL & glutes R>L Joint Mobility Assessment Joint Mobility Assessment Iliac crest & R greater trochanter higher in standing; PT-OP-G Mobility & Gait Start: 08/17/18 18:53 Freq: Status: Active Protocol: Document 08/18/18 10:30 LR (Rec: 08/18/18 11:16 [facility] [id number]) OP Gait Assessment Comments Gait Comments Pt has lat leaning during push off with no ant elevation/ post depression PT-OP-J Posture/Palpation/Skin Start: 08/17/18 18:53 Freq: Status: Active Protocol: Document 08/18/18 10:30 LR (Rec: 08/18/18 11:16 [facility] [id number]) Posture Evaluation Loida Postural Classification System Loid[place] Postural Classifications Anterior/Posterior Lumbar Protective Mechanism Left AP 1 Lumbar Protective Mechanism Right AP 1 Lumbar Protective Mechanism Left PA 1 Lumbar Protective Mechanism Right PA 1 PT-OP-K Range of Motion Start: 08/17/18 18:53 Freq: Status: Active Protocol: Document 08/18/18 10:30 LR (Rec: 08/18/18 11:16 [facility] [id number]) Lumbar Spine Range of Motion Lumbar Spine Active Degrees Flexion 51 Extension 20 Rotation Left 60 Rotation Right 48 Lateral Flexion Left 15 Lateral Flexion Right 23 ROM Limitations Pain PT-OP-L Special Tests Start: 08/17/18 18:53 Freq: Status: Active Protocol: Document 08/18/18 10:30 LR (Rec: 08/18/18 11:16 [facility] [id number]) Special Tests Lumbar Spine Special Tests traction Test Results long axis -relief Straight Leg Raise Test Results positive R; HS tight L Slump Test Results positive R PT-OP-M Strength Start: 08/17/18 18:53 Freq: Status: Active Protocol: Document 08/18/18 10:30 [facility] (Rec: 08/18/18 11:16 [facility] [id number]) Hip Strength Hip Manual Muscle Testing Right Flexion (L2) 4- Good- Abduction 3+ Fair+ External Rotation 4- Good- Internal Rotation 5 Normal Left Flexion (L2) 4- Good- Extension (S1) 3+ Fair+ Abduction 3+ Fair+ External Rotation 4+ Good+ Internal Rotation 5 Normal Knee Strength Knee Manual Muscle Testing Right Flexion (S2) 4+ Good+ Extension (L3) 4 Good Left Flexion (S2) 5 Normal Extension (L3) 5 Normal Ankle/Foot Strength Ankle and Foot Manual Muscle Testing Right Dorsiflexion (L4) 5 Normal Plantarflexion (S1) 4 Good Comments tested seated Left Dorsiflexion (L4) 5 Normal Plantarflexion (S1) 5 Normal Comments tested seated PT-OP-Q Treatments Start: 08/17/18 18:53 Freq: Status: Active Protocol: Document 10/15/18 11:34 AR (Rec: 10/15/18 11:45 AR [email or web address]) Cardio Equipment Recumbent Bicycle Duration (Minutes) 7 Resistance 4 Other 3 minutes at resistance 8, 4 minutes at resistance 4. pt needed break Gym Equipment Cable Column (Body Solid) knee ext Details knee ext Resistance 3# Reps/Time 2x10 reps HS curls Details HS curls Resistance 4# Reps/Time 2x15 reps Hip Abduction Details hip abd/add Resistance 3# Reps/Time 2x10 reps Manual Therapy Treatment Manual Traction Lumbar Details Manual Lumbar traction with belt & long axis Body Position Hooklying Reps/Duration 10' Comments hip/knees @ 90/90. Pain decreased Self-Care/Home Management Treatment Education Patient Education Home Exercise Program Other Education HEP and gym exercise program. pt educated on types of machines and how to use them PT-OP-R Modalities Start: 08/17/18 18:53 Freq: Status: Active Protocol: Document 08/24/18 09:00 [facility] (Rec: 08/24/18 09:51 [facility] [id number]) Hot Pack/Cold Pack Treatment Hot Pack Location lumbar Patient Position Hooklying Treatment Duration (minutes) 15 Spinal Traction Traction Treatment Lumbar Method Mechanical Patient Position Hooklying Force Applied (Pounds) 55 Duration of Treatment (Minutes) 10 Traction Treatment Comment Urvashi PT-OP-S Aquatic Treatment Start: 08/28/18 15:27 Freq: Status: Active Protocol: Document 10/12/18 12:15 LJ (Rec: 10/12/18 15:00 LJ [email or web address]) Aquatics Treatment Pool Entry/Exit Pool Entry/Exit Method Stairs Assistance Standby Assistance Verbal Cues Water Walking Sideways Water Level Chest Level Walking Equipment Ankle Weight- 2.5# Level of Assistance Standby Assistance Verbal Cues Comments ab/ad arms Monster Walk Water Level Chest Level Walking Equipment Ankle Weight- 2.5# Level of Assistance Standby Assistance Verbal Cues [place] March Water Level Chest Level Level of Assistance Standby Assistance Verbal Cues Comments diagonal and straight Backwards Water Level Chest Level Walking Equipment Ankle Weight- 2.5# Level of Assistance Standby Assistance Verbal Cues Comments reverse breast stroke arms Forwards Water Level Chest Level Walking Equipment Ankle Weight- 2.5# Level of Assistance Standby Assistance Verbal Cues Comments cues for posture and recrip gait pattern Lower Extremity Exercises squats at wall Water Level Chest Level Comments cuing for mm activation sequence Hs curls Body Position Standing Water Level Chest Level Comments manual assist for posture Lower Extremity Stretches SKTC bilat Details at wall Water Level Chest Level Reps/Duration 2 x 30 Comments with posterior pelvic tilt HS, ITB Details standing at wall Equipment Small Noodle Reps/Duration 2 x 30 Spinal Exercises rotation with hand paddles Body Position Standing Water Level Chest Level Equipment UE paddles Reps/Duration 15 each direction Comments cuing for scap depression and activating obliques Cascade Activities Cascade Activities Bicycle [place] Equipment blue float Duration 15 Comments gentle movements encouraging glute activation and upright posture Manual Techniques Aquatic Manual Traction wall hang with 2.5 wts 8 min PT-OP-T Assessment and Plan Start: 08/17/18 18:53 Freq: Status: Active Protocol: Document 10/15/18 11:34 AR (Rec: 10/15/18 11:45 AR [email or web address]) Physical Therapy Assessment Goals gait Real Estate Closing Coordinator Goal (LTG) Pt will be able to amb 1 mile with no more than 2 point on 0 -10 pain scale increase. 10/05/18: goal progress LTG Duration not met SRINATH Short Term Goal (STG) Pt will show an improvement in functional ability with improvement of SRINATH to 15/50. 10/05/18: goal progress STG Duration 09/17/18 Real Estate Closing Coordinator Goal (LTG) Pt will show an improvement in functional ability with improvement of SRINATH to 10/50. LTG Duration not tested today strength Short Term Goal (STG) Pt will be indep with appropriate HEP & gym program in order to cont on his pain management & weight management safely. 10/05/18: goal progress STG Duration 09/17/18 Fdc Goal (LTG) Pt will score 4/5 LPM & 5/5 LE strength in order to demonstrate improved core control & improve his ability to do daily tasks. LTG Duration strength not tested today Assessment Summary Assessment Pt has not met goals d/t recent hospitalization and decreased compliance with HEP. Pt was encouraged to join a gym and was educated on gym program he can complete w/o pain. Pt heavily educated on imporance of HEP and core stability to dec pain. Pt was encouraged to notify aquatic therapists when he has done too much exercise, as pt reports he can barely walk after he gets out of the pool. Pt was able to maintain good form during gym exercises and feels confident he can perform them on his own. Pt's LE strength and SRINATH were not re- evaluated today d/t recent hospitalization and bronchitis impacting PT treatment. Pt does report pain relief from coming to therapy and feels it is helpful. Physical Therapy Plan Frequency and Duration Frequency of Treatment 1-2x/week Duration of Treatment 2 months Plan of Care Start Date 10/15/18 Plan of Care End Date 12/15/18 Therapeutic Interventions Therapeutic Interventions Aquatic Therapy Balance Training Coordination Training Gait Training Home Exercise Program Joint Mobilizations Manual Therapy Neuromuscular Re-education Patient/Caregiver Education Self-Care/Home Management Soft Tissue Mobilization Taping Therapeutic Activities Therapeutic Exercises Modalities Cold Pack/Ice Massage Electric Stimulation Hot Packs Infrared Therapy Iontophoresis Traction- Mechanical Next Visit Focus/Plan Next Note Type Treatment Note Next Visit Plan progress core stabilization, add resisted walking. progress balance trng
--- NOTE | 2018-10-15 13:57 | PT.OPPOC ---
Current Diagnoses Intracardiac thrombosis, not elsewhere classified (10/15/18) Spinal stenosis, lumbar region without neurogenic claudication (10/15/18) Radiculopathy, lumbar region (10/15/18) Lumbago with sciatica, unspecified side (10/15/18) Unspecified abnormalities of gait and mobility (10/15/18) Abnormal posture (10/15/18) Weakness (10/15/18) Encounter for therapeutic drug level monitoring (10/15/18) care home (current) use of anticoagulants (10/15/18) Provider Visit Care Team Role Provider Type Salome Kee Attending Provider Non-Staff Specialty: Physical Medicine and Rehab Address: [address] [place] [address], [facility] Email: Plan Of Care PT-OP-T Assessment and Plan Start: 08/17/18 18:53 Freq: Status: Active Protocol: Document 10/15/18 11:34 AR (Rec: 10/15/18 11:45 AR [email or web address]) Physical Therapy Assessment Goals gait [employer] Goal (LTG) Pt will be able to amb 1 mile with no more than 2 point on 0 -10 pain scale increase. 10/05/18: goal progress LTG Duration not met SRINATH Short Term Goal (STG) Pt will show an improvement in functional ability with improvement of SRINATH to 15/50. 10/05/18: goal progress STG Duration 09/17/18 [employer] Goal (LTG) Pt will show an improvement in functional ability with improvement of SRINATH to 10/50. LTG Duration not tested today strength Short Term Goal (STG) Pt will be indep with appropriate HEP & gym program in order to cont on his pain management & weight management safely. 10/05/18: goal progress STG Duration 09/17/18 Custodial Goal (LTG) Pt will score 4/5 LPM & 5/5 LE strength in order to demonstrate improved core control & improve his ability to do daily tasks. LTG Duration strength not tested today Assessment Summary Assessment Pt has not met goals d/t recent hospitalization and decreased compliance with HEP. Pt was encouraged to join a gym and was educated on gym program he can complete w/o pain. Pt heavily educated on imporance of HEP and core stability to dec pain. Pt was encouraged to notify aquatic therapists when he has done too much exercise, as pt reports he can barely walk after he gets out of the pool. Pt was able to maintain good form during gym exercises and feels confident he can perform them on his own. Pt's LE strength and SRINATH were not re- evaluated today d/t recent hospitalization and bronchitis impacting PT treatment. Pt does report pain relief from coming to therapy and feels it is helpful. Physical Therapy Plan Frequency and Duration Frequency of Treatment 1-2x/week Duration of Treatment 2 months Plan of Care Start Date 10/15/18 Plan of Care End Date 12/15/18 Therapeutic Interventions Therapeutic Interventions Aquatic Therapy Balance Training Coordination Training Gait Training Home Exercise Program Joint Mobilizations Manual Therapy Neuromuscular Re-education Patient/Caregiver Education Self-Care/Home Management Soft Tissue Mobilization Taping Therapeutic Activities Therapeutic Exercises Modalities Cold Pack/Ice Massage Electric Stimulation Hot Packs Infrared Therapy Iontophoresis Traction- Mechanical Next Visit Focus/Plan Next Note Type Treatment Note Next Visit Plan progress core stabilization, add resisted walking. progress balance trng Plan of Care Dates Plan of Care Start Date 10/15/18 Plan of Care End Date 12/15/18 Please Sign and Return: I have reviewed this Plan of Care and certify that the skilled therapy services above are required to meet the patient?s needs. Physician Signature Date Printed Name and Credentials Clinical Instructor Signature Printed Name and Credentials
--- NOTE | 2018-10-20 15:01 | PT.OTN ---
Current Diagnoses Intracardiac thrombosis, not elsewhere classified (10/20/18) Spinal stenosis, lumbar region without neurogenic claudication (10/20/18) Radiculopathy, lumbar region (10/20/18) Lumbago with sciatica, unspecified side (10/20/18) Unspecified abnormalities of gait and mobility (10/20/18) Abnormal posture (10/20/18) Weakness (10/20/18) Encounter for therapeutic drug level monitoring (10/20/18) correction (current) use of anticoagulants (10/20/18) Physical Therapy Treatment Note PT-OP-A Visit Information Start: 08/17/18 18:53 Freq: Status: Active Protocol: Document 10/20/18 08:15 AR (Rec: 10/20/18 09:48 AR [email or web address]) Out-Patient Physical Therapy Visit Information Visit Information Visit Type Treatment Note Visit Start Time 08:13 Visit Stop Time 09:15 Total Visit Minutes 62 Visit Number 13 Number of FORKLIFT OPERATOR Visits 0 PT-OP-B Current Condition Start: 08/17/18 18:53 Freq: Status: Active Protocol: Document 08/18/18 10:30 [facility] (Rec: 08/18/18 11:16 [facility] [id number]) Current Condition History of Current Condition Onset Date 2 months ago flare up Current Complaints LBP & R leg pain History of Current Condition Pt reports 30 year history of back pain with a recent episode. 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 Pt reports he was walking to get the paper about 2 months ago and his R side gave out and pain went down leg and had to grab mailbox to stay up. THis is the first time it has gone down his leg. He went to a doctor who sent him to do PT. Pt reports he has B ant ankle pain that limits his mobility. Reports he has scoliosis. He has talked to doctor about doing traction because manual traction has helped in the past. Prior Treatments and Tests PT on and off over the years; reports xrays; chiropractic in the past Future Testing and Treatments Planned Epidural possibly Treatment Goals Patient/Caregiver Goals Wants to be able to walk and back to walking about a 3 mile walk and at least 1 mile; be able to exercise to lose weight PT-OP-C Subjective Start: 08/17/18 18:53 Freq: Status: Active Protocol: Document 10/20/18 08:15 AR (Rec: 10/20/18 09:48 AR [email or web address]) OP-PT Subjective Patient Comments Patient Comments Pt reports his pain is still limiting activity and he has not been compliant with HEP. He slept poorly last night and his body is sore today. He also reported he had a fall last week when going to the bathroom in the middle of the night and jammed his right shoulder. PT-OP-F Manual Assessment Start: 08/17/18 18:53 Freq: Status: Active Protocol: Document 08/18/18 10:30 LR (Rec: 08/18/18 11:16 [facility] [id number]) Manual Assessments Soft Tissue Assessment Soft Tissue Mobility Assessment Tightness R paraspinals & QL & glutes R>L Joint Mobility Assessment Joint Mobility Assessment Iliac crest & R greater trochanter higher in standing; PT-OP-G Mobility & Gait Start: 08/17/18 18:53 Freq: Status: Active Protocol: Document 08/18/18 10:30 LR (Rec: 08/18/18 11:16 [facility] [id number]) OP Gait Assessment Comments Gait Comments Pt has lat leaning during push off with no ant elevation/ post depression PT-OP-J Posture/Palpation/Skin Start: 08/17/18 18:53 Freq: Status: Active Protocol: Document 08/18/18 10:30 LR (Rec: 08/18/18 11:16 [facility] [id number]) Posture Evaluation [place] Postural Classification System [place] Postural Classifications Anterior/Posterior Lumbar Protective Mechanism Left AP 1 Lumbar Protective Mechanism Right AP 1 Lumbar Protective Mechanism Left PA 1 Lumbar Protective Mechanism Right PA 1 PT-OP-K Range of Motion Start: 08/17/18 18:53 Freq: Status: Active Protocol: Document 08/18/18 10:30 LR (Rec: 08/18/18 11:16 [facility] [id number]) Lumbar Spine Range of Motion Lumbar Spine Active Degrees Flexion 51 Extension 20 Rotation Left 60 Rotation Right 48 Lateral Flexion Left 15 Lateral Flexion Right 23 ROM Limitations Pain PT-OP-L Special Tests Start: 08/17/18 18:53 Freq: Status: Active Protocol: Document 08/18/18 10:30 LR (Rec: 08/18/18 11:16 [facility] [id number]) Special Tests Lumbar Spine Special Tests traction Test Results long axis -relief Straight Leg Raise Test Results positive R; HS tight L Slump Test Results positive R PT-OP-M Strength Start: 08/17/18 18:53 Freq: Status: Active Protocol: Document 10/20/18 08:15 [facility] (Rec: 10/20/18 08:45 [facility] [id number]) Hip Strength Hip Manual Muscle Testing Right Flexion (L2) 3+ Fair+ Extension (S1) 3+ Fair+ Abduction 3+ Fair+ External Rotation 4- Good- Internal Rotation 4+ Good+ Left Flexion (L2) 3+ Fair+ Extension (S1) 3+ Fair+ Abduction 4- Good- External Rotation 4- Good- Internal Rotation 4+ Good+ Knee Strength Knee Manual Muscle Testing Right Flexion (S2) 5 Normal Extension (L3) 5 Normal Left Flexion (S2) 4+ Good+ Extension (L3) 5 Normal Ankle/Foot Strength Ankle and Foot Manual Muscle Testing Right Dorsiflexion (L4) 4+ Good+ Plantarflexion (S1) 5 Normal Comments tested seated B Left Dorsiflexion (L4) 4+ Good+ Plantarflexion (S1) 4+ Good+ PT-OP-Q Treatments Start: 08/17/18 18:53 Freq: Status: Active Protocol: Document 10/20/18 08:15 AR (Rec: 10/20/18 10:00 AR [email or web address]) Cardio Equipment Recumbent Bicycle Duration (Minutes) 6 Resistance 4 Therapeutic Exercises Supine Exercises knee rockers Supine Exercise Name lumbar rotation Side bilateral Reps/Minutes 2x15 reps Comments added to HEP. cueing for small ROM SKTC stretch Supine Exercise Name single knee to chest stretch Side bilateral Reps/Minutes 4x30 sec holds Comments added to HEP TA c marches Supine Exercise Name TA c marches Side bilateral Reps/Minutes 2x10 reps Comments cueing for pelvic stability pelvic tilt Supine Exercise Name PPT Side bilateral Reps/Minutes 20 reps Comments added to HEP. pt able to achieve but fatigues quickly Sidelying Exercises clamshells Sidelying Exercise Name clamshells Side bilateral Resistance none Reps/Minutes 15 each side Comments pt unable to perform sidelying SLR w proper form. cueing for pelvic stab. Manual Therapy Treatment Manual Traction Lumbar Details Manual Lumbar traction with belt & long axis Body Position Hooklying Reps/Duration 10' Comments hip/knees @ 90/90. Pain decreased PT-OP-R Modalities Start: 08/17/18 18:53 Freq: Status: Active Protocol: Document 10/20/18 08:15 AR (Rec: 10/20/18 10:00 AR [email or web address]) Hot Pack/Cold Pack Treatment Hot Pack Location lumbar spine Patient Position Hooklying Treatment Duration (minutes) 15 PT-OP-S Aquatic Treatment Start: 08/28/18 15:27 Freq: Status: Active Protocol: Document 10/12/18 12:15 LJ (Rec: 10/12/18 15:00 LJ [email or web address]) Aquatics Treatment Pool Entry/Exit Pool Entry/Exit Method Stairs Assistance Standby Assistance Verbal Cues Water Walking Sideways Water Level Chest Level Walking Equipment Ankle Weight- 2.5# Level of Assistance Standby Assistance Verbal Cues Comments ab/ad arms Monster Walk Water Level Chest Level Walking Equipment Ankle Weight- 2.5# Level of Assistance Standby Assistance Verbal Cues [place] March Water Level Chest Level Level of Assistance Standby Assistance Verbal Cues Comments diagonal and straight Backwards Water Level Chest Level Walking Equipment Ankle Weight- 2.5# Level of Assistance Standby Assistance Verbal Cues Comments reverse breast stroke arms Forwards Water Level Chest Level Walking Equipment Ankle Weight- 2.5# Level of Assistance Standby Assistance Verbal Cues Comments cues for posture and recrip gait pattern Lower Extremity Exercises squats at wall Water Level Chest Level Comments cuing for mm activation sequence Hs curls Body Position Standing Water Level Chest Level Comments manual assist for posture Lower Extremity Stretches SKTC bilat Details at wall Water Level Chest Level Reps/Duration 2 x 30 Comments with posterior pelvic tilt HS, ITB Details standing at wall Equipment Small Noodle Reps/Duration 2 x 30 Spinal Exercises rotation with hand paddles Body Position Standing Water Level Chest Level Equipment UE paddles Reps/Duration 15 each direction Comments cuing for scap depression and activating obliques Addison Activities Addison Activities Bicycle [place] Equipment blue float Duration 15 Comments gentle movements encouraging glute activation and upright posture Manual Techniques Aquatic Manual Traction wall hang with 2.5 wts 8 min PT-OP-T Assessment and Plan Start: 08/17/18 18:53 Freq: Status: Active Protocol: Document 10/20/18 08:15 AR (Rec: 10/20/18 10:00 AR [email or web address]) Physical Therapy Assessment Goals gait [employer] [place] Goal (LTG) Pt will be able to amb 1 mile with no more than 2 point on 0 -10 pain scale increase. 10/05/18: goal progress LTG Duration not met SRINATH Short Term Goal (STG) Pt will show an improvement in functional ability with improvement of SRINATH to 15/50. 10/05/18: goal progress STG Duration 09/17/18 Custodial Goal (LTG) Pt will show an improvement in functional ability with improvement of SRINATH to 10/50. LTG Duration not tested today strength Short Term Goal (STG) Pt will be indep with appropriate HEP & gym program in order to cont on his pain management & weight management safely. 10/05/18: goal progress STG Duration 09/17/18 [employer] [place] Goal (LTG) Pt will score 4/5 LPM & 5/5 LE strength in order to demonstrate improved core control & improve his ability to do daily tasks. LTG Duration strength not tested today Assessment Summary Assessment Pt has not been compliant with HEP so majority of today's session was spent on reviewing exercises and making sure pt knew the importance of them. Pt still presents with antaglic gait with inc lateral motion and dec pelvic stability. Pt was also encouraged to get back to walking when his pain is tolerable. Pt will benefit from continued skilled therapy to address balance and LE weakness to dec fall risk. Physical Therapy Plan Frequency and Duration Frequency of Treatment 1-2x/week Duration of Treatment 2 months Plan of Care Start Date 10/15/18 Plan of Care End Date 12/15/18 Next Visit Focus/Plan Next Note Type Treatment Note Next Visit Plan educate on home tripping hazards, adding night light. review HEP
--- NOTE | 2018-10-27 15:08 | PT.OTN ---
Current Diagnoses Intracardiac thrombosis, not elsewhere classified (10/27/18) Spinal stenosis, lumbar region without neurogenic claudication (10/27/18) Radiculopathy, lumbar region (10/27/18) Lumbago with sciatica, unspecified side (10/27/18) Unspecified abnormalities of gait and mobility (10/27/18) Abnormal posture (10/27/18) Weakness (10/27/18) Encounter for therapeutic drug level monitoring (10/27/18) senior living (current) use of anticoagulants (10/27/18) Physical Therapy Treatment Note PT-OP-A Visit Information Start: 08/17/18 18:53 Freq: Status: Active Protocol: Document 10/27/18 08:15 AR (Rec: 10/27/18 09:05 AR [id number]) Out-Patient Physical Therapy Visit Information Visit Information Visit Type Treatment Note Visit Start Time 08:15 Visit Stop Time 09:15 Total Visit Minutes 60 Visit Number 14 Number of RIB MATCHER AND FITTER Visits 0 PT-OP-B Current Condition Start: 08/17/18 18:53 Freq: Status: Active Protocol: Document 08/18/18 10:30 [facility] (Rec: 08/18/18 11:16 [facility] [id number]) Current Condition History of Current Condition Onset Date 2 months ago flare up Current Complaints LBP & R leg pain History of Current Condition Pt reports 30 year history of back pain with a recent episode. 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 Pt reports he was walking to get the paper about 2 months ago and his R side gave out and pain went down leg and had to grab mailbox to stay up. THis is the first time it has gone down his leg. He went to a doctor who sent him to do PT. Pt reports he has B ant ankle pain that limits his mobility. Reports he has scoliosis. He has talked to doctor about doing traction because manual traction has helped in the past. Prior Treatments and Tests PT on and off over the years; reports xrays; chiropractic in the past Future Testing and Treatments Planned Epidural possibly Treatment Goals Patient/Caregiver Goals Wants to be able to walk and back to walking about a 3 mile walk and at least 1 mile; be able to exercise to lose weight PT-OP-C Subjective Start: 08/17/18 18:53 Freq: Status: Active Protocol: Document 10/27/18 08:15 AR (Rec: 10/27/18 08:25 AR [id number]) OP-PT Subjective Patient Comments Patient Comments Pt is in a lot of pain today. He drove to [facility] yesterday for acupuncture and they did not accept his insurance and would not treat him. He is frustrated with them and his back doctor, as they referred him to the orthopedic physician assistant. Pt reports he has ankle pain after grocery shopping ( walking for 30 minutes). Pt said he [place] but is worried to walk on it if he can't even tolerate grocery shopping without pain. PT-OP-F Manual Assessment Start: 08/17/18 18:53 Freq: Status: Active Protocol: Document 08/18/18 10:30 [facility] (Rec: 08/18/18 11:16 [facility] [id number]) Manual Assessments Soft Tissue Assessment Soft Tissue Mobility Assessment Tightness R paraspinals & QL & glutes R>L Joint Mobility Assessment Joint Mobility Assessment Iliac crest & R greater trochanter higher in standing; PT-OP-G Mobility & Gait Start: 08/17/18 18:53 Freq: Status: Active Protocol: Document 08/18/18 10:30 [facility] (Rec: 08/18/18 11:16 [facility] [id number]) OP Gait Assessment Comments Gait Comments Pt has lat leaning during push off with no ant elevation/ post depression PT-OP-J Posture/Palpation/Skin Start: 08/17/18 18:53 Freq: Status: Active Protocol: Document 08/18/18 10:30 [facility] (Rec: 08/18/18 11:16 [facility] [id number]) Posture Evaluation [place] Postural Classification System [place] Postural Classifications Anterior/Posterior Lumbar Protective Mechanism Left AP 1 Lumbar Protective Mechanism Right AP 1 Lumbar Protective Mechanism Left PA 1 Lumbar Protective Mechanism Right PA 1 PT-OP-K Range of Motion Start: 08/17/18 18:53 Freq: Status: Active Protocol: Document 08/18/18 10:30 [facility] (Rec: 08/18/18 11:16 [facility] [id number]) Lumbar Spine Range of Motion Lumbar Spine Active Degrees Flexion 51 Extension 20 Rotation Left 60 Rotation Right 48 Lateral Flexion Left 15 Lateral Flexion Right 23 ROM Limitations Pain PT-OP-L Special Tests Start: 08/17/18 18:53 Freq: Status: Active Protocol: Document 08/18/18 10:30 [facility] (Rec: 08/18/18 11:16 [facility] [id number]) Special Tests Lumbar Spine Special Tests traction Test Results long axis -relief Straight Leg Raise Test Results positive R; HS tight L Slump Test Results positive R PT-OP-M Strength Start: 08/17/18 18:53 Freq: Status: Active Protocol: Document 10/20/18 08:15 LR (Rec: 10/20/18 08:45 [facility] [id number]) Hip Strength Hip Manual Muscle Testing Right Flexion (L2) 3+ Fair+ Extension (S1) 3+ Fair+ Abduction 3+ Fair+ External Rotation 4- Good- Internal Rotation 4+ Good+ Left Flexion (L2) 3+ Fair+ Extension (S1) 3+ Fair+ Abduction 4- Good- External Rotation 4- Good- Internal Rotation 4+ Good+ Knee Strength Knee Manual Muscle Testing Right Flexion (S2) 5 Normal Extension (L3) 5 Normal Left Flexion (S2) 4+ Good+ Extension (L3) 5 Normal Ankle/Foot Strength Ankle and Foot Manual Muscle Testing Right Dorsiflexion (L4) 4+ Good+ Plantarflexion (S1) 5 Normal Comments tested seated B Left Dorsiflexion (L4) 4+ Good+ Plantarflexion (S1) 4+ Good+ PT-OP-Q Treatments Start: 08/17/18 18:53 Freq: Status: Active Protocol: Document 10/27/18 08:15 AR (Rec: 10/27/18 08:25 AR [id number]) Cardio Equipment Recumbent Bicycle Duration (Minutes) 6 Resistance 5 Gym Equipment Shuttle Recovery Bilateral Squats Details B squats Resistance 100# Shuttle Recovery Platform Stable Reps/Time 3x10 reps Therapeutic Exercises Supine Exercises hip flex w manual resist Supine Exercise Name hip flex with contralateral self-resistence Side bilateral Resistance gentle, self-resist. Reps/Minutes 2x10 sec holds Comments pt able to get good TA activation Sitting Exercises LAQ Sitting Exercise Name knee ext Side bilateral Resistance 2# Equipment Used ankle weights Reps/Minutes 15 reps each Comments pt was able to maintain trunk and pelvic stability Therapeutic Activity Therapeutic Activity Sit to Stand Name STS Reps/Minutes 20 reps Comments 15 reps w raised table, 5 with lowered table. focus on hip hinge. no hands used Manual Therapy Treatment Manual Traction Lumbar Details Manual Lumbar traction with belt & long axis Body Position Hooklying Reps/Duration 10' Comments hip/knees @ 90/90. Pain decreased Neuro Re-Education Treatment Balance Activities Shuttle Board Details blue clips, black rope tight Reps/Duration 4 min Comments pt was very unstable today. unable to keep board from rocking. tandem stance Details tandem stance EC Surface level Reps/Duration 4 min Comments pt able to maintain balance with eyes closed for 30 sec each side. reached for railing to regain balance PT-OP-R Modalities Start: 08/17/18 18:53 Freq: Status: Active Protocol: Document 10/27/18 08:15 AR (Rec: 10/27/18 13:03 AR [id number]) Hot Pack/Cold Pack Treatment Hot Pack Location lumbar spine Patient Position Hooklying Treatment Duration (minutes) 15 PT-OP-S Aquatic Treatment Start: 08/28/18 15:27 Freq: Status: Active Protocol: Document 10/12/18 12:15 LJ (Rec: 10/12/18 15:00 LJ [email or web address]) Aquatics Treatment Pool Entry/Exit Pool Entry/Exit Method Stairs Assistance Standby Assistance Verbal Cues Water Walking Sideways Water Level Chest Level Walking Equipment Ankle Weight- 2.5# Level of Assistance Standby Assistance Verbal Cues Comments ab/ad arms Monster Walk Water Level Chest Level Walking Equipment Ankle Weight- 2.5# Level of Assistance Standby Assistance Verbal Cues [place] Water Level Chest Level Level of Assistance Standby Assistance Verbal Cues Comments diagonal and straight Backwards Water Level Chest Level Walking Equipment Ankle Weight- 2.5# Level of Assistance Standby Assistance Verbal Cues Comments reverse breast stroke arms Forwards Water Level Chest Level Walking Equipment Ankle Weight- 2.5# Level of Assistance Standby Assistance Verbal Cues Comments cues for posture and recrip gait pattern Lower Extremity Exercises squats at wall Water Level Chest Level Comments cuing for mm activation sequence Hs curls Body Position Standing Water Level Chest Level Comments manual assist for posture Lower Extremity Stretches SKTC bilat Details at wall Water Level Chest Level Reps/Duration 2 x 30 Comments with posterior pelvic tilt HS, ITB Details standing at wall Equipment Small Noodle Reps/Duration 2 x 30 Spinal Exercises rotation with hand paddles Body Position Standing Water Level Chest Level Equipment UE paddles Reps/Duration 15 each direction Comments cuing for scap depression and activating obliques [place] Activities [place] Activities Bicycle [place] Equipment blue float Duration 15 Comments gentle movements encouraging glute activation and upright posture Manual Techniques Aquatic Manual Traction wall hang with 2.5 wts 8 min PT-OP-T Assessment and Plan Start: 08/17/18 18:53 Freq: Status: Active Protocol: Document 10/27/18 08:15 AR (Rec: 10/27/18 13:03 AR [email or web address]) Physical Therapy Assessment Goals gait Studio Hand Goal (LTG) Pt will be able to amb 1 mile with no more than 2 point on 0 -10 pain scale increase. 10/05/18: goal progress LTG Duration 12/15/2018 SRINATH Short Term Goal (STG) Pt will show an improvement in functional ability with improvement of SRINATH to 15/50. 10/05/18: goal progress STG Duration 09/17/18 Halfway Goal (LTG) Pt will show an improvement in functional ability with improvement of SRINATH to 10/50. 10/15/18- not tested today LTG Duration 12/15/2018 strength Short Term Goal (STG) Pt will be indep with appropriate HEP & gym program in order to cont on his pain management & weight management safely. 10/05/18: goal progress STG Duration 09/17/18 Studio Hand Goal (LTG) Pt will score 4/5 LPM & 5/5 LE strength in order to demonstrate improved core control & improve his ability to do daily tasks. 10/15/18- strength not tested today LTG Duration 12/15/2018 Assessment Summary Assessment Pt's reports of ankle and low back pain as well as balance are strongly correlated with LE weakness and lack of core engagement. Pt was very unstable on an uneven surface today and he fatigued quickly with LE strengthening exercises. Pt was able to demonstrate TA activation and reports he has been performing HEP. Pt was encouraged to do HEP more often, as he feels it is helpful for his LBP. Physical Therapy Plan Frequency and Duration Frequency of Treatment 1-2x/week Duration of Treatment 2 months Plan of Care Start Date 10/15/18 Plan of Care End Date 12/15/18 Next Visit Focus/Plan Next Note Type Treatment Note Next Visit Plan inc LE strengthening exercises . review STS form
--- NOTE | 2018-11-03 18:52 | PT.OTN ---
Current Diagnoses Intracardiac thrombosis, not elsewhere classified (11/03/18) Spinal stenosis, lumbar region without neurogenic claudication (11/03/18) Radiculopathy, lumbar region (11/03/18) Lumbago with sciatica, unspecified side (11/03/18) Unspecified abnormalities of gait and mobility (11/03/18) Abnormal posture (11/03/18) Weakness (11/03/18) Encounter for therapeutic drug level monitoring (11/03/18) snf (current) use of anticoagulants (11/03/18) Physical Therapy Treatment Note PT-OP-A Visit Information Start: 08/17/18 18:53 Freq: Status: Active Protocol: Document 11/03/18 14:30 AR (Rec: 11/03/18 16:03 AR [email or web address]) Out-Patient Physical Therapy Visit Information Visit Information Visit Type Treatment Note Visit Start Time 14:30 Visit Stop Time 15:10 Total Visit Minutes 40 Visit Number 15 Number of SPEECH AND LANGUAGE SPECIALIST Visits 0 PT-OP-B Current Condition Start: 08/17/18 18:53 Freq: Status: Active Protocol: Document 08/18/18 10:30 [facility] (Rec: 08/18/18 11:16 [facility] [id number]) Current Condition History of Current Condition Onset Date 2 months ago flare up Current Complaints LBP & R leg pain History of Current Condition Pt reports 30 year history of back pain with a recent episode. 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 Pt reports he was walking to get the paper about 2 months ago and his R side gave out and pain went down leg and had to grab mailbox to stay up. THis is the first time it has gone down his leg. He went to a doctor who sent him to do PT. Pt reports he has B ant ankle pain that limits his mobility. Reports he has scoliosis. He has talked to doctor about doing traction because manual traction has helped in the past. Prior Treatments and Tests PT on and off over the years; reports xrays; chiropractic in the past Future Testing and Treatments Planned Epidural possibly Treatment Goals Patient/Caregiver Goals Wants to be able to walk and back to walking about a 3 mile walk and at least 1 mile; be able to exercise to lose weight PT-OP-C Subjective Start: 08/17/18 18:53 Freq: Status: Active Protocol: Document 11/03/18 14:30 AR (Rec: 11/03/18 16:03 AR [email or web address]) OP-PT Subjective Patient Comments Patient Comments Pt got acupuncture today and they popped his shoulder back in place. The field service coordinator recommended that he get shoulder surgery and orthotics for his shoes d/t flat feet. Pt reports he has not been completing his exercise program every day, but when he does it is helpful. He was able to go grocery shopping yesterday and did not have back or ankle pain after. PT-OP-F Manual Assessment Start: 08/17/18 18:53 Freq: Status: Active Protocol: Document 08/18/18 10:30 [facility] (Rec: 08/18/18 11:16 [facility] [id number]) Manual Assessments Soft Tissue Assessment Soft Tissue Mobility Assessment Tightness R paraspinals & QL & glutes R>L Joint Mobility Assessment Joint Mobility Assessment Iliac crest & R greater trochanter higher in standing; PT-OP-G Mobility & Gait Start: 08/17/18 18:53 Freq: Status: Active Protocol: Document 08/18/18 10:30 [facility] (Rec: 08/18/18 11:16 [facility] [id number]) OP Gait Assessment Comments Gait Comments Pt has lat leaning during push off with no ant elevation/ post depression PT-OP-J Posture/Palpation/Skin Start: 08/17/18 18:53 Freq: Status: Active Protocol: Document 08/18/18 10:30 [facility] (Rec: 08/18/18 11:16 [facility] [id number]) Posture Evaluation [facility] Postural Classification System [place] Postural Classifications Anterior/Posterior Lumbar Protective Mechanism Left AP 1 Lumbar Protective Mechanism Right AP 1 Lumbar Protective Mechanism Left PA 1 Lumbar Protective Mechanism Right PA 1 PT-OP-K Range of Motion Start: 08/17/18 18:53 Freq: Status: Active Protocol: Document 08/18/18 10:30 LR (Rec: 08/18/18 11:16 [facility] [id number]) Lumbar Spine Range of Motion Lumbar Spine Active Degrees Flexion 51 Extension 20 Rotation Left 60 Rotation Right 48 Lateral Flexion Left 15 Lateral Flexion Right 23 ROM Limitations Pain PT-OP-L Special Tests Start: 08/17/18 18:53 Freq: Status: Active Protocol: Document 08/18/18 10:30 LR (Rec: 08/18/18 11:16 [facility] [id number]) Special Tests Lumbar Spine Special Tests traction Test Results long axis -relief Straight Leg Raise Test Results positive R; HS tight L Slump Test Results positive R PT-OP-M Strength Start: 08/17/18 18:53 Freq: Status: Active Protocol: Document 10/20/18 08:15 [facility] (Rec: 10/20/18 08:45 [facility] [id number]) Hip Strength Hip Manual Muscle Testing Right Flexion (L2) 3+ Fair+ Extension (S1) 3+ Fair+ Abduction 3+ Fair+ External Rotation 4- Good- Internal Rotation 4+ Good+ Left Flexion (L2) 3+ Fair+ Extension (S1) 3+ Fair+ Abduction 4- Good- External Rotation 4- Good- Internal Rotation 4+ Good+ Knee Strength Knee Manual Muscle Testing Right Flexion (S2) 5 Normal Extension (L3) 5 Normal Left Flexion (S2) 4+ Good+ Extension (L3) 5 Normal Ankle/Foot Strength Ankle and Foot Manual Muscle Testing Right Dorsiflexion (L4) 4+ Good+ Plantarflexion (S1) 5 Normal Comments tested seated B Left Dorsiflexion (L4) 4+ Good+ Plantarflexion (S1) 4+ Good+ PT-OP-Q Treatments Start: 08/17/18 18:53 Freq: Status: Active Protocol: Document 11/03/18 14:30 AR (Rec: 11/03/18 16:03 AR [email or web address]) Cardio Equipment Recumbent Bicycle Duration (Minutes) 5 Resistance 7 Therapeutic Exercises Supine Exercises hip flex w manual resist Supine Exercise Name heels on tball & rolling in, self-resistence at knees hold Side bilateral Resistance self-resist at 90 deg hip flex Reps/Minutes 20 reps, 5x10 sec holds Comments pt had difficulty maintaining stability of ball Sitting Exercises LAQ Sitting Exercise Name knee ext Side bilateral Resistance 4# Equipment Used ankle weights Reps/Minutes 15 reps each Comments pt was able to maintain trunk and pelvic stability w arms across chest Standing Exercises mini lunge Standing Exercise Name small stance lunges Side bilateral Equipment Used railing Reps/Minutes 10 each side Comments pain in L ankle when that LE was back step overs Standing Exercise Name step overs Side bilateral Equipment Used 6 hurdles Reps/Minutes 6 rounds Comments hit hurdles 4x throughout. cued to DF Therapeutic Activity Therapeutic Activity Sit to Stand Name STS Reps/Minutes 4 min Comments from chair no hands used. pt fatigued quickly. Manual Therapy Treatment Manual Traction Lumbar Details Manual Lumbar traction with belt & long axis Body Position Hooklying Reps/Duration 10' Comments hip/knees @ 90/90. Neuro Re-Education Treatment Balance Activities Shuttle Board Details blue clips Reps/Duration 4 min Comments pt was very unstable today. unable to keep board from rocking. PT-OP-R Modalities Start: 08/17/18 18:53 Freq: Status: Active Protocol: Document 10/27/18 08:15 AR (Rec: 10/27/18 13:03 AR [email or web address]) Hot Pack/Cold Pack Treatment Hot Pack Location lumbar spine Patient Position Hooklying Treatment Duration (minutes) 15 PT-OP-S Aquatic Treatment Start: 08/28/18 15:27 Freq: Status: Active Protocol: Document 10/12/18 12:15 LJ (Rec: 10/12/18 15:00 LJ [email or web address]) Aquatics Treatment Pool Entry/Exit Pool Entry/Exit Method Stairs Assistance Standby Assistance Verbal Cues Water Walking Sideways Water Level Chest Level Walking Equipment Ankle Weight- 2.5# Level of Assistance Standby Assistance Verbal Cues Comments ab/ad arms Monster Walk Water Level Chest Level Walking Equipment Ankle Weight- 2.5# Level of Assistance Standby Assistance Verbal Cues [place] Water Level Chest Level Level of Assistance Standby Assistance Verbal Cues Comments diagonal and straight Backwards Water Level Chest Level Walking Equipment Ankle Weight- 2.5# Level of Assistance Standby Assistance Verbal Cues Comments reverse breast stroke arms Forwards Water Level Chest Level Walking Equipment Ankle Weight- 2.5# Level of Assistance Standby Assistance Verbal Cues Comments cues for posture and recrip gait pattern Lower Extremity Exercises squats at wall Water Level Chest Level Comments cuing for mm activation sequence Hs curls Body Position Standing Water Level Chest Level Comments manual assist for posture Lower Extremity Stretches SKTC bilat Details at wall Water Level Chest Level Reps/Duration 2 x 30 Comments with posterior pelvic tilt HS, ITB Details standing at wall Equipment Small Noodle Reps/Duration 2 x 30 Spinal Exercises rotation with hand paddles Body Position Standing Water Level Chest Level Equipment UE paddles Reps/Duration 15 each direction Comments cuing for scap depression and activating obliques [place] Activities [place] Activities Bicycle [place] Equipment blue float Duration 15 Comments gentle movements encouraging glute activation and upright posture Manual Techniques Aquatic Manual Traction wall hang with 2.5 wts 8 min PT-OP-T Assessment and Plan Start: 08/17/18 18:53 Freq: Status: Active Protocol: Document 11/03/18 14:30 AR (Rec: 11/03/18 15:14 AR [email or web address]) Physical Therapy Assessment Goals gait Supervisor Fertilizer Goal (LTG) Pt will be able to amb 1 mile with no more than 2 point on 0 -10 pain scale increase. 10/05/18: goal progress LTG Duration 12/15/2018 SRINATH Short Term Goal (STG) Pt will show an improvement in functional ability with improvement of SRINATH to 15/50. 10/05/18: goal progress STG Duration 09/17/18 Supervisor Fertilizer Goal (LTG) Pt will show an improvement in functional ability with improvement of SRINATH to 10/50. 10/15/18- not tested today LTG Duration 12/15/2018 strength Short Term Goal (STG) Pt will be indep with appropriate HEP & gym program in order to cont on his pain management & weight management safely. 10/05/18: goal progress STG Duration 09/17/18 Supervisor Fertilizer Goal (LTG) Pt will score 4/5 LPM & 5/5 LE strength in order to demonstrate improved core control & improve his ability to do daily tasks. 10/15/18- strength not tested today LTG Duration 12/15/2018 Assessment Summary Assessment Pt was able to tolerate inc in LE strengthening exercises today but fatigued quickly. Pt 's progress seems to be limited by decreased adherence to HEP. Pt was educated on the importance of strengthening at home and he recognizes that exercises are helpful for pain. Physical Therapy Plan Frequency and Duration Frequency of Treatment 1-2x/week Duration of Treatment 2 months Plan of Care Start Date 10/15/18 Plan of Care End Date 12/15/18 Next Visit Focus/Plan Next Note Type Treatment Note Next Visit Plan progress balance training. exercises
--- NOTE | 2018-11-18 15:25 | PT.OTN ---
Current Diagnoses Intracardiac thrombosis, not elsewhere classified (11/18/18) Spinal stenosis, lumbar region without neurogenic claudication (11/18/18) Radiculopathy, lumbar region (11/18/18) Lumbago with sciatica, unspecified side (11/18/18) Unspecified abnormalities of gait and mobility (11/18/18) Abnormal posture (11/18/18) Weakness (11/18/18) Encounter for therapeutic drug level monitoring (11/18/18) intermediate (current) use of anticoagulants (11/18/18) Physical Therapy Treatment Note PT-OP-A Visit Information Start: 08/17/18 18:53 Freq: Status: Active Protocol: Document 11/18/18 13:16 AR (Rec: 11/18/18 13:32 AR [id number]) Out-Patient Physical Therapy Visit Information Visit Information Visit Type Treatment Note Visit Start Time 19:48 Visit Stop Time 10:45 Total Visit Minutes 57 Visit Number 16 Number of FIXTURE MAKER Visits 0 PT-OP-B Current Condition Start: 08/17/18 18:53 Freq: Status: Active Protocol: Document 08/18/18 10:30 [facility] (Rec: 08/18/18 11:16 [facility] [id number]) Current Condition History of Current Condition Onset Date 2 months ago flare up Current Complaints LBP & R leg pain History of Current Condition Pt reports 30 year history of back pain with a recent episode. 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 Pt reports he was walking to get the paper about 2 months ago and his R side gave out and pain went down leg and had to grab mailbox to stay up. THis is the first time it has gone down his leg. He went to a doctor who sent him to do PT. Pt reports he has B ant ankle pain that limits his mobility. Reports he has scoliosis. He has talked to doctor about doing traction because manual traction has helped in the past. Prior Treatments and Tests PT on and off over the years; reports xrays; chiropractic in the past Future Testing and Treatments Planned Epidural possibly Treatment Goals Patient/Caregiver Goals Wants to be able to walk and back to walking about a 3 mile walk and at least 1 mile; be able to exercise to lose weight PT-OP-C Subjective Start: 08/17/18 18:53 Freq: Status: Active Protocol: Document 11/18/18 13:16 AR (Rec: 11/18/18 13:32 AR [id number]) OP-PT Subjective Patient Comments Patient Comments Pt has been performing HEP but had a question about form for knee rockers. He is going to see Dr. German for his shoulder, as his cylinder batcher recommended he do so. He is still concerned about it popping out of place. He got insoles for his shoed which have helped to dec his pain during grocery shopping and walking. PT-OP-F Manual Assessment Start: 08/17/18 18:53 Freq: Status: Active Protocol: Document 08/18/18 10:30 LR (Rec: 08/18/18 11:16 [facility] [id number]) Manual Assessments Soft Tissue Assessment Soft Tissue Mobility Assessment Tightness R paraspinals & QL & glutes R>L Joint Mobility Assessment Joint Mobility Assessment Iliac crest & R greater trochanter higher in standing; PT-OP-G Mobility & Gait Start: 08/17/18 18:53 Freq: Status: Active Protocol: Document 08/18/18 10:30 LR (Rec: 08/18/18 11:16 [facility] [id number]) OP Gait Assessment Comments Gait Comments Pt has lat leaning during push off with no ant elevation/ post depression PT-OP-J Posture/Palpation/Skin Start: 08/17/18 18:53 Freq: Status: Active Protocol: Document 08/18/18 10:30 LR (Rec: 08/18/18 11:16 [facility] [id number]) Posture Evaluation L[place] Postural Classification System Loida Postural Classifications Anterior/Posterior Lumbar Protective Mechanism Left AP 1 Lumbar Protective Mechanism Right AP 1 Lumbar Protective Mechanism Left PA 1 Lumbar Protective Mechanism Right PA 1 PT-OP-K Range of Motion Start: 08/17/18 18:53 Freq: Status: Active Protocol: Document 08/18/18 10:30 LR (Rec: 08/18/18 11:16 [facility] [id number]) Lumbar Spine Range of Motion Lumbar Spine Active Degrees Flexion 51 Extension 20 Rotation Left 60 Rotation Right 48 Lateral Flexion Left 15 Lateral Flexion Right 23 ROM Limitations Pain PT-OP-L Special Tests Start: 08/17/18 18:53 Freq: Status: Active Protocol: Document 08/18/18 10:30 LR (Rec: 08/18/18 11:16 [facility] [id number]) Special Tests Lumbar Spine Special Tests traction Test Results long axis -relief Straight Leg Raise Test Results positive R; HS tight L Slump Test Results positive R PT-OP-M Strength Start: 08/17/18 18:53 Freq: Status: Active Protocol: Document 10/20/18 08:15 [facility] (Rec: 10/20/18 08:45 [facility] [id number]) Hip Strength Hip Manual Muscle Testing Right Flexion (L2) 3+ Fair+ Extension (S1) 3+ Fair+ Abduction 3+ Fair+ External Rotation 4- Good- Internal Rotation 4+ Good+ Left Flexion (L2) 3+ Fair+ Extension (S1) 3+ Fair+ Abduction 4- Good- External Rotation 4- Good- Internal Rotation 4+ Good+ Knee Strength Knee Manual Muscle Testing Right Flexion (S2) 5 Normal Extension (L3) 5 Normal Left Flexion (S2) 4+ Good+ Extension (L3) 5 Normal Ankle/Foot Strength Ankle and Foot Manual Muscle Testing Right Dorsiflexion (L4) 4+ Good+ Plantarflexion (S1) 5 Normal Comments tested seated B Left Dorsiflexion (L4) 4+ Good+ Plantarflexion (S1) 4+ Good+ PT-OP-Q Treatments Start: 08/17/18 18:53 Freq: Status: Active Protocol: Document 11/18/18 13:16 AR (Rec: 11/18/18 13:32 AR [id number]) Cardio Equipment Recumbent Bicycle Duration (Minutes) 7 Resistance 3-6 Other increased over time Therapeutic Exercises Supine Exercises bridge Supine Exercise Name bridge w TA and glute squeeze Reps/Minutes 20 reps Comments added to HEP. pt reported it felt good on his back knee rockers Supine Exercise Name knee rockers Side bilateral Reps/Minutes 30 reps Comments cued to dec ROM, reviewed from HEP SKTC stretch Supine Exercise Name single knee to chest stretch Side bilateral Reps/Minutes 45 sec hold ea Comments cued to avoid pain, find gentle stretch. reviewed from HEP TA c marches Supine Exercise Name TA isometrics Reps/Minutes 20 reps, 5 sec hold Comments pt had difficulty holding isometric while breathing Sidelying Exercises clamshells Sidelying Exercise Name clamshells Side bilateral Resistance none Reps/Minutes 15 ea Comments reviewed from HEP. corrected form to lay sidelying not supine, dec ROM Manual Therapy Treatment Manual Traction Lumbar Details skipped today to work on balance ex Neuro Re-Education Treatment Balance Activities NBOS Details NBOS eyes closed Surface level Equipment railing Reps/Duration 2 min Comments pt reached for railing to regain balance but was able to employ ankle strategy more often than previous sessions stagger stance Details stagger stance w balloon volley Surface level Equipment railing Reps/Duration 6 min Comments more challenging with RLE forward. Shuttle Board Details yellow clips, eyes closed Reps/Duration 4 min Comments pt was more stable on less challenging clips, was able to maint balance w EC for 30+ sec. tandem stance Details tandem stance EC Surface level Reps/Duration 4 min Comments pt able to maintain balance with eyes closed for 30 sec each side. was able to emply ankle strategy PT-OP-R Modalities Start: 08/17/18 18:53 Freq: Status: Active Protocol: Document 11/18/18 13:16 AR (Rec: 11/18/18 13:32 AR [id number]) Hot Pack/Cold Pack Treatment Hot Pack Location lumbar spine Patient Position Hooklying Treatment Duration (minutes) 15 PT-OP-S Aquatic Treatment Start: 08/28/18 15:27 Freq: Status: Active Protocol: Document 10/12/18 12:15 LJ (Rec: 10/12/18 15:00 LJ [id number]) Aquatics Treatment Pool Entry/Exit Pool Entry/Exit Method Stairs Assistance Standby Assistance,Verbal Cues Water Walking Sideways Water Level Chest Level Walking Equipment Ankle Weight- 2.5# Level of Assistance Standby Assistance,Verbal Cues Comments ab/ad arms Monster Walk Water Level Chest Level Walking Equipment Ankle Weight- 2.5# Level of Assistance Standby Assistance,Verbal Cues [place] Water Level Chest Level Level of Assistance Standby Assistance,Verbal Cues Comments diagonal and straight Backwards Water Level Chest Level Walking Equipment Ankle Weight- 2.5# Level of Assistance Standby Assistance,Verbal Cues Comments reverse breast stroke arms Forwards Water Level Chest Level Walking Equipment Ankle Weight- 2.5# Level of Assistance Standby Assistance,Verbal Cues Comments cues for posture and recrip gait pattern Lower Extremity Exercises squats at wall Water Level Chest Level Comments cuing for mm activation sequence Hs curls Body Position Standing Water Level Chest Level Comments manual assist for posture Lower Extremity Stretches SKTC bilat Details at wall Water Level Chest Level Reps/Duration 2 x 30 Comments with posterior pelvic tilt HS, ITB Details standing at wall Equipment Small Noodle Reps/Duration 2 x 30 Spinal Exercises rotation with hand paddles Body Position Standing Water Level Chest Level Equipment UE paddles Reps/Duration 15 each direction Comments cuing for scap depression and activating obliques [place] Activities [place] Activities Bicycle,[place] Equipment blue float Duration 15 Comments gentle movements encouraging glute activation and upright posture Manual Techniques Aquatic Manual Traction wall hang with 2.5 wts 8 min PT-OP-T Assessment and Plan Start: 08/17/18 18:53 Freq: Status: Active Protocol: Document 11/18/18 13:16 AR (Rec: 11/18/18 13:32 AR [id number]) Physical Therapy Assessment Goals gait Shelter Goal (LTG) Pt will be able to amb 1 mile with no more than 2 point on 0 -10 pain scale increase. 10/05/18: goal progress LTG Duration 12/15/2018 SRINATH Short Term Goal (STG) Pt will show an improvement in functional ability with improvement of SRINATH to 15/50. 10/05/18: goal progress STG Duration 09/17/18 Shelter Goal (LTG) Pt will show an improvement in functional ability with improvement of SRINATH to 10/50. 10/15/18- not tested today LTG Duration 12/15/2018 strength Short Term Goal (STG) Pt will be indep with appropriate HEP & gym program in order to cont on his pain management & weight management safely. 10/05/18: goal progress STG Duration 09/17/18 Shelter Goal (LTG) Pt will score 4/5 LPM & 5/5 LE strength in order to demonstrate improved core control & improve his ability to do daily tasks. 10/15/18- strength not tested today LTG Duration 12/15/2018 Assessment Summary Assessment Pt was able to employ ankle strategy more often today. Pt is heavily reliant on visual input to maintain balance, but was able to keep balance on shuttle board w EC on an easier setting. HEP was reviewed today and pt was cued to dec ROM for all exercises and to focus on pelvic and core stability during exercises. Pt was briefly educated on shoulder pain and was recommended to contact primary care for a referral to an orthopedic doctor to examine shoulder. Physical Therapy Plan Frequency and Duration Frequency of Treatment 1-2x/week Duration of Treatment 2 months Plan of Care Start Date 10/15/18 Plan of Care End Date 12/15/18 Next Visit Focus/Plan Next Note Type Treatment Note Next Visit Plan balance w eyes closed, on unstable surface. wt acceptance in front of mirror. review HEP as needed.
--- NOTE | 2018-11-20 16:18 | PT.OTN ---
Current Diagnoses Intracardiac thrombosis, not elsewhere classified (11/20/18) Spinal stenosis, lumbar region without neurogenic claudication (11/20/18) Radiculopathy, lumbar region (11/20/18) Lumbago with sciatica, unspecified side (11/20/18) Unspecified abnormalities of gait and mobility (11/20/18) Abnormal posture (11/20/18) Weakness (11/20/18) Encounter for therapeutic drug level monitoring (11/20/18) senior care (current) use of anticoagulants (11/20/18) Physical Therapy Treatment Note PT-OP-A Visit Information Start: 08/17/18 18:53 Freq: Status: Active Protocol: Document 11/20/18 16:04 LJ (Rec: 11/20/18 16:18 LJ [id number]) Out-Patient Physical Therapy Visit Information Visit Information Visit Type Aquatic Treatment Note Visit Start Time 11:00 Visit Stop Time 11:45 Total Visit Minutes 45 Visit Number 17 Number of CHIN STRAP MAKER Visits 1 PT-OP-B Current Condition Start: 08/17/18 18:53 Freq: Status: Active Protocol: Document 08/18/18 10:30 [facility] (Rec: 08/18/18 11:16 [facility] [id number]) Current Condition History of Current Condition Onset Date 2 months ago flare up Current Complaints LBP & R leg pain History of Current Condition Pt reports 30 year history of back pain with a recent episode. 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 Pt reports he was walking to get the paper about 2 months ago and his R side gave out and pain went down leg and had to grab mailbox to stay up. THis is the first time it has gone down his leg. He went to a doctor who sent him to do PT. Pt reports he has B ant ankle pain that limits his mobility. Reports he has scoliosis. He has talked to doctor about doing traction because manual traction has helped in the past. Prior Treatments and Tests PT on and off over the years; reports xrays; chiropractic in the past Future Testing and Treatments Planned Epidural possibly Treatment Goals Patient/Caregiver Goals Wants to be able to walk and back to walking about a 3 mile walk and at least 1 mile; be able to exercise to lose weight PT-OP-C Subjective Start: 08/17/18 18:53 Freq: Status: Active Protocol: Document 11/20/18 16:04 LJ (Rec: 11/20/18 16:18 LJ [id number]) OP-PT Subjective Patient Comments Patient Comments Pt reports being concerned ablut his shoulder. He has no pain in his shoulder but is concerned about it dislocating . PT-OP-F Manual Assessment Start: 08/17/18 18:53 Freq: Status: Active Protocol: Document 08/18/18 10:30 LR (Rec: 08/18/18 11:16 [facility] [id number]) Manual Assessments Soft Tissue Assessment Soft Tissue Mobility Assessment Tightness R paraspinals & QL & glutes R>L Joint Mobility Assessment Joint Mobility Assessment Iliac crest & R greater trochanter higher in standing; PT-OP-G Mobility & Gait Start: 08/17/18 18:53 Freq: Status: Active Protocol: Document 08/18/18 10:30 LR (Rec: 08/18/18 11:16 [facility] [id number]) OP Gait Assessment Comments Gait Comments Pt has lat leaning during push off with no ant elevation/ post depression PT-OP-J Posture/Palpation/Skin Start: 08/17/18 18:53 Freq: Status: Active Protocol: Document 08/18/18 10:30 [facility] (Rec: 08/18/18 11:16 [facility] [id number]) Posture Evaluation [place] Postural Classification System [place] Postural Classifications Anterior/Posterior Lumbar Protective Mechanism Left AP 1 Lumbar Protective Mechanism Right AP 1 Lumbar Protective Mechanism Left PA 1 Lumbar Protective Mechanism Right PA 1 PT-OP-K Range of Motion Start: 08/17/18 18:53 Freq: Status: Active Protocol: Document 08/18/18 10:30 [facility] (Rec: 08/18/18 11:16 [facility] [id number]) Lumbar Spine Range of Motion Lumbar Spine Active Degrees Flexion 51 Extension 20 Rotation Left 60 Rotation Right 48 Lateral Flexion Left 15 Lateral Flexion Right 23 ROM Limitations Pain PT-OP-L Special Tests Start: 08/17/18 18:53 Freq: Status: Active Protocol: Document 08/18/18 10:30 LR (Rec: 08/18/18 11:16 [facility] [id number]) Special Tests Lumbar Spine Special Tests traction Test Results long axis -relief Straight Leg Raise Test Results positive R; HS tight L Slump Test Results positive R PT-OP-M Strength Start: 08/17/18 18:53 Freq: Status: Active Protocol: Document 10/20/18 08:15 LR (Rec: 10/20/18 08:45 [facility] [id number]) Hip Strength Hip Manual Muscle Testing Right Flexion (L2) 3+ Fair+ Extension (S1) 3+ Fair+ Abduction 3+ Fair+ External Rotation 4- Good- Internal Rotation 4+ Good+ Left Flexion (L2) 3+ Fair+ Extension (S1) 3+ Fair+ Abduction 4- Good- External Rotation 4- Good- Internal Rotation 4+ Good+ Knee Strength Knee Manual Muscle Testing Right Flexion (S2) 5 Normal Extension (L3) 5 Normal Left Flexion (S2) 4+ Good+ Extension (L3) 5 Normal Ankle/Foot Strength Ankle and Foot Manual Muscle Testing Right Dorsiflexion (L4) 4+ Good+ Plantarflexion (S1) 5 Normal Comments tested seated B Left Dorsiflexion (L4) 4+ Good+ Plantarflexion (S1) 4+ Good+ PT-OP-Q Treatments Start: 08/17/18 18:53 Freq: Status: Active Protocol: Document 11/18/18 13:16 AR (Rec: 11/18/18 13:32 AR [id number]) Cardio Equipment Recumbent Bicycle Duration (Minutes) 7 Resistance 3-6 Other increased over time Therapeutic Exercises Supine Exercises bridge Supine Exercise Name bridge w TA and glute squeeze Reps/Minutes 20 reps Comments added to HEP. pt reported it felt good on his back knee rockers Supine Exercise Name knee rockers Side bilateral Reps/Minutes 30 reps Comments cued to dec ROM, reviewed from HEP SKTC stretch Supine Exercise Name single knee to chest stretch Side bilateral Reps/Minutes 45 sec hold ea Comments cued to avoid pain, find gentle stretch. reviewed from HEP TA c marches Supine Exercise Name TA isometrics Reps/Minutes 20 reps, 5 sec hold Comments pt had difficulty holding isometric while breathing Sidelying Exercises clamshells Sidelying Exercise Name clamshells Side bilateral Resistance none Reps/Minutes 15 ea Comments reviewed from HEP. corrected form to lay sidelying not supine, dec ROM Manual Therapy Treatment Manual Traction Lumbar Details skipped today to work on balance ex Neuro Re-Education Treatment Balance Activities NBOS Details NBOS eyes closed Surface level Equipment railing Reps/Duration 2 min Comments pt reached for railing to regain balance but was able to employ ankle strategy more often than previous sessions stagger stance Details stagger stance w balloon volley Surface level Equipment railing Reps/Duration 6 min Comments more challenging with RLE forward. Shuttle Board Details yellow clips, eyes closed Reps/Duration 4 min Comments pt was more stable on less challenging clips, was able to maint balance w EC for 30+ sec. tandem stance Details tandem stance EC Surface level Reps/Duration 4 min Comments pt able to maintain balance with eyes closed for 30 sec each side. was able to emply ankle strategy PT-OP-R Modalities Start: 08/17/18 18:53 Freq: Status: Active Protocol: Document 11/18/18 13:16 AR (Rec: 11/18/18 13:32 AR [id number]) Hot Pack/Cold Pack Treatment Hot Pack Location lumbar spine Patient Position Hooklying Treatment Duration (minutes) 15 PT-OP-S Aquatic Treatment Start: 08/28/18 15:27 Freq: Status: Active Protocol: Document 11/20/18 16:04 LJ (Rec: 11/20/18 16:18 LJ [email or web address]) Aquatics Treatment Pool Entry/Exit Pool Entry/Exit Method Stairs Assistance Standby Assistance,Verbal Cues Water Walking Sideways Water Level Chest Level Level of Assistance Standby Assistance,Verbal Cues Comments ab/ad arms Monster Walk Water Level Chest Level Level of Assistance Standby Assistance,Verbal Cues [place] Water Level Chest Level Level of Assistance Standby Assistance,Verbal Cues Comments diagonal and straight Backwards Water Level Chest Level Walking Equipment Ankle Weight- 2.5# Level of Assistance Standby Assistance,Verbal Cues Comments reverse breast stroke arms Forwards Water Level Chest Level Walking Equipment Ankle Weight- 2.5# Level of Assistance Standby Assistance,Verbal Cues Comments cues for posture and recrip gait pattern Lower Extremity Exercises squats at wall Water Level Chest Level Comments cuing for mm activation sequence Hs curls Body Position Standing Water Level Chest Level Comments manual assist for posture flex/ext, ab/ad Details at wall Water Level Chest Level Reps/Duration 10 bilat Comments gentle mvmts Lower Extremity Stretches SKTC bilat Details at wall Water Level Chest Level Reps/Duration 2 x 30 Comments with posterior pelvic tilt HS, ITB Details standing at wall Equipment Small Noodle Reps/Duration 2 x 30 Upper Extremity Exercises flex/ext, ab/ad, horiz ab/ad Body Position Standing Water Level Chest Level Reps/Duration 10 each Comments cues for core stabilization, gentle motion Spinal Exercises rotation with hand paddles Body Position Standing Water Level Chest Level Equipment UE paddles Reps/Duration 15 each direction Comments cuing for scap depression and activating obliques [place] Activities [place] Activities Bicycle,[place] Equipment blue float Duration 15 Comments gentle movements encouraging glute activation and upright posture Manual Techniques Aquatic Manual Traction wall hang with 2.5 wts 8 min PT-OP-T Assessment and Plan Start: 08/17/18 18:53 Freq: Status: Active Protocol: Document 11/20/18 16:04 [facility] (Rec: 11/20/18 16:18 [facility] [id number]) Physical Therapy Assessment Goals gait Retirement Goal (LTG) Pt will be able to amb 1 mile with no more than 2 point on 0 -10 pain scale increase. 10/05/18: goal progress LTG Duration 12/15/2018 SRINATH Short Term Goal (STG) Pt will show an improvement in functional ability with improvement of SRINATH to 15/50. 10/05/18: goal progress STG Duration 09/17/18 Retirement Goal (LTG) Pt will show an improvement in functional ability with improvement of SRINATH to 10/50. 10/15/18- not tested today LTG Duration 12/15/2018 strength Short Term Goal (STG) Pt will be indep with appropriate HEP & gym program in order to cont on his pain management & weight management safely. 10/05/18: goal progress STG Duration 09/17/18 Retirement Goal (LTG) Pt will score 4/5 LPM & 5/5 LE strength in order to demonstrate improved core control & improve his ability to do daily tasks. 10/15/18- strength not tested today LTG Duration 12/15/2018 Assessment Summary Assessment Pt had no pain with exercise. Movement was gentler and less intense than previous pool sessions due to pt not being in pool for a while Physical Therapy Plan Frequency and Duration Frequency of Treatment 1-2x/week Duration of Treatment 2 months Plan of Care Start Date 10/15/18 Plan of Care End Date 12/15/18 Next Visit Focus/Plan Next Note Type Treatment Note Next Visit Plan Progress pt with strengthening and endurance as tolerated.
--- NOTE | 2018-11-25 15:54 | PT.OTN ---
Current Diagnoses Intracardiac thrombosis, not elsewhere classified (11/25/18) Spinal stenosis, lumbar region without neurogenic claudication (11/25/18) Radiculopathy, lumbar region (11/25/18) Lumbago with sciatica, unspecified side (11/25/18) Unspecified abnormalities of gait and mobility (11/25/18) Abnormal posture (11/25/18) Weakness (11/25/18) Encounter for therapeutic drug level monitoring (11/25/18) senior living (current) use of anticoagulants (11/25/18) Physical Therapy Treatment Note PT-OP-A Visit Information Start: 08/17/18 18:53 Freq: Status: Active Protocol: Document 11/25/18 11:45 LJ (Rec: 11/25/18 15:54 LJ [id number]) Out-Patient Physical Therapy Visit Information Visit Information Visit Type Aquatic Treatment Note Visit Start Time 11:45 Visit Stop Time 12:30 Total Visit Minutes 45 Visit Number 18 Number of PROFESSOR OF LANGUAGES Visits 2 PT-OP-B Current Condition Start: 08/17/18 18:53 Freq: Status: Active Protocol: Document 08/18/18 10:30 [facility] (Rec: 08/18/18 11:16 [facility] [id number]) Current Condition History of Current Condition Onset Date 2 months ago flare up Current Complaints LBP & R leg pain History of Current Condition Pt reports 30 year history of back pain with a recent episode. 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 Pt reports he was walking to get the paper about 2 months ago and his R side gave out and pain went down leg and had to grab mailbox to stay up. THis is the first time it has gone down his leg. He went to a doctor who sent him to do PT. Pt reports he has B ant ankle pain that limits his mobility. Reports he has scoliosis. He has talked to doctor about doing traction because manual traction has helped in the past. Prior Treatments and Tests PT on and off over the years; reports xrays; chiropractic in the past Future Testing and Treatments Planned Epidural possibly Treatment Goals Patient/Caregiver Goals Wants to be able to walk and back to walking about a 3 mile walk and at least 1 mile; be able to exercise to lose weight PT-OP-C Subjective Start: 08/17/18 18:53 Freq: Status: Active Protocol: Document 11/25/18 11:45 LJ (Rec: 11/25/18 15:54 LJ [email or web address]) OP-PT Subjective Patient Comments Patient Comments Pt states he has no pain right now and feels good. PT-OP-F Manual Assessment Start: 08/17/18 18:53 Freq: Status: Active Protocol: Document 08/18/18 10:30 LR (Rec: 08/18/18 11:16 [facility] [id number]) Manual Assessments Soft Tissue Assessment Soft Tissue Mobility Assessment Tightness R paraspinals & QL & glutes R>L Joint Mobility Assessment Joint Mobility Assessment Iliac crest & R greater trochanter higher in standing; PT-OP-G Mobility & Gait Start: 08/17/18 18:53 Freq: Status: Active Protocol: Document 08/18/18 10:30 LR (Rec: 08/18/18 11:16 [facility] [id number]) OP Gait Assessment Comments Gait Comments Pt has lat leaning during push off with no ant elevation/ post depression PT-OP-J Posture/Palpation/Skin Start: 08/17/18 18:53 Freq: Status: Active Protocol: Document 08/18/18 10:30 [facility] (Rec: 08/18/18 11:16 [facility] [id number]) Posture Evaluation [place] Postural Classification System [place] Postural Classifications Anterior/Posterior Lumbar Protective Mechanism Left AP 1 Lumbar Protective Mechanism Right AP 1 Lumbar Protective Mechanism Left PA 1 Lumbar Protective Mechanism Right PA 1 PT-OP-K Range of Motion Start: 08/17/18 18:53 Freq: Status: Active Protocol: Document 08/18/18 10:30 [facility] (Rec: 08/18/18 11:16 [facility] [id number]) Lumbar Spine Range of Motion Lumbar Spine Active Degrees Flexion 51 Extension 20 Rotation Left 60 Rotation Right 48 Lateral Flexion Left 15 Lateral Flexion Right 23 ROM Limitations Pain PT-OP-L Special Tests Start: 08/17/18 18:53 Freq: Status: Active Protocol: Document 08/18/18 10:30 LR (Rec: 08/18/18 11:16 [facility] [id number]) Special Tests Lumbar Spine Special Tests traction Test Results long axis -relief Straight Leg Raise Test Results positive R; HS tight L Slump Test Results positive R PT-OP-M Strength Start: 08/17/18 18:53 Freq: Status: Active Protocol: Document 10/20/18 08:15 LR (Rec: 10/20/18 08:45 [facility] [id number]) Hip Strength Hip Manual Muscle Testing Right Flexion (L2) 3+ Fair+ Extension (S1) 3+ Fair+ Abduction 3+ Fair+ External Rotation 4- Good- Internal Rotation 4+ Good+ Left Flexion (L2) 3+ Fair+ Extension (S1) 3+ Fair+ Abduction 4- Good- External Rotation 4- Good- Internal Rotation 4+ Good+ Knee Strength Knee Manual Muscle Testing Right Flexion (S2) 5 Normal Extension (L3) 5 Normal Left Flexion (S2) 4+ Good+ Extension (L3) 5 Normal Ankle/Foot Strength Ankle and Foot Manual Muscle Testing Right Dorsiflexion (L4) 4+ Good+ Plantarflexion (S1) 5 Normal Comments tested seated B Left Dorsiflexion (L4) 4+ Good+ Plantarflexion (S1) 4+ Good+ PT-OP-Q Treatments Start: 08/17/18 18:53 Freq: Status: Active Protocol: Document 11/18/18 13:16 AR (Rec: 11/18/18 13:32 AR [id number]) Cardio Equipment Recumbent Bicycle Duration (Minutes) 7 Resistance 3-6 Other increased over time Therapeutic Exercises Supine Exercises bridge Supine Exercise Name bridge w TA and glute squeeze Reps/Minutes 20 reps Comments added to HEP. pt reported it felt good on his back knee rockers Supine Exercise Name knee rockers Side bilateral Reps/Minutes 30 reps Comments cued to dec ROM, reviewed from HEP SKTC stretch Supine Exercise Name single knee to chest stretch Side bilateral Reps/Minutes 45 sec hold ea Comments cued to avoid pain, find gentle stretch. reviewed from HEP TA c marches Supine Exercise Name TA isometrics Reps/Minutes 20 reps, 5 sec hold Comments pt had difficulty holding isometric while breathing Sidelying Exercises clamshells Sidelying Exercise Name clamshells Side bilateral Resistance none Reps/Minutes 15 ea Comments reviewed from HEP. corrected form to lay sidelying not supine, dec ROM Manual Therapy Treatment Manual Traction Lumbar Details skipped today to work on balance ex Neuro Re-Education Treatment Balance Activities NBOS Details NBOS eyes closed Surface level Equipment railing Reps/Duration 2 min Comments pt reached for railing to regain balance but was able to employ ankle strategy more often than previous sessions stagger stance Details stagger stance w balloon volley Surface level Equipment railing Reps/Duration 6 min Comments more challenging with RLE forward. Shuttle Board Details yellow clips, eyes closed Reps/Duration 4 min Comments pt was more stable on less challenging clips, was able to maint balance w EC for 30+ sec. tandem stance Details tandem stance EC Surface level Reps/Duration 4 min Comments pt able to maintain balance with eyes closed for 30 sec each side. was able to emply ankle strategy PT-OP-R Modalities Start: 08/17/18 18:53 Freq: Status: Active Protocol: Document 11/18/18 13:16 AR (Rec: 11/18/18 13:32 AR [id number]) Hot Pack/Cold Pack Treatment Hot Pack Location lumbar spine Patient Position Hooklying Treatment Duration (minutes) 15 PT-OP-S Aquatic Treatment Start: 08/28/18 15:27 Freq: Status: Active Protocol: Document 11/25/18 11:45 LJ (Rec: 11/25/18 15:54 LJ [email or web address]) Aquatics Treatment Pool Entry/Exit Pool Entry/Exit Method Stairs Assistance Independent Water Walking Sideways Water Level Chest Level Walking Equipment Ankle Weight- 2.5# Comments ab/ad arms Monster Walk Water Level Chest Level Walking Equipment Ankle Weight- 2.5# [place] May Water Level Chest Level Walking Equipment Ankle Weight- 2.5# Comments diagonal and straight Backwards Water Level Chest Level Walking Equipment Ankle Weight- 2.5# Level of Assistance Standby Assistance,Verbal Cues Comments reverse breast stroke arms Forwards Water Level Chest Level Walking Equipment Ankle Weight- 2.5# Level of Assistance Standby Assistance,Verbal Cues Comments cues for posture and recrip gait pattern Lower Extremity Exercises hip figure 8 Details bilat Body Position Standing Water Level Chest Level Equipment Ankle Weight- 2.5# Reps/Duration 15 bilat Comments L internal rotation limited squats at wall Water Level Chest Level Comments cuing for mm activation sequence Hs curls Body Position Standing Water Level Chest Level Equipment Ankle Weight- 2.5# Reps/Duration 2x10 flex/ext, ab/ad Details at wall Water Level Chest Level Reps/Duration 2x10 bilat Lower Extremity Stretches quads Details standing at wall Reps/Duration 2x45 SKTC bilat Details at wall Water Level Chest Level Reps/Duration 2 x 45 Comments with posterior pelvic tilt HS, ITB Details standing at wall Equipment Small Noodle Reps/Duration 2 x 45 Upper Extremity Exercises lat pull downs, presses Body Position Standing Water Level Chest Level Equipment cords Comments 2x10 each rows, ER with cords Body Position Standing Water Level Chest Level Reps/Duration 2x10 bilat Spinal Exercises trunk rotation with cords Body Position Standing Water Level Chest Level Reps/Duration 15 bilat [place] Activities [place] Activities Bicycle,[place] Equipment blue float Duration 15 Manual Techniques Aquatic Manual Traction wall hang with 2.5 wts 8 min PT-OP-T Assessment and Plan Start: 08/17/18 18:53 Freq: Status: Active Protocol: Document 11/25/18 11:45 SON (Rec: 11/25/18 15:54 SON [email or web address]) Physical Therapy Assessment Goals gait Prison Goal (LTG) Pt will be able to amb 1 mile with no more than 2 point on 0 -10 pain scale increase. 10/05/18: goal progress LTG Duration 12/15/2018 SRINATH Short Term Goal (STG) Pt will show an improvement in functional ability with improvement of SRINATH to 15/50. 10/05/18: goal progress STG Duration 09/17/18 Civil Engineering Director Goal (LTG) Pt will show an improvement in functional ability with improvement of SRINATH to 10/50. 10/15/18- not tested today LTG Duration 12/15/2018 strength Short Term Goal (STG) Pt will be indep with appropriate HEP & gym program in order to cont on his pain management & weight management safely. 10/05/18: goal progress STG Duration 09/17/18 Civil Engineering Director Goal (LTG) Pt will score 4/5 LPM & 5/5 LE strength in order to demonstrate improved core control & improve his ability to do daily tasks. 10/15/18- strength not tested today LTG Duration 12/15/2018 Assessment Summary Assessment Pt arrived at pool 30 min early. Walked for several minutes then stood stationary until time for his appointment . Pt encouraged to increase effort this session as long as it did not increase pain. Pt needs encouragement to do so. Physical Therapy Plan Frequency and Duration Frequency of Treatment 1-2x/week Duration of Treatment 2 months Plan of Care Start Date 10/15/18 Plan of Care End Date 12/15/18 Next Visit Focus/Plan Next Note Type Treatment Note Next Visit Plan Progress pt with strengthening and endurance as tolerated.
--- NOTE | 2018-12-01 16:50 | PT.OTN ---
Current Diagnoses Intracardiac thrombosis, not elsewhere classified (12/01/18) Spinal stenosis, lumbar region without neurogenic claudication (12/01/18) Radiculopathy, lumbar region (12/01/18) Lumbago with sciatica, unspecified side (12/01/18) Unspecified abnormalities of gait and mobility (12/01/18) Abnormal posture (12/01/18) Weakness (12/01/18) Encounter for therapeutic drug level monitoring (12/01/18) [facility] (current) use of anticoagulants (12/01/18) Physical Therapy Treatment Note PT-OP-A Visit Information Start: 08/17/18 18:53 Freq: Status: Active Protocol: Document 12/01/18 14:00 AR (Rec: 12/01/18 14:13 AR [email or web address]) Out-Patient Physical Therapy Visit Information Visit Information Visit Type Treatment Note Visit Start Time 11:15 Visit Stop Time 12:10 Total Visit Minutes 55 Visit Number 19 Number of LICENSED CLUB MANAGER Visits 0 PT-OP-B Current Condition Start: 08/17/18 18:53 Freq: Status: Active Protocol: Document 08/18/18 10:30 [facility] (Rec: 08/18/18 11:16 [facility] [id number]) Current Condition History of Current Condition Onset Date 2 months ago flare up Current Complaints LBP & R leg pain History of Current Condition Pt reports 30 year history of back pain with a recent episode. 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 Pt reports he was walking to get the paper about 2 months ago and his R side gave out and pain went down leg and had to grab mailbox to stay up. THis is the first time it has gone down his leg. He went to a doctor who sent him to do PT. Pt reports he has B ant ankle pain that limits his mobility. Reports he has scoliosis. He has talked to doctor about doing traction because manual traction has helped in the past. Prior Treatments and Tests PT on and off over the years; reports xrays; chiropractic in the past Future Testing and Treatments Planned Epidural possibly Treatment Goals Patient/Caregiver Goals Wants to be able to walk and back to walking about a 3 mile walk and at least 1 mile; be able to exercise to lose weight PT-OP-C Subjective Start: 08/17/18 18:53 Freq: Status: Active Protocol: Document 12/01/18 14:00 AR (Rec: 12/01/18 14:13 AR [email or web address]) OP-PT Subjective Patient Comments Patient Comments Pt reports he had a back spasm on Friday night that lasted until 11am the next day. He did not do exercises when he had the back pain. He is also still having trouble coordinating breathing while doing exercise. Pt would like his pain to be completely gone and is considering surgery. PT-OP-F Manual Assessment Start: 08/17/18 18:53 Freq: Status: Active Protocol: Document 08/18/18 10:30 LR (Rec: 08/18/18 11:16 [facility] [id number]) Manual Assessments Soft Tissue Assessment Soft Tissue Mobility Assessment Tightness R paraspinals & QL & glutes R>L Joint Mobility Assessment Joint Mobility Assessment Iliac crest & R greater trochanter higher in standing; PT-OP-G Mobility & Gait Start: 08/17/18 18:53 Freq: Status: Active Protocol: Document 08/18/18 10:30 LR (Rec: 08/18/18 11:16 [facility] [id number]) OP Gait Assessment Comments Gait Comments Pt has lat leaning during push off with no ant elevation/ post depression PT-OP-J Posture/Palpation/Skin Start: 08/17/18 18:53 Freq: Status: Active Protocol: Document 08/18/18 10:30 LR (Rec: 08/18/18 11:16 [facility] [id number]) Posture Evaluation [facility] Postural Classification System [place] Postural Classifications Anterior/Posterior Lumbar Protective Mechanism Left AP 1 Lumbar Protective Mechanism Right AP 1 Lumbar Protective Mechanism Left PA 1 Lumbar Protective Mechanism Right PA 1 PT-OP-K Range of Motion Start: 08/17/18 18:53 Freq: Status: Active Protocol: Document 08/18/18 10:30 LR (Rec: 08/18/18 11:16 [facility] [id number]) Lumbar Spine Range of Motion Lumbar Spine Active Degrees Flexion 51 Extension 20 Rotation Left 60 Rotation Right 48 Lateral Flexion Left 15 Lateral Flexion Right 23 ROM Limitations Pain PT-OP-L Special Tests Start: 08/17/18 18:53 Freq: Status: Active Protocol: Document 08/18/18 10:30 LR (Rec: 08/18/18 11:16 [facility] [id number]) Special Tests Lumbar Spine Special Tests traction Test Results long axis -relief Straight Leg Raise Test Results positive R; HS tight L Slump Test Results positive R PT-OP-M Strength Start: 08/17/18 18:53 Freq: Status: Active Protocol: Document 10/20/18 08:15 LR (Rec: 10/20/18 08:45 LR [id number]) Hip Strength Hip Manual Muscle Testing Right Flexion (L2) 3+ Fair+ Extension (S1) 3+ Fair+ Abduction 3+ Fair+ External Rotation 4- Good- Internal Rotation 4+ Good+ Left Flexion (L2) 3+ Fair+ Extension (S1) 3+ Fair+ Abduction 4- Good- External Rotation 4- Good- Internal Rotation 4+ Good+ Knee Strength Knee Manual Muscle Testing Right Flexion (S2) 5 Normal Extension (L3) 5 Normal Left Flexion (S2) 4+ Good+ Extension (L3) 5 Normal Ankle/Foot Strength Ankle and Foot Manual Muscle Testing Right Dorsiflexion (L4) 4+ Good+ Plantarflexion (S1) 5 Normal Comments tested seated B Left Dorsiflexion (L4) 4+ Good+ Plantarflexion (S1) 4+ Good+ PT-OP-Q Treatments Start: 08/17/18 18:53 Freq: Status: Active Protocol: Document 12/01/18 14:00 AR (Rec: 12/01/18 14:13 AR [email or web address]) Cardio Equipment Recumbent Bicycle Duration (Minutes) 5 Resistance 5 Therapeutic Exercises Supine Exercises bridge Supine Exercise Name with breathing Reps/Minutes 15 reps Comments hold for three breaths knee rockers Supine Exercise Name lumbar rotation Side bilateral Reps/Minutes 40 reps Comments reviewed from HEP. SKTC stretch Supine Exercise Name SKTC Side bilateral Reps/Minutes 3x30 sec Comments reviewed from HEP. Manual Therapy Treatment Soft Tissue Mobilization QL & ES R Body Location R QL, ES Mobilization Type Myofascial Release,Rolling Intensity/Depth Moderate Body Position Sidelying Comments with hip abd/add Neuro Re-Education Treatment Balance Activities blue therapads Details static stance on blue therapads Equipment 2 therapads Reps/Duration 2 min NBOS Details NBOS w eyes closed Surface level Equipment railing, gait belt Reps/Duration 4 min stagger stance Details stagger stance w eyes closed Surface level Equipment railing, gait belt Reps/Duration 3 min ea PT-OP-R Modalities Start: 08/17/18 18:53 Freq: Status: Active Protocol: Document 12/01/18 14:00 AR (Rec: 12/01/18 14:13 AR [email or web address]) Hot Pack/Cold Pack Treatment Hot Pack Location lumbar spine Patient Position Hooklying Treatment Duration (minutes) 15 PT-OP-S Aquatic Treatment Start: 08/28/18 15:27 Freq: Status: Active Protocol: Document 11/25/18 11:45 LJ (Rec: 11/25/18 15:54 LJ [email or web address]) Aquatics Treatment Pool Entry/Exit Pool Entry/Exit Method Stairs Assistance Independent Water Walking Sideways Water Level Chest Level Walking Equipment Ankle Weight- 2.5# Comments ab/ad arms Monster Walk Water Level Chest Level Walking Equipment Ankle Weight- 2.5# [place] May Water Level Chest Level Walking Equipment Ankle Weight- 2.5# Comments diagonal and straight Backwards Water Level Chest Level Walking Equipment Ankle Weight- 2.5# Level of Assistance Standby Assistance,Verbal Cues Comments reverse breast stroke arms Forwards Water Level Chest Level Walking Equipment Ankle Weight- 2.5# Level of Assistance Standby Assistance,Verbal Cues Comments cues for posture and recrip gait pattern Lower Extremity Exercises hip figure 8 Details bilat Body Position Standing Water Level Chest Level Equipment Ankle Weight- 2.5# Reps/Duration 15 bilat Comments L internal rotation limited squats at wall Water Level Chest Level Comments cuing for mm activation sequence Hs curls Body Position Standing Water Level Chest Level Equipment Ankle Weight- 2.5# Reps/Duration 2x10 flex/ext, ab/ad Details at wall Water Level Chest Level Reps/Duration 2x10 bilat Lower Extremity Stretches quads Details standing at wall Reps/Duration 2x45 SKTC bilat Details at wall Water Level Chest Level Reps/Duration 2 x 45 Comments with posterior pelvic tilt HS, ITB Details standing at wall Equipment Small Noodle Reps/Duration 2 x 45 Upper Extremity Exercises lat pull downs, presses Body Position Standing Water Level Chest Level Equipment cords Comments 2x10 each rows, ER with cords Body Position Standing Water Level Chest Level Reps/Duration 2x10 bilat Spinal Exercises trunk rotation with cords Body Position Standing Water Level Chest Level Reps/Duration 15 bilat [place] Activities [place] Activities Bicycle,[place] Equipment blue float Duration 15 Manual Techniques Aquatic Manual Traction wall hang with 2.5 wts 8 min PT-OP-T Assessment and Plan Start: 08/17/18 18:53 Freq: Status: Active Protocol: Document 12/01/18 14:00 AR (Rec: 12/01/18 14:13 AR [email or web address]) Physical Therapy Assessment Goals gait Licensing Engineer Goal (LTG) Pt will be able to amb 1 mile with no more than 2 point on 0 -10 pain scale increase. 10/05/18: goal progress LTG Duration 12/15/2018 SRINATH Short Term Goal (STG) Pt will show an improvement in functional ability with improvement of SRINATH to 15/50. 10/05/18: goal progress STG Duration 09/17/18 Senior Living Goal (LTG) Pt will show an improvement in functional ability with improvement of SRINATH to 10/50. 10/15/18- not tested today LTG Duration 12/15/2018 strength Short Term Goal (STG) Pt will be indep with appropriate HEP & gym program in order to cont on his pain management & weight management safely. 10/05/18: goal progress STG Duration 09/17/18 Licensing Engineer Goal (LTG) Pt will score 4/5 LPM & 5/5 LE strength in order to demonstrate improved core control & improve his ability to do daily tasks. 10/15/18- strength not tested today LTG Duration 12/15/2018 Assessment Summary Assessment Pt was encouraged to use 2 stretches when he has back spasms and see if they are helpful for acute pain. Pt was also educated on the importance of being compliant with HEP, gym and pool program . Pt was discouraged d/t recent spasm, but believes PT is helpful and has improved his strength. Pt's improvement may be limited by non- compliance with HEP and gym program. Physical Therapy Plan Frequency and Duration Frequency of Treatment 1-2x/week Duration of Treatment 2 months Plan of Care Start Date 10/15/18 Plan of Care End Date 12/15/18 Next Visit Focus/Plan Next Note Type Treatment Note Next Visit Plan progress balance training. review gym program/exercises
--- NOTE | 2018-12-07 14:49 | PT.OTN ---
Current Diagnoses Intracardiac thrombosis, not elsewhere classified (12/07/18) Spinal stenosis, lumbar region without neurogenic claudication (12/07/18) Radiculopathy, lumbar region (12/07/18) Lumbago with sciatica, unspecified side (12/07/18) Unspecified abnormalities of gait and mobility (12/07/18) Abnormal posture (12/07/18) Weakness (12/07/18) Encounter for therapeutic drug level monitoring (12/07/18) senior living (current) use of anticoagulants (12/07/18) Physical Therapy Treatment Note PT-OP-A Visit Information Start: 08/17/18 18:53 Freq: Status: Active Protocol: Document 12/07/18 11:45 LJ (Rec: 12/07/18 14:49 LJ [email or web address]) Out-Patient Physical Therapy Visit Information Visit Information Visit Type Aquatic Treatment Note Visit Start Time 11:45 Visit Stop Time 12:30 Total Visit Minutes 45 Visit Number 20 Number of EXTRACTOR OPERATOR Visits 1 PT-OP-B Current Condition Start: 08/17/18 18:53 Freq: Status: Active Protocol: Document 08/18/18 10:30 [facility] (Rec: 08/18/18 11:16 [facility] [id number]) Current Condition History of Current Condition Onset Date 2 months ago flare up Current Complaints LBP & R leg pain History of Current Condition Pt reports 30 year history of back pain with a recent episode. 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 Pt reports he was walking to get the paper about 2 months ago and his R side gave out and pain went down leg and had to grab mailbox to stay up. THis is the first time it has gone down his leg. He went to a doctor who sent him to do PT. Pt reports he has B ant ankle pain that limits his mobility. Reports he has scoliosis. He has talked to doctor about doing traction because manual traction has helped in the past. Prior Treatments and Tests PT on and off over the years; reports xrays; chiropractic in the past Future Testing and Treatments Planned Epidural possibly Treatment Goals Patient/Caregiver Goals Wants to be able to walk and back to walking about a 3 mile walk and at least 1 mile; be able to exercise to lose weight PT-OP-C Subjective Start: 08/17/18 18:53 Freq: Status: Active Protocol: Document 12/07/18 11:45 LJ (Rec: 12/07/18 14:49 LJ [email or web address]) OP-PT Subjective Patient Comments Patient Comments Pt says there is nothing new to report. States he will try to get to the pool to continue aquatic exercises after d/c. PT-OP-F Manual Assessment Start: 08/17/18 18:53 Freq: Status: Active Protocol: Document 08/18/18 10:30 LR (Rec: 08/18/18 11:16 [facility] [id number]) Manual Assessments Soft Tissue Assessment Soft Tissue Mobility Assessment Tightness R paraspinals & QL & glutes R>L Joint Mobility Assessment Joint Mobility Assessment Iliac crest & R greater trochanter higher in standing; PT-OP-G Mobility & Gait Start: 08/17/18 18:53 Freq: Status: Active Protocol: Document 08/18/18 10:30 LR (Rec: 08/18/18 11:16 [facility] [id number]) OP Gait Assessment Comments Gait Comments Pt has lat leaning during push off with no ant elevation/ post depression PT-OP-J Posture/Palpation/Skin Start: 08/17/18 18:53 Freq: Status: Active Protocol: Document 08/18/18 10:30 [facility] (Rec: 08/18/18 11:16 [facility] [id number]) Posture Evaluation Loida Postural Classification System Loida Postural Classifications Anterior/Posterior Lumbar Protective Mechanism Left AP 1 Lumbar Protective Mechanism Right AP 1 Lumbar Protective Mechanism Left PA 1 Lumbar Protective Mechanism Right PA 1 PT-OP-K Range of Motion Start: 08/17/18 18:53 Freq: Status: Active Protocol: Document 08/18/18 10:30 [facility] (Rec: 08/18/18 11:16 [facility] [id number]) Lumbar Spine Range of Motion Lumbar Spine Active Degrees Flexion 51 Extension 20 Rotation Left 60 Rotation Right 48 Lateral Flexion Left 15 Lateral Flexion Right 23 ROM Limitations Pain PT-OP-L Special Tests Start: 08/17/18 18:53 Freq: Status: Active Protocol: Document 08/18/18 10:30 LR (Rec: 08/18/18 11:16 [facility] [id number]) Special Tests Lumbar Spine Special Tests traction Test Results long axis -relief Straight Leg Raise Test Results positive R; HS tight L Slump Test Results positive R PT-OP-M Strength Start: 08/17/18 18:53 Freq: Status: Active Protocol: Document 10/20/18 08:15 [facility] (Rec: 10/20/18 08:45 [facility] [id number]) Hip Strength Hip Manual Muscle Testing Right Flexion (L2) 3+ Fair+ Extension (S1) 3+ Fair+ Abduction 3+ Fair+ External Rotation 4- Good- Internal Rotation 4+ Good+ Left Flexion (L2) 3+ Fair+ Extension (S1) 3+ Fair+ Abduction 4- Good- External Rotation 4- Good- Internal Rotation 4+ Good+ Knee Strength Knee Manual Muscle Testing Right Flexion (S2) 5 Normal Extension (L3) 5 Normal Left Flexion (S2) 4+ Good+ Extension (L3) 5 Normal Ankle/Foot Strength Ankle and Foot Manual Muscle Testing Right Dorsiflexion (L4) 4+ Good+ Plantarflexion (S1) 5 Normal Comments tested seated B Left Dorsiflexion (L4) 4+ Good+ Plantarflexion (S1) 4+ Good+ PT-OP-Q Treatments Start: 08/17/18 18:53 Freq: Status: Active Protocol: Document 12/01/18 14:00 AR (Rec: 12/01/18 14:13 AR [email or web address]) Cardio Equipment Recumbent Bicycle Duration (Minutes) 5 Resistance 5 Therapeutic Exercises Supine Exercises bridge Supine Exercise Name with breathing Reps/Minutes 15 reps Comments hold for three breaths knee rockers Supine Exercise Name lumbar rotation Side bilateral Reps/Minutes 40 reps Comments reviewed from HEP. SKTC stretch Supine Exercise Name SKTC Side bilateral Reps/Minutes 3x30 sec Comments reviewed from HEP. Manual Therapy Treatment Soft Tissue Mobilization QL & ES R Body Location R QL, ES Mobilization Type Myofascial Release,Rolling Intensity/Depth Moderate Body Position Sidelying Comments with hip abd/add Neuro Re-Education Treatment Balance Activities blue therapads Details static stance on blue therapads Equipment 2 therapads Reps/Duration 2 min NBOS Details NBOS w eyes closed Surface level Equipment railing, gait belt Reps/Duration 4 min stagger stance Details stagger stance w eyes closed Surface level Equipment railing, gait belt Reps/Duration 3 min ea PT-OP-R Modalities Start: 08/17/18 18:53 Freq: Status: Active Protocol: Document 12/01/18 14:00 AR (Rec: 12/01/18 14:13 AR [email or web address]) Hot Pack/Cold Pack Treatment Hot Pack Location lumbar spine Patient Position Hooklying Treatment Duration (minutes) 15 PT-OP-S Aquatic Treatment Start: 08/28/18 15:27 Freq: Status: Active Protocol: Document 12/07/18 11:45 SON (Rec: 12/07/18 14:49 LJ [email or web address]) Aquatics Treatment Pool Entry/Exit Pool Entry/Exit Method Stairs Assistance Independent Water Walking Sideways Water Level Chest Level Walking Equipment Ankle Floats Comments ab/ad arms Monster Walk Water Level Chest Level Walking Equipment Resistance Fins [place] Pool May Water Level Chest Level Walking Equipment Ankle Floats Comments diagonal and straight Backwards Water Level Chest Level Walking Equipment Ankle Floats Level of Assistance Standby Assistance,Verbal Cues Comments reverse breast stroke arms Forwards Water Level Chest Level Walking Equipment Ankle Floats Level of Assistance Standby Assistance,Verbal Cues Comments cues for posture and recrip gait pattern Lower Extremity Exercises hip figure 8 Details bilat Body Position Standing Water Level Chest Level Equipment Ankle Floats Reps/Duration 15 bilat Comments L internal rotation limited Hs curls Body Position Standing Water Level Chest Level Equipment Ankle Weight- 2.5# Reps/Duration 2x10 flex/ext, ab/ad Details at wall Water Level Chest Level Equipment Ankle Floats Reps/Duration 2x10 bilat Upper Extremity Exercises lat pull downs, presses Body Position Standing Water Level Chest Level Equipment UE paddles Comments 2x10 each flex/ext, ab/ad, horiz ab/ad Body Position Standing Water Level Chest Level Equipment UE paddles Reps/Duration 10 each Comments cues for core stabilization Spinal Exercises rotation with hand paddles Body Position Standing Water Level Chest Level Equipment UE paddles Reps/Duration 15 each direction Comments cuing for scap depression and activating obliques [place] Activities [place] Activities Bicycle,[place] Other Activities pendulums Double leg extend forward and backward Equipment lg belt Duration 15 PT-OP-T Assessment and Plan Start: 08/17/18 18:53 Freq: Status: Active Protocol: Document 12/07/18 11:45 SON (Rec: 12/07/18 14:49 SON [email or web address]) Physical Therapy Assessment Goals gait Fly Fishing Guide Goal (LTG) Pt will be able to amb 1 mile with no more than 2 point on 0 -10 pain scale increase. 10/05/18: goal progress LTG Duration 12/15/2018 SRINATH Short Term Goal (STG) Pt will show an improvement in functional ability with improvement of SRINATH to 15/50. 10/05/18: goal progress STG Duration 09/17/18 Fly Fishing Guide Goal (LTG) Pt will show an improvement in functional ability with improvement of SRINATH to 10/50. 10/15/18- not tested today LTG Duration 12/15/2018 strength Short Term Goal (STG) Pt will be indep with appropriate HEP & gym program in order to cont on his pain management & weight management safely. 10/05/18: goal progress STG Duration 09/17/18 Residential Goal (LTG) Pt will score 4/5 LPM & 5/5 LE strength in order to demonstrate improved core control & improve his ability to do daily tasks. 10/15/18- strength not tested today LTG Duration 12/15/2018 Assessment Summary Assessment Pt did not want to stretch LEs after workout. He requested HEP for pool exercises which therapist will provide and review next visit. Pt has improved coordination and posture in walking and standing exercises with less need for hand hold. Still difficulty extending knees with CC ski in deep water. Able to do pendulum and straight leg exercises in deep water with good coordination. Physical Therapy Plan Frequency and Duration Frequency of Treatment 1-2x/week Duration of Treatment 2 months Plan of Care Start Date 10/15/18 Plan of Care End Date 12/15/18 Therapeutic Interventions Therapeutic Interventions Aquatic Therapy,Balance Training,Coordination Training ,Gait Training,Home Exercise Program,Joint Mobilizations, Manual Therapy,Neuromuscular Re-education,Patient/Caregiver Education,Self-Care/Home Management,Soft Tissue Mobilization,Taping, Therapeutic Activities, Therapeutic Exercises Modalities Cold Pack/Ice Massage,Electric Stimulation,Hot Packs, Infrared Therapy,Iontophoresis ,Traction- Mechanical Next Visit Focus/Plan Next Note Type Treatment Note Next Visit Plan Provide HEP for aquatic exercises and review next appointment. D/C after next appointment.
--- NOTE | 2018-12-09 14:38 | PT.OTN ---
Current Diagnoses Intracardiac thrombosis, not elsewhere classified (12/09/18) Spinal stenosis, lumbar region without neurogenic claudication (12/09/18) Radiculopathy, lumbar region (12/09/18) Lumbago with sciatica, unspecified side (12/09/18) Unspecified abnormalities of gait and mobility (12/09/18) Abnormal posture (12/09/18) Weakness (12/09/18) Encounter for therapeutic drug level monitoring (12/09/18) [facility] (current) use of anticoagulants (12/09/18) Physical Therapy Treatment Note PT-OP-A Visit Information Start: 08/17/18 18:53 Freq: Status: Active Protocol: Document 12/09/18 13:51 [facility] (Rec: 12/09/18 14:37 [facility] [id number]) Out-Patient Physical Therapy Visit Information Visit Information Visit Type Treatment Note Visit Start Time 13:47 Visit Stop Time 14:26 Total Visit Minutes 39 Visit Number 21 Number of DEEP TISSUE MASSAGE THERAPIST Visits 0 PT-OP-B Current Condition Start: 08/17/18 18:53 Freq: Status: Active Protocol: Document 08/18/18 10:30 [facility] (Rec: 08/18/18 11:16 [facility] [id number]) Current Condition History of Current Condition Onset Date 2 months ago flare up Current Complaints LBP & R leg pain History of Current Condition Pt reports 30 year history of back pain with a recent episode. 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 Pt reports he was walking to get the paper about 2 months ago and his R side gave out and pain went down leg and had to grab mailbox to stay up. THis is the first time it has gone down his leg. He went to a doctor who sent him to do PT. Pt reports he has B ant ankle pain that limits his mobility. Reports he has scoliosis. He has talked to doctor about doing traction because manual traction has helped in the past. Prior Treatments and Tests PT on and off over the years; reports xrays; chiropractic in the past Future Testing and Treatments Planned Epidural possibly Treatment Goals Patient/Caregiver Goals Wants to be able to walk and back to walking about a 3 mile walk and at least 1 mile; be able to exercise to lose weight PT-OP-C Subjective Start: 08/17/18 18:53 Freq: Status: Active Protocol: Document 12/09/18 13:51 LR (Rec: 12/09/18 14:37 [facility] [id number]) OP-PT Subjective Patient Comments Patient Comments Pt reports back is feeling pretty good. He has been compliance with exercises. Reports more stiffness than pain. Patient Reported Progress Improving PT-OP-F Manual Assessment Start: 08/17/18 18:53 Freq: Status: Active Protocol: Document 08/18/18 10:30 LR (Rec: 08/18/18 11:16 [facility] [id number]) Manual Assessments Soft Tissue Assessment Soft Tissue Mobility Assessment Tightness R paraspinals & QL & glutes R>L Joint Mobility Assessment Joint Mobility Assessment Iliac crest & R greater trochanter higher in standing; PT-OP-G Mobility & Gait Start: 08/17/18 18:53 Freq: Status: Active Protocol: Document 08/18/18 10:30 [facility] (Rec: 08/18/18 11:16 [facility] [id number]) OP Gait Assessment Comments Gait Comments Pt has lat leaning during push off with no ant elevation/ post depression PT-OP-J Posture/Palpation/Skin Start: 08/17/18 18:53 Freq: Status: Active Protocol: Document 08/18/18 10:30 [facility] (Rec: 08/18/18 11:16 [facility] [id number]) Posture Evaluation [place] Postural Classification System [place] Postural Classifications Anterior/Posterior Lumbar Protective Mechanism Left AP 1 Lumbar Protective Mechanism Right AP 1 Lumbar Protective Mechanism Left PA 1 Lumbar Protective Mechanism Right PA 1 PT-OP-K Range of Motion Start: 08/17/18 18:53 Freq: Status: Active Protocol: Document 08/18/18 10:30 [facility] (Rec: 08/18/18 11:16 [facility] [id number]) Lumbar Spine Range of Motion Lumbar Spine Active Degrees Flexion 51 Extension 20 Rotation Left 60 Rotation Right 48 Lateral Flexion Left 15 Lateral Flexion Right 23 ROM Limitations Pain PT-OP-L Special Tests Start: 08/17/18 18:53 Freq: Status: Active Protocol: Document 08/18/18 10:30 LR (Rec: 08/18/18 11:16 [facility] [id number]) Special Tests Lumbar Spine Special Tests traction Test Results long axis -relief Straight Leg Raise Test Results positive R; HS tight L Slump Test Results positive R PT-OP-M Strength Start: 08/17/18 18:53 Freq: Status: Active Protocol: Document 10/20/18 08:15 [facility] (Rec: 10/20/18 08:45 [facility] [id number]) Hip Strength Hip Manual Muscle Testing Right Flexion (L2) 3+ Fair+ Extension (S1) 3+ Fair+ Abduction 3+ Fair+ External Rotation 4- Good- Internal Rotation 4+ Good+ Left Flexion (L2) 3+ Fair+ Extension (S1) 3+ Fair+ Abduction 4- Good- External Rotation 4- Good- Internal Rotation 4+ Good+ Knee Strength Knee Manual Muscle Testing Right Flexion (S2) 5 Normal Extension (L3) 5 Normal Left Flexion (S2) 4+ Good+ Extension (L3) 5 Normal Ankle/Foot Strength Ankle and Foot Manual Muscle Testing Right Dorsiflexion (L4) 4+ Good+ Plantarflexion (S1) 5 Normal Comments tested seated B Left Dorsiflexion (L4) 4+ Good+ Plantarflexion (S1) 4+ Good+ PT-OP-Q Treatments Start: 08/17/18 18:53 Freq: Status: Active Protocol: Document 12/09/18 13:51 [facility] (Rec: 12/09/18 14:37 [facility] [id number]) Cardio Equipment Recumbent Bicycle Duration (Minutes) 5 Resistance 5 Gym Equipment Shuttle Balance yellow clips Details FWd: WBOS, NBOS & staggered stance Comments head turns with wbos Therapeutic Ball seated Exercise Details pelvic circles, heel slides B Ball Size/Color silver Body Position Sitting Reps/Duration 30 ea B Therapeutic Exercises Standing Exercises hip ext Side bilateral Reps/Minutes 20 side step Standing Exercise Name focus on no lean Side bilateral Reps/Minutes 2x20ft Self-Care/Home Management Treatment Education Other Education edu on starting small walks, discussed wearing CPAP he stopped wearing when sick d/t c/o waking up fro no reason, discussed maybe following up with his Sleep MD if this cont to be a problem PT-OP-R Modalities Start: 08/17/18 18:53 Freq: Status: Active Protocol: Document 12/01/18 14:00 AR (Rec: 12/01/18 14:13 AR [email or web address]) Hot Pack/Cold Pack Treatment Hot Pack Location lumbar spine Patient Position Hooklying Treatment Duration (minutes) 15 PT-OP-S Aquatic Treatment Start: 08/28/18 15:27 Freq: Status: Active Protocol: Document 12/07/18 11:45 LJ (Rec: 12/07/18 14:49 LJ [email or web address]) Aquatics Treatment Pool Entry/Exit Pool Entry/Exit Method Stairs Assistance Independent Water Walking Sideways Water Level Chest Level Walking Equipment Ankle Floats Comments ab/ad arms Monster Walk Water Level Chest Level Walking Equipment Resistance Fins [place] May Water Level Chest Level Walking Equipment Ankle Floats Comments diagonal and straight Backwards Water Level Chest Level Walking Equipment Ankle Floats Level of Assistance Standby Assistance,Verbal Cues Comments reverse breast stroke arms Forwards Water Level Chest Level Walking Equipment Ankle Floats Level of Assistance Standby Assistance,Verbal Cues Comments cues for posture and recrip gait pattern Lower Extremity Exercises hip figure 8 Details bilat Body Position Standing Water Level Chest Level Equipment Ankle Floats Reps/Duration 15 bilat Comments L internal rotation limited Hs curls Body Position Standing Water Level Chest Level Equipment Ankle Weight- 2.5# Reps/Duration 2x10 flex/ext, ab/ad Details at wall Water Level Chest Level Equipment Ankle Floats Reps/Duration 2x10 bilat Upper Extremity Exercises lat pull downs, presses Body Position Standing Water Level Chest Level Equipment UE paddles Comments 2x10 each flex/ext, ab/ad, horiz ab/ad Body Position Standing Water Level Chest Level Equipment UE paddles Reps/Duration 10 each Comments cues for core stabilization Spinal Exercises rotation with hand paddles Body Position Standing Water Level Chest Level Equipment UE paddles Reps/Duration 15 each direction Comments cuing for scap depression and activating obliques [place] Activities [place] Activities Bicycle,[place] Other Activities pendulums Double leg extend forward and backward Equipment lg belt Duration 15 PT-OP-T Assessment and Plan Start: 08/17/18 18:53 Freq: Status: Active Protocol: Document 12/09/18 13:51 [facility] (Rec: 12/09/18 14:37 [facility] [id number]) Physical Therapy Assessment Goals gait Mcfp Goal (LTG) Pt will be able to amb 1 mile with no more than 2 point on 0 -10 pain scale increase. 10/05/18: goal progress LTG Duration 12/15/2018 SRINATH Short Term Goal (STG) Pt will show an improvement in functional ability with improvement of SRINATH to 15/50. 10/05/18: goal progress STG Duration 09/17/18 Publicity Manager Goal (LTG) Pt will show an improvement in functional ability with improvement of SRINATH to 10/50. 10/15/18- not tested today LTG Duration 12/15/2018 strength Short Term Goal (STG) Pt will be indep with appropriate HEP & gym program in order to cont on his pain management & weight management safely. 10/05/18: goal progress STG Duration 09/17/18 Publicity Manager Goal (LTG) Pt will score 4/5 LPM & 5/5 LE strength in order to demonstrate improved core control & improve his ability to do daily tasks. 10/15/18- strength not tested today LTG Duration 12/15/2018 Assessment Summary Assessment Pt able to tolerate standing exercises and balance today with c/o of mild tightness in LB and SOB. Pt encouraged to start doing small walks that are comfortable distances for his back to start working his way up. Physical Therapy Plan Frequency and Duration Frequency of Treatment 1-2x/week Duration of Treatment 2 months Plan of Care Start Date 10/15/18 Plan of Care End Date 12/15/18 Next Visit Focus/Plan Next Note Type Progress Note Next Visit Plan Provide HEP for aquatic exercises and review next appointment. D/C aquatic PT after next appointment. Work on core stability in standing
--- NOTE | 2018-12-14 15:08 | PT.OTN ---
Current Diagnoses Intracardiac thrombosis, not elsewhere classified (12/14/18) Spinal stenosis, lumbar region without neurogenic claudication (12/14/18) Radiculopathy, lumbar region (12/14/18) Lumbago with sciatica, unspecified side (12/14/18) Unspecified abnormalities of gait and mobility (12/14/18) Abnormal posture (12/14/18) Weakness (12/14/18) Encounter for therapeutic drug level monitoring (12/14/18) senior care (current) use of anticoagulants (12/14/18) Physical Therapy Treatment Note PT-OP-A Visit Information Start: 08/17/18 18:53 Freq: Status: Active Protocol: Document 12/14/18 11:45 LJ (Rec: 12/14/18 15:08 LJ [id number]) Out-Patient Physical Therapy Visit Information Visit Information Visit Type Aquatic Treatment Note Visit Start Time 11:45 Visit Stop Time 12:30 Total Visit Minutes 45 Visit Number 22 Number of FUNERAL LIMOUSINE DRIVER Visits 1 PT-OP-B Current Condition Start: 08/17/18 18:53 Freq: Status: Active Protocol: Document 08/18/18 10:30 [facility] (Rec: 08/18/18 11:16 [facility] [id number]) Current Condition History of Current Condition Onset Date 2 months ago flare up Current Complaints LBP & R leg pain History of Current Condition Pt reports 30 year history of back pain with a recent episode. 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 Pt reports he was walking to get the paper about 2 months ago and his R side gave out and pain went down leg and had to grab mailbox to stay up. THis is the first time it has gone down his leg. He went to a doctor who sent him to do PT. Pt reports he has B ant ankle pain that limits his mobility. Reports he has scoliosis. He has talked to doctor about doing traction because manual traction has helped in the past. Prior Treatments and Tests PT on and off over the years; reports xrays; chiropractic in the past Future Testing and Treatments Planned Epidural possibly Treatment Goals Patient/Caregiver Goals Wants to be able to walk and back to walking about a 3 mile walk and at least 1 mile; be able to exercise to lose weight PT-OP-C Subjective Start: 08/17/18 18:53 Freq: Status: Active Protocol: Document 12/14/18 11:45 LJ (Rec: 12/14/18 15:08 LJ [id number]) OP-PT Subjective Patient Comments Patient Comments Pt states he feels he has really improved with balance and strength. He's pleased with his progress PT-OP-F Manual Assessment Start: 08/17/18 18:53 Freq: Status: Active Protocol: Document 08/18/18 10:30 LR (Rec: 08/18/18 11:16 [facility] [id number]) Manual Assessments Soft Tissue Assessment Soft Tissue Mobility Assessment Tightness R paraspinals & QL & glutes R>L Joint Mobility Assessment Joint Mobility Assessment Iliac crest & R greater trochanter higher in standing; PT-OP-G Mobility & Gait Start: 08/17/18 18:53 Freq: Status: Active Protocol: Document 08/18/18 10:30 LR (Rec: 08/18/18 11:16 [facility] [id number]) OP Gait Assessment Comments Gait Comments Pt has lat leaning during push off with no ant elevation/ post depression PT-OP-J Posture/Palpation/Skin Start: 08/17/18 18:53 Freq: Status: Active Protocol: Document 08/18/18 10:30 [facility] (Rec: 08/18/18 11:16 [facility] [id number]) Posture Evaluation Loida Postural Classification System Loida Postural Classifications Anterior/Posterior Lumbar Protective Mechanism Left AP 1 Lumbar Protective Mechanism Right AP 1 Lumbar Protective Mechanism Left PA 1 Lumbar Protective Mechanism Right PA 1 PT-OP-K Range of Motion Start: 08/17/18 18:53 Freq: Status: Active Protocol: Document 08/18/18 10:30 [facility] (Rec: 08/18/18 11:16 [facility] [id number]) Lumbar Spine Range of Motion Lumbar Spine Active Degrees Flexion 51 Extension 20 Rotation Left 60 Rotation Right 48 Lateral Flexion Left 15 Lateral Flexion Right 23 ROM Limitations Pain PT-OP-L Special Tests Start: 08/17/18 18:53 Freq: Status: Active Protocol: Document 08/18/18 10:30 LR (Rec: 08/18/18 11:16 [facility] [id number]) Special Tests Lumbar Spine Special Tests traction Test Results long axis -relief Straight Leg Raise Test Results positive R; HS tight L Slump Test Results positive R PT-OP-M Strength Start: 08/17/18 18:53 Freq: Status: Active Protocol: Document 10/20/18 08:15 [facility] (Rec: 10/20/18 08:45 [facility] [id number]) Hip Strength Hip Manual Muscle Testing Right Flexion (L2) 3+ Fair+ Extension (S1) 3+ Fair+ Abduction 3+ Fair+ External Rotation 4- Good- Internal Rotation 4+ Good+ Left Flexion (L2) 3+ Fair+ Extension (S1) 3+ Fair+ Abduction 4- Good- External Rotation 4- Good- Internal Rotation 4+ Good+ Knee Strength Knee Manual Muscle Testing Right Flexion (S2) 5 Normal Extension (L3) 5 Normal Left Flexion (S2) 4+ Good+ Extension (L3) 5 Normal Ankle/Foot Strength Ankle and Foot Manual Muscle Testing Right Dorsiflexion (L4) 4+ Good+ Plantarflexion (S1) 5 Normal Comments tested seated B Left Dorsiflexion (L4) 4+ Good+ Plantarflexion (S1) 4+ Good+ PT-OP-Q Treatments Start: 08/17/18 18:53 Freq: Status: Active Protocol: Document 12/09/18 13:51 [facility] (Rec: 12/09/18 14:37 [facility] [id number]) Cardio Equipment Recumbent Bicycle Duration (Minutes) 5 Resistance 5 Gym Equipment Shuttle Balance yellow clips Details FWd: WBOS, NBOS & staggered stance Comments head turns with wbos Therapeutic Ball seated Exercise Details pelvic circles, heel slides B Ball Size/Color silver Body Position Sitting Reps/Duration 30 ea B Therapeutic Exercises Standing Exercises hip ext Side bilateral Reps/Minutes 20 side step Standing Exercise Name focus on no lean Side bilateral Reps/Minutes 2x20ft Self-Care/Home Management Treatment Education Other Education edu on starting small walks, discussed wearing CPAP he stopped wearing when sick d/t c/o waking up fro no reason, discussed maybe following up with his Sleep MD if this cont to be a problem PT-OP-R Modalities Start: 08/17/18 18:53 Freq: Status: Active Protocol: Document 12/01/18 14:00 [facility] (Rec: 12/01/18 14:13 AR [id number]) Hot Pack/Cold Pack Treatment Hot Pack Location lumbar spine Patient Position Hooklying Treatment Duration (minutes) 15 PT-OP-S Aquatic Treatment Start: 08/28/18 15:27 Freq: Status: Active Protocol: Document 12/14/18 11:45 S[facility] (Rec: 12/14/18 15:08 LJ [id number]) Aquatics Treatment Pool Entry/Exit Pool Entry/Exit Method Stairs Assistance Independent Water Walking Sideways Water Level Chest Level Walking Equipment Ankle Floats Comments ab/ad arms Monster Walk Water Level Chest Level Walking Equipment Resistance Fins [place] May Water Level Chest Level Walking Equipment Ankle Floats Comments diagonal and straight Backwards Water Level Chest Level Walking Equipment Ankle Floats Level of Assistance Standby Assistance,Verbal Cues Comments reverse breast stroke arms Forwards Water Level Chest Level Walking Equipment Ankle Floats Level of Assistance Standby Assistance,Verbal Cues Comments cues for posture and recrip gait pattern Lower Extremity Exercises hip figure 8 Details bilat Body Position Standing Water Level Chest Level Equipment Ankle Floats Reps/Duration 15 bilat Comments L internal rotation limited squats at wall Water Level Chest Level Comments cuing for mm activation sequence Hs curls Body Position Standing Water Level Chest Level Equipment Ankle Weight- 2.5# Reps/Duration 2x10 flex/ext, ab/ad Details at wall Water Level Chest Level Equipment Ankle Floats Reps/Duration 2x10 bilat Lower Extremity Stretches quads Details standing at wall Reps/Duration 2x45 SKTC bilat Details at wall Water Level Chest Level Reps/Duration 2 x 45 Comments with posterior pelvic tilt HS, ITB Details standing at wall Equipment Small Noodle Reps/Duration 2 x 45 Upper Extremity Exercises lat pull downs, presses Body Position Standing Water Level Chest Level Equipment UE paddles Comments 2x10 each flex/ext, ab/ad, horiz ab/ad Body Position Standing Water Level Chest Level Equipment UE paddles Reps/Duration 10 each Comments cues for core stabilization Spinal Exercises rotation with hand paddles Body Position Standing Water Level Chest Level Equipment UE paddles Reps/Duration 15 each direction Comments cuing for scap depression and activating obliques [place] Activities [place] Activities Bicycle,Cross Country Equipment lg belt Duration 15 PT-OP-T Assessment and Plan Start: 08/17/18 18:53 Freq: Status: Active Protocol: Document 12/14/18 11:45 SON (Rec: 12/14/18 15:08 [facility] [id number]) Physical Therapy Assessment Goals gait Half-Way Goal (LTG) Pt will be able to amb 1 mile with no more than 2 point on 0 -10 pain scale increase. 10/05/18: goal progress LTG Duration 12/15/2018 SRINATH Short Term Goal (STG) Pt will show an improvement in functional ability with improvement of SRINATH to 15/50. 10/05/18: goal progress STG Duration 09/17/18 Half-Way Goal (LTG) Pt will show an improvement in functional ability with improvement of SRINATH to 10/50. 10/15/18- not tested today LTG Duration 12/15/2018 strength Short Term Goal (STG) Pt will be indep with appropriate HEP & gym program in order to cont on his pain management & weight management safely. 10/05/18: goal progress STG Duration 09/17/18 Airdrop Systems Technician Goal (LTG) Pt will score 4/5 LPM & 5/5 LE strength in order to demonstrate improved core control & improve his ability to do daily tasks. 10/15/18- strength not tested today LTG Duration 12/15/2018 Assessment Summary Assessment Went over HEP with pt and set up a schedule for him to come and exercise on his own. Pt feeling confident with all exercises given him. Physical Therapy Plan Frequency and Duration Frequency of Treatment 1-2x/week Duration of Treatment 2 months Plan of Care Start Date 10/15/18 Plan of Care End Date 12/15/18 Therapeutic Interventions Therapeutic Interventions Aquatic Therapy,Balance Training,Coordination Training ,Gait Training,Home Exercise Program,Joint Mobilizations, Manual Therapy,Neuromuscular Re-education,Patient/Caregiver Education,Self-Care/Home Management,Soft Tissue Mobilization,Taping, Therapeutic Activities, Therapeutic Exercises Modalities Cold Pack/Ice Massage,Electric Stimulation,Hot Packs, Infrared Therapy,Iontophoresis ,Traction- Mechanical Next Visit Focus/Plan Next Note Type Progress Note Next Visit Plan Pt DC'ed.
--- NOTE | 2018-12-16 15:01 | PT.OTN ---
Current Diagnoses Intracardiac thrombosis, not elsewhere classified (12/16/18) Spinal stenosis, lumbar region without neurogenic claudication (12/16/18) Radiculopathy, lumbar region (12/16/18) Lumbago with sciatica, unspecified side (12/16/18) Unspecified abnormalities of gait and mobility (12/16/18) Abnormal posture (12/16/18) Weakness (12/16/18) Encounter for therapeutic drug level monitoring (12/16/18) [facility] (current) use of anticoagulants (12/16/18) Physical Therapy Treatment Note PT-OP-A Visit Information Start: 08/17/18 18:53 Freq: Status: Active Protocol: Document 12/16/18 13:47 [facility] (Rec: 12/16/18 15:01 [facility] [id number]) Out-Patient Physical Therapy Visit Information Visit Information Visit Type Treatment Note Visit Start Time 13:44 Visit Stop Time 14:22 Total Visit Minutes 28 Visit Number 23 Number of FLARE MAN Visits 0 PT-OP-B Current Condition Start: 08/17/18 18:53 Freq: Status: Active Protocol: Document 08/18/18 10:30 [facility] (Rec: 08/18/18 11:16 [facility] [id number]) Current Condition History of Current Condition Onset Date 2 months ago flare up Current Complaints LBP & R leg pain History of Current Condition Pt reports 30 year history of back pain with a recent episode. 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 Pt reports he was walking to get the paper about 2 months ago and his R side gave out and pain went down leg and had to grab mailbox to stay up. THis is the first time it has gone down his leg. He went to a doctor who sent him to do PT. Pt reports he has B ant ankle pain that limits his mobility. Reports he has scoliosis. He has talked to doctor about doing traction because manual traction has helped in the past. Prior Treatments and Tests PT on and off over the years; reports xrays; chiropractic in the past Future Testing and Treatments Planned Epidural possibly Treatment Goals Patient/Caregiver Goals Wants to be able to walk and back to walking about a 3 mile walk and at least 1 mile; be able to exercise to lose weight PT-OP-C Subjective Start: 08/17/18 18:53 Freq: Status: Active Protocol: Document 12/16/18 13:47 LR (Rec: 12/16/18 15:01 [facility] [id number]) OP-PT Subjective Patient Comments Patient Comments Pt reports he had trouble sleeping Friday and Friday night after his pool appt. He htinks the squats were the culpret. Pt reports he wore his CPAP for 4 nights but the last night he felt like he couldn't breathe os he stopped . He used his stretches on friday night but they did not help. Reports in the past week he has not had his leg pian Patient Reported Progress Improving Patient Questionnaires Oswestry Low Back Index Oswestry Score 48 PT-OP-F Manual Assessment Start: 08/17/18 18:53 Freq: Status: Active Protocol: Document 08/18/18 10:30 [facility] (Rec: 08/18/18 11:16 [facility] [id number]) Manual Assessments Soft Tissue Assessment Soft Tissue Mobility Assessment Tightness R paraspinals & QL & glutes R>L Joint Mobility Assessment Joint Mobility Assessment Iliac crest & R greater trochanter higher in standing; PT-OP-G Mobility & Gait Start: 08/17/18 18:53 Freq: Status: Active Protocol: Document 08/18/18 10:30 [facility] (Rec: 08/18/18 11:16 [facility] [id number]) OP Gait Assessment Comments Gait Comments Pt has lat leaning during push off with no ant elevation/ post depression PT-OP-J Posture/Palpation/Skin Start: 08/17/18 18:53 Freq: Status: Active Protocol: Document 08/18/18 10:30 [facility] (Rec: 08/18/18 11:16 [facility] [id number]) Posture Evaluation Loida Postural Classification System Loida Postural Classifications Anterior/Posterior Lumbar Protective Mechanism Left AP 1 Lumbar Protective Mechanism Right AP 1 Lumbar Protective Mechanism Left PA 1 Lumbar Protective Mechanism Right PA 1 PT-OP-K Range of Motion Start: 08/17/18 18:53 Freq: Status: Active Protocol: Document 08/18/18 10:30 [facility] (Rec: 08/18/18 11:16 [facility] [id number]) Lumbar Spine Range of Motion Lumbar Spine Active Degrees Flexion 51 Extension 20 Rotation Left 60 Rotation Right 48 Lateral Flexion Left 15 Lateral Flexion Right 23 ROM Limitations Pain PT-OP-L Special Tests Start: 08/17/18 18:53 Freq: Status: Active Protocol: Document 08/18/18 10:30 [facility] (Rec: 08/18/18 11:16 [facility] [id number]) Special Tests Lumbar Spine Special Tests traction Test Results long axis -relief Straight Leg Raise Test Results positive R; HS tight L Slump Test Results positive R PT-OP-M Strength Start: 08/17/18 18:53 Freq: Status: Active Protocol: Document 12/16/18 13:47 [facility] (Rec: 12/16/18 15:01 [facility] [id number]) Hip Strength Hip Manual Muscle Testing Right Flexion (L2) 4+ Good+ Extension (S1) 4 Good Abduction 4+ Good+ External Rotation 5 Normal Internal Rotation 5 Normal Left Flexion (L2) 4 Good Extension (S1) 4 Good Abduction 4+ Good+ External Rotation 5 Normal Internal Rotation 5 Normal Knee Strength Knee Manual Muscle Testing Right Flexion (S2) 5 Normal Extension (L3) 5 Normal Left Flexion (S2) 5 Normal Extension (L3) 5 Normal Ankle/Foot Strength Ankle and Foot Manual Muscle Testing Right Dorsiflexion (L4) 5 Normal Plantarflexion (S1) 5 Normal Left Dorsiflexion (L4) 4+ Good+ Plantarflexion (S1) 5 Normal PT-OP-Q Treatments Start: 08/17/18 18:53 Freq: Status: Active Protocol: Document 12/16/18 13:47 [facility] (Rec: 12/16/18 15:01 [facility] [id number]) Cardio Equipment Recumbent Bicycle Duration (Minutes) 6 Resistance 5 Gym Equipment Shuttle Balance blue Comments FWD:WBOS, NBOS & staggered stance B Side: WBOS Therapeutic Exercises Prone Exercises ext Prone Exercise Name alt hip Side bilateral Reps/Minutes 15 Sitting Exercises Sit to Stand Reps/Minutes 10 Comments attempted 5 squats over chair but painful to pt knee Standing Exercises side step Standing Exercise Name focus on no lean Side bilateral Equipment Used yellow Reps/Minutes 2x20ft Manual Therapy Treatment Soft Tissue Mobilization QL & ES R Body Location B QL & ES Mobilization Type Rolling Body Position Sidelying PT-OP-R Modalities Start: 08/17/18 18:53 Freq: Status: Active Protocol: Document 12/01/18 14:00 AR (Rec: 12/01/18 14:13 AR [id number]) Hot Pack/Cold Pack Treatment Hot Pack Location lumbar spine Patient Position Hooklying Treatment Duration (minutes) 15 PT-OP-S Aquatic Treatment Start: 08/28/18 15:27 Freq: Status: Active Protocol: Document 12/14/18 11:45 LJ (Rec: 12/14/18 15:08 LJ [id number]) Aquatics Treatment Pool Entry/Exit Pool Entry/Exit Method Stairs Assistance Independent Water Walking Sideways Water Level Chest Level Walking Equipment Ankle Floats Comments ab/ad arms Monster Walk Water Level Chest Level Walking Equipment Resistance [place] May Water Level Chest Level Walking Equipment Ankle Floats Comments diagonal and straight Backwards Water Level Chest Level Walking Equipment Ankle Floats Level of Assistance Standby Assistance,Verbal Cues Comments reverse breast stroke arms Forwards Water Level Chest Level Walking Equipment Ankle Floats Level of Assistance Standby Assistance,Verbal Cues Comments cues for posture and recrip gait pattern Lower Extremity Exercises hip figure 8 Details bilat Body Position Standing Water Level Chest Level Equipment Ankle Floats Reps/Duration 15 bilat Comments L internal rotation limited squats at wall Water Level Chest Level Comments cuing for mm activation sequence Hs curls Body Position Standing Water Level Chest Level Equipment Ankle Weight- 2.5# Reps/Duration 2x10 flex/ext, ab/ad Details at wall Water Level Chest Level Equipment Ankle Floats Reps/Duration 2x10 bilat Lower Extremity Stretches quads Details standing at wall Reps/Duration 2x45 SKTC bilat Details at wall Water Level Chest Level Reps/Duration 2 x 45 Comments with posterior pelvic tilt HS, ITB Details standing at wall Equipment Small Noodle Reps/Duration 2 x 45 Upper Extremity Exercises lat pull downs, presses Body Position Standing Water Level Chest Level Equipment UE paddles Comments 2x10 each flex/ext, ab/ad, horiz ab/ad Body Position Standing Water Level Chest Level Equipment UE paddles Reps/Duration 10 each Comments cues for core stabilization Spinal Exercises rotation with hand paddles Body Position Standing Water Level Chest Level Equipment UE paddles Reps/Duration 15 each direction Comments cuing for scap depression and activating obliques [place] Activities [place] Activities Bicycle,[place] Equipment lg belt Duration 15 PT-OP-T Assessment and Plan Start: 08/17/18 18:53 Freq: Status: Active Protocol: Document 12/16/18 13:47 LR (Rec: 12/16/18 15:01 [facility] [id number]) Physical Therapy Assessment Goals gait [facility] Goal (LTG) Pt will be able to amb 1 mile with no more than 2 point on 0 -10 pain scale increase. 10/05/18: goal progress 12/16- able to walk more functional distacnes without pain LTG Duration 01/27/2019 SRINATH Short Term Goal (STG) Pt will show an improvement in functional ability with improvement of SRINATH to 15/50. 10/05/18: goal progress STG Duration 09/17/18 Assistant Food Service Director Goal (LTG) Pt will show an improvement in functional ability with improvement of SRINATH to 10/50. 10/15/18- not tested today LTG Duration 01/28/19 strength Short Term Goal (STG) Pt will be indep with appropriate HEP & gym program in order to cont on his pain management & weight management safely. 10/05/18: goal progress STG Duration achieved with HEP, starting gym program next week [facility] Goal (LTG) Pt will score 4/5 LPM & 5/5 LE strength in order to demonstrate improved core control & improve his ability to do daily tasks. 10/15/18- strength not tested today 12/16-great improvement LTG Duration 01/27/2019 Assessment Summary Assessment Pt is improving with strength and core stability. He cont to imprve w/exercise compliance and has less LE symptons. He was able to tolerate all exercises w/ reports of back fatigue only w/balance board. Physical Therapy Plan Frequency and Duration Frequency of Treatment 1-2x/week Duration of Treatment 6 weeks Plan of Care Start Date 12/16/18 Plan of Care End Date 01/27/19 Therapeutic Interventions Therapeutic Interventions Aquatic Therapy,Balance Training,Coordination Training ,Gait Training,Home Exercise Program,Joint Mobilizations, Manual Therapy,Neuromuscular Re-education,Patient/Caregiver Education,Self-Care/Home Management,Soft Tissue Mobilization,Taping, Therapeutic Activities, Therapeutic Exercises Modalities Cold Pack/Ice Massage,Electric Stimulation,Hot Packs, Infrared Therapy,Iontophoresis ,Traction- Mechanical Next Visit Focus/Plan Next Note Type Treatment Note Next Visit Plan Cont to work on core stability
--- NOTE | 2018-12-16 15:02 | PT.OPPOC ---
Current Diagnoses Intracardiac thrombosis, not elsewhere classified (12/16/18) Spinal stenosis, lumbar region without neurogenic claudication (12/16/18) Radiculopathy, lumbar region (12/16/18) Lumbago with sciatica, unspecified side (12/16/18) Unspecified abnormalities of gait and mobility (12/16/18) Abnormal posture (12/16/18) Weakness (12/16/18) Encounter for therapeutic drug level monitoring (12/16/18) residential (current) use of anticoagulants (12/16/18) Visit Care Team Role Provider Type Salome Kee Attending Provider Non-Staff Specialty: Physical Medicine and Rehab Address: [address] [place] [address], [place], [place], [employer] Email: Plan Of Care PT-OP-T Assessment and Plan Start: 08/17/18 18:53 Freq: Status: Active Protocol: Document 12/16/18 13:47 [facility] (Rec: 12/16/18 15:01 [facility] [id number]) Physical Therapy Assessment Goals gait Penitentiary Goal (LTG) Pt will be able to amb 1 mile with no more than 2 point on 0 -10 pain scale increase. 10/05/18: goal progress 12/16- able to walk more functional distacnes without pain LTG Duration 01/27/2019 SRINATH Short Term Goal (STG) Pt will show an improvement in functional ability with improvement of SRINATH to 15/50. 10/05/18: goal progress STG Duration 09/17/18 [employer] Goal (LTG) Pt will show an improvement in functional ability with improvement of SRINATH to 10/50. 10/15/18- not tested today LTG Duration 01/28/19 strength Short Term Goal (STG) Pt will be indep with appropriate HEP & gym program in order to cont on his pain management & weight management safely. 10/05/18: goal progress STG Duration achieved with HEP, starting gym program next week [employer] Goal (LTG) Pt will score 4/5 LPM & 5/5 LE strength in order to demonstrate improved core control & improve his ability to do daily tasks. 10/15/18- strength not tested today 12/16-great improvement LTG Duration 01/27/2019 Assessment Summary Assessment Pt is improving with strength and core stability. He cont to imprve w/exercise compliance and has less LE symptons. He was able to tolerate all exercises w/ reports of back fatigue only w/balance board. Physical Therapy Plan Frequency and Duration Frequency of Treatment 1-2x/week Duration of Treatment 6 weeks Plan of Care Start Date 12/16/18 Plan of Care End Date 01/27/19 Therapeutic Interventions Therapeutic Interventions Aquatic Therapy,Balance Training,Coordination Training ,Gait Training,Home Exercise Program,Joint Mobilizations, Manual Therapy,Neuromuscular Re-education,Patient/Caregiver Education,Self-Care/Home Management,Soft Tissue Mobilization,Taping, Therapeutic Activities, Therapeutic Exercises Modalities Cold Pack/Ice Massage,Electric Stimulation,Hot Packs, Infrared Therapy,Iontophoresis ,Traction- Mechanical Next Visit Focus/Plan Next Note Type Treatment Note Next Visit Plan Cont to work on core stability Plan of Care Dates Plan of Care Start Date 12/16/18 Plan of Care End Date 01/27/19
--- NOTE | 2018-12-29 18:18 | PT.OTRE ---
Current Diagnoses Intracardiac thrombosis, not elsewhere classified (12/29/18) Spinal stenosis, lumbar region without neurogenic claudication (12/29/18) Radiculopathy, lumbar region (12/29/18) Lumbago with sciatica, unspecified side (12/29/18) Impingement syndrome of right shoulder (12/29/18) Unspecified abnormalities of gait and mobility (12/29/18) Abnormal posture (12/29/18) Weakness (12/29/18) Encounter for therapeutic drug level monitoring (12/29/18) snf (current) use of anticoagulants (12/29/18) Past Medical History (Last Updated 12/23/18 @ 11:06 by Kael Eason DO) Chronic dislocation of right shoulder (Acute) Coronary artery disease (Acute) Hypertension (Acute) Lumbosacral spondylosis with radiculopathy (Acute) Pacemaker (Chronic) Scoliosis due to degenerative disease of spine in adult patient (Acute) Surgical History (Last Updated 12/23/18 @ 11:06 by Kael Eason DO) H/O aortic valve replacement (Acute) H/O aortic valve replacement (Acute) History of bilateral knee replacement (Acute) Visit Care Team Role Provider Type Salome Kee Attending Provider Non-Staff Specialty: Physical Medicine and Rehab Address: [address] [place] [address], [facility] Email: Physical Therapy Re-Evaluation PT-OP-A Visit Information Start: 08/17/18 18:53 Freq: Status: Active Protocol: Document 12/29/18 14:30 [facility] (Rec: 12/29/18 18:09 MT [id number]) Out-Patient Physical Therapy Visit Information Visit Information Visit Type Re-Evaluation Visit Start Time 14:30 Visit Stop Time 15:15 Total Visit Minutes 45 Visit Number 24 Number of RACK CLEANER Visits 0 PT-OP-B Current Condition Start: 08/17/18 18:53 Freq: Status: Active Protocol: Document 12/29/18 14:30 [facility] (Rec: 12/29/18 17:39 MT [id number]) Current Condition History of Current Condition Current Complaints LBP and R shoulder pain History of Current Condition Pt reports 30 year history of back pain with a recent episode. 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 Pt reports he was walking to get the paper about 2 months ago and his R side gave out and pain went down leg and had to grab mailbox to stay up. THis is the first time it has gone down his leg. He went to a doctor who sent him to do PT. Pt reports he has B ant ankle pain that limits his mobility. Reports he has scoliosis. He has talked to doctor about doing traction because manual traction has helped in the past. Re-eval 12/29 R shoulder: pt reported that he went to an accupuncturist about a month ago. The accupuncturist told him his shoulder was out and moved it until he felt a clunk . Pt reports that his shoulder does exhibit a clunking sensation. The only motion that he is limited in is abduction due to pain. He reports that heat has been helping his pain and movement of the joint. His pain is made worse when sustaining prolonged positions. Prior Treatments and Tests PT on and off over the years; reports xrays; chiropractic in the past Future Testing and Treatments Planned Epidural possibly PT-OP-C Subjective Start: 08/17/18 18:53 Freq: Status: Active Protocol: Document 12/29/18 14:30 MT (Rec: 12/29/18 18:09 MT [id number]) OP-PT Subjective Patient Comments Patient Comments Pt came into PT after having a visit with the orthopedic surgeon who ordered Pt 2X/week . Pt reported that he fell later the day at home after his last PT session by catching his foot on a chair that was left in the way. He reports no injury from the fall other that some bruising/ tenderness of the knee area and 1st-3rd digits of the foot . OP-PT Pain Assessment Location R shoulder Pain Location Details R shoulder Description With Movement Frequency Frequent Pain Aggravating Factors Position Other Pain Aggravating Factors prolonged positioning Pain Alleviating Factors Heat,Changing Position PT-OP-F Manual Assessment Start: 08/17/18 18:53 Freq: Status: Active Protocol: Document 08/18/18 10:30 [facility] (Rec: 08/18/18 11:16 [facility] [id number]) Manual Assessments Soft Tissue Assessment Soft Tissue Mobility Assessment Tightness R paraspinals & QL & glutes R>L Joint Mobility Assessment Joint Mobility Assessment Iliac crest & R greater trochanter higher in standing; PT-OP-G Mobility & Gait Start: 08/17/18 18:53 Freq: Status: Active Protocol: Document 08/18/18 10:30 [facility] (Rec: 08/18/18 11:16 [facility] [id number]) OP Gait Assessment Comments Gait Comments Pt has lat leaning during push off with no ant elevation/ post depression PT-OP-J Posture/Palpation/Skin Start: 08/17/18 18:53 Freq: Status: Active Protocol: Document 12/29/18 14:30 [facility] (Rec: 12/29/18 18:17 [facility] [id number]) Palpation Assessment Location RLE Palpation Details Assessed R knee and foot-no tenderness to palpation, Some faded bruising present on tips of toes. PT-OP-K Range of Motion Start: 08/17/18 18:53 Freq: Status: Active Protocol: Document 12/29/18 14:30 [facility] (Rec: 12/29/18 14:47 [facility] [id number]) Shoulder Goniometric Range of Motion Shoulder Measured in Degrees Left Active Flexion 168 Extension 55 Abduction 152 External Rotation at 0 degrees Abduction 73 Internal Rotation Behind Back (text) T6 Right Active Flexion 144 Extension 55 Abduction 109 External Rotation at 0 degrees Abduction 90 Internal Rotation Behind Back (text) T9 PT-OP-L Special Tests Start: 08/17/18 18:53 Freq: Status: Active Protocol: Document 12/29/18 14:30 [facility] (Rec: 12/29/18 14:47 [facility] [id number]) Special Tests Shoulder Special Tests [place] Raimundo Impingement Test Results neg lift off Test Results neg Empty Can Test Results postive R PT-OP-M Strength Start: 08/17/18 18:53 Freq: Status: Active Protocol: Document 12/29/18 14:30 [facility] (Rec: 12/29/18 14:47 [facility] [id number]) Shoulder Strength Shoulder Manual Muscle Testing Left Flexion 5 Normal Extension 4+ Good+ Abduction (C5) 4+ Good+ External Rotation 5 Normal Internal Rotation 5 Normal Horizontal Abduction 5 Normal Horizontal Adduction 5 Normal Right Flexion 5 Normal Extension 5 Normal Abduction (C5) 4+ Good+ External Rotation 4+ Good+ Internal Rotation 5 Normal Horizontal Abduction 5 Normal Horizontal Adduction 4+ Good+ Comments pain w/horizontal abd PT-OP-Q Treatments Start: 08/17/18 18:53 Freq: Status: Active Protocol: Document 12/29/18 14:30 MT (Rec: 12/29/18 18:09 MT [id number]) Cardio Equipment Recumbent Bicycle Duration (Minutes) 5 Resistance 5 Seat Position 12 Therapeutic Exercises Sitting Exercises Shoulder ER/IR Sitting Exercise Name Resisted shoulder ER/IR Side right Resistance L1 Reps/Minutes 15 Comments use of towel between side and elbow for cueing of arm position Standing Exercises Stretch Standing Exercise Name pec stretch in corner Side bilateral Reps/Minutes 2X30 seconds holds Manual Therapy Treatment Soft Tissue Mobilization R Pec Body Location R pec Mobilization Type Myofascial Release,Strumming, Sustained Pressure Intensity/Depth Moderate Body Position Supine PT-OP-R Modalities Start: 08/17/18 18:53 Freq: Status: Active Protocol: Document 12/01/18 14:00 [facility] (Rec: 12/01/18 14:13 AR [id number]) Hot Pack/Cold Pack Treatment Hot Pack Location lumbar spine Patient Position Hooklying Treatment Duration (minutes) 15 PT-OP-T Assessment and Plan Start: 08/17/18 18:53 Freq: Status: Active Protocol: Document 12/29/18 14:30 MT (Rec: 12/29/18 18:09 MT [id number]) Physical Therapy Assessment Goals ROM Short Term Goal (STG) Pt will improve pain-free ROM in abduction to WNL with proper scapuluohumeral mechanics in order to increase pt ability to perform ADL's. STG Duration 01/29/19 [facility] Goal (LTG) Pt will improve pain-free ROM in all planes with proper scapulohumeral in order to improve ability to perform overhead ADL's without pain. LTG Duration 02/28/19 gait [employer] Goal (LTG) Pt will be able to amb 1 mile with no more than 2 point on 0 -10 pain scale increase. 10/05/18: goal progress 12/16- able to walk more functional distacnes without pain LTG Duration 01/27/2019 SRINATH Short Term Goal (STG) Pt will show an improvement in functional ability with improvement of SRINATH to 15/50. 10/05/18: goal progress STG Duration 09/17/18 [employer] Goal (LTG) Pt will show an improvement in functional ability with improvement of SRINATH to 10/50. 10/15/18- not tested today LTG Duration 01/28/19 strength Short Term Goal (STG) Pt will be indep with appropriate HEP & gym program in order to cont on his pain management & weight management safely. 10/05/18: goal progress STG Duration achieved with HEP, starting gym program next week [facility] Goal (LTG) Pt will score 4/5 LPM & 5/5 LE strength in order to demonstrate improved core control & improve his ability to do daily tasks. 10/15/18- strength not tested today 12/16-great improvement LTG Duration 01/27/2019 Assessment Summary Assessment Pt's R shoulder was evaluated. Pt exhibited a positive empty can test for supraspinatus impairment. He also presents with tenderness to his pec muscle. He demonstrated decreased ROM and wekaness with abduction. Physical Therapy Plan Frequency and Duration Frequency of Treatment 2x/Week Duration of Treatment 2 months Plan of Care Start Date 12/29/18 Plan of Care End Date 02/28/19 Therapeutic Interventions Therapeutic Interventions Aquatic Therapy,Balance Training,Coordination Training ,Gait Training,Home Exercise Program,Joint Mobilizations, Manual Therapy,Neuromuscular Re-education,Patient/Caregiver Education,Self-Care/Home Management,Soft Tissue Mobilization,Taping, Therapeutic Activities, Therapeutic Exercises Modalities Cold Pack/Ice Massage,Electric Stimulation,Hot Packs, Infrared Therapy,Iontophoresis ,Traction- Mechanical, Ultrasound Next Visit Focus/Plan Next Note Type Treatment Note Next Visit Plan Work on R shoulder ROM focusing on proper scapular rhythm, core stability, standing balance, shoulder strengthening
--- NOTE | 2019-01-05 18:26 | PT.OTN ---
Current Diagnoses Intracardiac thrombosis, not elsewhere classified (01/05/19) Spinal stenosis, lumbar region without neurogenic claudication (01/05/19) Radiculopathy, lumbar region (01/05/19) Lumbago with sciatica, unspecified side (01/05/19) Impingement syndrome of right shoulder (01/05/19) Unspecified abnormalities of gait and mobility (01/05/19) Abnormal posture (01/05/19) Weakness (01/05/19) Encounter for therapeutic drug level monitoring (01/05/19) senior living (current) use of anticoagulants (01/05/19) Physical Therapy Treatment Note PT-OP-A Visit Information Start: 08/17/18 18:53 Freq: Status: Active Protocol: Document 01/05/19 09:47 MT (Rec: 01/05/19 12:01 MT [email or web address]) Out-Patient Physical Therapy Visit Information Visit Information Visit Type Treatment Note Visit Start Time 09:47 Visit Stop Time 10:34 Total Visit Minutes 47 Visit Number 25 Number of HIGH SCHOOL ART 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 Pt reports he was walking to get the paper about 2 months ago and his R side gave out and pain went down leg and had to grab mailbox to stay up. THis is the first time it has gone down his leg. He went to a doctor who sent him to do PT. Pt reports he has B ant ankle pain that limits his mobility. Reports he has scoliosis. He has talked to doctor about doing traction because manual traction has helped in the past. Re-eval 12/29 R shoulder: pt reported that he went to an accupuncturist about a month ago. The accupuncturist told him his shoulder was out and moved it until he felt a clunk . Pt reports that his shoulder does exhibit a clunking sensation. The only motion that he is limited in is abduction due to pain. He reports that heat has been helping his pain and movement of the joint. His pain is made worse when sustaining prolonged positions. Prior Treatments and Tests PT on and off over the years; reports xrays; chiropractic in the past Future Testing and Treatments Planned Epidural possibly PT-OP-C Subjective Start: 08/17/18 18:53 Freq: Status: Active Protocol: Document 01/05/19 09:47 MT (Rec: 01/05/19 12:01 MT [email or web address]) OP-PT Subjective Patient Comments Patient Comments Pt reported that he has been feeling good since his last PT session with decreased pain and increased reach in his R shoulder. He says he has been feeling tight in his shoulder and pectoral region. PT-OP-F Manual Assessment Start: 08/17/18 18:53 Freq: Status: Active Protocol: Document 08/18/18 10:30 [facility] (Rec: 08/18/18 11:16 [facility] [id number]) Manual Assessments Soft Tissue Assessment Soft Tissue Mobility Assessment Tightness R paraspinals & QL & glutes R>L Joint Mobility Assessment Joint Mobility Assessment Iliac crest & R greater trochanter higher in standing; PT-OP-G Mobility & Gait Start: 08/17/18 18:53 Freq: Status: Active Protocol: Document 08/18/18 10:30 [facility] (Rec: 08/18/18 11:16 [facility] [id number]) OP Gait Assessment Comments Gait Comments Pt has lat leaning during push off with no ant elevation/ post depression PT-OP-J Posture/Palpation/Skin Start: 08/17/18 18:53 Freq: Status: Active Protocol: Document 12/29/18 14:30 [facility] (Rec: 12/29/18 18:17 [facility] [email or web address]) Palpation Assessment Location RLE Palpation Details Assessed R knee and foot-no tenderness to palpation, Some faded bruising present on tips of toes. PT-OP-K Range of Motion Start: 08/17/18 18:53 Freq: Status: Active Protocol: Document 12/29/18 14:30 [facility] (Rec: 12/29/18 14:47 [facility] [id number]) Shoulder Goniometric Range of Motion Shoulder Left Active Flexion 168 Extension 55 Abduction 152 External Rotation at 0 degrees Abduction 73 Internal Rotation Behind Back (text) T6 Right Active Flexion 144 Extension 55 Abduction 109 External Rotation at 0 degrees Abduction 90 Internal Rotation Behind Back (text) T9 PT-OP-L Special Tests Start: 08/17/18 18:53 Freq: Status: Active Protocol: Document 12/29/18 14:30 [facility] (Rec: 12/29/18 14:47 [facility] [id number]) Special Tests Shoulder Special Tests Colmenares Raimundo Impingement Test Results neg lift off Test Results neg Empty Can Test Results postive R PT-OP-M Strength Start: 08/17/18 18:53 Freq: Status: Active Protocol: Document 12/29/18 14:30 [facility] (Rec: 12/29/18 14:47 [facility] [id number]) Shoulder Strength Shoulder Manual Muscle Testing Left Flexion 5 Normal Extension 4+ Good+ Abduction (C5) 4+ Good+ External Rotation 5 Normal Internal Rotation 5 Normal Horizontal Abduction 5 Normal Horizontal Adduction 5 Normal Right Flexion 5 Normal Extension 5 Normal Abduction (C5) 4+ Good+ External Rotation 4+ Good+ Internal Rotation 5 Normal Horizontal Abduction 5 Normal Horizontal Adduction 4+ Good+ Comments pain w/horizontal abd PT-OP-Q Treatments Start: 08/17/18 18:53 Freq: Status: Active Protocol: Document 01/05/19 09:47 MT (Rec: 01/05/19 12:01 MT [email or web address]) Cardio Equipment Recumbent Stepper (Sci-Fit) Duration (Minutes) 5 Resistance 5 Therapeutic Exercises Standing Exercises Shoulder aB Standing Exercise Name resisted aB (pull aparts) Side bilateral Resistance L1 Reps/Minutes 20 Comments cueing for maintaining motion in proper plane and scapular motion Shoulder ROM Standing Exercise Name rolling ball up wall flexion and aB Side right Reps/Minutes 20 each direction Rows Standing Exercise Name Lateral rows Side bilateral Resistance L1 Comments TC for proper scapualar motion and cueing for keeping elbows at sides Shoulder ER Standing Exercise Name R shoudler ER Side right Resistance L1 Comments towel between elbow and body for proper technique Shoulder IR Standing Exercise Name R shoulder IR Side right Resistance L1 Comments towel between elbow and body for proper technique Stretch Standing Exercise Name pec stretch in corner Side bilateral Reps/Minutes 2X30 seconds holds Comments stretches will be added to HEP Manual Therapy Treatment Soft Tissue Mobilization Scar Mobilizations Body Location Sternum Mobilization Type Myofascial Release, Oscillations,Rolling,Sustained Pressure Intensity/Depth Moderate Body Position Supine Comments pt mentioned that the scar provides some of his anterior tightness R Pec Body Location R pec Mobilization Type Myofascial Release,Strumming, Sustained Pressure Intensity/Depth Moderate Body Position Supine PT-OP-R Modalities Start: 08/17/18 18:53 Freq: Status: Active Protocol: Document 12/01/18 14:00 AR (Rec: 12/01/18 14:13 AR [email or web address]) Hot Pack/Cold Pack Treatment Hot Pack Location lumbar spine Patient Position Hooklying Treatment Duration (minutes) 15 PT-OP-S Aquatic Treatment Start: 08/28/18 15:27 Freq: Status: Active Protocol: Document 12/14/18 11:45 LJ (Rec: 12/14/18 15:08 LJ [id number]) Aquatics Treatment Pool Entry/Exit Pool Entry/Exit Method Stairs Assistance Independent Water Walking Sideways Water Level Chest Level Walking Equipment Ankle Floats Comments ab/ad arms Monster Walk Water Level Chest Level Walking Equipment Resistance Fins [place] May Water Level Chest Level Walking Equipment Ankle Floats Comments diagonal and straight Backwards Water Level Chest Level Walking Equipment Ankle Floats Level of Assistance Standby Assistance,Verbal Cues Comments reverse breast stroke arms Forwards Water Level Chest Level Walking Equipment Ankle Floats Level of Assistance Standby Assistance,Verbal Cues Comments cues for posture and recrip gait pattern Lower Extremity Exercises hip figure 8 Details bilat Body Position Standing Water Level Chest Level Equipment Ankle Floats Reps/Duration 15 bilat Comments L internal rotation limited squats at wall Water Level Chest Level Comments cuing for mm activation sequence Hs curls Body Position Standing Water Level Chest Level Equipment Ankle Weight- 2.5# Reps/Duration 2x10 flex/ext, ab/ad Details at wall Water Level Chest Level Equipment Ankle Floats Reps/Duration 2x10 bilat Lower Extremity Stretches quads Details standing at wall Reps/Duration 2x45 SKTC bilat Details at wall Water Level Chest Level Reps/Duration 2 x 45 Comments with posterior pelvic tilt HS, ITB Details standing at wall Equipment Small Noodle Reps/Duration 2 x 45 Upper Extremity Exercises lat pull downs, presses Body Position Standing Water Level Chest Level Equipment UE paddles Comments 2x10 each flex/ext, ab/ad, horiz ab/ad Body Position Standing Water Level Chest Level Equipment UE paddles Reps/Duration 10 each Comments cues for core stabilization Spinal Exercises rotation with hand paddles Body Position Standing Water Level Chest Level Equipment UE paddles Reps/Duration 15 each direction Comments cuing for scap depression and activating obliques [place] Activities [place] Activities Bicycle,Cross Country Equipment lg belt Duration 15 PT-OP-T Assessment and Plan Start: 08/17/18 18:53 Freq: Status: Active Protocol: Document 01/05/19 09:47 MT (Rec: 01/05/19 12:01 MT [email or web address]) Physical Therapy Assessment Goals ROM Short Term Goal (STG) Pt will improve pain-free ROM in abduction to WNL with proper scapuluohumeral mechanics in order to increase pt ability to perform ADL's. STG Duration 01/29/19 Kitchen Bath Designer Goal (LTG) Pt will improve pain-free ROM in all planes with proper scapulohumeral in order to improve ability to perform overhead ADL's without pain. LTG Duration 02/28/19 gait Residential Goal (LTG) Pt will be able to amb 1 mile with no more than 2 point on 0 -10 pain scale increase. 10/05/18: goal progress 12/16- able to walk more functional distacnes without pain LTG Duration 01/27/2019 SRINATH Short Term Goal (STG) Pt will show an improvement in functional ability with improvement of SRINATH to 15/50. 10/05/18: goal progress STG Duration 09/17/18 Residential Goal (LTG) Pt will show an improvement in functional ability with improvement of SRINATH to 10/50. 10/15/18- not tested today LTG Duration 01/28/19 strength Short Term Goal (STG) Pt will be indep with appropriate HEP & gym program in order to cont on his pain management & weight management safely. 10/05/18: goal progress STG Duration achieved with HEP, starting gym program next week Residential Goal (LTG) Pt will score 4/5 LPM & 5/5 LE strength in order to demonstrate improved core control & improve his ability to do daily tasks. 10/15/18- strength not tested today 12/16-great improvement LTG Duration 01/27/2019 Assessment Summary Assessment Pt tolerated session well and was able to perform all exercises within a painfree range. Pt was given pectoral stretches in order to decrease anterior R shoulder tightness to facilitate increased ROM and decrease forward posture. Pt demonstrated increased painfree strength in his R shoulder. His R pectoral muscle decreased in tightness following STM and sternal scar mobilization Physical Therapy Plan Next Visit Focus/Plan Next Note Type Treatment Note Next Visit Plan R shoulder ROM, shoulder strengthening focused on proper scapular rhythm, standing tolerance, adding strengthening exercises to his HEP
--- NOTE | 2019-01-08 08:08 | PT-OP ANOTE ---
Pt left a message this morning to cancel today's 15 appt, having back spasms all night, couldn't sleep, going back to bed.
--- NOTE | 2019-01-12 09:21 | PT-OP ANOTE ---
Pt no showed appt and was called with message left re: no show. Instructed to call re: if he plans to cancel any furhter appts. Informed of next appt.
--- NOTE | 2019-01-15 12:55 | PT.OTN ---
Current Diagnoses Intracardiac thrombosis, not elsewhere classified (01/15/19) Spinal stenosis, lumbar region without neurogenic claudication (01/15/19) Radiculopathy, lumbar region (01/15/19) Lumbago with sciatica, unspecified side (01/15/19) Impingement syndrome of right shoulder (01/15/19) Unspecified abnormalities of gait and mobility (01/15/19) Abnormal posture (01/15/19) Weakness (01/15/19) Encounter for therapeutic drug level monitoring (01/15/19) skilled nursing (current) use of anticoagulants (01/15/19) Physical Therapy Treatment Note PT-OP-A Visit Information Start: 08/17/18 18:53 Freq: Status: Active Protocol: Document 01/15/19 12:48 SP (Rec: 01/15/19 13:06 SP [email or web address]) Out-Patient Physical Therapy Visit Information Visit Information Visit Type Treatment Note Visit Start Time 12:15 Visit Stop Time 12:55 Total Visit Minutes 40 Visit Number 26 Number of FOOD SERVICE TRAY ATTENDANT Visits 1 PT-OP-B Current Condition Start: 08/17/18 18:53 Freq: Status: Active Protocol: Document 12/29/18 14:30 MT (Rec: 12/29/18 17:39 MT [id number]) Current Condition History of Current Condition Current Complaints LBP and R shoulder pain History of Current Condition Pt reports 30 year history of back pain with a recent episode. 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 Pt reports he was walking to get the paper about 2 months ago and his R side gave out and pain went down leg and had to grab mailbox to stay up. THis is the first time it has gone down his leg. He went to a doctor who sent him to do PT. Pt reports he has B ant ankle pain that limits his mobility. Reports he has scoliosis. He has talked to doctor about doing traction because manual traction has helped in the past. Re-eval 12/29 R shoulder: pt reported that he went to an accupuncturist about a month ago. The accupuncturist told him his shoulder was out and moved it until he felt a clunk . Pt reports that his shoulder does exhibit a clunking sensation. The only motion that he is limited in is abduction due to pain. He reports that heat has been helping his pain and movement of the joint. His pain is made worse when sustaining prolonged positions. Prior Treatments and Tests PT on and off over the years; reports xrays; chiropractic in the past Future Testing and Treatments Planned Epidural possibly PT-OP-C Subjective Start: 08/17/18 18:53 Freq: Status: Active Protocol: Document 01/15/19 12:48 SP (Rec: 01/15/19 13:06 SP [email or web address]) OP-PT Subjective Patient Comments Patient Comments Pt reported his R shld has been feeling pretty good lately, his LB has been hurting alot 09/23 pain prePT. Has an appt with Dr Lobo consult possible back surgery. Pt stated I want to keep exercises not to resistive today due to the back pain. Demonstrated antalgic, trendelenburg gait, no AD. PT-OP-F Manual Assessment Start: 08/17/18 18:53 Freq: Status: Active Protocol: Document 08/18/18 10:30 [facility] (Rec: 08/18/18 11:16 [facility] [id number]) Manual Assessments Soft Tissue Assessment Soft Tissue Mobility Assessment Tightness R paraspinals & QL & glutes R>L Joint Mobility Assessment Joint Mobility Assessment Iliac crest & R greater trochanter higher in standing; PT-OP-G Mobility & Gait Start: 08/17/18 18:53 Freq: Status: Active Protocol: Document 08/18/18 10:30 LR (Rec: 08/18/18 11:16 [facility] [id number]) OP Gait Assessment Comments Gait Comments Pt has lat leaning during push off with no ant elevation/ post depression PT-OP-J Posture/Palpation/Skin Start: 08/17/18 18:53 Freq: Status: Active Protocol: Document 12/29/18 14:30 LR (Rec: 12/29/18 18:17 [facility] [email or web address]) Palpation Assessment Location RLE Palpation Details Assessed R knee and foot-no tenderness to palpation, Some faded bruising present on tips of toes. PT-OP-K Range of Motion Start: 08/17/18 18:53 Freq: Status: Active Protocol: Document 12/29/18 14:30 LR (Rec: 12/29/18 14:47 [facility] [id number]) Shoulder Goniometric Range of Motion Shoulder Left Active Flexion 168 Extension 55 Abduction 152 External Rotation at 0 degrees Abduction 73 Internal Rotation Behind Back (text) T6 Right Active Flexion 144 Extension 55 Abduction 109 External Rotation at 0 degrees Abduction 90 Internal Rotation Behind Back (text) T9 PT-OP-L Special Tests Start: 08/17/18 18:53 Freq: Status: Active Protocol: Document 12/29/18 14:30 [facility] (Rec: 12/29/18 14:47 [facility] [id number]) Special Tests Shoulder Special Tests Colmenares Raimundo Impingement Test Results neg lift off Test Results neg Empty Can Test Results postive R PT-OP-M Strength Start: 08/17/18 18:53 Freq: Status: Active Protocol: Document 12/29/18 14:30 LR (Rec: 12/29/18 14:47 [facility] [id number]) Shoulder Strength Shoulder Manual Muscle Testing Left Flexion 5 Normal Extension 4+ Good+ Abduction (C5) 4+ Good+ External Rotation 5 Normal Internal Rotation 5 Normal Horizontal Abduction 5 Normal Horizontal Adduction 5 Normal Right Flexion 5 Normal Extension 5 Normal Abduction (C5) 4+ Good+ External Rotation 4+ Good+ Internal Rotation 5 Normal Horizontal Abduction 5 Normal Horizontal Adduction 4+ Good+ Comments pain w/horizontal abd PT-OP-Q Treatments Start: 08/17/18 18:53 Freq: Status: Active Protocol: Document 01/15/19 12:48 SP (Rec: 01/15/19 13:06 SP [email or web address]) Cardio Equipment Recumbent Stepper (Sci-Fit) Duration (Minutes) 6 Resistance 1 Therapeutic Exercises Supine Exercises bridge Equipment Used AROM Reps/Minutes 2x10 Comments PPT SKTC stretch Side bilateral Reps/Minutes 30 x3 TA c marches Side bilateral Reps/Minutes 3x5 reps Comments PPT positioning, slow control con/eccentric pelvic tilt Reps/Minutes 5 sec hold x5 Comments neutral spine Standing Exercises lat pull down Side right Equipment Used level 1 TB Reps/Minutes 3x10 Shoulder ER Standing Exercise Name R shoudler ER Side right Resistance L1 Reps/Minutes 3x10 Comments towel between elbow and body for proper technique Shoulder IR Standing Exercise Name R shoulder IR Side right Resistance L1 Reps/Minutes 3x10 Comments towel between elbow and body for proper technique PT-OP-R Modalities Start: 08/17/18 18:53 Freq: Status: Active Protocol: Document 12/01/18 14:00 AR (Rec: 12/01/18 14:13 AR [email or web address]) Hot Pack/Cold Pack Treatment Hot Pack Location lumbar spine Patient Position Hooklying Treatment Duration (minutes) 15 PT-OP-S Aquatic Treatment Start: 08/28/18 15:27 Freq: Status: Active Protocol: Document 12/14/18 11:45 LJ (Rec: 12/14/18 15:08 LJ [id number]) Aquatics Treatment Pool Entry/Exit Pool Entry/Exit Method Stairs Assistance Independent Water Walking Sideways Water Level Chest Level Walking Equipment Ankle Floats Comments ab/ad arms Monster Walk Water Level Chest Level Walking Equipment Resistance Fins [place] May Water Level Chest Level Walking Equipment Ankle Floats Comments diagonal and straight Backwards Water Level Chest Level Walking Equipment Ankle Floats Level of Assistance Standby Assistance,Verbal Cues Comments reverse breast stroke arms Forwards Water Level Chest Level Walking Equipment Ankle Floats Level of Assistance Standby Assistance,Verbal Cues Comments cues for posture and recrip gait pattern Lower Extremity Exercises hip figure 8 Details bilat Body Position Standing Water Level Chest Level Equipment Ankle Floats Reps/Duration 15 bilat Comments L internal rotation limited squats at wall Water Level Chest Level Comments cuing for mm activation sequence Hs curls Body Position Standing Water Level Chest Level Equipment Ankle Weight- 2.5# Reps/Duration 2x10 flex/ext, ab/ad Details at wall Water Level Chest Level Equipment Ankle Floats Reps/Duration 2x10 bilat Lower Extremity Stretches quads Details standing at wall Reps/Duration 2x45 SKTC bilat Details at wall Water Level Chest Level Reps/Duration 2 x 45 Comments with posterior pelvic tilt HS, ITB Details standing at wall Equipment Small Noodle Reps/Duration 2 x 45 Upper Extremity Exercises lat pull downs, presses Body Position Standing Water Level Chest Level Equipment UE paddles Comments 2x10 each flex/ext, ab/ad, horiz ab/ad Body Position Standing Water Level Chest Level Equipment UE paddles Reps/Duration 10 each Comments cues for core stabilization Spinal Exercises rotation with hand paddles Body Position Standing Water Level Chest Level Equipment UE paddles Reps/Duration 15 each direction Comments cuing for scap depression and activating obliques [place] Activities [place] Activities Bicycle,Cross Country Equipment lg belt Duration 15 PT-OP-T Assessment and Plan Start: 08/17/18 18:53 Freq: Status: Active Protocol: Document 01/15/19 12:48 SP (Rec: 01/15/19 13:06 SP [email or web address]) Physical Therapy Assessment Assessment Summary Assessment Pt tolerated session well, required max cues for slow muscular control with cuing for scapular and PPT/core activation to facilitate spinal stabilization to decrease upper trap/LB recruitment. Reviewed HEP with max cuing for proper form. Pt is unable to stand for > 10 min secondary to LBP. Pt reported LBP decreased 5/10 by end of tx. Physical Therapy Plan Frequency and Duration Frequency of Treatment 2x/Week Duration of Treatment 2 months Plan of Care Start Date 12/29/18 Plan of Care End Date 02/28/19 Therapeutic Interventions Therapeutic Interventions Aquatic Therapy,Balance Training,Coordination Training ,Gait Training,Home Exercise Program,Joint Mobilizations, Manual Therapy,Neuromuscular Re-education,Patient/Caregiver Education,Self-Care/Home Management,Soft Tissue Mobilization,Taping, Therapeutic Activities, Therapeutic Exercises Modalities Cold Pack/Ice Massage,Electric Stimulation,Hot Packs, Infrared Therapy,Iontophoresis ,Traction- Mechanical, Ultrasound Next Visit Focus/Plan Next Note Type Treatment Note Next Visit Plan Continue R shld strengthening with focus on proper scap rhythm/stabilization and core strengthening to assist LBP to allow activity tolerance in standing .
--- NOTE | 2019-01-20 10:59 | PT.OTN ---
Current Diagnoses Intracardiac thrombosis, not elsewhere classified (01/20/19) Spinal stenosis, lumbar region without neurogenic claudication (01/20/19) Radiculopathy, lumbar region (01/20/19) Lumbago with sciatica, unspecified side (01/20/19) Impingement syndrome of right shoulder (01/20/19) Unspecified abnormalities of gait and mobility (01/20/19) Abnormal posture (01/20/19) Weakness (01/20/19) Encounter for therapeutic drug level monitoring (01/20/19) retirement (current) use of anticoagulants (01/20/19) Physical Therapy Treatment Note PT-OP-A Visit Information Start: 08/17/18 18:53 Freq: Status: Active Protocol: Document 01/20/19 09:51 [facility] (Rec: 01/20/19 10:59 [facility] [id number]) Out-Patient Physical Therapy Visit Information Visit Information Visit Type Treatment Note Visit Start Time 09:45 Visit Stop Time 10:30 Total Visit Minutes 45 Visit Number 27 Number of INTERNET SYSTEMS ADMINISTRATOR Visits 0 PT-OP-B Current Condition Start: 08/17/18 18:53 Freq: Status: Active Protocol: Document 12/29/18 14:30 MT (Rec: 12/29/18 17:39 MT [id number]) Current Condition History of Current Condition Current Complaints LBP and R shoulder pain History of Current Condition Pt reports 30 year history of back pain with a recent episode. 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 Pt reports he was walking to get the paper about 2 months ago and his R side gave out and pain went down leg and had to grab mailbox to stay up. THis is the first time it has gone down his leg. He went to a doctor who sent him to do PT. Pt reports he has B ant ankle pain that limits his mobility. Reports he has scoliosis. He has talked to doctor about doing traction because manual traction has helped in the past. Re-eval 12/29 R shoulder: pt reported that he went to an accupuncturist about a month ago. The accupuncturist told him his shoulder was out and moved it until he felt a clunk . Pt reports that his shoulder does exhibit a clunking sensation. The only motion that he is limited in is abduction due to pain. He reports that heat has been helping his pain and movement of the joint. His pain is made worse when sustaining prolonged positions. Prior Treatments and Tests PT on and off over the years; reports xrays; chiropractic in the past Future Testing and Treatments Planned Epidural possibly PT-OP-C Subjective Start: 08/17/18 18:53 Freq: Status: Active Protocol: Document 01/20/19 09:51 [facility] (Rec: 01/20/19 10:59 [facility] [id number]) OP-PT Subjective Patient Comments Patient Comments Pt reports his back has recently been really bad the past week and a half with pain down the front of o his leg. He is going to see ortho MD for back today. Wants to focus on back. Shoulder is doing well. Rarely gives him pain. PT-OP-F Manual Assessment Start: 08/17/18 18:53 Freq: Status: Active Protocol: Document 08/18/18 10:30 [facility] (Rec: 08/18/18 11:16 [facility] [id number]) Manual Assessments Soft Tissue Assessment Soft Tissue Mobility Assessment Tightness R paraspinals & QL & glutes R>L Joint Mobility Assessment Joint Mobility Assessment Iliac crest & R greater trochanter higher in standing; PT-OP-G Mobility & Gait Start: 08/17/18 18:53 Freq: Status: Active Protocol: Document 08/18/18 10:30 [facility] (Rec: 08/18/18 11:16 [facility] [id number]) OP Gait Assessment Comments Gait Comments Pt has lat leaning during push off with no ant elevation/ post depression PT-OP-J Posture/Palpation/Skin Start: 08/17/18 18:53 Freq: Status: Active Protocol: Document 12/29/18 14:30 [facility] (Rec: 12/29/18 18:17 [facility] [id number]) Palpation Assessment Location RLE Palpation Details Assessed R knee and foot-no tenderness to palpation, Some faded bruising present on tips of toes. PT-OP-K Range of Motion Start: 08/17/18 18:53 Freq: Status: Active Protocol: Document 12/29/18 14:30 [facility] (Rec: 12/29/18 14:47 [facility] [id number]) Shoulder Goniometric Range of Motion Shoulder Left Active Flexion 168 Extension 55 Abduction 152 External Rotation at 0 degrees Abduction 73 Internal Rotation Behind Back (text) T6 Right Active Flexion 144 Extension 55 Abduction 109 External Rotation at 0 degrees Abduction 90 Internal Rotation Behind Back (text) T9 PT-OP-L Special Tests Start: 08/17/18 18:53 Freq: Status: Active Protocol: Document 12/29/18 14:30 [facility] (Rec: 12/29/18 14:47 [facility] [id number]) Special Tests Shoulder Special Tests Colmenares Raimundo Impingement Test Results neg lift off Test Results neg Empty Can Test Results postive R PT-OP-M Strength Start: 08/17/18 18:53 Freq: Status: Active Protocol: Document 12/29/18 14:30 [facility] (Rec: 12/29/18 14:47 [facility] [id number]) Shoulder Strength Shoulder Manual Muscle Testing Left Flexion 5 Normal Extension 4+ Good+ Abduction (C5) 4+ Good+ External Rotation 5 Normal Internal Rotation 5 Normal Horizontal Abduction 5 Normal Horizontal Adduction 5 Normal Right Flexion 5 Normal Extension 5 Normal Abduction (C5) 4+ Good+ External Rotation 4+ Good+ Internal Rotation 5 Normal Horizontal Abduction 5 Normal Horizontal Adduction 4+ Good+ Comments pain w/horizontal abd PT-OP-Q Treatments Start: 08/17/18 18:53 Freq: Status: Active Protocol: Document 01/20/19 09:51 [facility] (Rec: 01/20/19 10:59 [facility] [id number]) Cardio Equipment Recumbent Stepper (Sci-Fit) Duration (Minutes) 6 Resistance 4 Seat Position 14 Therapeutic Exercises Supine Exercises bridge Equipment Used AROM Reps/Minutes 10 Comments PPT knee rockers Supine Exercise Name LTR Side bilateral Reps/Minutes 12 SKTC stretch Supine Exercise Name SKTC & knee to opposite chest piriformis stretch Side bilateral Reps/Minutes 30 sec ea TA c marches Side bilateral Reps/Minutes 10 Comments PPT positioning, slow control con/eccentric pelvic tilt Supine Exercise Name post Reps/Minutes 5 sec hold x5 Comments neutral spine Sidelying Exercises clamshells Side bilateral Reps/Minutes 10 abd Side bilateral Reps/Minutes 10 Manual Therapy Treatment Soft Tissue Mobilization QL & ES R Body Location B Mobilization Type Rolling,Strumming Intensity/Depth Moderate Body Position Sidelying Manual Traction Lumbar Details w/bolster under knees in hooklying Reps/Duration 5 min PT-OP-R Modalities Start: 08/17/18 18:53 Freq: Status: Active Protocol: Document 12/01/18 14:00 AR (Rec: 12/01/18 14:13 AR [id number]) Hot Pack/Cold Pack Treatment Hot Pack Location lumbar spine Patient Position Hooklying Treatment Duration (minutes) 15 PT-OP-S Aquatic Treatment Start: 08/28/18 15:27 Freq: Status: Active Protocol: Document 12/14/18 11:45 LJ (Rec: 12/14/18 15:08 LJ [id number]) Aquatics Treatment Pool Entry/Exit Pool Entry/Exit Method Stairs Assistance Independent Water Walking Sideways Water Level Chest Level Walking Equipment Ankle Floats Comments ab/ad arms Monster Walk Water Level Chest Level Walking Equipment Resistance Fins [place] May Water Level Chest Level Walking Equipment Ankle Floats Comments diagonal and straight Backwards Water Level Chest Level Walking Equipment Ankle Floats Level of Assistance Standby Assistance,Verbal Cues Comments reverse breast stroke arms Forwards Water Level Chest Level Walking Equipment Ankle Floats Level of Assistance Standby Assistance,Verbal Cues Comments cues for posture and recrip gait pattern Lower Extremity Exercises hip figure 8 Details bilat Body Position Standing Water Level Chest Level Equipment Ankle Floats Reps/Duration 15 bilat Comments L internal rotation limited squats at wall Water Level Chest Level Comments cuing for mm activation sequence Hs curls Body Position Standing Water Level Chest Level Equipment Ankle Weight- 2.5# Reps/Duration 2x10 flex/ext, ab/ad Details at wall Water Level Chest Level Equipment Ankle Floats Reps/Duration 2x10 bilat Lower Extremity Stretches quads Details standing at wall Reps/Duration 2x45 SKTC bilat Details at wall Water Level Chest Level Reps/Duration 2 x 45 Comments with posterior pelvic tilt HS, ITB Details standing at wall Equipment Small Noodle Reps/Duration 2 x 45 Upper Extremity Exercises lat pull downs, presses Body Position Standing Water Level Chest Level Equipment UE paddles Comments 2x10 each flex/ext, ab/ad, horiz ab/ad Body Position Standing Water Level Chest Level Equipment UE paddles Reps/Duration 10 each Comments cues for core stabilization Spinal Exercises rotation with hand paddles Body Position Standing Water Level Chest Level Equipment UE paddles Reps/Duration 15 each direction Comments cuing for scap depression and activating obliques Freeman Activities Freeman Activities Bicycle,Cross Country Equipment lg belt Duration 15 PT-OP-T Assessment and Plan Start: 08/17/18 18:53 Freq: Status: Active Protocol: Document 01/20/19 09:51 [facility] (Rec: 01/20/19 10:59 [facility] [id number]) Physical Therapy Assessment Goals ROM Short Term Goal (STG) Pt will improve pain-free ROM in abduction to WNL with proper scapuluohumeral mechanics in order to increase pt ability to perform ADL's. STG Duration 01/29/19 Dental Appliance Fixer Goal (LTG) Pt will improve pain-free ROM in all planes with proper scapulohumeral in order to improve ability to perform overhead ADL's without pain. LTG Duration 02/28/19 gait Dental Appliance Fixer Goal (LTG) Pt will be able to amb 1 mile with no more than 2 point on 0 -10 pain scale increase. 10/05/18: goal progress 12/16- able to walk more functional distacnes without pain LTG Duration 01/27/2019 SRINATH Short Term Goal (STG) Pt will show an improvement in functional ability with improvement of SRINATH to 15/50. 10/05/18: goal progress STG Duration 09/17/18 Senior Living Goal (LTG) Pt will show an improvement in functional ability with improvement of SRINATH to 10/50. 10/15/18- not tested today LTG Duration 01/28/19 strength Short Term Goal (STG) Pt will be indep with appropriate HEP & gym program in order to cont on his pain management & weight management safely. 10/05/18: goal progress STG Duration achieved with HEP, starting gym program next week Dental Appliance Fixer Goal (LTG) Pt will score 4/5 LPM & 5/5 LE strength in order to demonstrate improved core control & improve his ability to do daily tasks. 10/15/18- strength not tested today 12/16-great improvement LTG Duration 01/27/2019 Assessment Summary Assessment Pt came in today with inc pain , which has limited his mobility. He required cueing for all exercises and discussed importance of participating and coming to PT . Discussed following up with PT via phone after MD appt. Pt reported relief after treatment and had improved gait. Physical Therapy Plan Frequency and Duration Frequency of Treatment 2x/Week Duration of Treatment 2 months Plan of Care Start Date 12/29/18 Plan of Care End Date 02/28/19 Next Visit Focus/Plan Next Note Type Treatment Note Next Visit Plan Follow up re: appt, cont to review for indep HEP
--- NOTE | 2019-01-25 18:46 | PT.OTN ---
Current Diagnoses Intracardiac thrombosis, not elsewhere classified (01/25/19) Spinal stenosis, lumbar region without neurogenic claudication (01/25/19) Radiculopathy, lumbar region (01/25/19) Lumbago with sciatica, unspecified side (01/25/19) Impingement syndrome of right shoulder (01/25/19) Unspecified abnormalities of gait and mobility (01/25/19) Abnormal posture (01/25/19) Weakness (01/25/19) Encounter for therapeutic drug level monitoring (01/25/19) shelter (current) use of anticoagulants (01/25/19) Physical Therapy Treatment Note PT-OP-A Visit Information Start: 08/17/18 18:53 Freq: Status: Active Protocol: Document 01/25/19 08:15 MT (Rec: 01/25/19 11:32 MT [id number]) Out-Patient Physical Therapy Visit Information Visit Information Visit Type Treatment Note Visit Start Time 08:15 Visit Stop Time 09:00 Total Visit Minutes 45 Visit Number 28 Number of CATHEAD OPERATOR Visits 0 PT-OP-B Current Condition Start: 08/17/18 18:53 Freq: Status: Active Protocol: Document 12/29/18 14:30 MT (Rec: 12/29/18 17:39 MT [id number]) Current Condition History of Current Condition Current Complaints LBP and R shoulder pain History of Current Condition Pt reports 30 year history of back pain with a recent episode. 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 Pt reports he was walking to get the paper about 2 months ago and his R side gave out and pain went down leg and had to grab mailbox to stay up. THis is the first time it has gone down his leg. He went to a doctor who sent him to do PT. Pt reports he has B ant ankle pain that limits his mobility. Reports he has scoliosis. He has talked to doctor about doing traction because manual traction has helped in the past. Re-eval 12/29 R shoulder: pt reported that he went to an accupuncturist about a month ago. The accupuncturist told him his shoulder was out and moved it until he felt a clunk . Pt reports that his shoulder does exhibit a clunking sensation. The only motion that he is limited in is abduction due to pain. He reports that heat has been helping his pain and movement of the joint. His pain is made worse when sustaining prolonged positions. Prior Treatments and Tests PT on and off over the years; reports xrays; chiropractic in the past Future Testing and Treatments Planned Epidural possibly PT-OP-C Subjective Start: 08/17/18 18:53 Freq: Status: Active Protocol: Document 01/25/19 08:15 MT (Rec: 01/25/19 11:32 MT [id number]) OP-PT Subjective Patient Comments Patient Comments Pt reports that he has been doing the stretching portion of his HEP, but has been non- compliant with the strengthening exercises since he does not like thhose exercises as much. After pt's visit with the doctor, he has elected not to undergo surgery for his back, becuase it is a 2 part surgery. Pt remarks that his shoulder feels like it has almost full ROM but continues to clunk. He has been having pain in his pain during sleeping and has to change positions frequently to relieve pain. PT-OP-F Manual Assessment Start: 08/17/18 18:53 Freq: Status: Active Protocol: Document 08/18/18 10:30 [facility] (Rec: 08/18/18 11:16 [facility] [id number]) Manual Assessments Soft Tissue Assessment Soft Tissue Mobility Assessment Tightness R paraspinals & QL & glutes R>L Joint Mobility Assessment Joint Mobility Assessment Iliac crest & R greater trochanter higher in standing; PT-OP-G Mobility & Gait Start: 08/17/18 18:53 Freq: Status: Active Protocol: Document 08/18/18 10:30 LR (Rec: 08/18/18 11:16 [facility] [id number]) OP Gait Assessment Comments Gait Comments Pt has lat leaning during push off with no ant elevation/ post depression PT-OP-J Posture/Palpation/Skin Start: 08/17/18 18:53 Freq: Status: Active Protocol: Document 12/29/18 14:30 LR (Rec: 12/29/18 18:17 [facility] [id number]) Palpation Assessment Location RLE Palpation Details Assessed R knee and foot-no tenderness to palpation, Some faded bruising present on tips of toes. PT-OP-K Range of Motion Start: 08/17/18 18:53 Freq: Status: Active Protocol: Document 12/29/18 14:30 [facility] (Rec: 12/29/18 14:47 [facility] [id number]) Shoulder Goniometric Range of Motion Shoulder Left Active Flexion 168 Extension 55 Abduction 152 External Rotation at 0 degrees Abduction 73 Internal Rotation Behind Back (text) T6 Right Active Flexion 144 Extension 55 Abduction 109 External Rotation at 0 degrees Abduction 90 Internal Rotation Behind Back (text) T9 PT-OP-L Special Tests Start: 08/17/18 18:53 Freq: Status: Active Protocol: Document 12/29/18 14:30 [facility] (Rec: 12/29/18 14:47 [facility] [id number]) Special Tests Shoulder Special Tests Colmenares Raimundo Impingement Test Results neg lift off Test Results neg Empty Can Test Results postive R PT-OP-M Strength Start: 08/17/18 18:53 Freq: Status: Active Protocol: Document 12/29/18 14:30 [facility] (Rec: 12/29/18 14:47 [facility] [id number]) Shoulder Strength Shoulder Manual Muscle Testing Left Flexion 5 Normal Extension 4+ Good+ Abduction (C5) 4+ Good+ External Rotation 5 Normal Internal Rotation 5 Normal Horizontal Abduction 5 Normal Horizontal Adduction 5 Normal Right Flexion 5 Normal Extension 5 Normal Abduction (C5) 4+ Good+ External Rotation 4+ Good+ Internal Rotation 5 Normal Horizontal Abduction 5 Normal Horizontal Adduction 4+ Good+ Comments pain w/horizontal abd PT-OP-Q Treatments Start: 08/17/18 18:53 Freq: Status: Active Protocol: Document 01/25/19 08:15 MT (Rec: 01/25/19 11:32 MT [id number]) Cardio Equipment Recumbent Stepper (Sci-Fit) Duration (Minutes) 6 Resistance 5 Seat Position 14 Therapeutic Exercises Supine Exercises heel slides Side bilateral Reps/Minutes 15 ea bridge Equipment Used AROM Reps/Minutes 15 knee rockers Supine Exercise Name LTR Side bilateral Reps/Minutes 15 ea SKTC stretch Supine Exercise Name SKTC & knee to opposite chest piriformis stretch Side bilateral Reps/Minutes 30 sec ea TA c marches Side bilateral Reps/Minutes 15 Comments PPT positioning, slow control con/eccentric Sidelying Exercises clamshells Side bilateral Resistance L2 Reps/Minutes 15 abd Side bilateral Resistance L2 around knees Reps/Minutes 15 Standing Exercises lat pull down Side bilateral Equipment Used L2 Reps/Minutes 15 Shoulder aB Side bilateral Resistance L1 Reps/Minutes 15 Rows Side bilateral Resistance L2 Reps/Minutes 15 Shoulder ER Side bilateral Resistance L2 Reps/Minutes 15 PT-OP-R Modalities Start: 08/17/18 18:53 Freq: Status: Active Protocol: Document 01/25/19 08:15 MT (Rec: 01/25/19 11:33 MT [id number]) Spinal Traction Traction Treatment Lumbar Method Mechanical Patient Position Hooklying Force Applied (Pounds) 60 Duration of Treatment (Minutes) 10 Heating Pad Applied No PT-OP-S Aquatic Treatment Start: 08/28/18 15:27 Freq: Status: Active Protocol: Document 12/14/18 11:45 LJ (Rec: 12/14/18 15:08 LJ [id number]) Aquatics Treatment Pool Entry/Exit Pool Entry/Exit Method Stairs Assistance Independent Water Walking Sideways Water Level Chest Level Walking Equipment Ankle Floats Comments ab/ad arms Monster Walk Water Level Chest Level Walking Equipment Resistance Fins [place] May Water Level Chest Level Walking Equipment Ankle Floats Comments diagonal and straight Backwards Water Level Chest Level Walking Equipment Ankle Floats Level of Assistance Standby Assistance,Verbal Cues Comments reverse breast stroke arms Forwards Water Level Chest Level Walking Equipment Ankle Floats Level of Assistance Standby Assistance,Verbal Cues Comments cues for posture and recrip gait pattern Lower Extremity Exercises hip figure 8 Details bilat Body Position Standing Water Level Chest Level Equipment Ankle Floats Reps/Duration 15 bilat Comments L internal rotation limited squats at wall Water Level Chest Level Comments cuing for mm activation sequence Hs curls Body Position Standing Water Level Chest Level Equipment Ankle Weight- 2.5# Reps/Duration 2x10 flex/ext, ab/ad Details at wall Water Level Chest Level Equipment Ankle Floats Reps/Duration 2x10 bilat Lower Extremity Stretches quads Details standing at wall Reps/Duration 2x45 SKTC bilat Details at wall Water Level Chest Level Reps/Duration 2 x 45 Comments with posterior pelvic tilt HS, ITB Details standing at wall Equipment Small Noodle Reps/Duration 2 x 45 Upper Extremity Exercises lat pull downs, presses Body Position Standing Water Level Chest Level Equipment UE paddles Comments 2x10 each flex/ext, ab/ad, horiz ab/ad Body Position Standing Water Level Chest Level Equipment UE paddles Reps/Duration 10 each Comments cues for core stabilization Spinal Exercises rotation with hand paddles Body Position Standing Water Level Chest Level Equipment UE paddles Reps/Duration 15 each direction Comments cuing for scap depression and activating obliques [place] Activities [place] Activities Bicycle,Cross Country Equipment lg belt Duration 15 PT-OP-T Assessment and Plan Start: 08/17/18 18:53 Freq: Status: Active Protocol: Document 01/25/19 08:15 MT (Rec: 01/25/19 11:32 MT [id number]) Physical Therapy Assessment Goals ROM Short Term Goal (STG) Pt will improve pain-free ROM in abduction to WNL with proper scapuluohumeral mechanics in order to increase pt ability to perform ADL's. STG Duration 01/29/19 Rental Management Trainee Goal (LTG) Pt will improve pain-free ROM in all planes with proper scapulohumeral in order to improve ability to perform overhead ADL's without pain. LTG Duration 02/28/19 gait Correction Goal (LTG) Pt will be able to amb 1 mile with no more than 2 point on 0 -10 pain scale increase. 10/05/18: goal progress 12/16- able to walk more functional distacnes without pain LTG Duration 01/27/2019 SRINATH Short Term Goal (STG) Pt will show an improvement in functional ability with improvement of SRINATH to 15/50. 10/05/18: goal progress STG Duration 09/17/18 Correction Goal (LTG) Pt will show an improvement in functional ability with improvement of SRINATH to 10/50. 10/15/18- not tested today LTG Duration 01/28/19 strength Short Term Goal (STG) Pt will be indep with appropriate HEP & gym program in order to cont on his pain management & weight management safely. 10/05/18: goal progress STG Duration achieved with HEP, starting gym program next week Rental Management Trainee Goal (LTG) Pt will score 4/5 LPM & 5/5 LE strength in order to demonstrate improved core control & improve his ability to do daily tasks. 10/15/18- strength not tested today 12/16-great improvement LTG Duration 01/27/2019 Assessment Summary Assessment Pt has not been compliant with strengthening portion of HEP, so reviewed the core strengthening exercises and discussed importance of adherance since the pt is opting for non-surgical approach to back pain. Pt was able to perform shoulder exercises, buit continued to need frequent cueing for avoiding compensation and achieving proper scapular motion. Pt has improved in his arm pain free ROM, but will continue to beenfit from strengthening. Pt was able to complete core exercises but required cueing for set up and avoiding compensations. Pt reported that mechanical traction with 60lbs felt good and did not increase any symptoms. Physical Therapy Plan Frequency and Duration Frequency of Treatment 2x/Week Duration of Treatment 2 months Plan of Care Start Date 12/29/18 Plan of Care End Date 02/28/19 Next Visit Focus/Plan Next Note Type Treatment Note Next Visit Plan continue to review HEP and assess adherance, progress core exercises
--- NOTE | 2019-01-27 11:11 | PT.OTN ---
Current Diagnoses Intracardiac thrombosis, not elsewhere classified (01/27/19) Spinal stenosis, lumbar region without neurogenic claudication (01/27/19) Radiculopathy, lumbar region (01/27/19) Lumbago with sciatica, unspecified side (01/27/19) Impingement syndrome of right shoulder (01/27/19) Unspecified abnormalities of gait and mobility (01/27/19) Abnormal posture (01/27/19) Weakness (01/27/19) Encounter for therapeutic drug level monitoring (01/27/19) assisted (current) use of anticoagulants (01/27/19) Physical Therapy Treatment Note PT-OP-A Visit Information Start: 08/17/18 18:53 Freq: Status: Active Protocol: Document 01/27/19 09:46 MT (Rec: 01/27/19 10:30 MT [id number]) Out-Patient Physical Therapy Visit Information Visit Information Visit Type Treatment Note Visit Start Time 09:46 Visit Stop Time 09:35 Total Visit Minutes 49 Visit Number 29 Number of FUR FLOOR WORKER Visits 0 PT-OP-B Current Condition Start: 08/17/18 18:53 Freq: Status: Active Protocol: Document 12/29/18 14:30 MT (Rec: 12/29/18 17:39 MT [id number]) Current Condition History of Current Condition Current Complaints LBP and R shoulder pain History of Current Condition Pt reports 30 year history of back pain with a recent episode. 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 Pt reports he was walking to get the paper about 2 months ago and his R side gave out and pain went down leg and had to grab mailbox to stay up. THis is the first time it has gone down his leg. He went to a doctor who sent him to do PT. Pt reports he has B ant ankle pain that limits his mobility. Reports he has scoliosis. He has talked to doctor about doing traction because manual traction has helped in the past. Re-eval 12/29 R shoulder: pt reported that he went to an accupuncturist about a month ago. The accupuncturist told him his shoulder was out and moved it until he felt a clunk . Pt reports that his shoulder does exhibit a clunking sensation. The only motion that he is limited in is abduction due to pain. He reports that heat has been helping his pain and movement of the joint. His pain is made worse when sustaining prolonged positions. Prior Treatments and Tests PT on and off over the years; reports xrays; chiropractic in the past Future Testing and Treatments Planned Epidural possibly PT-OP-C Subjective Start: 08/17/18 18:53 Freq: Status: Active Protocol: Document 01/27/19 09:46 MT (Rec: 01/27/19 10:30 MT [id number]) OP-PT Subjective Patient Comments Patient Comments Pt reports that his back pain has been way less, at around a 2/10 prior to start of PT session. He reports that he has been compliant with his exercises for his HEP, but has not been doing his shoulder strengthening. Pt stated that he felt good after doing the mechanical traction last session. PT-OP-F Manual Assessment Start: 08/17/18 18:53 Freq: Status: Active Protocol: Document 08/18/18 10:30 [facility] (Rec: 08/18/18 11:16 [facility] [id number]) Manual Assessments Soft Tissue Assessment Soft Tissue Mobility Assessment Tightness R paraspinals & QL & glutes R>L Joint Mobility Assessment Joint Mobility Assessment Iliac crest & R greater trochanter higher in standing; PT-OP-G Mobility & Gait Start: 08/17/18 18:53 Freq: Status: Active Protocol: Document 08/18/18 10:30 [facility] (Rec: 08/18/18 11:16 [facility] [id number]) OP Gait Assessment Comments Gait Comments Pt has lat leaning during push off with no ant elevation/ post depression PT-OP-J Posture/Palpation/Skin Start: 08/17/18 18:53 Freq: Status: Active Protocol: Document 12/29/18 14:30 [facility] (Rec: 12/29/18 18:17 [facility] [id number]) Palpation Assessment Location RLE Palpation Details Assessed R knee and foot-no tenderness to palpation, Some faded bruising present on tips of toes. PT-OP-K Range of Motion Start: 08/17/18 18:53 Freq: Status: Active Protocol: Document 12/29/18 14:30 [facility] (Rec: 12/29/18 14:47 [facility] [id number]) Shoulder Goniometric Range of Motion Shoulder Left Active Flexion 168 Extension 55 Abduction 152 External Rotation at 0 degrees Abduction 73 Internal Rotation Behind Back (text) T6 Right Active Flexion 144 Extension 55 Abduction 109 External Rotation at 0 degrees Abduction 90 Internal Rotation Behind Back (text) T9 PT-OP-L Special Tests Start: 08/17/18 18:53 Freq: Status: Active Protocol: Document 12/29/18 14:30 [facility] (Rec: 12/29/18 14:47 [facility] [id number]) Special Tests Shoulder Special Tests Colmenares Raimundo Impingement Test Results neg lift off Test Results neg Empty Can Test Results postive R PT-OP-M Strength Start: 08/17/18 18:53 Freq: Status: Active Protocol: Document 12/29/18 14:30 [facility] (Rec: 12/29/18 14:47 [facility] [id number]) Shoulder Strength Shoulder Manual Muscle Testing Left Flexion 5 Normal Extension 4+ Good+ Abduction (C5) 4+ Good+ External Rotation 5 Normal Internal Rotation 5 Normal Horizontal Abduction 5 Normal Horizontal Adduction 5 Normal Right Flexion 5 Normal Extension 5 Normal Abduction (C5) 4+ Good+ External Rotation 4+ Good+ Internal Rotation 5 Normal Horizontal Abduction 5 Normal Horizontal Adduction 4+ Good+ Comments pain w/horizontal abd PT-OP-Q Treatments Start: 08/17/18 18:53 Freq: Status: Active Protocol: Document 01/27/19 09:46 MT (Rec: 01/27/19 10:30 MT [id number]) Cardio Equipment Recumbent Stepper (Sci-Fit) Duration (Minutes) 6 Resistance 5 Seat Position 14 Therapeutic Exercises Supine Exercises standing stretch at sink Supine Exercise Name pt hold onto sink counter and lean back to stretch GH, HS, and low back SLR Supine Exercise Name single leg raise c TA tight Side bilateral Reps/Minutes 15 heel slides Side bilateral Reps/Minutes 15 ea bridge Equipment Used AROM Reps/Minutes 15 hip flex w manual resist Side bilateral Reps/Minutes 2x15 second holds per side knee rockers Supine Exercise Name LTR Side bilateral Reps/Minutes 15 ea SKTC stretch Supine Exercise Name SKTC & knee to opposite chest piriformis stretch Side bilateral Reps/Minutes 30 sec ea TA c marches Side bilateral Reps/Minutes 15 Comments PPT positioning, slow control con/eccentric Sidelying Exercises clamshells Side bilateral Resistance L1 Reps/Minutes 15 Comments added to HEP Standing Exercises lat pull down Side bilateral Equipment Used L2 Reps/Minutes 15 Shoulder aB Side bilateral Resistance L1 Reps/Minutes 15 Rows Side bilateral Resistance L2 Reps/Minutes 15 Shoulder ER Side bilateral Resistance L2 Reps/Minutes 15 Shoulder IR Side right Resistance L1 Reps/Minutes 15 PT-OP-R Modalities Start: 08/17/18 18:53 Freq: Status: Active Protocol: Document 01/27/19 09:46 MT (Rec: 01/27/19 10:30 MT [id number]) Spinal Traction Traction Treatment Lumbar Method Mechanical Patient Position Hooklying Force Applied (Pounds) 60 Duration of Treatment (Minutes) 10 Heating Pad Applied No PT-OP-S Aquatic Treatment Start: 08/28/18 15:27 Freq: Status: Active Protocol: Document 12/14/18 11:45 LJ (Rec: 12/14/18 15:08 LJ [id number]) Aquatics Treatment Pool Entry/Exit Pool Entry/Exit Method Stairs Assistance Independent Water Walking Sideways Water Level Chest Level Walking Equipment Ankle Floats Comments ab/ad arms Monster Walk Water Level Chest Level Walking Equipment Resistance Fins [place] May Water Level Chest Level Walking Equipment Ankle Floats Comments diagonal and straight Backwards Water Level Chest Level Walking Equipment Ankle Floats Level of Assistance Standby Assistance,Verbal Cues Comments reverse breast stroke arms Forwards Water Level Chest Level Walking Equipment Ankle Floats Level of Assistance Standby Assistance,Verbal Cues Comments cues for posture and recrip gait pattern Lower Extremity Exercises hip figure 8 Details bilat Body Position Standing Water Level Chest Level Equipment Ankle Floats Reps/Duration 15 bilat Comments L internal rotation limited squats at wall Water Level Chest Level Comments cuing for mm activation sequence Hs curls Body Position Standing Water Level Chest Level Equipment Ankle Weight- 2.5# Reps/Duration 2x10 flex/ext, ab/ad Details at wall Water Level Chest Level Equipment Ankle Floats Reps/Duration 2x10 bilat Lower Extremity Stretches quads Details standing at wall Reps/Duration 2x45 SKTC bilat Details at wall Water Level Chest Level Reps/Duration 2 x 45 Comments with posterior pelvic tilt HS, ITB Details standing at wall Equipment Small Noodle Reps/Duration 2 x 45 Upper Extremity Exercises lat pull downs, presses Body Position Standing Water Level Chest Level Equipment UE paddles Comments 2x10 each flex/ext, ab/ad, horiz ab/ad Body Position Standing Water Level Chest Level Equipment UE paddles Reps/Duration 10 each Comments cues for core stabilization Spinal Exercises rotation with hand paddles Body Position Standing Water Level Chest Level Equipment UE paddles Reps/Duration 15 each direction Comments cuing for scap depression and activating obliques [place] Activities [place] Activities Bicycle,Cross Country Equipment lg belt Duration 15 PT-OP-T Assessment and Plan Start: 08/17/18 18:53 Freq: Status: Active Protocol: Document 01/27/19 09:46 MT (Rec: 01/27/19 10:30 MT [id number]) Physical Therapy Assessment Goals ROM Short Term Goal (STG) Pt will improve pain-free ROM in abduction to WNL with proper scapuluohumeral mechanics in order to increase pt ability to perform ADL's. STG Duration 01/29/19 Quarter Section Ironer Goal (LTG) Pt will improve pain-free ROM in all planes with proper scapulohumeral in order to improve ability to perform overhead ADL's without pain. LTG Duration 02/28/19 gait Mcfp Goal (LTG) Pt will be able to amb 1 mile with no more than 2 point on 0 -10 pain scale increase. 10/05/18: goal progress 12/16- able to walk more functional distacnes without pain LTG Duration 01/27/2019 SRINATH Short Term Goal (STG) Pt will show an improvement in functional ability with improvement of SRINATH to 15/50. 10/05/18: goal progress STG Duration 09/17/18 Quarter Section Ironer Goal (LTG) Pt will show an improvement in functional ability with improvement of SRINATH to 10/50. 10/15/18- not tested today LTG Duration 01/28/19 strength Short Term Goal (STG) Pt will be indep with appropriate HEP & gym program in order to cont on his pain management & weight management safely. 10/05/18: goal progress STG Duration achieved with HEP, starting gym program next week Mcfp Goal (LTG) Pt will score 4/5 LPM & 5/5 LE strength in order to demonstrate improved core control & improve his ability to do daily tasks. 10/15/18- strength not tested today 12/16-great improvement LTG Duration 01/27/2019 Assessment Summary Assessment Pt has increased his compliance with HEP, but has not performed shoulder strengthening exercises. Reviewed shoulder HEP and pt was given more bands and educated on how to set up exercises at home. Reviewed and progressed pt's core exercises. Pt was able to tolerate standing exercises for long periods of time and required less sitting breaks. None of the exercises aggravated his pain. He reports that manual traction of his lumber spine makes his back feel really good Physical Therapy Plan Frequency and Duration Frequency of Treatment 2x/Week Duration of Treatment 2 months Plan of Care Start Date 12/29/18 Plan of Care End Date 02/28/19 Next Visit Focus/Plan Next Note Type Treatment Note Next Visit Plan continue to progress core sxercises and shoulder strengthening
--- NOTE | 2019-02-02 14:12 | PT.OTN ---
Current Diagnoses Intracardiac thrombosis, not elsewhere classified (02/02/19) Spinal stenosis, lumbar region without neurogenic claudication (02/02/19) Radiculopathy, lumbar region (02/02/19) Lumbago with sciatica, unspecified side (02/02/19) Impingement syndrome of right shoulder (02/02/19) Unspecified abnormalities of gait and mobility (02/02/19) Abnormal posture (02/02/19) Weakness (02/02/19) Encounter for therapeutic drug level monitoring (02/02/19) [facility] (current) use of anticoagulants (02/02/19) Physical Therapy Treatment Note PT-OP-A Visit Information Start: 08/17/18 18:53 Freq: Status: Active Protocol: Document 02/02/19 09:01 MT (Rec: 02/02/19 09:44 MT [id number]) Out-Patient Physical Therapy Visit Information Visit Information Visit Type Treatment Note Visit Start Time 09:01 Visit Stop Time 09:50 Total Visit Minutes 49 Visit Number 30 Number of COSTUME CUTTER Visits 0 PT-OP-B Current Condition Start: 08/17/18 18:53 Freq: Status: Active Protocol: Document 12/29/18 14:30 MT (Rec: 12/29/18 17:39 MT [id number]) Current Condition History of Current Condition Current Complaints LBP and R shoulder pain History of Current Condition Pt reports 30 year history of back pain with a recent episode. 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 Pt reports he was walking to get the paper about 2 months ago and his R side gave out and pain went down leg and had to grab mailbox to stay up. THis is the first time it has gone down his leg. He went to a doctor who sent him to do PT. Pt reports he has B ant ankle pain that limits his mobility. Reports he has scoliosis. He has talked to doctor about doing traction because manual traction has helped in the past. Re-eval 12/29 R shoulder: pt reported that he went to an accupuncturist about a month ago. The accupuncturist told him his shoulder was out and moved it until he felt a clunk . Pt reports that his shoulder does exhibit a clunking sensation. The only motion that he is limited in is abduction due to pain. He reports that heat has been helping his pain and movement of the joint. His pain is made worse when sustaining prolonged positions. Prior Treatments and Tests PT on and off over the years; reports xrays; chiropractic in the past Future Testing and Treatments Planned Epidural possibly PT-OP-C Subjective Start: 08/17/18 18:53 Freq: Status: Active Protocol: Document 02/02/19 09:01 MT (Rec: 02/02/19 09:44 MT [id number]) OP-PT Subjective Patient Comments Patient Comments Pt remarked that he is tired this morning. He is still having trouble with finding a comfortable sleeping position through the night. His back was twinging this morning. He only notices his shoulder when he sleeps funny on it. He reports that he feels his back when he first gets up in the morning. He reporets that he has not been doing his shoulder strengthening exercises but has been stretching it. PT-OP-F Manual Assessment Start: 08/17/18 18:53 Freq: Status: Active Protocol: Document 08/18/18 10:30 LR (Rec: 08/18/18 11:16 [facility] [id number]) Manual Assessments Soft Tissue Assessment Soft Tissue Mobility Assessment Tightness R paraspinals & QL & glutes R>L Joint Mobility Assessment Joint Mobility Assessment Iliac crest & R greater trochanter higher in standing; PT-OP-G Mobility & Gait Start: 08/17/18 18:53 Freq: Status: Active Protocol: Document 08/18/18 10:30 LR (Rec: 08/18/18 11:16 [facility] [id number]) OP Gait Assessment Comments Gait Comments Pt has lat leaning during push off with no ant elevation/ post depression PT-OP-J Posture/Palpation/Skin Start: 08/17/18 18:53 Freq: Status: Active Protocol: Document 12/29/18 14:30 LR (Rec: 12/29/18 18:17 [facility] [id number]) Palpation Assessment Location RLE Palpation Details Assessed R knee and foot-no tenderness to palpation, Some faded bruising present on tips of toes. PT-OP-K Range of Motion Start: 08/17/18 18:53 Freq: Status: Active Protocol: Document 12/29/18 14:30 LR (Rec: 12/29/18 14:47 [facility] [id number]) Shoulder Goniometric Range of Motion Shoulder Left Active Flexion 168 Extension 55 Abduction 152 External Rotation at 0 degrees Abduction 73 Internal Rotation Behind Back (text) T6 Right Active Flexion 144 Extension 55 Abduction 109 External Rotation at 0 degrees Abduction 90 Internal Rotation Behind Back (text) T9 PT-OP-L Special Tests Start: 08/17/18 18:53 Freq: Status: Active Protocol: Document 12/29/18 14:30 [facility] (Rec: 12/29/18 14:47 [facility] [id number]) Special Tests Shoulder Special Tests Colmenares Raimundo Impingement Test Results neg lift off Test Results neg Empty Can Test Results postive R PT-OP-M Strength Start: 08/17/18 18:53 Freq: Status: Active Protocol: Document 12/29/18 14:30 [facility] (Rec: 12/29/18 14:47 [facility] [id number]) Shoulder Strength Shoulder Manual Muscle Testing Left Flexion 5 Normal Extension 4+ Good+ Abduction (C5) 4+ Good+ External Rotation 5 Normal Internal Rotation 5 Normal Horizontal Abduction 5 Normal Horizontal Adduction 5 Normal Right Flexion 5 Normal Extension 5 Normal Abduction (C5) 4+ Good+ External Rotation 4+ Good+ Internal Rotation 5 Normal Horizontal Abduction 5 Normal Horizontal Adduction 4+ Good+ Comments pain w/horizontal abd PT-OP-Q Treatments Start: 08/17/18 18:53 Freq: Status: Active Protocol: Document 02/02/19 09:01 MT (Rec: 02/02/19 09:44 MT [id number]) Cardio Equipment Recumbent Stepper (Sci-Fit) Duration (Minutes) 6 Resistance 5 Seat Position 14 Therapeutic Exercises Supine Exercises standing stretch at sink Supine Exercise Name pt hold onto sink counter and lean back to stretch GH, HS, and low back SLR Supine Exercise Name single leg raise c TA tight Side bilateral Reps/Minutes 15 heel slides Side bilateral Reps/Minutes 15 ea bridge Equipment Used AROM Reps/Minutes 15 hip flex w manual resist Side bilateral Reps/Minutes 2x15 second holds per side knee rockers Supine Exercise Name LTR Side bilateral Reps/Minutes 15 ea SKTC stretch Supine Exercise Name SKTC & knee to opposite chest piriformis stretch Side bilateral Reps/Minutes 30 sec ea TA c marches Side bilateral Reps/Minutes 15 Comments PPT positioning, slow control con/eccentric Sidelying Exercises clamshells Side bilateral Reps/Minutes 15 abd Side bilateral Reps/Minutes 15 Standing Exercises lat pull down Side bilateral Equipment Used L2 Reps/Minutes 10x2 Shoulder aB Side bilateral Resistance L2 Reps/Minutes 10x2 Shoulder ROM Standing Exercise Name roll ball against wall flexion and abduction pain free range Side right Reps/Minutes 10 Rows Side bilateral Resistance L3 Reps/Minutes 10x2 Shoulder ER Side bilateral Resistance L2 Reps/Minutes 10x2 Shoulder IR Side right Resistance L2 Reps/Minutes 10x2 PT-OP-R Modalities Start: 08/17/18 18:53 Freq: Status: Active Protocol: Document 02/02/19 09:01 MT (Rec: 02/02/19 09:44 MT [id number]) Spinal Traction Traction Treatment Lumbar Method Mechanical Patient Position Hooklying Force Applied (Pounds) 60 Duration of Treatment (Minutes) 10 Heating Pad Applied No PT-OP-S Aquatic Treatment Start: 08/28/18 15:27 Freq: Status: Active Protocol: Document 12/14/18 11:45 LJ (Rec: 12/14/18 15:08 LJ [id number]) Aquatics Treatment Pool Entry/Exit Pool Entry/Exit Method Stairs Assistance Independent Water Walking Sideways Water Level Chest Level Walking Equipment Ankle Floats Comments ab/ad arms Monster Walk Water Level Chest Level Walking Equipment Resistance Fins [place] May Water Level Chest Level Walking Equipment Ankle Floats Comments diagonal and straight Backwards Water Level Chest Level Walking Equipment Ankle Floats Level of Assistance Standby Assistance,Verbal Cues Comments reverse breast stroke arms Forwards Water Level Chest Level Walking Equipment Ankle Floats Level of Assistance Standby Assistance,Verbal Cues Comments cues for posture and recrip gait pattern Lower Extremity Exercises hip figure 8 Details bilat Body Position Standing Water Level Chest Level Equipment Ankle Floats Reps/Duration 15 bilat Comments L internal rotation limited squats at wall Water Level Chest Level Comments cuing for mm activation sequence Hs curls Body Position Standing Water Level Chest Level Equipment Ankle Weight- 2.5# Reps/Duration 2x10 flex/ext, ab/ad Details at wall Water Level Chest Level Equipment Ankle Floats Reps/Duration 2x10 bilat Lower Extremity Stretches quads Details standing at wall Reps/Duration 2x45 SKTC bilat Details at wall Water Level Chest Level Reps/Duration 2 x 45 Comments with posterior pelvic tilt HS, ITB Details standing at wall Equipment Small Noodle Reps/Duration 2 x 45 Upper Extremity Exercises lat pull downs, presses Body Position Standing Water Level Chest Level Equipment UE paddles Comments 2x10 each flex/ext, ab/ad, horiz ab/ad Body Position Standing Water Level Chest Level Equipment UE paddles Reps/Duration 10 each Comments cues for core stabilization Spinal Exercises rotation with hand paddles Body Position Standing Water Level Chest Level Equipment UE paddles Reps/Duration 15 each direction Comments cuing for scap depression and activating obliques [place] Activities [place] Activities Bicycle,Cross Country Equipment lg belt Duration 15 PT-OP-T Assessment and Plan Start: 08/17/18 18:53 Freq: Status: Active Protocol: Document 02/02/19 09:01 MT (Rec: 02/02/19 09:44 MT [id number]) Physical Therapy Assessment Goals ROM Short Term Goal (STG) Pt will improve pain-free ROM in abduction to WNL with proper scapuluohumeral mechanics in order to increase pt ability to perform ADL's. STG Duration 01/29/19 Manager Of Customer Billing Goal (LTG) Pt will improve pain-free ROM in all planes with proper scapulohumeral in order to improve ability to perform overhead ADL's without pain. LTG Duration 02/28/19 gait [facility] Goal (LTG) Pt will be able to amb 1 mile with no more than 2 point on 0 -10 pain scale increase. 10/05/18: goal progress 12/16- able to walk more functional distacnes without pain LTG Duration 01/27/2019 SRINATH Short Term Goal (STG) Pt will show an improvement in functional ability with improvement of SRINATH to 15/50. 10/05/18: goal progress STG Duration 09/17/18 [facility] Goal (LTG) Pt will show an improvement in functional ability with improvement of SRINATH to 10/50. 10/15/18- not tested today LTG Duration 01/28/19 strength Short Term Goal (STG) Pt will be indep with appropriate HEP & gym program in order to cont on his pain management & weight management safely. 10/05/18: goal progress STG Duration achieved with HEP, starting gym program next week [facility] Goal (LTG) Pt will score 4/5 LPM & 5/5 LE strength in order to demonstrate improved core control & improve his ability to do daily tasks. 10/15/18- strength not tested today 12/16-great improvement LTG Duration 01/27/2019 Assessment Summary Assessment Pt responds well to the mechanical traction with reports of decreased pain and compression feeling in his low back. Pt continues to require cueing for his home exercises and is not compliant with the strengthening exercises, so reviewed his HEP , printed out a handout for his shoulder strengthening exercises and progressed to a heavier band with some of the exercises. Physical Therapy Plan Frequency and Duration Frequency of Treatment 2x/Week Duration of Treatment 2 months Plan of Care Start Date 12/29/18 Plan of Care End Date 02/28/19 Next Visit Focus/Plan Next Note Type Treatment Note Next Visit Plan continue to progress core exercises and shoulder strengthening
--- NOTE | 2019-02-04 09:46 | PT.OTN ---
Current Diagnoses Intracardiac thrombosis, not elsewhere classified (02/04/19) Spinal stenosis, lumbar region without neurogenic claudication (02/04/19) Radiculopathy, lumbar region (02/04/19) Lumbago with sciatica, unspecified side (02/04/19) Impingement syndrome of right shoulder (02/04/19) Unspecified abnormalities of gait and mobility (02/04/19) Abnormal posture (02/04/19) Weakness (02/04/19) Encounter for therapeutic drug level monitoring (02/04/19) [facility] (current) use of anticoagulants (02/04/19) Physical Therapy Treatment Note PT-OP-A Visit Information Start: 08/17/18 18:53 Freq: Status: Active Protocol: Document 02/04/19 09:08 [facility] (Rec: 02/04/19 09:46 [facility] [id number]) Out-Patient Physical Therapy Visit Information Visit Information Visit Type Treatment Note Visit Start Time 09:03 Visit Stop Time 09:53 Total Visit Minutes 50 Visit Number 31 Number of BIAS BINDING CUTTER Visits 0 PT-OP-B Current Condition Start: 08/17/18 18:53 Freq: Status: Active Protocol: Document 12/29/18 14:30 MT (Rec: 12/29/18 17:39 MT [id number]) Current Condition History of Current Condition Current Complaints LBP and R shoulder pain History of Current Condition Pt reports 30 year history of back pain with a recent episode. 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 Pt reports he was walking to get the paper about 2 months ago and his R side gave out and pain went down leg and had to grab mailbox to stay up. THis is the first time it has gone down his leg. He went to a doctor who sent him to do PT. Pt reports he has B ant ankle pain that limits his mobility. Reports he has scoliosis. He has talked to doctor about doing traction because manual traction has helped in the past. Re-eval 12/29 R shoulder: pt reported that he went to an accupuncturist about a month ago. The accupuncturist told him his shoulder was out and moved it until he felt a clunk . Pt reports that his shoulder does exhibit a clunking sensation. The only motion that he is limited in is abduction due to pain. He reports that heat has been helping his pain and movement of the joint. His pain is made worse when sustaining prolonged positions. Prior Treatments and Tests PT on and off over the years; reports xrays; chiropractic in the past Future Testing and Treatments Planned Epidural possibly PT-OP-C Subjective Start: 08/17/18 18:53 Freq: Status: Active Protocol: Document 02/04/19 09:08 [facility] (Rec: 02/04/19 09:46 [facility] [id number]) OP-PT Subjective Patient Comments Patient Comments Pt reports back is stiff this Am from taking a nap for 2 hours this AM PT-OP-F Manual Assessment Start: 08/17/18 18:53 Freq: Status: Active Protocol: Document 08/18/18 10:30 [facility] (Rec: 08/18/18 11:16 [facility] [id number]) Manual Assessments Soft Tissue Assessment Soft Tissue Mobility Assessment Tightness R paraspinals & QL & glutes R>L Joint Mobility Assessment Joint Mobility Assessment Iliac crest & R greater trochanter higher in standing; PT-OP-G Mobility & Gait Start: 08/17/18 18:53 Freq: Status: Active Protocol: Document 08/18/18 10:30 [facility] (Rec: 08/18/18 11:16 [facility] [id number]) OP Gait Assessment Comments Gait Comments Pt has lat leaning during push off with no ant elevation/ post depression PT-OP-J Posture/Palpation/Skin Start: 08/17/18 18:53 Freq: Status: Active Protocol: Document 12/29/18 14:30 [facility] (Rec: 12/29/18 18:17 [facility] [id number]) Palpation Assessment Location RLE Palpation Details Assessed R knee and foot-no tenderness to palpation, Some faded bruising present on tips of toes. PT-OP-K Range of Motion Start: 08/17/18 18:53 Freq: Status: Active Protocol: Document 12/29/18 14:30 [facility] (Rec: 12/29/18 14:47 [facility] [id number]) Shoulder Goniometric Range of Motion Shoulder Left Active Flexion 168 Extension 55 Abduction 152 External Rotation at 0 degrees Abduction 73 Internal Rotation Behind Back (text) T6 Right Active Flexion 144 Extension 55 Abduction 109 External Rotation at 0 degrees Abduction 90 Internal Rotation Behind Back (text) T9 PT-OP-L Special Tests Start: 08/17/18 18:53 Freq: Status: Active Protocol: Document 12/29/18 14:30 [facility] (Rec: 12/29/18 14:47 [facility] [id number]) Special Tests Shoulder Special Tests Colmenares Raimundo Impingement Test Results neg lift off Test Results neg Empty Can Test Results postive R PT-OP-M Strength Start: 08/17/18 18:53 Freq: Status: Active Protocol: Document 12/29/18 14:30 [facility] (Rec: 12/29/18 14:47 [facility] [id number]) Shoulder Strength Shoulder Manual Muscle Testing Left Flexion 5 Normal Extension 4+ Good+ Abduction (C5) 4+ Good+ External Rotation 5 Normal Internal Rotation 5 Normal Horizontal Abduction 5 Normal Horizontal Adduction 5 Normal Right Flexion 5 Normal Extension 5 Normal Abduction (C5) 4+ Good+ External Rotation 4+ Good+ Internal Rotation 5 Normal Horizontal Abduction 5 Normal Horizontal Adduction 4+ Good+ Comments pain w/horizontal abd PT-OP-Q Treatments Start: 08/17/18 18:53 Freq: Status: Active Protocol: Document 02/04/19 09:08 [facility] (Rec: 02/04/19 09:46 [facility] [id number]) Cardio Equipment Recumbent Bicycle Duration (Minutes) 6 Resistance 6 Seat Position 12 Therapeutic Exercises Supine Exercises SLR Supine Exercise Name single leg raise c TA tight Side bilateral Reps/Minutes 15 Comments focus on less pelvis movement heel slides Side bilateral Reps/Minutes 10 ea bridge Equipment Used AROM Reps/Minutes 15 hip flex w manual resist Side bilateral Reps/Minutes 2x15 second holds per side Standing Exercises hip abd Side bilateral Equipment Used L1 Reps/Minutes 15 lat pull down Side bilateral Equipment Used L2 Reps/Minutes 10x2 Shoulder aB Side bilateral Resistance L2 Reps/Minutes 10x2 Rows Side bilateral Resistance L3 Reps/Minutes 10x2 Shoulder ER Side bilateral Resistance L2 Reps/Minutes 10x2 Shoulder IR Side right Resistance L2 Reps/Minutes 10x2 Stretch Standing Exercise Name phoebe pose at counter Reps/Minutes 30 sec hip ext Side bilateral Equipment Used L1 Reps/Minutes 15 Manual Therapy Treatment Soft Tissue Mobilization QL & ES R Body Location B Mobilization Type Rolling,Strumming Intensity/Depth Moderate Body Position Sidelying PT-OP-R Modalities Start: 08/17/18 18:53 Freq: Status: Active Protocol: Document 02/04/19 09:08 [facility] (Rec: 02/04/19 09:46 [facility] [id number]) Spinal Traction Traction Treatment Lumbar Method Mechanical Patient Position Hooklying Force Applied (Pounds) 60 Duration of Treatment (Minutes) 10 Heating Pad Applied No PT-OP-S Aquatic Treatment Start: 08/28/18 15:27 Freq: Status: Active Protocol: Document 12/14/18 11:45 [facility] (Rec: 12/14/18 15:08 [facility] [id number]) Aquatics Treatment Pool Entry/Exit Pool Entry/Exit Method Stairs Assistance Independent Water Walking Sideways Water Level Chest Level Walking Equipment Ankle Floats Comments ab/ad arms Monster Walk Water Level Chest Level Walking Equipment Resistance Fins [place] May Water Level Chest Level Walking Equipment Ankle Floats Comments diagonal and straight Backwards Water Level Chest Level Walking Equipment Ankle Floats Level of Assistance Standby Assistance,Verbal Cues Comments reverse breast stroke arms Forwards Water Level Chest Level Walking Equipment Ankle Floats Level of Assistance Standby Assistance,Verbal Cues Comments cues for posture and recrip gait pattern Lower Extremity Exercises hip figure 8 Details bilat Body Position Standing Water Level Chest Level Equipment Ankle Floats Reps/Duration 15 bilat Comments L internal rotation limited squats at wall Water Level Chest Level Comments cuing for mm activation sequence Hs curls Body Position Standing Water Level Chest Level Equipment Ankle Weight- 2.5# Reps/Duration 2x10 flex/ext, ab/ad Details at wall Water Level Chest Level Equipment Ankle Floats Reps/Duration 2x10 bilat Lower Extremity Stretches quads Details standing at wall Reps/Duration 2x45 SKTC bilat Details at wall Water Level Chest Level Reps/Duration 2 x 45 Comments with posterior pelvic tilt HS, ITB Details standing at wall Equipment Small Noodle Reps/Duration 2 x 45 Upper Extremity Exercises lat pull downs, presses Body Position Standing Water Level Chest Level Equipment UE paddles Comments 2x10 each flex/ext, ab/ad, horiz ab/ad Body Position Standing Water Level Chest Level Equipment UE paddles Reps/Duration 10 each Comments cues for core stabilization Spinal Exercises rotation with hand paddles Body Position Standing Water Level Chest Level Equipment UE paddles Reps/Duration 15 each direction Comments cuing for scap depression and activating obliques Falls Activities Falls Activities Bicycle,Cross Country Equipment lg belt Duration 15 PT-OP-T Assessment and Plan Start: 08/17/18 18:53 Freq: Status: Active Protocol: Document 02/04/19 09:08 [facility] (Rec: 02/04/19 09:46 [facility] [id number]) Physical Therapy Assessment Goals ROM Short Term Goal (STG) Pt will improve pain-free ROM in abduction to WNL with proper scapuluohumeral mechanics in order to increase pt ability to perform ADL's. STG Duration 01/29/19 Assisted Goal (LTG) Pt will improve pain-free ROM in all planes with proper scapulohumeral in order to improve ability to perform overhead ADL's without pain. LTG Duration 02/28/19 gait Assisted Goal (LTG) Pt will be able to amb 1 mile with no more than 2 point on 0 -10 pain scale increase. 10/05/18: goal progress 12/16- able to walk more functional distacnes without pain LTG Duration 01/27/2019 SRINATH Short Term Goal (STG) Pt will show an improvement in functional ability with improvement of SRINATH to 15/50. 10/05/18: goal progress STG Duration 09/17/18 Assisted Goal (LTG) Pt will show an improvement in functional ability with improvement of SRINATH to 10/50. 10/15/18- not tested today LTG Duration 01/28/19 strength Short Term Goal (STG) Pt will be indep with appropriate HEP & gym program in order to cont on his pain management & weight management safely. 10/05/18: goal progress STG Duration achieved with HEP, starting gym program next week Assisted Goal (LTG) Pt will score 4/5 LPM & 5/5 LE strength in order to demonstrate improved core control & improve his ability to do daily tasks. 10/15/18- strength not tested today 12/16-great improvement LTG Duration 01/27/2019 Assessment Summary Assessment Pt did much better with shoulder exercises today with very min cueing. He did require cuieng with standing abd and ext exercises for core stability. He did better with core exercises today but still requires cueing for form . Relief with traction Physical Therapy Plan Frequency and Duration Frequency of Treatment 2x/Week Duration of Treatment 2 months Plan of Care Start Date 12/29/18 Plan of Care End Date 02/28/19 Next Visit Focus/Plan Next Note Type Treatment Note Next Visit Plan Review core and progress as tolerated
--- NOTE | 2019-02-08 13:53 | PT.OTN ---
Current Diagnoses Intracardiac thrombosis, not elsewhere classified (02/08/19) Spinal stenosis, lumbar region without neurogenic claudication (02/08/19) Radiculopathy, lumbar region (02/08/19) Lumbago with sciatica, unspecified side (02/08/19) Impingement syndrome of right shoulder (02/08/19) Unspecified abnormalities of gait and mobility (02/08/19) Abnormal posture (02/08/19) Weakness (02/08/19) Encounter for therapeutic drug level monitoring (02/08/19) correction (current) use of anticoagulants (02/08/19) Physical Therapy Treatment Note PT-OP-A Visit Information Start: 08/17/18 18:53 Freq: Status: Active Protocol: Document 02/08/19 08:15 MT (Rec: 02/08/19 12:54 MT [id number]) Out-Patient Physical Therapy Visit Information Visit Information Visit Type Treatment Note Visit Start Time 08:15 Visit Stop Time 09:09 Total Visit Minutes 54 Visit Number 32 Number of AUTOMATIC SILK SCREEN PRINTER Visits 0 PT-OP-B Current Condition Start: 08/17/18 18:53 Freq: Status: Active Protocol: Document 12/29/18 14:30 MT (Rec: 12/29/18 17:39 MT [id number]) Current Condition History of Current Condition Current Complaints LBP and R shoulder pain History of Current Condition Pt reports 30 year history of back pain with a recent episode. 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 Pt reports he was walking to get the paper about 2 months ago and his R side gave out and pain went down leg and had to grab mailbox to stay up. THis is the first time it has gone down his leg. He went to a doctor who sent him to do PT. Pt reports he has B ant ankle pain that limits his mobility. Reports he has scoliosis. He has talked to doctor about doing traction because manual traction has helped in the past. Re-eval 12/29 R shoulder: pt reported that he went to an accupuncturist about a month ago. The accupuncturist told him his shoulder was out and moved it until he felt a clunk . Pt reports that his shoulder does exhibit a clunking sensation. The only motion that he is limited in is abduction due to pain. He reports that heat has been helping his pain and movement of the joint. His pain is made worse when sustaining prolonged positions. Prior Treatments and Tests PT on and off over the years; reports xrays; chiropractic in the past Future Testing and Treatments Planned Epidural possibly PT-OP-C Subjective Start: 08/17/18 18:53 Freq: Status: Active Protocol: Document 02/08/19 08:15 MT (Rec: 02/08/19 12:54 MT [id number]) OP-PT Subjective Patient Comments Patient Comments pt reported that his back went out yesterday. He doesn't know what he did, the only thing he did differently was go grocery shopping. He requested extra time with lumbar traction if possible as that makes his back feel good . PT-OP-F Manual Assessment Start: 08/17/18 18:53 Freq: Status: Active Protocol: Document 08/18/18 10:30 [facility] (Rec: 08/18/18 11:16 [facility] [id number]) Manual Assessments Soft Tissue Assessment Soft Tissue Mobility Assessment Tightness R paraspinals & QL & glutes R>L Joint Mobility Assessment Joint Mobility Assessment Iliac crest & R greater trochanter higher in standing; PT-OP-G Mobility & Gait Start: 08/17/18 18:53 Freq: Status: Active Protocol: Document 08/18/18 10:30 [facility] (Rec: 08/18/18 11:16 [facility] [id number]) OP Gait Assessment Comments Gait Comments Pt has lat leaning during push off with no ant elevation/ post depression PT-OP-J Posture/Palpation/Skin Start: 08/17/18 18:53 Freq: Status: Active Protocol: Document 12/29/18 14:30 [facility] (Rec: 12/29/18 18:17 [facility] [id number]) Palpation Assessment Location RLE Palpation Details Assessed R knee and foot-no tenderness to palpation, Some faded bruising present on tips of toes. PT-OP-K Range of Motion Start: 08/17/18 18:53 Freq: Status: Active Protocol: Document 12/29/18 14:30 [facility] (Rec: 12/29/18 14:47 [facility] [id number]) Shoulder Goniometric Range of Motion Shoulder Left Active Flexion 168 Extension 55 Abduction 152 External Rotation at 0 degrees Abduction 73 Internal Rotation Behind Back (text) T6 Right Active Flexion 144 Extension 55 Abduction 109 External Rotation at 0 degrees Abduction 90 Internal Rotation Behind Back (text) T9 PT-OP-L Special Tests Start: 08/17/18 18:53 Freq: Status: Active Protocol: Document 12/29/18 14:30 [facility] (Rec: 12/29/18 14:47 [facility] [id number]) Special Tests Shoulder Special Tests Colmenares Raimundo Impingement Test Results neg lift off Test Results neg Empty Can Test Results postive R PT-OP-M Strength Start: 08/17/18 18:53 Freq: Status: Active Protocol: Document 12/29/18 14:30 [facility] (Rec: 12/29/18 14:47 [facility] [id number]) Shoulder Strength Shoulder Manual Muscle Testing Left Flexion 5 Normal Extension 4+ Good+ Abduction (C5) 4+ Good+ External Rotation 5 Normal Internal Rotation 5 Normal Horizontal Abduction 5 Normal Horizontal Adduction 5 Normal Right Flexion 5 Normal Extension 5 Normal Abduction (C5) 4+ Good+ External Rotation 4+ Good+ Internal Rotation 5 Normal Horizontal Abduction 5 Normal Horizontal Adduction 4+ Good+ Comments pain w/horizontal abd PT-OP-Q Treatments Start: 08/17/18 18:53 Freq: Status: Active Protocol: Document 02/08/19 08:15 MT (Rec: 02/08/19 12:54 MT [id number]) Cardio Equipment Recumbent Stepper (Sci-Fit) Duration (Minutes) 5 Resistance 5 Seat Position 14 Therapeutic Exercises Supine Exercises SLR Supine Exercise Name single leg raise c TA tight Side bilateral Reps/Minutes 10 Comments focus on less pelvis movement bridge Equipment Used AROM Reps/Minutes 10 knee rockers Supine Exercise Name LTR Side bilateral Reps/Minutes 15 ea SKTC stretch Supine Exercise Name SKTC & knee to opposite chest piriformis stretch Side bilateral Reps/Minutes 30 sec ea TA c marches Side bilateral Reps/Minutes 15 Comments PPT positioning, slow control con/eccentric Therapeutic Activity Therapeutic Activity Lifting Mechanics Name Lifting mechanics Comments lifting mechanics training focused on maintaining neutral back and using hip hinge strategy and 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 Use of yard stick for tactile cueing to maintain neutral back. Performed in sitting and in standing. Self-Care/Home Management Treatment Education Patient Education Body Mechanics,Home Exercise Program,Joint Protection,Pain Management,Posture Other Education Education to pt reviewing importance of core strengthening and adherance to HEP. Reviewed importance of body mechanics in lifting and in eeryday activity. Reviewed ways for pt to manage pain with use of activity. PT-OP-R Modalities Start: 08/17/18 18:53 Freq: Status: Active Protocol: Document 02/08/19 08:15 MT (Rec: 02/08/19 12:54 MT [id number]) Spinal Traction Traction Treatment Lumbar Method Mechanical Patient Position Hooklying Force Applied (Pounds) 60 Duration of Treatment (Minutes) 15 Heating Pad Applied No PT-OP-S Aquatic Treatment Start: 08/28/18 15:27 Freq: Status: Active Protocol: Document 12/14/18 11:45 [facility] (Rec: 12/14/18 15:08 [facility] [id number]) Aquatics Treatment Pool Entry/Exit Pool Entry/Exit Method Stairs Assistance Independent Water Walking Sideways Water Level Chest Level Walking Equipment Ankle Floats Comments ab/ad arms Monster Walk Water Level Chest Level Walking Equipment Resistance Fins [place] May Water Level Chest Level Walking Equipment Ankle Floats Comments diagonal and straight Backwards Water Level Chest Level Walking Equipment Ankle Floats Level of Assistance Standby Assistance,Verbal Cues Comments reverse breast stroke arms Forwards Water Level Chest Level Walking Equipment Ankle Floats Level of Assistance Standby Assistance,Verbal Cues Comments cues for posture and recrip gait pattern Lower Extremity Exercises hip figure 8 Details bilat Body Position Standing Water Level Chest Level Equipment Ankle Floats Reps/Duration 15 bilat Comments L internal rotation limited squats at wall Water Level Chest Level Comments cuing for mm activation sequence Hs curls Body Position Standing Water Level Chest Level Equipment Ankle Weight- 2.5# Reps/Duration 2x10 flex/ext, ab/ad Details at wall Water Level Chest Level Equipment Ankle Floats Reps/Duration 2x10 bilat Lower Extremity Stretches quads Details standing at wall Reps/Duration 2x45 SKTC bilat Details at wall Water Level Chest Level Reps/Duration 2 x 45 Comments with posterior pelvic tilt HS, ITB Details standing at wall Equipment Small Noodle Reps/Duration 2 x 45 Upper Extremity Exercises lat pull downs, presses Body Position Standing Water Level Chest Level Equipment UE paddles Comments 2x10 each flex/ext, ab/ad, horiz ab/ad Body Position Standing Water Level Chest Level Equipment UE paddles Reps/Duration 10 each Comments cues for core stabilization Spinal Exercises rotation with hand paddles Body Position Standing Water Level Chest Level Equipment UE paddles Reps/Duration 15 each direction Comments cuing for scap depression and activating obliques Bruce Activities Bruce Activities Bicycle,Cross Country Equipment lg belt Duration 15 PT-OP-T Assessment and Plan Start: 08/17/18 18:53 Freq: Status: Active Protocol: Document 02/08/19 08:15 MT (Rec: 02/08/19 12:54 MT [id number]) Physical Therapy Assessment Goals ROM Short Term Goal (STG) Pt will improve pain-free ROM in abduction to WNL with proper scapuluohumeral mechanics in order to increase pt ability to perform ADL's. STG Duration 01/29/19 Parasitology Teacher Goal (LTG) Pt will improve pain-free ROM in all planes with proper scapulohumeral in order to improve ability to perform overhead ADL's without pain. LTG Duration 02/28/19 gait Parasitology Teacher Goal (LTG) Pt will be able to amb 1 mile with no more than 2 point on 0 -10 pain scale increase. 10/05/18: goal progress 12/16- able to walk more functional distacnes without pain LTG Duration 01/27/2019 SRINATH Short Term Goal (STG) Pt will show an improvement in functional ability with improvement of SRINATH to 15/50. 10/05/18: goal progress STG Duration 09/17/18 [facility] Goal (LTG) Pt will show an improvement in functional ability with improvement of SRINATH to 10/50. 10/15/18- not tested today LTG Duration 01/28/19 strength Short Term Goal (STG) Pt will be indep with appropriate HEP & gym program in order to cont on his pain management & weight management safely. 10/05/18: goal progress STG Duration achieved with HEP, starting gym program next week [facility] Goal (LTG) Pt will score 4/5 LPM & 5/5 LE strength in order to demonstrate improved core control & improve his ability to do daily tasks. 10/15/18- strength not tested today 12/16-great improvement LTG Duration 01/27/2019 Assessment Summary Assessment Pt struggled to perform lifting object while maintaining neutral back position. Pt was educated to pay attention to daily instances that he uses his back to lift things and to try to incorporate hip hinge and knee bending more. Pt needs repeated explanation of exercises adn why doing core exercise is benefiucial for his back pain. Discussed with pt that since it is his last week he will need to hold himself accountable to do his exercises. Physical Therapy Plan Frequency and Duration Frequency of Treatment 2x/Week Duration of Treatment 2 months Plan of Care Start Date 12/29/18 Plan of Care End Date 02/28/19 Next Visit Focus/Plan Next Note Type Discharge Summary Next Visit Plan Review core exercises for HEP and lifting mechanics with hip hinging, mechanical traction as needed
--- NOTE | 2019-02-10 09:05 | PT.OTN ---
Current Diagnoses Intracardiac thrombosis, not elsewhere classified (02/10/19) Spinal stenosis, lumbar region without neurogenic claudication (02/10/19) Radiculopathy, lumbar region (02/10/19) Lumbago with sciatica, unspecified side (02/10/19) Impingement syndrome of right shoulder (02/10/19) Unspecified abnormalities of gait and mobility (02/10/19) Abnormal posture (02/10/19) Weakness (02/10/19) Encounter for therapeutic drug level monitoring (02/10/19) correction (current) use of anticoagulants (02/10/19) Physical Therapy Treatment Note PT-OP-A Visit Information Start: 08/17/18 18:53 Freq: Status: Active Protocol: Document 02/10/19 08:15 SP (Rec: 02/10/19 09:00 SP [id number]) Out-Patient Physical Therapy Visit Information Visit Information Visit Type Treatment Note Visit Start Time 08:15 Visit Stop Time 09:05 Total Visit Minutes 50 Visit Number 33 Number of ALTITUDE CHAMBER TECHNICIAN Visits 1 PT-OP-B Current Condition Start: 08/17/18 18:53 Freq: Status: Active Protocol: Document 12/29/18 14:30 MT (Rec: 12/29/18 17:39 MT [id number]) Current Condition History of Current Condition Current Complaints LBP and R shoulder pain History of Current Condition Pt reports 30 year history of back pain with a recent episode. 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 Pt reports he was walking to get the paper about 2 months ago and his R side gave out and pain went down leg and had to grab mailbox to stay up. THis is the first time it has gone down his leg. He went to a doctor who sent him to do PT. Pt reports he has B ant ankle pain that limits his mobility. Reports he has scoliosis. He has talked to doctor about doing traction because manual traction has helped in the past. Re-eval 12/29 R shoulder: pt reported that he went to an accupuncturist about a month ago. The accupuncturist told him his shoulder was out and moved it until he felt a clunk . Pt reports that his shoulder does exhibit a clunking sensation. The only motion that he is limited in is abduction due to pain. He reports that heat has been helping his pain and movement of the joint. His pain is made worse when sustaining prolonged positions. Prior Treatments and Tests PT on and off over the years; reports xrays; chiropractic in the past Future Testing and Treatments Planned Epidural possibly PT-OP-C Subjective Start: 08/17/18 18:53 Freq: Status: Active Protocol: Document 02/10/19 08:15 SP (Rec: 02/10/19 09:00 SP [id number]) OP-PT Subjective Patient Comments Patient Comments Pt reports LBP 12/24 that is radiating down R LE pre PT, has been up since 1 am PT-OP-F Manual Assessment Start: 08/17/18 18:53 Freq: Status: Active Protocol: Document 08/18/18 10:30 LR (Rec: 08/18/18 11:16 [facility] [id number]) Manual Assessments Soft Tissue Assessment Soft Tissue Mobility Assessment Tightness R paraspinals & QL & glutes R>L Joint Mobility Assessment Joint Mobility Assessment Iliac crest & R greater trochanter higher in standing; PT-OP-G Mobility & Gait Start: 08/17/18 18:53 Freq: Status: Active Protocol: Document 08/18/18 10:30 LR (Rec: 08/18/18 11:16 [facility] [id number]) OP Gait Assessment Comments Gait Comments Pt has lat leaning during push off with no ant elevation/ post depression PT-OP-J Posture/Palpation/Skin Start: 08/17/18 18:53 Freq: Status: Active Protocol: Document 12/29/18 14:30 [facility] (Rec: 12/29/18 18:17 [facility] [id number]) Palpation Assessment Location RLE Palpation Details Assessed R knee and foot-no tenderness to palpation, Some faded bruising present on tips of toes. PT-OP-K Range of Motion Start: 08/17/18 18:53 Freq: Status: Active Protocol: Document 12/29/18 14:30 [facility] (Rec: 12/29/18 14:47 [facility] [id number]) Shoulder Goniometric Range of Motion Shoulder Left Active Flexion 168 Extension 55 Abduction 152 External Rotation at 0 degrees Abduction 73 Internal Rotation Behind Back (text) T6 Right Active Flexion 144 Extension 55 Abduction 109 External Rotation at 0 degrees Abduction 90 Internal Rotation Behind Back (text) T9 PT-OP-L Special Tests Start: 08/17/18 18:53 Freq: Status: Active Protocol: Document 12/29/18 14:30 [facility] (Rec: 12/29/18 14:47 [facility] [id number]) Special Tests Shoulder Special Tests Colmenares Raimundo Impingement Test Results neg lift off Test Results neg Empty Can Test Results postive R PT-OP-M Strength Start: 08/17/18 18:53 Freq: Status: Active Protocol: Document 12/29/18 14:30 [facility] (Rec: 12/29/18 14:47 [facility] [id number]) Shoulder Strength Shoulder Manual Muscle Testing Left Flexion 5 Normal Extension 4+ Good+ Abduction (C5) 4+ Good+ External Rotation 5 Normal Internal Rotation 5 Normal Horizontal Abduction 5 Normal Horizontal Adduction 5 Normal Right Flexion 5 Normal Extension 5 Normal Abduction (C5) 4+ Good+ External Rotation 4+ Good+ Internal Rotation 5 Normal Horizontal Abduction 5 Normal Horizontal Adduction 4+ Good+ Comments pain w/horizontal abd PT-OP-Q Treatments Start: 08/17/18 18:53 Freq: Status: Active Protocol: Document 02/10/19 08:15 SP (Rec: 02/10/19 09:00 SP [id number]) Therapeutic Exercises Supine Exercises SLR Supine Exercise Name single leg raise c TA tight Side bilateral Reps/Minutes 10 Comments focus on less pelvis movement bridge Equipment Used AROM Reps/Minutes 15 Comments Cued PPT with slow pacing concentric/eccentric knee rockers Supine Exercise Name LTR Side bilateral Reps/Minutes 15 ea Comments slow pacing control, hands on pelvis TA c marches Side bilateral Reps/Minutes 15 Comments PPT positioning, slow control con/eccentric pelvic tilt Supine Exercise Name post Reps/Minutes 5 sec hold x15 Comments neutral spine Standing Exercises standing LS stretch Standing Exercise Name hip hinge grasp sink/ doorknob Side bilateral Equipment Used sink Reps/Minutes 30 x3 Comments cued relax back with solid graps to strethc LB standing hip hinge Standing Exercise Name hip hinge into mini squat Equipment Used mirror, dowel along spine Reps/Minutes x10 Comments cued proper body mechanics PT-OP-R Modalities Start: 08/17/18 18:53 Freq: Status: Active Protocol: Document 02/10/19 08:15 SP (Rec: 02/10/19 09:00 SP [id number]) Spinal Traction Traction Treatment Lumbar Method Mechanical Patient Position Hooklying Force Applied (Pounds) 60 Duration of Treatment (Minutes) 15 Heating Pad Applied No Traction Treatment Comment Urvashi PT-OP-S Aquatic Treatment Start: 08/28/18 15:27 Freq: Status: Active Protocol: Document 12/14/18 11:45 LJ (Rec: 12/14/18 15:08 LJ [id number]) Aquatics Treatment Pool Entry/Exit Pool Entry/Exit Method Stairs Assistance Independent Water Walking Sideways Water Level Chest Level Walking Equipment Ankle Floats Comments ab/ad arms Monster Walk Water Level Chest Level Walking Equipment Resistance Fins Wing May Water Level Chest Level Walking Equipment Ankle Floats Comments diagonal and straight Backwards Water Level Chest Level Walking Equipment Ankle Floats Level of Assistance Standby Assistance,Verbal Cues Comments reverse breast stroke arms Forwards Water Level Chest Level Walking Equipment Ankle Floats Level of Assistance Standby Assistance,Verbal Cues Comments cues for posture and recrip gait pattern Lower Extremity Exercises hip figure 8 Details bilat Body Position Standing Water Level Chest Level Equipment Ankle Floats Reps/Duration 15 bilat Comments L internal rotation limited squats at wall Water Level Chest Level Comments cuing for mm activation sequence Hs curls Body Position Standing Water Level Chest Level Equipment Ankle Weight- 2.5# Reps/Duration 2x10 flex/ext, ab/ad Details at wall Water Level Chest Level Equipment Ankle Floats Reps/Duration 2x10 bilat Lower Extremity Stretches quads Details standing at wall Reps/Duration 2x45 SKTC bilat Details at wall Water Level Chest Level Reps/Duration 2 x 45 Comments with posterior pelvic tilt HS, ITB Details standing at wall Equipment Small Noodle Reps/Duration 2 x 45 Upper Extremity Exercises lat pull downs, presses Body Position Standing Water Level Chest Level Equipment UE paddles Comments 2x10 each flex/ext, ab/ad, horiz ab/ad Body Position Standing Water Level Chest Level Equipment UE paddles Reps/Duration 10 each Comments cues for core stabilization Spinal Exercises rotation with hand paddles Body Position Standing Water Level Chest Level Equipment UE paddles Reps/Duration 15 each direction Comments cuing for scap depression and activating obliques Cottonwood Activities Cottonwood Activities Bicycle,Cross Country Equipment lg belt Duration 15 PT-OP-T Assessment and Plan Start: 08/17/18 18:53 Freq: Status: Active Protocol: Document 02/10/19 08:15 SP (Rec: 02/10/19 09:00 SP [id number]) Physical Therapy Assessment Goals ROM Short Term Goal (STG) Pt will improve pain-free ROM in abduction to WNL with proper scapuluohumeral mechanics in order to increase pt ability to perform ADL's. STG Duration 01/29/19 Intermediate Goal (LTG) Pt will improve pain-free ROM in all planes with proper scapulohumeral in order to improve ability to perform overhead ADL's without pain. LTG Duration 02/28/19 gait Intermediate Goal (LTG) Pt will be able to amb 1 mile with no more than 2 point on 0 -10 pain scale increase. 10/05/18: goal progress 12/16- able to walk more functional distacnes without pain LTG Duration 01/27/2019 SRINATH Short Term Goal (STG) Pt will show an improvement in functional ability with improvement of SRINATH to 15/50. 10/05/18: goal progress STG Duration 09/17/18 Fishing Guide Goal (LTG) Pt will show an improvement in functional ability with improvement of SRINATH to 10/50. 10/15/18- not tested today LTG Duration 01/28/19 strength Short Term Goal (STG) Pt will be indep with appropriate HEP & gym program in order to cont on his pain management & weight management safely. 10/05/18: goal progress STG Duration achieved with HEP, starting gym program next week Fishing Guide Goal (LTG) Pt will score 4/5 LPM & 5/5 LE strength in order to demonstrate improved core control & improve his ability to do daily tasks. 10/15/18- strength not tested today 12/16-great improvement LTG Duration 01/27/2019 Assessment Summary Assessment Tx focused on HEP: demonstrated improvement in spinal alignment proper form using dowel during hip hinge initially then incorporate mini squat and full length mirror for self feedback for proper form to get objects off grocery shelf and refrigerator, tolerates x5 before has to stop rest secondary to LBP provided cuing for PPT for core activation support. Pt had good recall to HEP, needed intermittent cuing for slow pacing PPT control and hands on pelvis for self feedback during exercises for increased stability with improvement. Pt reported pain LS decreased to 6/10 from 10 /10 pre PT post ex. He requested LS traction end of tx due to gets alot of relief end of tx with this modality. Provided added Guillermo stretch today and LS hip hinge stretch with positive feedback (handout provided). Physical Therapy Plan Frequency and Duration Frequency of Treatment 2x/Week Duration of Treatment 2 months Plan of Care Start Date 12/29/18 Plan of Care End Date 02/28/19 Therapeutic Interventions Therapeutic Interventions Aquatic Therapy,Balance Training,Coordination Training ,Gait Training,Home Exercise Program,Joint Mobilizations, Manual Therapy,Neuromuscular Re-education,Patient/Caregiver Education,Self-Care/Home Management,Soft Tissue Mobilization,Taping, Therapeutic Activities, Therapeutic Exercises Modalities Cold Pack/Ice Massage,Electric Stimulation,Hot Packs, Infrared Therapy,Iontophoresis ,Traction- Mechanical, Ultrasound Next Visit Focus/Plan Next Note Type Discharge Summary Next Visit Plan Review core exercises for HEP and lifting mechanics with hip hinging, mechanical traction as needed
--- NOTE | 2019-02-10 13:18 | PT.OPDS ---
Current Diagnoses Intracardiac thrombosis, not elsewhere classified (02/10/19) Spinal stenosis, lumbar region without neurogenic claudication (02/10/19) Radiculopathy, lumbar region (02/10/19) Lumbago with sciatica, unspecified side (02/10/19) Impingement syndrome of right shoulder (02/10/19) Unspecified abnormalities of gait and mobility (02/10/19) Abnormal posture (02/10/19) Weakness (02/10/19) Encounter for therapeutic drug level monitoring (02/10/19) prison (current) use of anticoagulants (02/10/19) Visit Care Team Role Provider Type Salome Kee Attending Provider Non-Staff Specialty: Physical Medicine and Rehab Address: [address] [place] [address], [place], [place], [facility] Email: Visit Number Visit Number 33 Discharge Summary PT-OP-B Current Condition Start: 08/17/18 18:53 Freq: Status: Active Protocol: Document 12/29/18 14:30 MT (Rec: 12/29/18 17:39 MT [id number]) Current Condition History of Current Condition Current Complaints LBP and R shoulder pain History of Current Condition Pt reports 30 year history of back pain with a recent episode. 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 Pt reports he was walking to get the paper about 2 months ago and his R side gave out and pain went down leg and had to grab mailbox to stay up. THis is the first time it has gone down his leg. He went to a doctor who sent him to do PT. Pt reports he has B ant ankle pain that limits his mobility. Reports he has scoliosis. He has talked to doctor about doing traction because manual traction has helped in the past. Re-eval 12/29 R shoulder: pt reported that he went to an accupuncturist about a month ago. The accupuncturist told him his shoulder was out and moved it until he felt a clunk . Pt reports that his shoulder does exhibit a clunking sensation. The only motion that he is limited in is abduction due to pain. He reports that heat has been helping his pain and movement of the joint. His pain is made worse when sustaining prolonged positions. Prior Treatments and Tests PT on and off over the years; reports xrays; chiropractic in the past Future Testing and Treatments Planned Epidural possibly PT-OP-C Subjective Start: 08/17/18 18:53 Freq: Status: Active Protocol: Document 02/10/19 08:15 SP (Rec: 02/10/19 09:00 SP [id number]) OP-PT Subjective Patient Comments Patient Comments Pt reports LBP 12/24 that is radiating down R LE pre PT, has been up since 1 am PT-OP-F Manual Assessment Start: 08/17/18 18:53 Freq: Status: Active Protocol: Document 08/18/18 10:30 LR (Rec: 08/18/18 11:16 [facility] [id number]) Manual Assessments Soft Tissue Assessment Soft Tissue Mobility Assessment Tightness R paraspinals & QL & glutes R>L Joint Mobility Assessment Joint Mobility Assessment Iliac crest & R greater trochanter higher in standing; PT-OP-G Mobility & Gait Start: 08/17/18 18:53 Freq: Status: Active Protocol: Document 08/18/18 10:30 LR (Rec: 08/18/18 11:16 [facility] [id number]) OP Gait Assessment Comments Gait Comments Pt has lat leaning during push off with no ant elevation/ post depression PT-OP-J Posture/Palpation/Skin Start: 08/17/18 18:53 Freq: Status: Active Protocol: Document 12/29/18 14:30 LR (Rec: 12/29/18 18:17 [facility] [id number]) Palpation Assessment Location RLE Palpation Details Assessed R knee and foot-no tenderness to palpation, Some faded bruising present on tips of toes. PT-OP-K Range of Motion Start: 08/17/18 18:53 Freq: Status: Active Protocol: Document 12/29/18 14:30 LR (Rec: 12/29/18 14:47 [facility] [id number]) Shoulder Goniometric Range of Motion Shoulder Left Active Flexion 168 Extension 55 Abduction 152 External Rotation at 0 degrees Abduction 73 Internal Rotation Behind Back (text) T6 Right Active Flexion 144 Extension 55 Abduction 109 External Rotation at 0 degrees Abduction 90 Internal Rotation Behind Back (text) T9 PT-OP-L Special Tests Start: 08/17/18 18:53 Freq: Status: Active Protocol: Document 12/29/18 14:30 LR (Rec: 12/29/18 14:47 [facility] [id number]) Special Tests Shoulder Special Tests Colmenares Raimundo Impingement Test Results neg lift off Test Results neg Empty Can Test Results postive R PT-OP-M Strength Start: 08/17/18 18:53 Freq: Status: Active Protocol: Document 12/29/18 14:30 [facility] (Rec: 12/29/18 14:47 [facility] [id number]) Shoulder Strength Shoulder Manual Muscle Testing Left Flexion 5 Normal Extension 4+ Good+ Abduction (C5) 4+ Good+ External Rotation 5 Normal Internal Rotation 5 Normal Horizontal Abduction 5 Normal Horizontal Adduction 5 Normal Right Flexion 5 Normal Extension 5 Normal Abduction (C5) 4+ Good+ External Rotation 4+ Good+ Internal Rotation 5 Normal Horizontal Abduction 5 Normal Horizontal Adduction 4+ Good+ Comments pain w/horizontal abd PT-OP-T Assessment and Plan Start: 08/17/18 18:53 Freq: Status: Active Protocol: Document 02/10/19 13:11 [facility] (Rec: 02/10/19 13:18 [facility] [id number]) Physical Therapy Assessment Goals ROM Short Term Goal (STG) Pt will improve pain-free ROM in abduction to WNL with proper scapuluohumeral mechanics in order to increase pt ability to perform ADL's. STG Duration achieved Heat Treater Head Goal (LTG) Pt will improve pain-free ROM in all planes with proper scapulohumeral in order to improve ability to perform overhead ADL's without pain. LTG Duration achieved gait Fpc Goal (LTG) Pt will be able to amb 1 mile with no more than 2 point on 0 -10 pain scale increase. 10/05/18: goal progress 12/16- able to walk more functional distacnes without pain LTG Duration 01/27/2019 SRINATH Short Term Goal (STG) Pt will show an improvement in functional ability with improvement of SRINATH to 15/50. 10/05/18: goal progress STG Duration 09/17/18 Heat Treater Head Goal (LTG) Pt will show an improvement in functional ability with improvement of SRINATH to 10/50. 10/15/18- not tested today LTG Duration 01/28/19 strength Short Term Goal (STG) Pt will be indep with appropriate HEP & gym program in order to cont on his pain management & weight management safely. 10/05/18: goal progress STG Duration achieved with HEP, starting gym program next week Heat Treater Head Goal (LTG) Pt will score 4/5 LPM & 5/5 LE strength in order to demonstrate improved core control & improve his ability to do daily tasks. 10/15/18- strength not tested today 12/16-great improvement LTG Duration 01/27/2019 Assessment Summary Assessment Pt made indep with HEP with min cueing for pace & lumbar neutral and focus on last 2 sessions were to improve spinal alignment with daily tasks and lifting which was difficult for pt. He made progress with strength and ROM of back and shoulder throughout therapy but at this time has plateued. He has not been walking recenlty and was encouragd to gradually start working his way up with it again. Physical Therapy Plan Discharge Physical Therapy Discharge Reasons Plateau in Progress
== END 2019-02-10 11:00 ==
LOC: PHYS 08:15
PROVIDERS: Visit Provider Physical Medicine & Rehabilitation Pain Medicine
DX: M54.40 Lumbago with sciatica, unspecified side (principal); M48.061 Spinal stenosis, lumbar region without neurogenic claudication; M54.16 Radiculopathy, lumbar region; R26.9 Unspecified abnormalities of gait and mobility; I51.3 Intracardiac thrombosis, not elsewhere classified; Z51.81 Encounter for therapeutic drug level monitoring; Z79.01 Long term (current) use of anticoagulants; R53.1 Weakness; R29.3 Abnormal posture; M75.41 Impingement syndrome of right shoulder
CPT/HCPCS: 97010; 97012; 97110; 97112; 97113; 97140; 97162; 97164; 97530; 97535

== ENCOUNTER 2019-02-17 11:30 | Emergency (ER) | payer MEDICARE, SELFPAY ==
[2019-02-17] VITALS (8 sets, daily range): BP systolic 143–160; BP diastolic 63–81; PULSE 71–83; RESP 13–24; TEMP 37.3; O2SAT 95–97; BMI 32.5
--- NOTE | 2019-02-17 11:39 | DI.RAD.S_ITS ---
PROCEDURE: XR CHEST 2V INDICATIONS: shortness of breath TECHNIQUE: 2 views of the chest were acquired. COMPARISON: [facility], CR, XR CHEST 1V, 08/04/2018, 16:53. [facility], CR, XR CHEST 1V, 09/19/2018, 12:06. FINDINGS: Surgical changes and devices: There is a cardiac pacemaker with leads in appropriate position. Sternotomy and CABG. Lungs and pleura: Mildly increased pulmonary vascularity. Small left pleural effusion or pleural thickening. No pneumothorax. Mediastinum: Mediastinal contours are normal. Heart size is normal. Bones and chest wall: No suspicious bony abnormalities. Soft tissues appear unremarkable. IMPRESSION: 1. Mildly increased pulmonary vascularity suggesting CHF. 2. Small left effusion versus pleural thickening. Dictated by: Mayo Fernández M.D. on 02/17/2019 at 11:48 Approved by: Mayo Fernández M.D. on 02/17/2019 at 11:54
--- NOTE | 2019-02-17 13:25 | PC.NURSE ---
Pt arrives after receiving call from PCP telling him to go to the ED for low iron and really bad anemia. Pt denies SOB. speaking in full sentences. 97% RA. denies CP. reports h/o CABG x 2 and takes warfarin as prescribed. IV placed and labs drawn including lactate and T&S. pt received CXR and EKG. Resting in bed on cardiac monitoring. NAD. Awaiting further orders.
[2019-02-17 13:27] LABS: Add Manual Diff / Slide Review NO; Basophils Absolute Auto 0 /uL (0-100); Basophils Percent Auto 0.4 % (0-2); Eosinophils Absolute Auto 200 /uL (0-450); Eosinophils Percent Auto 3.4 % (2-4); Hematocrit 26.1 % (41-53); Hemoglobin 8.4 g/dL (13.5-17.5); Lymphocytes Absolute Auto 700 /uL (1100-4500); Lymphocytes Percent Auto 12.5 % (25-40); Mean Corpuscular HGB Conc 32.3 % (30-36); Mean Corpuscular Hemoglobin 27.9 PG (26-34); Mean Corpuscular Volume 86.3 fL (80-100); Monocytes Absolute Auto 400 /uL (0-900); Monocytes Percent Auto 7.1 % (3-14); Neutrophils Absolute Auto 4200 /uL (1500-7000); Neutrophils Percent Auto 76.6 % (50-75); Platelet Count 282 X10^3/uL (150-400); Red Blood Cell Count 3.03 X10^6/uL (4.5-5.9); Red Cell Distribution Width 17.1 % (11.6-14.8); White Blood Cell Count 5.5 X10^3/uL (4.5-11.0)
[2019-02-17 13:38] LABS: Lactate (Lactic Acid) 0.7 mmol/L (0.7-2.1)
[2019-02-17 13:39] LABS: Alanine Aminotransferase 19 IU/L (<50); Albumin 3.9 g/dL (3.5-5.0); Albumin Globulin Ratio 1.6 (1.0-2.8); Alkaline Phosphatase 94 U/L (38-126); Aspartate Aminotransferase 26 IU/L (17-59); BUN Creatinine Ratio 25.6 (6-22); Bilirubin Total 0.6 mg/dL (0.2-1.3); Blood Urea Nitrogen 23 mg/dL (9-20); Calcium 8.8 mg/dL (8.4-10.2); Carbon Dioxide 26 mmol/L (22-32); Chloride 106 mmol/L (98-107); Estimated Glomerular Filt Rate > 60.0 mL/min (>60); Globulin 2.5 g/dL (1.7-4.1); Glucose 102 mg/dL (80-110); HEMOLYSIS < 15 (0-50); Potassium 4.3 mmol/L (3.4-5.1); Sodium 137 mmol/L (137-145); Total Protein 6.4 g/dL (6.3-8.2)
--- NOTE | 2019-02-17 13:39 | ED_ITS ---
HPI - SOB/Dyspnea General Chief Complaint: Shortness of Breath/Dyspnea Stated Complaint: anemic Time Seen by Provider: 02/17/19 11:42 Source: patient Mode of arrival: Ambulatory History of Present Illness HPI Narrative: Patient comes emergency department complaining possibly ?low blood?. He states that he actually has been feeling quite fine with the exception of occasional shortness of breath, but that he was seen by his primary doctor in [place] for a checkup yesterday, and that he was called this morning and told that his red blood cells are very low and he needs to come to the emergency department. Patient denies shortness of breath. No pallor that he has noticed. No black stools or gross blood in his stools. No abdominal pain. no easy bleeding or bruising. Patient is not on anticoagulation other than aspirin. He states that prior to his heart surgery, he was given an iron infusion, so he believes he has been anemic in the past, but has never needed a transfusion. No other complaints at this time. Related Data Home Medications Medication Instructions Recorded Confirmed Lactobac #2-Bifido #1-S. therm 1 cap PO DAILY 08/04/18 08/04/18 112.5 billion cell capsule acetaminophen 325 mg capsule 325 mg PO Q6H PRN 08/04/18 08/04/18 albuterol sulfate 90 mcg/actuation 2 puff INHALATION Q6H PRN 08/04/18 02/17/19 aerosol inhaler amlodipine 10 mg tablet 10 mg PO DAILY 08/04/18 02/17/19 aspirin 81 mg tablet,delayed 81 mg PO DAILY 08/04/18 08/04/18 release atorvastatin 40 mg tablet 40 mg PO DAILY 08/04/18 02/17/19 colchicine 0.6 mg tablet 0.6 mg PO DAILY 08/04/18 02/17/19 duloxetine 60 mg capsule,delayed 60 mg PO BID 08/04/18 08/04/18 release furosemide 20 mg tablet 20 mg PO DAILY 08/04/18 02/17/19 gabapentin 300 mg capsule 300 - 1,200 mg PO BEDTIME PRN 08/04/18 02/17/19 metoprolol succinate 50 mg capsule 50 mg PO QID 08/04/18 02/17/19 sprinkle, ext. release 24 hr pantoprazole 40 mg granules 40 mg PO DAILY 08/04/18 02/17/19 delayed-release for susp in packet potassium chloride 10 mEq 10 meq PO DAILY 08/04/18 02/17/19 capsule,extended release sildenafil 50 mg tablet 50 mg PO DAILY PRN 08/04/18 02/17/19 spironolactone 25 mg tablet 25 mg PO DAILY 08/04/18 02/17/19 tadalafil 5 mg tablet 5 mg PO DAILY 08/04/18 02/17/19 tiotropium bromide 18 mcg capsule 1 cap INHALATION DAILY 08/04/18 02/17/19 with inhalation device warfarin 3 mg tablet 3 mg PO DAILY 08/04/18 08/04/18 oxycodone-acetaminophen 1 - 2 tab PO Q4-6H PRN MDD 6 tabs 02/17/19 02/17/19 pantoprazole 40 mg PO DAILY 02/17/19 02/17/19 warfarin 6 - 7.5 mg PO DAILY 02/17/19 zolpidem 10 mg PO BEDTIME PRN 02/17/19 02/17/19 Previous Rx's Medication Instructions Recorded gabapentin 600 mg tablet 600 mg PO TID #90 tab 01/13/19 docusate sodium [Colace] 100 mg PO BID #90 cap 02/17/19 ferrous sulfate 325 mg PO BID #90 tab 02/17/19 Allergies Allergy/AdvReac Type Severity Reaction Status Date / Time No Known Drug Allergies Allergy Verified 02/17/19 11:37 Review of Systems Constitutional Constitutional: Denies chills, Denies fatigue, Denies fever(s), Denies frequent falls, Denies lethargy and Denies weakness Eyes Eyes: Denies change in vision, Denies eye discharge, Denies irritation and Denies loss of vision ENT Ears, Nose, Mouth, and Throat: Denies change in voice, Denies dizziness, Denies neck pain, Denies sore throat and Denies throat swelling Cardiovascular Cardiovascular: Denies chest pain, Denies irregular heart rhythm, Denies lightheadedness, Denies palpitations, Reports dyspnea on exertion (Slight) and Denies orthopnea Respiratory Respiratory: Denies cough, Reports dyspnea on exertion (Slight) and Denies wheezing Gastrointestinal Gastrointestinal: Denies abdominal pain, Denies change in bowel habits, Denies diarrhea, Denies nausea and Denies vomiting Genitourinary Genitourinary: Denies hematuria, Denies flank pain, Denies urinary incontinence and Denies urinary urgency Musculoskeletal Musculoskeletal: Denies back pain, Denies muscle weakness, Denies neck pain, Denies numbness and Denies tingling Integumentary/Breasts Skin/Breast: Denies pruritus, Denies erythema, Denies rash and Denies wounds Neurologic Neurologic: Denies behavioral changes, Denies confusion, Denies dizziness, Denies frequent falls, Denies loss of vision, Denies numbness, Denies tingling and Denies weakness Psychiatric Psychiatric: Denies anxiety, Denies behavioral changes, Denies confusion, Denies depression, Denies homicidal ideation and Denies suicidal ideation Endocrine Endocrine: Denies fatigue, Denies flushing and Denies palpitations Hematologic/Lymphatic Hematologic/Lymphatic: Denies easy bruising Allergic/Immunologic Allergic/Immunologic: Denies urticaria, Denies throat swelling and Denies w heezing Patient History Medical History Chronic dislocation of right shoulder (Acute) Coronary artery disease (Acute) Hypertension (Acute) Lumbosacral spondylosis with radiculopathy (Acute) Pacemaker (Chronic) Scoliosis due to degenerative disease of spine in adult patient (Acute) Surgical History H/O aortic valve replacement (Acute) H/O aortic valve replacement (Acute) History of bilateral knee replacement (Acute) Social History Smoking Status: Former smoker alcohol intake frequency: 0-2 drinks per day Substance Use Type: does not use Exam Initial Vital Signs Initial Vital Signs: Vital Signs Temperature 99.2 F 02/17/19 11:37 Pulse Rate 83 02/17/19 11:37 Respiratory Rate 22 02/17/19 11:37 Blood Pressure 160/81 H 02/17/19 11:37 Pulse Oximetry 96 02/17/19 11:37 Const General: cooperative and well developed Nutritional Appearance: well nourished Orientation: alert, awake, oriented x3 and not confused [facility] Head: normocephalic and atraumatic Ears: external ears normal Nose: external nose normal and No nasal discharge Face and sinus: face symmetric and No dry mucous membranes Mouth: oral mucosae normal and moist mucous membranes Teeth and gingiva: dentition normal Eyes General: appearance normal, both eyes and all related structures Eyelids: eyelids normal Conjunctivae: conjunctivae normal Sclera: sclerae normal Pupils: PERRL EOM: EOM intact bilaterally Neck Neck: normal visual inspection, trachea midline, No lymphadenopathy, No midline deformity and No JVD Lymphatic: No lymphedema Chest Chest: normal inspection of the chest Resp Effort & Inspection: normal respiratory effort, able to speak in complete [place], no respiratory distress and no use of accessory muscles Auscultation: clear to auscultation bilaterally, no rales, no rhonchi and no wheezes Cardio Rate: regular rate Rhythm: regular rhythm Heart Sounds: no click, no gallops, no murmurs and no rubs Pulses: normal peripheral pulses GI Inspection: non-distended Palpation: soft, no hepatosplenomegaly, No guarding, No pulsatile mass and No tender Auscultation: normal bowel sounds Back/Spine/Pelvis Back: No CVA tenderness Cervical Spine: cervical ROM normal and No pain with cervical ROM Thoracic/Lumbar Spine: thoracic and lumbar spine normal to inspection Skin General: no rashes or lesions noted, No jaundice and No petechiae Neuro General: alert, oriented x3, gait normal and no focal motor deficits Speech: speech normal Extrem General: full ROM, no clubbing, cyanosis or edema, no pedal edema and no calf tenderness Psych Appearance: well kempt Mental Status: mental status grossly normal Attitude: cooperative Thought Content: normal and suicidality Judgment: judgment good Course Course Course Narrative: Patient was worked up with laboratory studies and EKG. The patient's hemoglobin was found to be 8.4 with hematocrit 26.1. The most recent we had for the patient was in early September, approximately 5 months ago, and at that time his hemoglobin was 11.7. The patient was asymptomatic, and it was not clear over exactly what period of time the anemia had occurred, but I suspected this was not acute. The patient's guaiac test was negative. I have given him a prescription for iron and asked him to follow up with his primary care physician for further workup and management. The patient is stable and agreeable to this plan. We have discussed the usual indications for return. Orders Ordered: ED Orders 02/17/19 11:39 XR chest 2V Stat EKG-12 Lead Stat Measure peak expiratory flow ONCE 02/17/19 13:18 Complete Blood Count AUTO DIFF Stat Comprehensive Metabolic Panel Stat Lactate (Lactic Acid) Stat Vital Signs Vital signs: Vital Signs - 8 hr 02/17/19 11:37 02/17/19 12:07 02/17/19 13:00 Temperature 99.2 F Pulse Rate 83 71 72 Respiratory Rate 22 15 24 Blood Pressure 160/81 H Blood Pressure [Left Arm] 152/72 H 144/70 H Pulse Oximetry 96 95 97 MDM - SOB/Dyspnea Medical Records Attestation: I reviewed the patient's medical records. Lab Data Attestation: I reviewed the patient's lab results. Result diagrams: 02/17/19 13:18 02/17/19 13:18 Labs: Lab Results 02/17/19 02/17/19 02/17/19 Range/Units 13:18 13:18 13:18 WBC 5.5 (4.5-11.0) X10^3/uL RBC 3.03 L (4.5-5.9) X10^6/uL Hgb 8.4 L (13.5-17.5) g/dL Hct 26.1 L (41-53) % MCV 86.3 (80-100) fL MCH 27.9 (26-34) PG MCHC 32.3 (30-36) % RDW 17.1 H (11.6-14.8) % Plt Count 282 (150-400) X10^3/uL Neut % (Auto) 76.6 H (50-75) % Lymph % (Auto) 12.5 L (25-40) % Mobile % (Auto) 7.1 (3-14) % Eos % (Auto) 3.4 (2-4) % Baso % (Auto) 0.4 (0-2) % Neut # (Auto) 4200 (1146-6881) /uL Lymph # (Auto) 700 L (8811-6554) /uL Mobile # (Auto) 400 (0-900) /uL Eos # (Auto) 200 (0-450) /uL Baso # (Auto) 0 (0-100) /uL Sodium 137 (137-145) mmol/L Potassium 4.3 (3.4-5.1) mmol/L Chloride 106 (98-107) mmol/L Carbon Dioxide 26 (22-32) mmol/L BUN 23 H (9-20) mg/dL Creatinine 0.90 (0.66-1.25) mg/dL Estimated GFR > 60.0 (>60) mL/min BUN/Creatinine Ratio 25.6 H (6-22) Glucose 102 (80-110) mg/dL Lactate 0.7 (0.7-2.1) mmol/L Calcium 8.8 (8.4-10.2) mg/dL Total Bilirubin 0.6 (0.2-1.3) mg/dL AST 26 (17-59) IU/L ALT 19 (<50) IU/L Alkaline Phosphatase 94 (38-126) U/L Total Protein 6.4 (6.3-8.2) g/dL Albumin 3.9 (3.5-5.0) g/dL Globulin 2.5 (1.7-4.1) g/dL Albumin/Globulin Ratio 1.6 (1.0-2.8) Point of Care Testing Stool Occult Blood Negative ECG Data Attestation: I personally reviewed and interpreted this ECG as follows: (See below) Interpretation: Twelve lead EKG performed February 17, 2019 at 1140, as follows: Regular ventricular rhythm with a rate of 78 beats per minute WI interval is 172 millisecond QRS duration 195 millisecond QTC interval 5 2nd Interpretation: Electronic ventricular pacemaker; no signs of acute ischemia; abnormal rhythm EKG at interpreted by ED MD. Discharge Plan Departure Patient Disposition: Home Clinical Impression: Anemia Qualifiers: Anemia type: unspecified type Qualified Code(s): D64.9 - Anemia, unspecified Discharge Date/Time: 02/17/19 18:13 Instructions: Anemia Activity Restrictions/Additional Instructions: Your blood work does show anemia, or low red blood cells. This appears to have occurred sometime over the last 5 months, which is the last time we have labs for you. Given that you have not had much in the way of symptoms, it has probably been a gradual process. You do not have any blood in your stools, which makes it more likely that your bone marrow is for some reason not producing red blood cells away it should. There are many potential reasons for this, and your doctor will need to try to get to the bottom of this with further testing. It may also be useful for you to follow up with a licensed master social worker, which your doctor may set up for you. At this point in time, we will have you start iron supplements. You also be given a prescription for stool softeners, as iron can be quite constipating. Please call your primary doctor's office 1st thing tomorrow to set up follow-up. Your prescriptions have been electronically transmitted to [facility]. Prescriptions: New ferrous sulfate 325 mg (65 mg iron) tablet 325 mg PO BID Qty: 90 RF: 0 docusate sodium [Colace] 100 mg capsule 100 mg PO BID Qty: 90 RF: 0 No Action atorvastatin 40 mg tablet 40 mg PO DAILY RF: 0 potassium chloride 10 mEq capsule, extended release 10 meq PO DAILY RF: 0 sildenafil 50 mg tablet 50 mg PO DAILY PRN (Reason: Erectile Dysfunction) RF: 0 aspirin [Adult Aspirin Regimen] 81 mg tablet,delayed release (DR/EC) 81 mg PO DAILY RF: 0 spironolactone 25 mg tablet 25 mg PO DAILY RF: 0 warfarin 3 mg tablet 3 mg PO DAILY RF: 0 amlodipine 10 mg tablet 10 mg PO DAILY RF: 0 gabapentin 300 mg capsule 300 - 1,200 mg PO BEDTIME PRN (Reason: Sleep) RF: 0 furosemide 20 mg tablet 20 mg PO DAILY RF: 0 albuterol sulfate [ProAir HFA] 90 mcg/actuation HFA aerosol inhaler 2 puff INHALATION Q6H PRN (Reason: Shortness Of Breath) RF: 0 colchicine 0.6 mg tablet 0.6 mg PO DAILY RF: 0 tadalafil 5 mg tablet 5 mg PO DAILY RF: 0 tiotropium bromide 18 mcg capsule, w/inhalation device 1 cap INHALATION DAILY RF: 0 duloxetine 60 mg capsule,delayed release(DR/EC) 60 mg PO BID RF: 0 acetaminophen 325 mg capsule 325 mg PO Q6H PRN (Reason: pain) RF: 0 VSL#3 112.5 billion cell capsule 1 cap PO DAILY RF: 0 pantoprazole [address] for susp in packet 40 mg PO DAILY RF: 0 metoprolol succinate 50 mg cap,sprinkle,ER 24hr dose pack 50 mg PO QID RF: 0 warfarin 3 mg tablet 6 - 7.5 mg PO DAILY RF: 0 oxycodone-acetaminophen 5-325 mg tablet 1 - 2 tab PO Q4-6H MDD 6 tabs PRN (Reason: pain) RF: 0 pantoprazole 40 mg tablet,delayed release (DR/EC) 40 mg PO DAILY RF: 0 zolpidem 10 mg tablet 10 mg PO BEDTIME PRN (Reason: Sleep) RF: 0 gabapentin 600 mg tablet 600 mg PO TID Qty: 90 RF: 1
== END 2019-02-17 18:13 | disposition home or self-care (01) ==
PROVIDERS: Emergency Provider Emergency Medicine
DX: D64.9 Anemia, unspecified (principal); R79.89 Other specified abnormal findings of blood chemistry; R06.02 Shortness of breath; Z95.2 Presence of prosthetic heart valve; Z95.5 Presence of coronary angioplasty implant and graft; Z79.01 Long term (current) use of anticoagulants
CPT/HCPCS: 36415; 71046; 80053; 82272; 83605; 85025; 93005; 99283; 99285

== ENCOUNTER → 2019-03-15 13:53 | Outpatient (CLI) | payer MEDICARE, SELFPAY ==
[2019-03-15 14:35] LABS: INR 3.2 (0.9-1.3); Prothrombin Time 37.7 SECONDS (10.1-12.7)
== END ==
DX: I51.3 Intracardiac thrombosis, not elsewhere classified (principal); I48.92 Unspecified atrial flutter
CPT/HCPCS: 36415; 85610

== ENCOUNTER 2019-04-11 15:29 | Inpatient (IN) | payer MEDICARE, SELFPAY ==
[2019-04-11] VITALS (7 sets, daily range): BP systolic 145–160; BP diastolic 60–84; PULSE 74–82; RESP 16–94; TEMP 36.6–37.6; O2SAT 94–98; BMI 31.5
--- NOTE | 2019-04-11 15:33 | DI.CT.S_ITS ---
PROCEDURE: CT HEAD/BRAIN WO CON INDICATIONS: stroke on coumadin TECHNIQUE: Noncontrast 4.5 mm thick angled axial sections acquired from the foramen magnum to the vertex, with coronal and sagittal reformats. For radiation dose reduction, the following was used: automated exposure control, adjustment of mA and/or kV according to patient size. COMPARISON: None. FINDINGS: Image quality: Excellent. CSF spaces: Basal cisterns are patent. No extra-axial fluid collections. Ventricles are mildly prominent. Brain: No midline shift. No intracranial masses or hemorrhage. Love-white matter interface is normal. Skull and face: Calvarium and visualized facial bones are intact, without suspicious lesions. Sinuses: Visualized sinuses and mastoids are clear. Thickening of the left maxillary sinus wall probably is related to previous bouts of chronic sinusitis. No associated mucosal thickening is evident. There is a small mucosal polyp versus mucous retention cyst involving the right maxillary sinus. Otherwise, the imaged paranasal sinuses and the mastoid air cells are clear. IMPRESSION: No acute intracranial hemorrhage. Dictated by: Michael Yepez M.D. on 04/11/2019 at 14:51 Approved by: Michael Yepez M.D. on 04/11/2019 at 14:53
--- NOTE | 2019-04-11 15:41 | DI.RAD.S_ITS ---
PROCEDURE: XR CHEST 1V INDICATIONS: Possible stroke TECHNIQUE: One view of the chest was acquired. COMPARISON: [facility], CR, XR CHEST 2V, 02/17/2019, 11:36. FINDINGS: Surgical changes and devices: Lungs and pleura: Left-sided cardiac pacer/defibrillator is present. Median sternotomy changes are noted. The aeration of the lungs is similar to the prior study. The pulmonary vascular markings are increased, predominantly seen within the perihilar regions. There may be minimal fluids versus scarring along the minor fissure. There is mild scarring versus atelectasis along the lateral margin of the left hemithorax. This appearance is similar to the prior exam. Mediastinum: Mediastinal contours appear normal. Heart size is mildly enlarged. There is aortic atherosclerosis. Bones and chest wall: No suspicious bony lesions. Overlying soft tissues appear unremarkable. IMPRESSION: Cardiomegaly with findings suggesting pulmonary edema. Please correlate clinically. Dictated by: Michael Yepez M.D. on 04/11/2019 at 15:43 Approved by: Michael Yepez M.D. on 04/11/2019 at 15:51
[2019-04-11 15:47] LABS: Add Manual Diff / Slide Review NO; Basophils Absolute Auto 0 /uL (0-100); Basophils Percent Auto 0.4 % (0-2); Eosinophils Absolute Auto 100 /uL (0-450); Eosinophils Percent Auto 1.4 % (2-4); Hematocrit 33.9 % (41-53); Hemoglobin 11.1 g/dL (13.5-17.5); Lymphocytes Absolute Auto 500 /uL (1100-4500); Lymphocytes Percent Auto 7.8 % (25-40); Mean Corpuscular HGB Conc 32.6 % (30-36); Mean Corpuscular Hemoglobin 29.9 PG (26-34); Mean Corpuscular Volume 91.9 fL (80-100); Monocytes Absolute Auto 600 /uL (0-900); Monocytes Percent Auto 8.2 % (3-14); Neutrophils Absolute Auto 5800 /uL (1500-7000); Neutrophils Percent Auto 82.2 % (50-75); Platelet Count 299 X10^3/uL (150-400); Red Blood Cell Count 3.69 X10^6/uL (4.5-5.9); Red Cell Distribution Width 17.1 % (11.6-14.8)
--- NOTE | 2019-04-11 15:50 | ED.NEUROSD ---
HPI - Neuro Symptoms/Deficit General Chief Complaint: Neuro Symptoms/Deficit Stated Complaint: Code Stroke Time Seen by Provider: 04/11/19 15:32 Source: EMS Mode of arrival: EMS History of Present Illness HPI Narrative: Patient 68-year-old male with history of CABG 2 vessel and aortic replacement presents after multiple falls today and right-sided weakness. He is on Coumadin. Ex- who lives with him says that last night she noticed something was a little bit off this morning she said he was talking but it was hard to understand him in throughout the day he started falling he has fallen 3 times today. He EMS was called when he fell to the ground and was unable to get up. They reported right-sided weakness he was initially talking and answering some questions however in route he became more unresponsive and unable to answer questions. He upon arrival in the emergency department is responsive only to pain he could grasp my fingers with the left hand only but not the right. He was immediately taken to CT. Related Data Home Medications Medication Instructions Recorded Confirmed Lactobac #2-Bifido #1-S. therm 1 cap PO DAILY 08/04/18 08/04/18 112.5 billion cell capsule acetaminophen 325 mg capsule 325 mg PO Q6H PRN 08/04/18 08/04/18 albuterol sulfate 90 mcg/actuation 2 puff INHALATION Q6H PRN 08/04/18 02/17/19 aerosol inhaler amlodipine 10 mg tablet 10 mg PO DAILY 08/04/18 02/17/19 aspirin 81 mg tablet,delayed 81 mg PO DAILY 08/04/18 08/04/18 release atorvastatin 40 mg tablet 40 mg PO DAILY 08/04/18 02/17/19 colchicine 0.6 mg tablet 0.6 mg PO DAILY 08/04/18 02/17/19 duloxetine 60 mg capsule,delayed 60 mg PO BID 08/04/18 08/04/18 release furosemide 20 mg tablet 20 mg PO DAILY 08/04/18 02/17/19 gabapentin 300 mg capsule 300 - 1,200 mg PO BEDTIME PRN 08/04/18 02/17/19 metoprolol succinate 50 mg capsule 50 mg PO QID 08/04/18 02/17/19 sprinkle, ext. release 24 hr pantoprazole 40 mg granules 40 mg PO DAILY 08/04/18 02/17/19 delayed-release for susp in packet potassium chloride 10 mEq 10 meq PO DAILY 08/04/18 02/17/19 capsule,extended release sildenafil 50 mg tablet 50 mg PO DAILY PRN 08/04/18 02/17/19 spironolactone 25 mg tablet 25 mg PO DAILY 08/04/18 02/17/19 tadalafil 5 mg tablet 5 mg PO DAILY 08/04/18 02/17/19 tiotropium bromide 18 mcg capsule 1 cap INHALATION DAILY 08/04/18 02/17/19 with inhalation device warfarin 3 mg tablet 3 mg PO DAILY 08/04/18 08/04/18 oxycodone-acetaminophen 1 - 2 tab PO Q4-6H PRN MDD 6 tabs 02/17/19 02/17/19 pantoprazole 40 mg PO DAILY 02/17/19 02/17/19 warfarin 6 - 7.5 mg PO DAILY 02/17/19 zolpidem 10 mg PO BEDTIME PRN 02/17/19 02/17/19 Previous Rx's Medication Instructions Recorded docusate sodium [Colace] 100 mg PO BID #90 cap 02/17/19 ferrous sulfate 325 mg PO BID #90 tab 02/17/19 gabapentin 600 mg tablet 600 mg PO TID #90 tab 03/23/19 Allergies Allergy/AdvReac Type Severity Reaction Status Date / Time No Known Drug Allergies Allergy Verified 02/17/19 11:37 Review of Systems Review of Systems ROS Unobtainable: All systems reviewed & are unremarkable except as noted in HPI and below Patient History Social History Smoking Status: Former smoker Smoking Status: Former smoker alcohol intake frequency: 0-2 drinks per day Substance Use Type: does not use Exam Initial Vital Signs Initial Vital Signs: Vital Signs Temperature 99.7 F H 04/11/19 15:58 Pulse Rate 82 04/11/19 15:58 Respiratory Rate 94 H 04/11/19 15:58 Blood Pressure 154/80 H 04/11/19 15:58 Pulse Oximetry 94 04/11/19 15:58 GENERAL: Responsive to pain HEENT: Head atraumatic,EOMI, pupils reactive, right facial droop CARDIOVASCULAR: Regular rate and rhythm without murmurs, rubs or gallops. RESPIRATORY: Breath sounds equal bilaterally, no wheezes rales or rhonchi. ABDOMEN: Soft, nontender. Normoactive bowel sounds all 4 quadrants. No guarding or rebound. EXTREMITIES: Normal range of motion, no clubbing or edema. Neurovascularly intact NEUROLOGICAL: Alert able to squeeze with the left hand not moving right side left facial droop noted is pupils equal round and reactive patient initially not answering questions SKIN: Warm, dry, no laceration, no petechiae, no rashes or lesions. Scores NIH Stroke Scale Level of Conciousness: Not alert, but arousable by minor stim to obey, answer or respond Ask month/age: Answers both questions correctly. Open/close eyes, close hand: Performs both tasks correctly Best gaze horizontal: Normal Visual larry: No visual loss Facial palsy: Minor paralysis, flattened nasolabial fold, asymmetry on smiling Left arm drift: No drift for full 10 sec Right arm drift: No drift for full 10 sec Left leg drift: No drift for full 10 sec Right leg drift: No drift for full 10 sec Limb ataxia: Absent Sensory on face/arms/legs: Normal, no sensory loss Best language: Mild to moderate, slurs some words Dysarthria: Normal Extinction or inattention: No abnormality Total NIH Stroke scale score: 3 Course Orders Ordered: ED Orders 04/11/19 15:30 Complete Blood Count AUTO DIFF Stat Comprehensive Metabolic Panel Stat Partial Thromboplastin Time Stat Prothrombin Time INR Stat Troponin & CK Cardiac Panel Stat 04/11/19 15:33 CT head/brain wo con Stat 04/11/19 15:41 XR chest 1V Stat EKG-12 Lead Stat 04/11/19 16:02 CT angio head and neck Stat 04/11/19 16:10 UA Complete [Urinalysis and Microscopic] Stat Urine Drug Screen, Rapid Stat Discontinued Medications Albuterol/Ipratropium (Duoneb) 3 ml INH NOW ONE Stop: 04/11/19 16:36 Last Admin: 04/11/19 16:36 Dose: 3 ml Documented by: JOSÉ LUIS Consultations Consultation #1: Horesh Time: 16:51 Vital Signs Vital signs: Vital Signs - 8 hr 04/11/19 15:58 04/11/19 16:36 04/11/19 16:37 Temperature 99.7 F H Pulse Rate 82 78 Respiratory Rate 94 H 20 16 Blood Pressure [Left Arm] 154/80 H 155/78 H Pulse Oximetry 94 96 98 04/11/19 16:47 04/11/19 17:24 Temperature Pulse Rate 78 76 Respiratory Rate 22 21 Blood Pressure [Left Arm] 151/84 H 160/73 H Pulse Oximetry 96 97 MDM - Neuro Symptoms/Deficit Lab Data Attestation: I reviewed the patient's lab results. Result diagrams: 04/11/19 15:30 04/11/19 15:30 Labs: Lab Results 04/11/19 04/11/19 04/11/19 Range/Units 15:30 15:30 15:30 WBC 7.0 (4.5-11.0) X10^3/uL RBC 3.69 L (4.5-5.9) X10^6/uL Hgb 11.1 L (13.5-17.5) g/dL Hct 33.9 L (41-53) % MCV 91.9 (80-100) fL MCH 29.9 (26-34) PG MCHC 32.6 (30-36) % RDW 17.1 H (11.6-14.8) % Plt Count 299 (150-400) X10^3/uL Neut % (Auto) 82.2 H (50-75) % Lymph % (Auto) 7.8 L (25-40) % [place] % (Auto) 8.2 (3-14) % Eos % (Auto) 1.4 L (2-4) % Baso % (Auto) 0.4 (0-2) % Neut # (Auto) 5800 (6816-5629) /uL Lymph # (Auto) 500 L (3148-6387) /uL [place] # (Auto) 600 (0-900) /uL Eos # (Auto) 100 (0-450) /uL Baso # (Auto) 0 (0-100) /uL PT 28.0 H (10.1-12.7) SECONDS INR 2.4 H (0.9-1.3) APTT 44 H D (26.4-36.2) SECONDS Sodium 136 L (137-145) mmol/L Potassium 4.4 (3.4-5.1) mmol/L Chloride 103 (98-107) mmol/L Carbon Dioxide 25 (22-32) mmol/L BUN 20 (9-20) mg/dL Creatinine 1.00 (0.66-1.25) mg/dL Estimated GFR > 60.0 (>60) mL/min BUN/Creatinine Ratio 20.0 (6-22) Glucose 121 H (80-110) mg/dL Calcium 9.8 (8.4-10.2) mg/dL Total Bilirubin 0.9 (0.2-1.3) mg/dL AST 35 (17-59) IU/L ALT 24 (<50) IU/L Alkaline Phosphatase 94 (38-126) U/L Total Creatine Kinase 72 (55-170) U/L CK-MB (CK-2) TNP CK-MB (CK-2) Rel Index TNP Troponin I 0.020 (0.01-0.034) ng/mL Total Protein 7.1 (6.3-8.2) g/dL Albumin 4.4 (3.5-5.0) g/dL Globulin 2.7 (1.7-4.1) g/dL Albumin/Globulin Ratio 1.6 (1.0-2.8) Urine Color Urine Appearance Urine pH (4.5-8.0) Ur Specific [place] (1.000-1.035) Urine Protein (Negative) Urine Glucose (UA) (Negative) g/dL Urine Ketones (NEGATIVE) Urine Occult Blood (Negative) Urine Nitrate (Negative) Urine Bilirubin (NEGATIVE) Urine Urobilinogen (0.2) E.U./dL Ur Leukocyte Esterase (NEGATIVE) Urine RBC (0-5/HPF) Urine WBC (0-5/HPF) Ur Squamous Epith Cells (0-5/HPF) Urine Bacteria (None) Ur Culture Indicated? U Opiates 300ng/mL cut (Negative) Ur Oxycodone Screen (Negative) Urine Methadone Screen (Negative) Ur Barbiturates Screen (Negative) U Tricyclic Antidepress (Negative) Ur Phencyclidine Scrn (Negative) Ur Amphetamines Screen (Negative) U Methamphetamines Scrn (Negative) Ur MDMA Scrn (Ecstasy) (Negative) U Benzodiazepines Scrn (Negative) Urine Cocaine Screen (Negative) U Marijuana (THC) Screen (Negative) 04/11/19 04/11/19 Range/Units 16:10 16:10 WBC (4.5-11.0) X10^3/uL RBC (4.5-5.9) X10^6/uL Hgb (13.5-17.5) g/dL Hct (41-53) % MCV (80-100) fL MCH (26-34) PG MCHC (30-36) % RDW (11.6-14.8) % Plt Count (150-400) X10^3/uL Neut % (Auto) (50-75) % Lymph % (Auto) (25-40) % [place] % (Auto) (3-14) % Eos % (Auto) (2-4) % Baso % (Auto) (0-2) % Neut # (Auto) (8273-8303) /uL Lymph # (Auto) (2713-4959) /uL [place] # (Auto) (0-900) /uL Eos # (Auto) (0-450) /uL Baso # (Auto) (0-100) /uL PT (10.1-12.7) SECONDS INR (0.9-1.3) APTT (26.4-36.2) SECONDS Sodium (137-145) mmol/L Potassium (3.4-5.1) mmol/L Chloride (98-107) mmol/L Carbon Dioxide (22-32) mmol/L BUN (9-20) mg/dL Creatinine (0.66-1.25) mg/dL Estimated GFR (>60) mL/min BUN/Creatinine Ratio (6-22) Glucose (80-110) mg/dL Calcium (8.4-10.2) mg/dL Total Bilirubin (0.2-1.3) mg/dL AST (17-59) IU/L ALT (<50) IU/L Alkaline Phosphatase (38-126) U/L Total Creatine Kinase (55-170) U/L CK-MB (CK-2) CK-MB (CK-2) Rel Index Troponin I (0.01-0.034) ng/mL Total Protein (6.3-8.2) g/dL Albumin (3.5-5.0) g/dL Globulin (1.7-4.1) g/dL Albumin/Globulin Ratio (1.0-2.8) Urine Color Yellow Urine Appearance Clear Urine pH 6.5 (4.5-8.0) Ur Specific [place] 1.010 (1.000-1.035) Urine Protein Negative (Negative) Urine Glucose (UA) Negative (Negative) g/dL Urine Ketones Negative (NEGATIVE) Urine Occult Blood 1+ H (Negative) Urine Nitrate Negative (Negative) Urine Bilirubin Negative (NEGATIVE) Urine Urobilinogen 0.2 (0.2) E.U./dL Ur Leukocyte Esterase Negative (NEGATIVE) Urine RBC 10-30/hpf H (0-5/HPF) Urine WBC 0-1/hpf (0-5/HPF) Ur Squamous Epith Cells None seen (0-5/HPF) Urine Bacteria None seen (None) Ur Culture Indicated? Cult not indicated U Opiates 300ng/mL cut Negative (Negative) Ur Oxycodone Screen Negative (Negative) Urine Methadone Screen Negative (Negative) Ur Barbiturates Screen Negative (Negative) U Tricyclic Antidepress Negative (Negative) Ur Phencyclidine Scrn Negative (Negative) Ur Amphetamines Screen Negative (Negative) U Methamphetamines Scrn Negative (Negative) Ur MDMA Scrn (Ecstasy) Negative (Negative) U Benzodiazepines Scrn Negative (Negative) Urine Cocaine Screen Negative (Negative) U Marijuana (THC) Screen Negative (Negative) Point of Care Testing Glucose POC [address] scan - head: Radiologist's Impression: PROCEDURE: CT HEAD/BRAIN WO CON INDICATIONS: stroke on coumadin TECHNIQUE: Noncontrast 4.5 mm thick angled axial sections acquired from the foramen magnum to the vertex, with coronal and sagittal reformats. For radiation dose reduction, the following was used: automated exposure control, adjustment of mA and/or kV according to patient size. COMPARISON: None. FINDINGS: Image quality: Excellent. CSF spaces: Basal cisterns are patent. No extra-axial fluid collections. Ventricles are mildly prominent. Brain: No midline shift. No intracranial masses or hemorrhage. Love-white matter interface is normal. Skull and face: Calvarium and visualized facial bones are intact, without suspicious lesions. Sinuses: Visualized sinuses and mastoids are clear. Thickening of the left maxillary sinus wall probably is related to previous bouts of chronic sinusitis. No associated mucosal thickening is evident. There is a small mucosal polyp versus mucous retention cyst involving the right maxillary sinus. Otherwise, the imaged paranasal sinuses and the mastoid air cells are clear. IMPRESSION: No acute intracranial hemorrhage. Dictated by: Michael Yepez M.D. on 04/11/2019 at 14:51 CT head/NEck angio: Radiologist's Impression: PROCEDURE: CT ANGIO HEAD AND NECK INDICATIONS: code stroke TECHNIQUE: Pre-contrast 4.5 mm thick sections acquired from the foramen magnum to the vertex. After the administration of intravenous contrast, 1 mm thick sections acquired from the aortic arch through the [place] of [place]. Post-contrast 4.5 mm thick sections then re-acquired from the foramen magnum to the vertex. 3-dimensional rhwkbnb-qgirtgvmb-laowowahte (MIP) and/or volume rendering reformats were acquired of the central intracranial vasculature and neck separately. COMPARISON: None. FINDINGS: Image quality: No contrast is identified within the carotid or vertebral arteries. The contrast is seen within the pulmonary arteries and the right heart. After discussing the case with the technologist, the appropriate timing was selected for arterial phase imaging of the arteries of the head and neck however, no contrast is seen within these arteries of the head and neck. This discrepancy between the normal timing for arterial phase imaging within the vessels of the head and neck and lack of intraluminal contrast within the head and neck vessels on this study is likely related to chronic heart disease. Additionally, there is excessive motion artifact on the delayed images. Mild motion artifact on the initial images are noted. BRAIN: Brain: Mild parenchymal volume loss appears to be present. No midline shift or mass effect is evident. No intracranial hemorrhage is appreciated. No definable mass or obvious abnormal parenchymal enhancement is appreciated. No extra-axial fluid collections are appreciated. Skull and face: Calvarium and facial bones appear intact, without suspicious lesions. Orbits appear normal. Small mucous retention cyst versus a mucosal polyp involving the right maxillary sinus is present. A bony thickening involving the patino of the left maxillary sinus are evident. No fluid levels are seen within the sinuses. HEAD CT ANGIOGRAPHY: Anterior circulation: The middle and anterior cerebral arteries are not adequately opacified. Posterior circulation: The vertebral arteries, basilar arteries, and posterior cerebral arteries are not adequately opacified. NECK CT ANGIOGRAPHY: Carotid system: Atherosclerosis involving the bilateral carotid arteries is most pronounced at the level of the carotid bulbs. However, no contrast is seen within the carotid arteries. Posterior circulation: No contrast is identified within the vertebral arteries. Soft tissues: Visualized neck soft tissues demonstrate no suspicious abnormalities. The heart appears to be enlarged. Post operative changes of the heart are suggestive of prior aortic valve replacement. Coronary artery atherosclerosis is present. A cardiac pacer is noted. Groundglass attenuation throughout the imaged lung apices is present. Bones: No suspicious bony lesions. Visualized cervical spine appears normally aligned. Ibkfimpl-bw-ejfthu degenerative changes are present. IMPRESSION: 1. Nondiagnostic MR angiogram of the arteries of the head and neck is probably related to heart disease, which is delaying blood flow. Please consider repeat CT angiography of the head and neck after a longer delay in imaging after the injection of the contrast. 2. Carotid and coronary artery atherosclerosis is present. 3. Cardiomegaly. 4. Glass attenuation within the lungs may represent mild pulmonary edema. Please correlate clinically. Note: Findings were discussed with Dr. Bustamante at 1425 hours (PST) on 04/11/19. Any quantitative measurements of stenosis were performed using NASCET criteria. Dictated by: Michael Yepez M.D. on 04/11/2019 at 15:16 Approved by: Michael Yepez M.D. on 04/11/2019 at 15:30 ECG Data Attestation: I personally reviewed and interpreted this ECG as follows: Prior ECG tracings: available for review Interpretation: Paced rhythm rate [address] changes similar to prior EKG MDM Narrative Medical decision making narrative: When patient returned from CT he was actually able to talk but does continue to have some aphasia he is moving the right side of his body he overall is improving significantly. It is unclear exactly when his last known normal was he is also on Coumadin making him not a tPA candidate. Unfortunately the CT a contrast did not go into the arteries likely due to poor cardiac output. However patient's symptoms are improving on this is unlikely to be a large vessel occlusion. I have called and left a message for patient's DPOA Sheila at [phone] his ex is currently at bedside. Dr. Rossi has been updated patient's symptoms test results in the ED to see and evaluate patient. Discharge Plan Departure Patient Disposition: Admitted As Inpatient Clinical Impression: CVA (cerebral vascular accident) Qualifiers: CVA mechanism: unspecified Qualified Code(s): I63.9 - Cerebral infarction, unspecified Admit Date/Time: 04/11/19 17:28 Admit Provider: Dale Rossi
[2019-04-11 15:52] LABS: INR 2.4 (0.9-1.3)
[2019-04-11 15:54] LABS: PTT Partial Thromboplastin Tim 44 SECONDS (26.4-36.2)
[2019-04-11 15:56] LABS: Alanine Aminotransferase 24 IU/L (<50); Albumin 4.4 g/dL (3.5-5.0); Albumin Globulin Ratio 1.6 (1.0-2.8); Alkaline Phosphatase 94 U/L (38-126); Aspartate Aminotransferase 35 IU/L (17-59); Bilirubin Total 0.9 mg/dL (0.2-1.3); Blood Urea Nitrogen 20 mg/dL (9-20); Calcium 9.8 mg/dL (8.4-10.2); Carbon Dioxide 25 mmol/L (22-32); Chloride 103 mmol/L (98-107); Creatine Kinase 72 U/L (55-170); Estimated Glomerular Filt Rate > 60.0 mL/min (>60); Globulin 2.7 g/dL (1.7-4.1); Glucose 121 mg/dL (80-110); HEMOLYSIS < 15 (0-50); Potassium 4.4 mmol/L (3.4-5.1); Sodium 136 mmol/L (137-145); Total Protein 7.1 g/dL (6.3-8.2)
--- NOTE | 2019-04-11 16:02 | DI.CT.S_ITS ---
PROCEDURE: CT ANGIO HEAD AND NECK INDICATIONS: code stroke TECHNIQUE: Pre-contrast 4.5 mm thick sections acquired from the foramen magnum to the vertex. After the administration of intravenous contrast, 1 mm thick sections acquired from the aortic arch through the [place] of [place]. Post-contrast 4.5 mm thick sections then re-acquired from the foramen magnum to the vertex. 3-dimensional bdvoray-rgdnkbhuu-xqnhdssvdc (MIP) and/or volume rendering reformats were acquired of the central intracranial vasculature and neck separately. COMPARISON: None. FINDINGS: Image quality: No contrast is identified within the carotid or vertebral arteries. The contrast is seen within the pulmonary arteries and the right heart. After discussing the case with the technologist, the appropriate timing was selected for arterial phase imaging of the arteries of the head and neck however, no contrast is seen within these arteries of the head and neck. This discrepancy between the normal timing for arterial phase imaging within the vessels of the head and neck and lack of intraluminal contrast within the head and neck vessels on this study is likely related to chronic heart disease. Additionally, there is excessive motion artifact on the delayed images. Mild motion artifact on the initial images are noted. BRAIN: Brain: Mild parenchymal volume loss appears to be present. No midline shift or mass effect is evident. No intracranial hemorrhage is appreciated. No definable mass or obvious abnormal parenchymal enhancement is appreciated. No extra-axial fluid collections are appreciated. Skull and face: Calvarium and facial bones appear intact, without suspicious lesions. Orbits appear normal. Small mucous retention cyst versus a mucosal polyp involving the right maxillary sinus is present. A bony thickening involving the patino of the left maxillary sinus are evident. No fluid levels are seen within the sinuses. HEAD CT ANGIOGRAPHY: Anterior circulation: The middle and anterior cerebral arteries are not adequately opacified. Posterior circulation: The vertebral arteries, basilar arteries, and posterior cerebral arteries are not adequately opacified. NECK CT ANGIOGRAPHY: Carotid system: Atherosclerosis involving the bilateral carotid arteries is most pronounced at the level of the carotid bulbs. However, no contrast is seen within the carotid arteries. Posterior circulation: No contrast is identified within the vertebral arteries. Soft tissues: Visualized neck soft tissues demonstrate no suspicious abnormalities. The heart appears to be enlarged. Post operative changes of the heart are suggestive of prior aortic valve replacement. Coronary artery atherosclerosis is present. A cardiac pacer is noted. Groundglass attenuation throughout the imaged lung apices is present. Bones: No suspicious bony lesions. Visualized cervical spine appears normally aligned. Iefovlec-bz-meexsx degenerative changes are present. IMPRESSION: 1. Nondiagnostic MR angiogram of the arteries of the head and neck is probably related to heart disease, which is delaying blood flow. Please consider repeat CT angiography of the head and neck after a longer delay in imaging after the injection of the contrast. 2. Carotid and coronary artery atherosclerosis is present. 3. Cardiomegaly. 4. Glass attenuation within the lungs may represent mild pulmonary edema. Please correlate clinically. Note: Findings were discussed with Dr. Bustamante at 1425 hours (PST) on 04/11/19. Any quantitative measurements of stenosis were performed using NASCET criteria. Dictated by: Michael Yepez M.D. on 04/11/2019 at 15:16 Approved by: Michael Yepez M.D. on 04/11/2019 at 15:30
[2019-04-11 16:21] LABS: UR Morphine/Opiate cutoff 300 Negative (Negative); Ur Creatinine Normal (Normal); Ur Specific Gravity Normal (Normal); Urine Amphetamines Negative (Negative); Urine Barbiturates Negative (Negative); Urine Cocaine Negative (Negative); Urine MDMA Negative (Negative); Urine Methamphetamines Negative (Negative); Urine Phencyclidine Negative (Negative); Urine Tetrahydrocannabinol Negative (Negative); Urine pH Normal (Normal)
[2019-04-11 16:22] LABS: Urine Benzodiazepines Negative (Negative); Urine Methadone Negative (Negative); Urine Oxycodone Negative (Negative); Urine Tricyclic Antidepressant Negative (Negative)
[2019-04-11] MEDS: ALBUTEROL/IPRATROPIUM 3 ML AMPUL INH (16:36)
[2019-04-11 17:02] LABS: Appearance Urine UA CLEAR; Bacteria Urine None Seen; Bilirubin Urine UA NEGATIVE (NEGATIVE); Color Urine UA YELLOW; Glucose Urine UA NEGATIVE (Negative); Ketones Urine UA NEGATIVE (NEGATIVE); Leukocyte Esterase Urine UA NEGATIVE (NEGATIVE); Nitrite Urine UA NEGATIVE (Negative); Occult Blood Urine UA 1+ (Negative); Protein Urine UA NEGATIVE (Negative); Urobilinogen Urine UA 0.2 E.U./dL (0.2); pH Urine UA 6.5 (4.5-8.0)
[2019-04-11 17:07] LABS: Culture Indicated Urine Cult Not Indicated; RBC Urine 10-30/HPF (0-5/HPF); Squamous Epithelial Cell Urine None Seen (0-5/HPF); WBC Urine 0-1/HPF (0-5/HPF)
--- NOTE | 2019-04-11 17:56 | PC.NURSE ---
report to jamel wallace on acute care
--- NOTE | 2019-04-11 18:05 | DI.ECHO.S_ITS ---
[facility]---------+ [facility] +---------+ : : [address] : : : : [id number] : : : : Phone: [phone]+ Echocardiogram Report + + :Name: HARVINDER NEAL Study Date: 04/12/2019 Height: 72 in : :[facility] Weight: 242 lb : : Gender: Male BSA: 2.3 m2 : :: 1950 Age: 68 yrs BP: 129/80 mmHg: :Reason For Study: CVA : :Ordering Physician: Dr. Hunter : :Flo Performed By: Brandon Ro : :Referring: QUIANA HEBERT : + + Interpretation Summary The left ventricle is mildly dilated. There is moderate concentric left ventricular hypertrophy. A ventricular septal defect is suggested in some views. If indeed present, then it is consistent with a small perimembranous VSD. No other echocardiograms to for comparison is available. Left ventricular systolic function is moderate to severely reduced. The ejection fraction is estimated to be 30-35%. There is moderate global hypokinesis of the left ventricle. Septal motion is consistent with post-operative state. Diastolic parameters suggest probable normal left ventricular diastolic function and normal filling pressures. The right ventricle is moderately dilated. Right ventricular systolic function is mild to moderately reduced. The right ventricular systolic pressure is estimated to be at least 34 mmHg based on an estimated right atrial pressure of 3 mm Hg. The left atrium is severely dilated. The right atrium is mildly dilated. There is mild mitral regurgitation. The aortic valve is not well visualized. There is a mechanical aortic valve. The aortic valve mean gradient is 9 mmHg. There is trace aortic regurgitation. There is no other significant valvular heart disease. The aortic root is not well visualized. The aortic arch is mildly enlarged. Procedure: A two-dimensional transthoracic echocardiogram with color flow and Doppler was performed. The study quality was technically difficult. A contrast injection of Definity was performed to improve assessment of LV function. There is no prior echocardiogram noted for this patient. The patient has a paced rhythm. Left Ventricle: The left ventricle is mildly dilated. There is moderate concentric left ventricular hypertrophy. A ventricular septal defect is suggested in some views. If indeed present, then it is consistent with a small perimembranous VSD. No other echocardiograms to for comparison is available. Left ventricular systolic function is moderate to severely reduced. The ejection fraction is estimated to be 30-35%. Septal motion is consistent with post-operative state. There is moderate global hypokinesis of the left ventricle. Diastolic parameters suggest probable normal left ventricular diastolic function and normal filling pressures. Right Ventricle: The right ventricle is moderately dilated. Right ventricular systolic function is mild to moderately reduced. Atria: The left atrium is severely dilated. The right atrium is mildly dilated. The interatrial septum is intact with no evidence for an atrial septal defect. Mitral Valve: The mitral valve leaflets appear mildly thickened, but open well. There is mild mitral regurgitation. Aortic Valve: The aortic valve is not well visualized. There is a mechanical aortic valve. The aortic valve mean gradient is 9 mmHg. There is trace aortic regurgitation. Tricuspid Valve: The tricuspid valve is normal in structure and function. There is mild tricuspid regurgitation. The right ventricular systolic pressure is estimated to be at least 34 mmHg based on an estimated right atrial pressure of 3 mm Hg. Pulmonic Valve: The pulmonic valve is not well visualized. There is no other significant valvular heart disease. Great Vessels: The aortic root is not well visualized. The ascending aorta could not be visualized. The aortic arch is mildly enlarged. The pulmonary artery is normal size. The IVC is of normal diameter and collapses greater than 50% with a sniff. This suggests a low right atrial pressure of 3 mm Hg. Pericardium/ Pleura There is no pericardial effusion. There is no pleural effusion. MMode/2D Measurements & Calculations LVIDd: 5.9 cm LVOT diam: 2.2 cm LVIDs: 4.5 cm FS: 23.3 % IVSd: 1.5 cm LVPWd: 1.5 cm LV gamboa. diameter/BSA (cm/m^2): 2.5 LV sys. diameter/BSA (cm/m^2): 1.9 LA A2 area: 35.7 cm2 RA long axis: 6.0 cm LA A4 area: 37.8 cm2 RA area: 20.8 cm2 LA length (vol): 7.0 cm RA vol: 61.5 ml LA vol: 163.5 ml RA : 26.6 ml/m2 LA vol index: 70.8 ml/m2 TAPSE: 1.4 cm Doppler Measurements & Calculations Ao V2 max: 190.1 cm/sec LVOT Max Bob: 89.3 cm/sec Ao V2 mean: 141.9 cm/sec LV V1 max P.2 mmHg Ao max P.5 mmHg LV V1 VTI: 19.5 cm Ao mean P.9 mmHg QUINN(I,D): 2.3 cm2 Ao V2 VTI: 33.0 cm QUINN(V,D): 1.9 cm2 sev ratio: 0.59 QUINN indexed to BSA (cm^2/m^2): 1.0 MV E max bob: 80.4 cm/sec TR max bob: 277.3 cm/sec MV A max bob: 50.1 cm/sec TR max P.8 mmHg MV E/A: 1.6 Med Peak E' Bob: 5.8 cm/sec E/E' med: 13.9 Lat Peak E' Bob: 9.5 cm/sec E/E' lat: 8.5 E/e' average: 11.2 MV dec time: 0.13 sec SV(LVOT): 77.6 ml Reading Physician:02:37 PM
--- NOTE | 2019-04-11 18:13 | P.HP_ITS ---
History of Present Illness History of Present Illness Date Patient Seen: 04/11/19 Time Patient Seen: 17:00 Chief complaint: Code Stroke Narrative: Patient is a 68-year-old male under care of outside unknown PCP with history of 2 vessel CABG, non mechanical aortic valve replacement, pacemaker, chronic warfarin anticoagulation brought to emergency department due to multiple falls and right-sided weakness. His ex- who lives with him is able to provide some history. She notes he may have been a little confused since last night. She noticed he was having difficulty forming words throughout the day and she had hard time understanding him today. He has a history of falls but she notes he was much more off balance and he had fallen 3 times today. EMS was called when he fell to the ground and was unable to get up. They reported right-sided weakness. He was initially talking and answering questions but on route he became more unresponsive and unable to answer questions. Upon arrival to the emergency department he had response only to pain and could grasp fingers of ER physician with left hand only but not the right. Head CT without acute bleed. EKG paced rhythm. CTA incomplete study due to delayed blood flow. His NIH stroke scale score was 3. He is a current smoker, no diabetes, no previous history of TIA or stroke. He has chronic back pain history and takes Percocet prescribed by his doctor but states he often runs out early. Patient History Family & Social History Safety & Behavioral: Feels Safe in Current Yes Environment Been Physically Hurt or No Threatened By a Person Tobacco & Substance use: Smoking Status Current smoker alcohol intake frequency 0-2 drinks per day Substance Use Type does not use Meds Home Medications and Allergies Home Medications Medication Instructions Recorded Confirmed Type Lactobac #2-Bifido #1-S. therm 1 cap PO DAILY 08/04/18 08/04/18 History 112.5 billion cell capsule acetaminophen 325 mg capsule 325 mg PO Q6H PRN 08/04/18 08/04/18 History albuterol sulfate 90 mcg/actuation 2 puff INHALATION Q6H PRN 08/04/18 02/17/19 History aerosol inhaler amlodipine 10 mg tablet 10 mg PO DAILY 08/04/18 02/17/19 History aspirin 81 mg tablet,delayed 81 mg PO DAILY 08/04/18 08/04/18 History release atorvastatin 40 mg tablet 40 mg PO DAILY 08/04/18 02/17/19 History colchicine 0.6 mg tablet 0.6 mg PO DAILY 08/04/18 02/17/19 History duloxetine 60 mg capsule,delayed 60 mg PO BID 08/04/18 08/04/18 History release furosemide 20 mg tablet 20 mg PO DAILY 08/04/18 02/17/19 History gabapentin 300 mg capsule 300 - 1,200 mg PO BEDTIME PRN 08/04/18 02/17/19 History metoprolol succinate 50 mg capsule 50 mg PO QID 08/04/18 02/17/19 History sprinkle, ext. release 24 hr pantoprazole 40 mg granules 40 mg PO DAILY 08/04/18 02/17/19 History delayed-release for susp in packet potassium chloride 10 mEq 10 meq PO DAILY 08/04/18 02/17/19 History capsule,extended release sildenafil 50 mg tablet 50 mg PO DAILY PRN 08/04/18 02/17/19 History spironolactone 25 mg tablet 25 mg PO DAILY 08/04/18 02/17/19 History tadalafil 5 mg tablet 5 mg PO DAILY 08/04/18 02/17/19 History tiotropium bromide 18 mcg capsule 1 cap INHALATION DAILY 08/04/18 02/17/19 History with inhalation device warfarin 3 mg tablet 3 mg PO DAILY 08/04/18 08/04/18 History docusate sodium [Colace] 100 mg PO BID #90 cap 02/17/19 Rx ferrous sulfate 325 mg PO BID #90 tab 02/17/19 Rx oxycodone-acetaminophen 1 - 2 tab PO Q4-6H PRN MDD 6 tabs 02/17/19 02/17/19 History pantoprazole 40 mg PO DAILY 02/17/19 02/17/19 History warfarin 6 - 7.5 mg PO DAILY 02/17/19 History zolpidem 10 mg PO BEDTIME PRN 02/17/19 02/17/19 History gabapentin 600 mg tablet 600 mg PO TID #90 tab 03/23/19 Rx Allergies Allergy/AdvReac Type Severity Reaction Status Date / Time No Known Drug Allergies Allergy Verified 02/17/19 11:37 Review of Systems Review of Systems ROS Unobtainable: All systems reviewed & are unremarkable except as noted in HPI and below and unobtainable due to mental status Exam Vital Signs (past 8 hours): - 04/11/19 15:58 04/11/19 16:36 04/11/19 16:37 Temperature 99.7 F H Pulse Rate 82 78 Respiratory Rate 94 H 20 16 Blood Pressure [Left Arm] 154/80 H 155/78 H Pulse Oximetry 94 96 98 04/11/19 16:47 04/11/19 17:24 Temperature Pulse Rate 78 76 Respiratory Rate 22 21 Blood Pressure [Left Arm] 151/84 H 160/73 H Pulse Oximetry 96 97 Oxygen Delivery Method Room Air Narrative Exam Narrative: GENERAL: Patient has hard time staying awake and following instructions HEAD: There is a small bruise on his right jew. EYES: Pupils equal, round and reactive. Extraocular motions intact. NECK: Trachea midline. No JVD or lymphadenopathy. CARDIOVASCULAR: Regular rate and rhythm without murmurs, gallops, or rubs. RESPIRATORY: Clear to auscultation bilaterally. GASTROINTESTINAL: Abdomen obese, nondistended, soft, non-tender. No hepato- splenomegaly, or palpable masses. EXTREMITIES: No edema. NEUROLOGICAL: Not alert, but arousable, and needs frequent prompting to stay awake, has difficulty maintaining attention, correctly answers month and age, opens and closes eyes normally, visual larry grossly intact, there is minor flattening of the nasal labial fold on the right, no pronator drift on either arm, no leg drift on either leg, no limb ataxia, no sensory loss of face, arms or legs. There is at least moderate aphasia and patient slurs his words. SKIN: warm, dry, no rash Objective Labs Result Diagrams: 04/11/19 15:30 04/11/19 15:30 Labs: Laboratory Results - last 24 hr 04/11/19 04/11/19 04/11/19 15:30 15:30 15:30 WBC 7.0 RBC 3.69 L Hgb 11.1 L Hct 33.9 L MCV 91.9 MCH 29.9 MCHC 32.6 RDW 17.1 H Plt Count 299 Neut % (Auto) 82.2 H Lymph % (Auto) 7.8 L [place] % (Auto) 8.2 Eos % (Auto) 1.4 L Baso % (Auto) 0.4 Neut # (Auto) 5800 Lymph # (Auto) 500 L [place] # (Auto) 600 Eos # (Auto) 100 Baso # (Auto) 0 PT 28.0 H INR 2.4 H APTT 44 H D Sodium 136 L Potassium 4.4 Chloride 103 Carbon Dioxide 25 BUN 20 Creatinine 1.00 Estimated GFR > 60.0 BUN/Creatinine Ratio 20.0 Glucose 121 H Calcium 9.8 Total Bilirubin 0.9 AST 35 ALT 24 Alkaline Phosphatase 94 Total Creatine Kinase 72 CK-MB (CK-2) TNP CK-MB (CK-2) Rel Index TNP Troponin I 0.020 Total Protein 7.1 Albumin 4.4 Globulin 2.7 Albumin/Globulin Ratio 1.6 Urine Color Urine Appearance Urine pH Ur Specific Bonner Urine Protein Urine Glucose (UA) Urine Ketones Urine Occult Blood Urine Nitrate Urine Bilirubin Urine Urobilinogen Ur Leukocyte Esterase Urine RBC Urine WBC Ur Squamous Epith Cells Urine Bacteria Ur Culture Indicated? U Opiates 300ng/mL cut Ur Oxycodone Screen Urine Methadone Screen Ur Barbiturates Screen U Tricyclic Antidepress Ur Phencyclidine Scrn Ur Amphetamines Screen U Methamphetamines Scrn Ur MDMA Scrn (Ecstasy) U Benzodiazepines Scrn Urine Cocaine Screen U Marijuana (THC) Screen 04/11/19 04/11/19 16:10 16:10 WBC RBC Hgb Hct MCV MCH MCHC RDW Plt Count Neut % (Auto) Lymph % (Auto) [place] % (Auto) Eos % (Auto) Baso % (Auto) Neut # (Auto) Lymph # (Auto) [place] # (Auto) Eos # (Auto) Baso # (Auto) PT INR APTT Sodium Potassium Chloride Carbon Dioxide BUN Creatinine Estimated GFR BUN/Creatinine Ratio Glucose Calcium Total Bilirubin AST ALT Alkaline Phosphatase Total Creatine Kinase CK-MB (CK-2) CK-MB (CK-2) Rel Index Troponin I Total Protein Albumin Globulin Albumin/Globulin Ratio Urine Color Yellow Urine Appearance Clear Urine pH 6.5 Ur Specific Bonner 1.010 Urine Protein Negative Urine Glucose (UA) Negative Urine Ketones Negative Urine Occult Blood 1+ H Urine Nitrate Negative Urine Bilirubin Negative Urine Urobilinogen 0.2 Ur Leukocyte Esterase Negative Urine RBC 10-30/hpf H Urine WBC 0-1/hpf Ur Squamous Epith Cells None seen Urine Bacteria None seen Ur Culture Indicated? Cult not indicated U Opiates 300ng/mL cut Negative Ur Oxycodone Screen Negative Urine Methadone Screen Negative Ur Barbiturates Screen Negative U Tricyclic Antidepress Negative Ur Phencyclidine Scrn Negative Ur Amphetamines Screen Negative U Methamphetamines Scrn Negative Ur MDMA Scrn (Ecstasy) Negative U Benzodiazepines Scrn Negative Urine Cocaine Screen Negative U Marijuana (THC) Screen Negative Assessment & Plan Assessment & Plan narrative: This is a 68-year-old male presenting with acute CVA of undetermined onset. 1. Acute CVA, present on admission -head CT no acute bleed, head CTA incomplete study due to delayed flow -patient unable to have MRI due to pacemaker -patient on warfarin with therapeutic INR -primary presentation is decrease LOC, moderate to severe aphasia, and right- sided weakness, the right-sided weakness seems to be improving or resolved -keep NPO until speech therapy swallow evaluation -IV fluids for maintenance hydration -allow permissive hypertension -consult ST, PT and OT -TTE and carotid duplex ordered -consider repeat head CTA -telemetry monitoring 2. Chronic anticoagulation -on warfarin, INR 2.4 on admission -presumably this is due to history of AFib as his aortic valve appears to be non mechanical 3. Coronary artery disease -denies chest pain, normal troponin, ventricular paced rhythm -unknown whether he has CHF but he is on furosemide and spironolactone and chest x-ray with interstitial edema pattern though that appears to be chronic finding for him -patient maintained on low-dose aspirin, atorvastatin, metoprolol succinate and amlodipine 4. Chronic back pain with opioid dependency -patient prescribed Percocet and, as noted, ex- mentioned he runs out early due to taking more than prescribed -also on gabapentin 5. Presumed COPD without exacerbation -patient has smoking history and is on inhalers -respiratory status currently stable Patient admitted inpatient acute service due to acute CVA.
[2019-04-11] MEDS: SODIUM CHLORIDE 0.9% 1,000 ML 100 ML IV (19:54)
[2019-04-12] VITALS (12 sets, daily range): BP systolic 129–167; BP diastolic 67–86; PULSE 71–79; RESP 16–20; TEMP 36.7–37.4; O2SAT 95–99
--- NOTE | 2019-04-12 | DI.US.S_ITS ---
PROCEDURE: US CAROTID DOPPLER BI INDICATIONS: CVA TECHNIQUE: Color and pulse Doppler interrogation was performed of both carotid systems, with image documentation and velocity measurements. COMPARISON: None. FINDINGS: Stenosis calculations are based on SRU (Society of Radiologists in Ultrasound) criteria. Right side: Brachial blood pressure: 155/86 mm Hg. Common carotid artery peak systolic velocity: 86 cm/sec. Internal carotid artery peak systolic velocity: 76 cm/sec. Internal carotid artery end diastolic velocity: 22 cm/sec. External carotid artery peak systolic velocity: 128 cm/sec. ICA/CCA peak systolic ratio: 0.9. Love scale imaging description: The mild to moderate calcific and soft plaque. Percent internal carotid artery stenosis: Less than 50% stenosis. Vertebral artery: Flow direction is antegrade. Left side: Brachial blood pressure: 155/82 mm Hg. Common carotid artery peak systolic velocity: 75 cm/sec. Internal carotid artery peak systolic velocity: 82 cm/sec. Internal carotid artery end diastolic velocity: 17 cm/sec. External carotid artery peak systolic velocity: 100 cm/sec. ICA/CCA peak systolic ratio: 1.1. Love scale imaging description: Mild to moderate calcific and soft plaque Percent internal carotid artery stenosis: Less than 50% stenosis. Vertebral artery: Flow direction is antegrade. IMPRESSION: Less than 50% stenosis bilaterally, no area of ulcerated plaque is identified. Vertebral arterial flow is normal in appearance. Dictated by: Pineda Cox M.D. on 04/12/2019 at 11:51 Approved by: Pineda Cox M.D. on 04/12/2019 at 11:53
--- NOTE | 2019-04-12 00:42 | PC.NURSE ---
Restless & C/O back pain. BRI Sung notified. Checked pt. laying in bed with his eyes closed. Will monitor.
[2019-04-12] MEDS: ALBUTEROL 2.5 MG/3 ML NEB (ADULT) INH ×2 (01:24→22:21)
[2019-04-12 05:17] LABS: Add Manual Diff / Slide Review NO; Basophils Absolute Auto 0 /uL (0-100); Basophils Percent Auto 0.4 % (0-2); Eosinophils Absolute Auto 200 /uL (0-450); Eosinophils Percent Auto 2.5 % (2-4); Hematocrit 33.7 % (41-53); Hemoglobin 11.2 g/dL (13.5-17.5); Lymphocytes Absolute Auto 800 /uL (1100-4500); Lymphocytes Percent Auto 10.2 % (25-40); Mean Corpuscular HGB Conc 33.2 % (30-36); Mean Corpuscular Volume 90.5 fL (80-100); Monocytes Absolute Auto 700 /uL (0-900); Monocytes Percent Auto 9.3 % (3-14); Neutrophils Absolute Auto 5900 /uL (1500-7000); Neutrophils Percent Auto 77.6 % (50-75); Platelet Count 278 X10^3/uL (150-400); Red Blood Cell Count 3.72 X10^6/uL (4.5-5.9); Red Cell Distribution Width 16.7 % (11.6-14.8); White Blood Cell Count 7.6 X10^3/uL (4.5-11.0)
[2019-04-12 05:19] LABS: INR 2.9 (0.9-1.3); Prothrombin Time 34.6 SECONDS (10.1-12.7)
[2019-04-12 05:26] LABS: BUN Creatinine Ratio 27.1 (6-22); Blood Urea Nitrogen 19 mg/dL (9-20); Calcium 9.2 mg/dL (8.4-10.2); Carbon Dioxide 23 mmol/L (22-32); Chloride 108 mmol/L (98-107); Estimated Glomerular Filt Rate > 60.0 mL/min (>60); Glucose 106 mg/dL (80-110); HEMOLYSIS < 15 (0-50); Sodium 139 mmol/L (137-145)
[2019-04-12 05:27] LABS: Cholesterol 140 mg/dL (140-199); HDL Cholesterol 34 mg/dL (40-60); LDL Cholesterol Calculated 78 mg/dL (<100); Triglycerides 140 mg/dL (35-150)
[2019-04-12] MEDS: SODIUM CHLORIDE 0.9% 1,000 ML 100 ML IV (06:22)
[2019-04-12] MEDS: SPIRONOLACTONE 25 MG TABLET PO (09:17)
[2019-04-12] MEDS: FUROSEMIDE 20 MG TABLET 10 MG PO (09:17)
--- NOTE | 2019-04-12 09:17 | CM.DANOTE ---
DCP: Case received, EMR reviewed and met with patient. Introduced self and role. Was able to obtain some information regarding baseline history and living situation. DCP assessment completed with information currently available. Patient is a 68 year old male who admitted yesterday afternoon to the care of the hospitalist team. PCP: Dr. Barrera in [place]. Payer: confirmed: Medicare/[employer]. Patient came to the hospital via ambulance secondary to CVA. Code stroke had been initiated, for patient had a ground level fall at home, could not get up. He had fallen multiple times according to note. He had aphasia, decreased level of consciousness at the time. Patient has history of CHF, a-fib, and sees a supervisor metalizing by the name of Dr. Beck. Patient has history of alcohol use, and has has not been drinking recently, according to notes. It is unclear if patient had been drinking prior to the fall. He resides in here in [address], and lives with his ex-, Keya. His DPOA is Sheila Singleton, who is his sister. Her phone number is: [phone]. His niece, Tiffany, also holds DPOA. Met with patient in his room. He was alert and oriented, was sitting up in his bed. He was able to answer some questions from this pillowcase folder. He did emphasize that he lives with his ex-, and that his primary care physician is in [place]. According to notes, patient has been non-compliant with diet and exercise. Patient stated that he does not use a cane or walker. Asked him about recent falls, and he stated, it only happened this one time. P: DCP to continue to follow closely. Will see what P.T and O.T also say during their initial assessment. Delma Mcgee RN/Ship Pilot Dispatcher
[2019-04-12] MEDS: ASPIRIN EC 81 MG TABLET PO (09:18)
[2019-04-12] MEDS: COLCHICINE 0.6 MG TABLET PO (09:18)
[2019-04-12] MEDS: ATORVASTATIN 20 MG TABLET 40 MG PO (09:18)
[2019-04-12] MEDS: SODIUM CHLORIDE 0.9% FLUSH 10 ML IV ×2 (09:18→18:20)
--- NOTE | 2019-04-12 09:42 | PC.NURSE ---
Pts. friend Belinda was called and asked to bring PJ's and new underwear same with his cell phone.
--- NOTE | 2019-04-12 10:02 | PC.NURSE ---
Addendum entered by Afsaneh Henderson R.N. 04/12/19 12:47: PAIN - pt states he has chronic back pain 9 on scale 0/10 I just suck it up, up chair, visiting with friends, given oxy/acet 5/325mg x 1 tab. Original Note: AM NOTE - pt is alert, has a slight speech impediment but words are not slurred, responses appropriate, slight r weakness in copy coordinator, hr w/murmur, bs dim bases, pt has superficial abraisons to r oriental orthodox, tru ue, le and healing bruises, states he is hungry and thirsty, Jessica speech in and eval completed, phys therapy in and pt ambul in hallway w/o assistive device, gait steady, favoring l side w/step.
--- NOTE | 2019-04-12 10:03 | PT.IIE ---
Current Diagnoses Cerebral infarction, unspecified (04/11/19) Surgical History (Last Reviewed 02/17/19 @ 13:41 by Ayde Grady MD) H/O aortic valve replacement (Acute) H/O aortic valve replacement (Acute) History of bilateral knee replacement (Acute) Medical History (Last Reviewed 02/17/19 @ 13:41 by Ayde Grady MD) Chronic dislocation of right shoulder (Acute) Coronary artery disease (Acute) Hypertension (Acute) Lumbosacral spondylosis with radiculopathy (Acute) Pacemaker (Chronic) Scoliosis due to degenerative disease of spine in adult patient (Acute) Physical Therapy Inpatient Evaluation/Re-Eval M1 PT/OT-IP Prior Functional Status Start: 04/12/19 08:41 Freq: NEEDED Status: Active Protocol: Document 04/12/19 10:03 AW (Rec: 04/12/19 10:42 AW [id number]) Medical Review Prior Functional Status Medical History Reviewed Yes Communication Able to make needs known, no known deficits Mobility and Gait Independent without use of AD. Pt admits to relying on furniture/patino for support at home and only walking short community distances due to chronic low back pain. Pt denies falling three times yesterday; states he only fell once, hitting his head. When pressed on number of falls over the past year, pt changes the subject and refuses to answer directly. Activities of Daily Living and IADL's Pt was independent for ADL/ IADL's. Social History Household Members other Living Arrangements House Number of Floors (Floors) One Floor Number of Stairs To Enter/Railing? 2 KATI with left rail ascending . 1 step inside without railing to sunken TV room. 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 Per pt report, his ex- does not help with self-care tasks but does assist with cleaning duties. He has chronic low back pain with opioid dependency per H&P. M2 PT-IP Current Condition Start: 04/12/19 08:41 Freq: NEEDED Status: Active Protocol: Document 04/12/19 10:03 AW (Rec: 04/12/19 10:42 AW [id number]) Physical Therapy Current Condition Current Condition Evaluation Date 04/12/19 Treatment Diagnosis CVA, multiple falls, R-sided weakness, impaired mobility Onset Date 04/11/19 Weight Bearing Status Weight Bearing Status Full Weight Bearing M3 PT-IP Subjective Start: 04/12/19 08:41 Freq: NEEDED Status: Active Protocol: Document 04/12/19 10:03 AW (Rec: 04/12/19 10:42 AW [id number]) Subjective Physical Therapy Visit Type Type Initial Evaluation Visit Start Time 09:18 Visit Stop Time 09:47 Total Visit Minutes 29 Notes Pt just finishing up with SOFTWARE PROGRAMMER Physical Therapy Visit Comments Patient Comments I have had so much PT over the years and have no interest in going again. Patient Goals Pt hopes to discharge back to home environment. Therapy Pain Assessment Pain When Pain Assessed During Mobility Pain Present Pain Present Pain Reported Location bilateral ankles Scale Used not quantified Description With Movement Pain Behaviors Wincing Pain Management Techniques Modification of Treatment,Re- positioning M4 PT-IP Mobility and Gait Start: 04/12/19 08:41 Freq: NEEDED Status: Active Protocol: Document 04/12/19 10:03 AW (Rec: 04/12/19 10:42 AW [id number]) PT-Bed Mobility Assessment Supine to Sit Supine to Sit Standby Assistance,1 Person Assistance Sit to Supine Sit to Supine Standby Assistance,1 Person Assistance Scooting Scooting to Edge of Bed Standby Assistance Scooting Up and Down in Bed Independent PT-Transfer Assessment Sit to and From Stand Sit to and from Stand Standby Assistance Equipment Transfer Assistive Device None,Gait Belt Orthotic/Prosthetic Devices or Brace: No Transfers Transfer Destination Bed Transfer Technique pt ambulated without AD Transfer Ability Level of Assist Standby Assistance Comments Mobility Comments PT observed pt sitting up in bed working with SOFTWARE PROGRAMMER upon entry. From flat bed, pt transferred supine to sit SBA without use of bed features. He was able to sit EOB for MMT with good trunk control. He stood SBA but was unsteady on initial standing. After gait assessment, pt was able to transfer back to supine SBA. Supine: BP 153-75 HR 69 After 2 min standing: BP 146/ 76 HR 84 Gait Assessment Gait Gait Assistance Required: Standby Assistance,Contact Guard Assist Assistive Devices Assistive Device None,Gait Belt Orthotic/Prosthetic Devices or Brace: No Gait Deviations General Gait Pattern Antalgic,Decreased Stride Length,Decreased Feet Clearance,Lateral Trunk Lean, Wide Based Gait Factors Limiting Gait Function Factors Limiting Gait Function Decreased Activity Tolerance, Decreased Strength,Pain,Poor Balance,Poor Safety Awareness Comments Gait Comments Pt ambulated ~170 feet in the halls without AD and without touching the patino. Gait was unsteady and with decreased LLE stance time, requiring SBA to CGA. On 4-item DGI, pt scored 4/12 (2 points deducted in each category - gait level surface, change in gait speed , vertical head turns, horizontal head turns). Stair Climbing Assessment Evaluation Level of Assist On Stairs Standby Assistance Devices Stair Climbing Assistive Devices Left Railing Technique/Endurance Stair Climbing Direction Ascend and Descend Stair Climbing Technique Step to Step Number of Steps Climbed 1 Query Text: Stair Climbing Set # Repetitions (reps) 3 Comments Stair Climbing Comments Pt ascended/descended platform step x 3 using left rail ascending SBA. PT-Balance Assessment Sitting Balance and Reactions Static Sitting Balance Ability Good Dynamic Sitting Balance Ability Good Standing Balance and Reactions Static Standing Balance Ability Fair Dynamic Standing Balance Ability Poor Comments Other Balance Tests/Deviations/Treatment Pt withstood moderate : multidirectional balance challenge and sternal pushes in standing without LOB. However, 4-item DGI score was 4/12 indicating poor dynamic balance and high risk of falls . Functional Assessments Functional Tests Dynamic Gait Index 4/12 on mDGI M5 PT-IP Objective Assessments Start: 04/12/19 08:41 Freq: NEEDED Status: Active Protocol: Document 04/12/19 10:03 AW (Rec: 04/12/19 10:42 AW [id number]) Orientation Orientation/Cognition Level of Alertness Alert Orientation Name,Day of Week,Place, Situation Language Function Ability Garbled Speech Safety Awareness Decreased Safety Awareness Memory Description Short Term Impaired Comments Mild slurring noted <10% of the time. Pt was unable to recall any of the threed words given (apple, table, bronson) after 5 minutes. Pt denies multiple falls but his high fall risk on dynamic gait testing makes this unlikely and may indicate the pt's underreporting or at least poor insight regarding his risk. Gross Range of Motion Upper Extremity ROM Assessment Within Functional Limits Lower Extremity ROM Assessment Within Functional Limits Strength Upper Extremity Strength Assessment Right Impaired Hand L 4+/5; R 4-/5 Lower Extremity Strength Assessment Bilaterally Impaired Hip L 4/5; R 4-/5 Knee L 4/5; R 4/5 Ankle L 4/5; R 4-/5 Comments Strength Comments Slight strength differential R vs L Coordination Assessment Gross Coordination Gross Coordination WNL Assessment Finger to Nose Test Normal Performance Pronation/Supination Test Normal Performance Heel on Cruz Test Normal Performance Coordination Comments No deficits on exam Sensation Assessment Sensation Gross Sensation WNL Comments Sensation Comments No deficits on exam Muscle Tone Muscle Tone WNL No Comments Muscle Tone Comments (-) clonus B ankles and wrists M6 PT-IP Treatment Start: 04/12/19 08:41 Freq: NEEDED Status: Active Protocol: Document 04/12/19 10:03 AW (Rec: 04/12/19 10:42 AW [id number]) Physical Therapy Treatment Other Treatments Other Treatment Performed Provided education on role of PT, plan of care, discharge recommendations, and possible need for assistive device for ambulation. M7 PT-IP Assessment and Plan Start: 04/12/19 08:41 Freq: NEEDED Status: Active Protocol: Document 04/12/19 10:03 AW (Rec: 04/12/19 10:42 AW [id number]) PT Summary Assessment and Plan Potential Rehabilitation Potential Good Status of Condition at Evaluation Evolving Summary Impairments Pain,Strength,Balance, Cognition,Transfers,Gait, Activity Tolerance Assessment Summary Sylvester is a 68 yo man who was seen for PT evaluation on day after admission with suspected CVA. At baseline, pt reports independent ambulation without AD but admits to furniture walking at home and limiting himself to short community distances secondary to back pain. He does not answer questions about falls frequency. On evaluation, he had slight R-sided weakness compared with left, primarily in hands, hips, and ankles. He was unable to recall three words demonstrating impaired short term memory. OT will perform formal cognitive assessment. He required up to CGA for transfers and gait without AD due to unsteadiness and poor dynamic balance. 4/ 12 score on modified DGI indicates high risk of falls. Discussed advantages of using an assistive device for ambulation but pt was resistant. PT recommends discharge to home and outpatient PT to address right -sided weakness and dynamic balance deficits but pt states he is not interested in further PT. Goals Bed Mobility Goal Independent Transfer Goal Independent Gait Goal Independent,Four Wheel Walker Gait Distance 200 Other Goals - up/down 2 steps with L rail ascending independent - up/down single step without railing independent Days to Meet Goals 10 Frequency of Treatment Frequency Of Treatment Once a Day Treatment Plan Physical Therapy Treatment Plan Bed Mobility Training,Transfer Training,Gait Training, Therapeutic Exercise,Balance Retraining,Discharge Planning, Hot or Cold Pack,Neuromuscular Re-ed Other Recommendations and Next Treatment dynamic balance, stairs Focus Recommendations To Nursing Amount of Assist Needed Standby Assistance,1 Person Assist Discharge Recommendations PT Discharge Recommendations Home with Assistance, Outpatient PT Transportation Needs at Discharge Private Vehicle
--- NOTE | 2019-04-12 10:07 | PC.NURSE ---
Pt. Agitated and anxious, Pt wants to sit on the side of the bed then lay down but docent want to go for a walk. Pt is also fidgety while laying in bed. Pt. continues to turn on and off TV saying it needs to be off but than wants the TV to be on.Pt stated that he is bored and docent know what to do with himself and wants to go home.
[2019-04-12] MEDS: METOPROLOL ER 50 MG TABLET 100 MG PO ×2 (11:12→20:51)
--- NOTE | 2019-04-12 12:02 | P.PN_ITS ---
Subjective Subjective Date Patient Seen: 04/12/19 Interval history: Sylvester Singleton is a 68-year-old male with a past medical history significant for CAD status post CABG x4 vessels, CHF, non-mechanical aortic valve replacement, hypertension, hyperlipidemia, atrial fibrillation on warfarin status post pacemaker who presented to the ED via EMS due to multiple falls and right-sided weakness. The patient is resting in bed comfortably. He is quite anxious and requests a nicotine patch for nicotine withdrawal. He no longer has right-sided weakness and his dysarthria has significantly improved but does still have trouble with word finding. He denies headache, shortness of breath, chest pain, abdominal pain, nausea, vomiting, fever, chills, dysuria, diarrhea or constipation. He is voiding without difficulty. He is up ambulating with assistance. Exam Vital Signs (past 8 hours): - 04/12/19 07:00 04/12/19 07:55 04/12/19 10:25 Pulse Rate 75 Respiratory Rate 20 Blood Pressure 167/75 H 153/82 H Pulse Oximetry 96 97 Oxygen Delivery Method Room Air Oxygen Flow Rate 0 Narrative Exam Narrative: General: Older gentleman lying in bed and in no acute distress, appears older than stated age, well-developed, well-nourished, significantly anxious but otherwise appropriately interactive. HEENT: Normocephalic, atraumatic. External ears without defect. Pupils equal, round, and reactive to light. Anicteric sclerae, moist conjunctivae, and no lid lag. Oropharynx free of erythema and cobble stoning with moist mucosa. Neck: Supple with full range of motion.No lymphadenopathy or thyromegaly. Cardiovascular: Regular rate and rhythm without murmurs, rubs, or gallops appreciated. Pulmonary: Clear to auscultation bilaterally with occasional scattered wheeze. No crackles or rhonchi. Normal respiratory effort with no use of accessory muscles. Abdomen: Soft, bowel sounds present, nontender, nondistended. No hepatosplenomegaly or masses appreciated. Extremities: No clubbing, cyanosis, or edema. Skin: Normal temperature, turgor, and texture; no rash, ulcers, or subcutaneous nodules appreciated. Neurological: Cranial nerves grossly intact. Normal muscle strength, tone, and bulk. Reflexes, coordination, and sensory function within normal limits. Mild expressive aphasia. Psychiatric: Anxious mood and affect. Alert and oriented to person, place, and time. Objective Labs Result Diagrams: 04/12/19 05:02 04/12/19 05:02 Labs: Laboratory Results - last 24 hr 04/11/19 04/11/19 04/11/19 15:30 15:30 15:30 WBC 7.0 RBC 3.69 L Hgb 11.1 L Hct 33.9 L MCV 91.9 MCH 29.9 MCHC 32.6 RDW 17.1 H Plt Count 299 Neut % (Auto) 82.2 H Lymph % (Auto) 7.8 L [place] % (Auto) 8.2 Eos % (Auto) 1.4 L Baso % (Auto) 0.4 Neut # (Auto) 5800 Lymph # (Auto) 500 L [place] # (Auto) 600 Eos # (Auto) 100 Baso # (Auto) 0 PT 28.0 H INR 2.4 H APTT 44 H D Sodium 136 L Potassium 4.4 Chloride 103 Carbon Dioxide 25 BUN 20 Creatinine 1.00 Estimated GFR > 60.0 BUN/Creatinine Ratio 20.0 Glucose 121 H Calcium 9.8 Total Bilirubin 0.9 AST 35 ALT 24 Alkaline Phosphatase 94 Total Creatine Kinase 72 CK-MB (CK-2) TNP CK-MB (CK-2) Rel Index TNP Troponin I 0.020 Total Protein 7.1 Albumin 4.4 Globulin 2.7 Albumin/Globulin Ratio 1.6 Triglycerides Cholesterol LDL Cholesterol, Calc HDL Cholesterol Urine Color Urine Appearance Urine pH Ur Specific [place] Urine Protein Urine Glucose (UA) Urine Ketones Urine Occult Blood Urine Nitrate Urine Bilirubin Urine Urobilinogen Ur Leukocyte Esterase Urine RBC Urine WBC Ur Squamous Epith Cells Urine Bacteria Ur Culture Indicated? U Opiates 300ng/mL cut Ur Oxycodone Screen Urine Methadone Screen Ur Barbiturates Screen U Tricyclic Antidepress Ur Phencyclidine Scrn Ur Amphetamines Screen U Methamphetamines Scrn Ur MDMA Scrn (Ecstasy) U Benzodiazepines Scrn Urine Cocaine Screen U Marijuana (THC) Screen 04/11/19 04/11/19 04/12/19 16:10 16:10 05:02 WBC RBC Hgb Hct MCV MCH MCHC RDW Plt Count Neut % (Auto) Lymph % (Auto) [place] % (Auto) Eos % (Auto) Baso % (Auto) Neut # (Auto) Lymph # (Auto) [place] # (Auto) Eos # (Auto) Baso # (Auto) PT INR APTT Sodium Potassium Chloride Carbon Dioxide BUN Creatinine Estimated GFR BUN/Creatinine Ratio Glucose Calcium Total Bilirubin AST ALT Alkaline Phosphatase Total Creatine Kinase CK-MB (CK-2) CK-MB (CK-2) Rel Index Troponin I Total Protein Albumin Globulin Albumin/Globulin Ratio Triglycerides 140 Cholesterol 140 LDL Cholesterol, Calc 78 HDL Cholesterol 34 L Urine Color Yellow Urine Appearance Clear Urine pH 6.5 Ur Specific [place] 1.010 Urine Protein Negative Urine Glucose (UA) Negative Urine Ketones Negative Urine Occult Blood 1+ H Urine Nitrate Negative Urine Bilirubin Negative Urine Urobilinogen 0.2 Ur Leukocyte Esterase Negative Urine RBC 10-30/hpf H Urine WBC 0-1/hpf Ur Squamous Epith Cells None seen Urine Bacteria None seen Ur Culture Indicated? Cult not indicated U Opiates 300ng/mL cut Negative Ur Oxycodone Screen Negative Urine Methadone Screen Negative Ur Barbiturates Screen Negative U Tricyclic Antidepress Negative Ur Phencyclidine Scrn Negative Ur Amphetamines Screen Negative U Methamphetamines Scrn Negative Ur MDMA Scrn (Ecstasy) Negative U Benzodiazepines Scrn Negative Urine Cocaine Screen Negative U Marijuana (THC) Screen Negative 04/12/19 04/12/19 04/12/19 05:02 05:02 05:02 WBC 7.6 RBC 3.72 L Hgb 11.2 L Hct 33.7 L MCV 90.5 MCH 30.0 MCHC 33.2 RDW 16.7 H Plt Count 278 Neut % (Auto) 77.6 H Lymph % (Auto) 10.2 L [place] % (Auto) 9.3 Eos % (Auto) 2.5 Baso % (Auto) 0.4 Neut # (Auto) 5900 Lymph # (Auto) 800 L [place] # (Auto) 700 Eos # (Auto) 200 Baso # (Auto) 0 PT 34.6 H D INR 2.9 H APTT Sodium 139 Potassium 4.0 Chloride 108 H Carbon Dioxide 23 BUN 19 Creatinine 0.70 Estimated GFR > 60.0 BUN/Creatinine Ratio 27.1 H Glucose 106 Calcium 9.2 Total Bilirubin AST ALT Alkaline Phosphatase Total Creatine Kinase CK-MB (CK-2) CK-MB (CK-2) Rel Index Troponin I Total Protein Albumin Globulin Albumin/Globulin Ratio Triglycerides Cholesterol LDL Cholesterol, Calc HDL Cholesterol Urine Color Urine Appearance Urine pH Ur Specific [place] Urine Protein Urine Glucose (UA) Urine Ketones Urine Occult Blood Urine Nitrate Urine Bilirubin Urine Urobilinogen Ur Leukocyte Esterase Urine RBC Urine WBC Ur Squamous Epith Cells Urine Bacteria Ur Culture Indicated? U Opiates 300ng/mL cut Ur Oxycodone Screen Urine Methadone Screen Ur Barbiturates Screen U Tricyclic Antidepress Ur Phencyclidine Scrn Ur Amphetamines Screen U Methamphetamines Scrn Ur MDMA Scrn (Ecstasy) U Benzodiazepines Scrn Urine Cocaine Screen U Marijuana (THC) Screen Assessment & Plan Assessment & Plan narrative: Sylvester Singleton is a 68-year-old male with a past medical history significant for CAD status post CABG x4 vessels, CHF, non-mechanical aortic valve replacement, hypertension, hyperlipidemia, atrial fibrillation on warfarin status post pacemaker who presented to the ED via EMS due to multiple falls and right-sided weakness. 1. Acute CVA, present on admission. Resolving. -Patient presented with decreased level of consciousness, right-sided weakness and moderate to severe aphasia. Right-sided weakness resolved and aphasia now nearly resolved. -CT brain without contrast did not demonstrate any acute intracranial process. -CTA head and neck nondiagnostic study due to delayed flow. Patient is unable to have MRI due to pacemaker. Plan to repeat CTA tomorrow after 24 hours with longer delay in imaging after the injection of the contrast. -Allow for permissive hypertension for 1st 24 hours. -Continue to monitor closely on telemetry. Patient is currently v paced with underlying rhythm sinus in 1st degree AV block. -Continue physical, occupational, and speech therapy evaluation and treatment. -Ordered echocardiogram, pending. -Ordered carotid duplex ultrasound, pending. -Continue home warfarin regimen. Patient is currently therapeutic with INR 2.9. -Fasting lipid panel demonstrated fairly well-controlled lipids: Total cholesterol 140, triglycerides 140, LDL 78 (goal < 70), HDL 34. Continue home atorvastatin increased from 40 mg to 80 mg daily at bedtime. 2. Probable paroxysmal atrial fibrillation on warfarin, present on admission. Stable. -Presumably this is due to history of AFib as his aortic valve appears to be non mechanical -Continue home warfarin regimen for anticoagulation. Patient is currently therapeutic with INR 2.9. -Continue metoprolol succinate 100 mg twice daily for rate control. 3. Coronary artery disease status post CABG x4 and CHF unclear type, chronic, present on admission. Stable. -Patient denies chest pain. -Troponin is normal at 0.020. -Patient is currently v-paced with underlying rhythm sinus in 1st degree AV block. -Continue home aspirin 81 mg daily, atorvastatin increased from 40 mg to 80 mg daily at bedtime, metoprolol succinate 100 mg twice daily, spironolactone 25 mg daily, and amlodipine 10 mg daily. 4. Chronic back pain with opiate dependency, chronic, present on admission. Stable. -Patient is prescribed Percocet and, as noted, ex- mentioned he runs out early every month due to taking more than prescribed. -Continue Percocet 10 mg every 6 hours and gabapentin 600 mg 3 times daily. 5. Presumed COPD without exacerbation, chronic, present on admission. Stable. -Patient is a current active smoker and is on inhalers at home with presumed COPD. -Respiratory status currently stable. Continue home Spiriva 1 puff daily and albuterol nebs every 2 hours while awake as needed for shortness of breath or wheezing. 6. Nicotine dependence, chronic, present on admission. Stable. -Counseled patient extensively on smoking cessation. -Ordered nicotine patch as needed for nicotine withdrawal. Disposition: Patient likely to discharge home tomorrow after repeat CTA.
[2019-04-12] MEDS: OXYCODONE/ACETAMINOPHEN 5/325 TABLET 1 TAB PO (12:36)
--- NOTE | 2019-04-12 13:30 | OT.IP.EVAL ---
Current Diagnoses Cerebral infarction, unspecified (04/11/19) Past Medical History (Last Reviewed 02/17/19 @ 13:41 by Ayde Grady MD) Chronic dislocation of right shoulder (Acute) Coronary artery disease (Acute) Hypertension (Acute) Lumbosacral spondylosis with radiculopathy (Acute) Pacemaker (Chronic) Scoliosis due to degenerative disease of spine in adult patient (Acute) Surgical History (Last Reviewed 02/17/19 @ 13:41 by Ayde Grady MD) H/O aortic valve replacement (Acute) H/O aortic valve replacement (Acute) History of bilateral knee replacement (Acute) Occupational Therapy Inpatient Evaluation/Re-Eval opioid dependency per H&P. M1 PT/OT-IP Prior Functional Status Start: 04/12/19 15:48 Freq: NEEDED Status: Active Protocol: Document 04/12/19 13:30 [facility] (Rec: 04/12/19 16:09 [facility] [id number]) Medical Review Prior Functional Status Medical History Reviewed Yes Communication Able to make needs known, no known deficits Mobility and Gait Per PT eval:Independent without use of AD. Pt admits to relying on furniture/patino for support at home and only walking short community distances due to chronic low back pain. Pt denies falling three times yesterday; states he only fell once, hitting his head. When pressed on number of falls over the past year, pt changes the subject and refuses to answer directly. Activities of Daily Living and IADL's Pt was independent for ADL/ IADL's. Pt states able to house chores but no longer does yard work. Social History Household Members other Living Arrangements House Number of Floors (Floors) One Floor Number of Stairs To Enter/Railing? 2 KATI with left rail ascending . 1 step inside without railing to sunken TV room. 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 Per pt report, his ex- does not help with self-care tasks but does assist with cleaning duties. He has chronic low back pain with opioid dependency per H&P. M2 OT-IP Current Condition Start: 01/27/20 15:48 Freq: Status: Active Protocol: Document 04/12/19 13:30 [facility] (Rec: 04/12/19 16:09 [facility] [email or web address]) Occupational Therapy Current Condition Current Condition Evaluation Date 04/12/19 Treatment Diagnosis CVA, right side weakness Diagnosis Onset Date 04/11/19 Weight Bearing Status Weight Bearing Status Weight Bear as Tolerated M3 OT- IP Subjective and Pain Start: 04/12/19 15:48 Freq: Status: Active Protocol: Document 04/12/19 13:30 [facility] (Rec: 04/12/19 16:09 [facility] [id number]) OT- Subjective Occupational Therapy Visit Type Type Initial Evaluation Visit Start Time 13:30 Visit Stop Time 14:13 Total Visit Minutes 43 Occupational Therapy Visit Comments Patient Comments Pt cooperative and will to do OT eval, family stepped out during OT eval and came back in afterwards. Patient/Caregiver Goals To go home. OT Pain Assessment Pain When Pain Assessed At Rest Pain Present Pain Present Denied Pain M4 OT- IP ADL's Start: 04/12/19 15:48 Freq: Status: Active Protocol: Document 04/12/19 13:30 [facility] (Rec: 04/12/19 16:09 [facility] [email or web address]) OT [id number] General Evaluation Self-Feeding Ability Independent OT ADL-Grooming General Evaluation Grooming Ability Independent Comments OT Grooming Comments While standing with no device. OT ADL-Oral Care Comments Oral Care Comments NOt performed. OT ADL-Dressing General Eval Lower Body Dressing Ability Independent Comments OT Dressing Comments While sitting. OT ADL-Toileting General Evaluation Toileting Ability Independent OT ADL-Bathing Comments OT Bathing Comments Not performed. Recommended that pt to have a shower chair at home in addition to having ex- present during showering for safety due to decreased dynamic balance. M5 OT- IP IADL's Start: 04/12/19 15:48 Freq: Status: Active Protocol: Document 04/12/19 13:30 [facility] (Rec: 04/12/19 16:09 [facility] [email or web address]) OT-Instrumental Activities of Daily Living Home Safety Awareness Ability to Problem Solve Emergency Able to Problem Solve Situations Home Safety Comments Pt able to answer all home safety situation with 100% accuracy. At this time due to decreased executive thinking and dynamic balance suggested to have ex- present when pt trying tasks to provide supervision and assist as needed. Driving Driving Concerns Identified Regarding Safety M6 OT- IP Functional Cognition Start: 04/12/19 15:48 Freq: Status: Active Protocol: Document 04/12/19 13:30 [facility] (Rec: 04/12/19 16:09 [facility] [email or web address]) Cognitive Factors Limiting Selfcare Function Cognitive Ability Level of Alertness Alert Patient Orientation Name,Age,Birthday,Month,Date, Year,Day of Week,Place, Situation Attention Span Ability Capable of Focused Attention, Capable of Sustained Attention Ability to Follow Commands Able to Follow One Step Commands Memory Description Short Term Impaired Safety Awareness Underestimates Need for Assistance Problem Solving Ability Needs Assist to Identify Solutions Executive Function Ability Unable to Switch Focus,Unable to Filter Distractions,Unable to Remember Details Cognitive Tests SLUMS Pt scored 27/30. For pt's education level, a socre of27/ 30 which implies normal cognition. ACL Due to pt does not have his glasses unable to complete [place] Cognitive Level Screen. Cognitive Comments Cognitive Assessment Comments Pt not able to complete [place] Making Part B as forgetting the instructions and easily getting distracted. The assessment looks at executive thinking, visual attention, mental flexibility, speed of processing, and task switching . At this time base on pt not able to complete the task implies severe impairment for the above. Therefore recommended that pt not drive. Pt agreed with the recommendation in addition to his family. OT- Vision and Hearing OT- Hearing Assessment OT- Hearing Assessment WFL OT- Vision Assessment Visual Convergence WFL Visual [place] WFL Vision Assessment Comments Pt does not have his glasses. M7 OT- IP Mobility and Balance Start: 04/12/19 15:48 Freq: Status: Active Protocol: Document 04/12/19 13:30 [facility] (Rec: 04/12/19 16:09 [facility] [email or web address]) OT-Transfer Assessment Sit to and From Stand Sit to and from Stand Standby Assistance Transfers Transfer Ability Standby Assistance Technique Transfer Destination Chair Devices Transfer Assistive Devices None Comments Mobility Comments Pt able to move in the room with distant supervison on level surfaces and tends to use the counter, wall and surfaces to assist with his balance. OT- Balance Assessment Sitting Balance and Reactions Static Sitting Balance Ability Normal Dynamic Sitting Balance Ability Good Standing Balance and Reactions Static Standing Balance Ability Fair Dynamic Standing Balance Ability Poor M8 OT- IP Objective Assessments Start: 04/12/19 15:48 Freq: Status: Active Protocol: Document 04/12/19 13:30 [facility] (Rec: 04/12/19 16:09 [facility] [email or web address]) OT Gross Range of Motion Upper Extremity Range of Motion Assessment Within Functional Limits OT Strength Comments Strength Comments Right digital media associate 55lbs, norm for pt' s age 91lbs. Left digital media associate 66lbs, norm for pt's age 77lbs. OT- Coordination Assessment Upper Extremity Finger to Nose Test Within Functional Limits Finger Tapping Test Within Functional Limits Comments Coordination Comments Pt 9 hole peg right hand 34 sec, norm for his age 22.5 sec . Left hand 30 sec, norm for his age 25 sec. OT-Muscle Tone Assessment Muscle Tone WNL No OT Sensation Assessment Comments Summary Comments Intact for light touch. M9 OT- IP Assessment and Plan Start: 04/12/19 15:48 Freq: Status: Active Protocol: Document 04/12/19 13:30 [facility] (Rec: 04/12/19 16:09 [facility] [email or web address]) OT Summary Assessment and Plan Potential Rehabilitation Potential Good Analytic Complexity at Evaluation Low Summary OT Impairments Balance,Coordination, Functional Cognition, Functional Mobility,Bathing, Shower Transfers,Activity Tolerance Progress Towards Goals Progressing Toward Goals Assessment Summary Pt low complexity and noted decreased strength with RUE however able to use appropriately for ADL needs. Noted decreased executive functioning and may benefit from outpt OT for coordination , strengthening, and higher level executive thinking. Pt will have ex- to assist with needs at home. Pt aware not to drive at this time due to decreased functional cognition at this time. Goals Bathing Goal Standby Assistance Shower Transfer Goal Standby Assistance Patient/Caregiver Education Goal Caregiver Independent Assisting Patient Days to Meet Goals 3 Frequency of Treatment Frequency Of Treatment Once a Day Treatment Plan OT Treatment Plan ADL Training,Functional Cognition Training,Functional Mobility,Patient/Family Education,Discharge Planning Other Treatment Recommendations and Next Reassess [place] Making Part B, Treatment Focus shower Discharge Recommendations OT Discharge Recommendations Home with Assistance, possibly outpt OT Transportation Needs at Discharge Private Vehicle
[2019-04-12] MEDS: NICOTINE 21 MG PATCH TOP (13:48)
[2019-04-12 14:10] LABS: Hemoglobin A1C% w Est Avg Glu 4.5 % (4.0-6.0)
[2019-04-12] MEDS: WARFARIN 7.5 MG TABLET PO (16:56)
--- NOTE | 2019-04-12 16:58 | ST.OPIE ---
Visit Care Team Role Provider Type Leslee Bustamante DO Emergency Provider Physician Specialty: Emergency Medicine Address: [address] [place] [address], [id number] Email: [email or web address] Dale Rossi MD Admit Provider Physician Attending Provider Specialty: Internal Medicine Address: [address] [place] [address], [address] Email: [email or web address] Speech-Language Pathology Initial Evaluation [employer] Clinical Swallow Evaluation Start: 04/12/19 09:32 Freq: Status: Active Protocol: Document 04/12/19 09:33 [facility] (Rec: 04/12/19 09:33 [facility] [id number]) Clinical Swallow Evaluation Session Time Visit Start Time 08:45 Visit Stop Time 09:05 Total Visit Minutes [address] Rossi Reason for Referral CVA Setting Assessment Location Acute Care Visit Type Note Type Initial Evaluation Next Note Type Next Note Type Treatment Note Patient Information Identification Type Name,ID Card History Per med report: Sylvester Singleton is a 68-year-old male with a past medical history significant for CAD status post CABG x4 vessels, CHF, non-mechanical aortic valve replacement, hypertension, hyperlipidemia, atrial fibrillation on warfarin status post pacemaker who presented to the ED via EMS due to multiple falls and right-sided weakness. Additionally, patient has longstanding history of congestive heart failure and past history of alcohol abuse. Unclear if there has been recent consumption of alcohol or not. CT of brain indicated no intracranial hemorrhage. Pt is unable to participate in MRI d/t pacemaker. Subjective Observations The pt was awake and sitting up in bed. Reported being thirsty and eager for food and water. He stated he felt completely back to normal but did c/o of frequent coughing not associated with swallow, which he attributed to chest congestion. Throughout the evaluation, the pt appeared moderately anxious and hesitant in participating in many activities such as waiting for the clinician's ok before consuming water, answering orientation and yes/no questions, and reciting automatic speech. He often rolled his eyes and made statements such as, Yeah, I know what year it is, requiring further prompting to elicit the current year. Evaluation Liquids Trialed Ice Chips,Thin Solids Trialed Puree,Dysphagia Mechanical, Mechanical Soft,Regular Administration Type Cup Single Sip,Controlled Cup Sip,Cup Consecutive Sips,Straw ,Self-Feeding Oral Impairment WNL Oral Strategies Upright at 90 degrees Oral Phase Comments Structures are symmetrical with no evidence of right side weakness. Pt has complete upper/lower implants in good condition. Oral prep and swallow phases were WNL. Pharyngeal Impairment WNL Pharyngeal Strategies Sitting Upright (90 deg),Small Bites and Sips Pharyngeal Phase Comments Mild delayed cough (several minutes) was exhibited after 1 trial each of thin liquid and a bite of dry turkey sandwich. The pt's voice remained clear throughout, and he tolerated all other trials without overt s/sx of aspiration, including consumption of multiple pills at once with water. The pt did exhibit some impulsivity in the form of attempting to consume items prior to the [employer]ELOP[employer] MANAGER's administration. He was educated of general aspiration precautions including consuming small bites/sips at a slow rate, chewing well, minimizing distractions during oral consumption particularly not to talk while eating, and maintaining upright position with all oral intake. He verbalized understanding. Findings Dysphagia Type Swallow function WNL Impressions The pt presents with normal swallow function. Two episodes of delayed cough did not appear to be directly related to swallow. He does exhibit occasional impulsivity which could potentially decrease safety with oral intake. Reminders to follow general aspiration precautions is advised. Diet Recommendations Liquids Order Thin Diet Order Regular Medication Recommendations As Tolerated Aspiration Precautions Recommended Precautions Upright at 90 Degrees,Small Bites/Sips Additional Precautions Minimize distractions, eat/ drink slowly Treatment Plan Appropriate for Therapy Yes Therapy Recommendations Given acute CVA status, will follow up x1 to assess ongoing diet tolerance. Will continue to follow pt for further evaluation and tx as indicated for word recall and cognitive communication skills. Dysphagia Goals The pt will tolerate regular texture and thin liquids without overt s/sx of aspiration. [employer]GER Language Evaluation Start: 04/12/19 09:32 Freq: Status: Active Protocol: Document 04/12/19 16:36 [facility] (Rec: 04/12/19 16:57 [facility] [id number]) Language Evaluation Session Time Visit Start Time 09:05 Visit Stop Time 09:25 Total Visit Minutes 20 Language Evaluation Assessment Type Speech & Language assessment Subjective Subjective The pt reported no changes or difficulty with speech and expressive/receptive language skills. Pt was oriented to person, place, day and month. When asked the year, the pt rolled his eyes and stated, I know the year and when prompted, stated his complete date. When again prompted for current year, stated correctly. When asked what brought him to the hospital, he responded, I guess I fell. He denied more than one fall in recent weeks, which is inconsistent with medical records. - Informal Assessment Receptive Language Normal Auditory comprehension requires further assessment Expressive Language Normal No: Mild WFD, confusi Articulation Normal Yes Cognition Normal Recommend SLUMS administration - Receptive Language Yes/No Questions Skill Level WNL Following Directions - Verbal Skill Level Mildly Impaired Comments 1- and 2-step directions 100%; 3-step directions 2/5 (40%) Auditory Comprehension Comments Requires further evaluation to discriminate language vs cognitive deficits Reading Comprehension Comments Able to read words, phrases and sentences. Comprehension not assessed. Receptive Language Comments Receptive Language Comments The pt exhibited adequate auditory language skills to participate functionally in conversation. However, he occasionally gave incorrect responses to test questions, such as providing date of when current year requested and confusing order of tasks when given 3-step oral directions. Such errors may reflect receptive language or cognitive (i.e., memory or attention) impairments. Further assessment is needed. - Expressive Language Automatic Speech Skill Level Mildly Impaired Comments Omitted letters of alphabet, months of year and/or gave in incorrect order Sentence Closure Skill Level WNL Oral Expression Skill Level WFL Comments For simple conversation Written Expression Comments Did not test Expressive Language Comments Expressive Language Comments During automatic speech tasks, the pt again rolled his eyes and attempted to produce answers (counting 1-20, ABCs, Days of Week, and Months of Year) very rapidly. He was successful with counting and naming days of week. Several errors were made when reciting alphabet and months, to which the pt responded, ...and blah, blah, blah. I know it. When prompted to slow down, he recited months correctly. When asked, Can you say the alphabet again?, he said, No. This appeared to be a refusal vs inability to attempt the task. - Findings Language Findings Mild deficits in areas of orientation, word recall as seen in automatic speech tasks were present. The pt also had difficulty following 3-step directions and occasionally gave incongruent responses to questions. These latter errors may reflect auditory comprehension, cognitive impairment, or both. Further assessment is needed. Recommendation for administration of SLUMS was made to OT. Recommendations Recommendations Pt performs WFL for simple conversation, although he does appear to deny and/or mask areas of difficulty. Further assessment of expressive, receptive, and cognitive communication skills is recommended. Treatment Goals Short Term Goals The pt will participate in further assessment of expressive, receptive and cognitive communication skills to guide POC and improve his ability to effectively participate in medical decisions, safety, and self- care. Quilt Maker Goals The pt will demonstrate expressive, receptive, and cognitive communication skills sufficient to effectively participate in medical decisions, safety, and self- care.
[2019-04-12] MEDS: TIOTROPIUM BROMIDE 18 MCG INHALER INH (17:05)
[2019-04-12] MEDS: OXYCODONE/ACETAMINOPHEN 5/325 TABLET 2 TAB PO (17:55)
[2019-04-12] MEDS: DULOXETINE 30 MG CAPSULE 60 MG PO (20:51)
[2019-04-13] VITALS: O2SAT 95
[2019-04-13] MEDS: OXYCODONE/ACETAMINOPHEN 5/325 TABLET 2 TAB PO ×3 (00:01→12:04)
[2019-04-13] MEDS: MELATONIN 3 MG TABLET 6 MG PO (01:32)
--- NOTE | 2019-04-13 02:59 | PC.NURSE ---
Pt. sound asleep at this time, after medicated with 6 mg. of Melatonin. Reported earlier that he never been sleeping well for past few days. Will cont. POC & monitor.
[2019-04-13 04:40] VITALS: BP 140/65; PULSE 76; RESP 16; TEMP 36.3; O2SAT 96
[2019-04-13 05:41] LABS: INR 3.4 (0.9-1.3); Prothrombin Time 40.1 SECONDS (10.1-12.7)
[2019-04-13 07:50] VITALS: O2SAT 96
[2019-04-13 08:00] VITALS: BP 132/57; PULSE 67; RESP 18; TEMP 36.3; O2SAT 95
--- NOTE | 2019-04-13 08:10 | DI.CT.S_ITS ---
PROCEDURE: CT ANGIO HEAD AND NECK INDICATIONS: CVA, aphasia, right sided weakness TECHNIQUE: Pre-contrast 4.5 mm thick sections acquired from the foramen magnum to the vertex. After the administration of intravenous contrast, 1 mm thick sections acquired from the aortic arch through the [place]. Post-contrast 4.5 mm thick sections then re-acquired from the foramen magnum to the vertex. 3-dimensional fdbcksi-rpevubbzo-ulcrsdxqvy (MIP) and/or volume rendering reformats were acquired of the central intracranial vasculature and neck separately. COMPARISON: [facility], CT, CT ANGIO HEAD AND NECK, 04/11/2019, 15:40. FINDINGS: Image quality: Excellent. BRAIN: CSF spaces: Ventricles are normal in size and shape. Basal cisterns are patent. No extra-axial fluid collections. Brain: No midline shift. No intracranial bleeds or masses. Love-white matter interface appears intact. Skull and face: Calvarium and facial bones appear intact, without suspicious lesions. Orbits appear normal. Sinuses: Sinuses and mastoids are clear except for mild right maxillary sinus disease.. HEAD CT ANGIOGRAPHY: There are numerous scattered atherosclerotic calcifications, including within both carotid systems. Anterior circulation: Intracranial internal carotid arteries (ICA): Patent. Anterior cerebral arteries (ULISES): Patent. Middle cerebral arteries (MCA): Patent. No aneurysms are seen. Posterior circulation: Visualized portions of the vertebral arteries: Patent. Basilar artery: Patent. origin of both posterior cerebral arteries. Posterior cerebral arteries (SUPERVISING BROKER): Patent. No aneurysms are seen. NECK CT ANGIOGRAPHY: Carotid system: The great vessels demonstrate a conventional anatomy as they arise from the aortic arch. Origins of the common carotid arteries (CCA) appear patent. Common carotid arteries (CCA): Patent. Internal carotid arteries (ICA): Numerous bilateral carotid calcifications. There is 50% focal stenosis involving the left ICA at the bifurcation. Less than 50% focal stenosis involving the right ICA at the bifurcation. Posterior circulation: The origins of the vertebral arteries both appear patent. Extracranial portions of both vertebral arteries: Patent. Basilar artery: Patent. Soft tissues: Visualized neck soft tissues demonstrate no suspicious abnormalities. Bones: No suspicious bony lesions. Cervical spondylosis and diffuse facet arthropathy. IMPRESSION: No acute intracranial process No intracranial focal stenosis or occlusion Diffuse bilateral carotid calcifications. 50% focal stenosis involving the left ICA at the bifurcation. Further evaluation with dedicated carotid ultrasound could be performed as clinically warranted Less than 50% focal stenosis at the right ICA at the bifurcation Any quantitative measurements of stenosis were performed using NASCET criteria. Dictated by: Adrián Aguirre M.D. on 04/13/2019 at 9:03 Approved by: Adrián Aguirre M.D. on 04/13/2019 at 9:28
[2019-04-13] MEDS: DULOXETINE 30 MG CAPSULE 60 MG PO (08:34)
[2019-04-13] MEDS: METOPROLOL ER 50 MG TABLET 100 MG PO (08:35)
[2019-04-13] MEDS: ATORVASTATIN 20 MG TABLET 80 MG PO (08:35)
[2019-04-13] MEDS: FUROSEMIDE 20 MG TABLET 10 MG PO (08:35)
[2019-04-13] MEDS: COLCHICINE 0.6 MG TABLET PO (08:35)
[2019-04-13] MEDS: ASPIRIN EC 81 MG TABLET PO (08:35)
[2019-04-13] MEDS: SODIUM CHLORIDE 0.9% FLUSH 10 ML IV (08:36)
[2019-04-13] MEDS: SPIRONOLACTONE 25 MG TABLET PO (08:36)
[2019-04-13] MEDS: NICOTINE 21 MG PATCH TOP (08:36)
[2019-04-13 08:37] VITALS: PULSE 67; RESP 16; O2SAT 95
[2019-04-13] MEDS: TIOTROPIUM BROMIDE 18 MCG INHALER INH (08:37)
--- NOTE | 2019-04-13 09:51 | OT.IP.TRT ---
Current Diagnoses Cerebral infarction, unspecified (04/11/19) Occupational Therapy Treatment Note M2 OT-IP Current Condition Start: 04/12/19 15:48 Freq: Status: Active Protocol: Document 04/12/19 13:30 [facility] (Rec: 04/12/19 16:09 [facility] [id number]) Occupational Therapy Current Condition Current Condition Evaluation Date 04/12/19 Treatment Diagnosis CVA, right side weakness Diagnosis Onset Date 04/11/19 Weight Bearing Status Weight Bearing Status Weight Bear as Tolerated M3 OT- IP Subjective and Pain Start: 04/12/19 15:48 Freq: Status: Active Protocol: Document 04/13/19 11:55 [facility] (Rec: 04/13/19 12:07 [facility] [id number]) OT- Subjective Occupational Therapy Visit Type Type Treatment Note Visit Start Time 09:25 Visit Stop Time 09:51 Total Visit Minutes 26 Occupational Therapy Visit Comments Patient Comments Pt cooperative and still realizes that he is not ready to get back to driving yet. Patient/Caregiver Goals To go home. OT Pain Assessment Pain When Pain Assessed At Rest Pain Present Pain Present Denied Pain M4 OT- IP ADL's Start: 04/12/19 15:48 Freq: Status: Active Protocol: Document 04/12/19 13:30 [facility] (Rec: 04/12/19 16:09 [facility] [id number]) OT [id number] General Evaluation Self-Feeding Ability Independent OT ADL-Grooming General Evaluation Grooming Ability Independent Comments OT Grooming Comments While standing with no device. OT ADL-Oral Care Comments Oral Care Comments NOt performed. OT ADL-Dressing General Eval Lower Body Dressing Ability Independent Comments OT Dressing Comments While sitting. OT ADL-Toileting General Evaluation Toileting Ability Independent OT ADL-Bathing Comments OT Bathing Comments Not performed. Recommended that pt to have a shower chair at home in addition to having ex- present during showering for safety due to decreased dynamic balance. M5 OT- IP IADL's Start: 04/12/19 15:48 Freq: Status: Active Protocol: Document 04/12/19 13:30 [facility] (Rec: 04/12/19 16:09 [facility] [email or web address]) OT-Instrumental Activities of Daily Living Home Safety Awareness Ability to Problem Solve Emergency Able to Problem Solve Situations Home Safety Comments Pt able to answer all home safety situation with 100% accuracy. At this time due to decreased executive thinking and dynamic balance suggested to have ex- present when pt trying tasks to provide supervision and assist as needed. Driving Driving Concerns Identified Regarding Safety M6 OT- IP Functional Cognition Start: 04/12/19 15:48 Freq: Status: Active Protocol: Document 04/13/19 11:55 [facility] (Rec: 04/13/19 12:07 [facility] [id number]) Cognitive Factors Limiting Selfcare Function Cognitive Ability Level of Alertness Alert Patient Orientation Name,Age,Birthday,Month,Date, Year,Day of Week,Place, Situation Attention Span Ability Capable of Focused Attention, Capable of Sustained Attention Ability to Follow Commands Able to Follow One Step Commands Memory Description Short Term Impaired Safety Awareness Underestimates Need for Assistance Problem Solving Ability Needs Assist to Identify Solutions Executive Function Ability Unable to Switch Focus,Unable to Filter Distractions,Unable to Remember Details Cognitive Comments Cognitive Assessment Comments Pt able to complete [place] Making part B today but still needing needing MODA to help complete the assessment. Pt's performance still implies no driving at this time. M7 OT- IP Mobility and Balance Start: 04/12/19 15:48 Freq: Status: Active Protocol: Document 04/13/19 11:55 [facility] (Rec: 04/13/19 12:07 [facility] [email or web address]) OT-Transfer Assessment Comments Mobility Comments Independent in the room. OT- Balance Assessment Sitting Balance and Reactions Static Sitting Balance Ability Normal Dynamic Sitting Balance Ability Good Standing Balance and Reactions Static Standing Balance Ability Normal Dynamic Standing Balance Ability Fair M9 OT- IP Assessment and Plan Start: 04/12/19 15:48 Freq: Status: Active Protocol: Document 04/13/19 11:55 [facility] (Rec: 04/13/19 12:07 [facility] [email or web address]) OT Summary Assessment and Plan Potential Rehabilitation Potential Good Analytic Complexity at Evaluation Low Summary OT Impairments Balance,Coordination, Functional Cognition, Functional Mobility,Bathing, Shower Transfers,Activity Tolerance Progress Towards Goals Progressing Toward Goals Assessment Summary Today noted 3 lb improvement with RUE insole cementer strength and 4 seconds faster on 9 hole peg test. Pt given theraputty to work in insole cementer and FMS for pt at home and states already has therabands at home as well. Pt wanted to work on needs at home before trying to do outpt OT. Pt's ex- to supervise and assist pt as needed. Goals Patient/Caregiver Education Goal Caregiver Independent Assisting Patient Days to Meet Goals 1 Frequency of Treatment Frequency Of Treatment Once a Day Treatment Plan OT Treatment Plan Patient/Family Education, Discharge Planning Discharge Recommendations OT Discharge Recommendations Home with Assistance Transportation Needs at Discharge Private Vehicle
--- NOTE | 2019-04-13 10:06 | PM.DS.1 ---
History of Present Illness History of Present Illness Chief complaint: Code Stroke Narrative: Patient is a 68-year-old male under care of outside unknown PCP with history of 2 vessel CABG, non mechanical aortic valve replacement, pacemaker, chronic warfarin anticoagulation brought to emergency department due to multiple falls and right-sided weakness. His ex- who lives with him is able to provide some history. She notes he may have been a little confused since last night. She noticed he was having difficulty forming words throughout the day and she had hard time understanding him today. He has a history of falls but she notes he was much more off balance and he had fallen 3 times today. EMS was called when he fell to the ground and was unable to get up. They reported right-sided weakness. He was initially talking and answering questions but on route he became more unresponsive and unable to answer questions. Upon arrival to the emergency department he had response only to pain and could grasp fingers of ER physician with left hand only but not the right. Head CT without acute bleed. EKG paced rhythm. CTA incomplete study due to delayed blood flow. His NIH stroke scale score was 3. He is a current smoker, no diabetes, no previous history of TIA or stroke. He has chronic back pain history and takes Percocet prescribed by his doctor but states he often runs out early. Discharge Providers Provider Date of admission: 04/11/19 17:28 Discharge Date: 04/13/19 Consults: 04/11/19 18:04 Consult to Occupational Therapy Evaluate & Treat Comment: Physician Instructions: Evaluate and treat Consult to Physical Therapy Evaluate & Treat Comment: Physician Instructions: Evaluate and Treat Consult to Speech Therapy Evaluate & Treat Comment: swallow and speech eval Physician Instructions: Evaluate and treat 04/12/19 00:13 Consult to Respiratory Therapy Evaluate & Treat Comment: CVA, hx COPD and asthma Physician Instructions: Evaluate and treat Discharge provider: Dale Rossi MD Summary Hospital Course Discharge Diagnosis: 1. Acute ischemic CVA likely due to aortic plaque 2. Aphasia and right-sided weakness secondary to CVA, resolved 3. Ischemic cardiomyopathy, stable 4. Chronic systolic heart failure, LVEF 30-35%, stable 5. Mechanical aortic valve 6. 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 COPD 9. Chronic anticoagulation for AVR, INR goal 2-3, followed at [facility] anticoagulation clinic 10. History of atrial flutter status post RFA 06/06/2014 11. Current smoker 12. Degenerative lumbar spinal stenosis 13. Chronic back pain with opioid dependency 14. Chronic anemia-normal EGD 04/23/2013, normal colonoscopy 12/30/2012 Head and neck CTA 04/13/2019: No acute intracranial process No intracranial focal stenosis or occlusion Diffuse bilateral carotid calcifications. 50% focal stenosis involving the left ICA at the bifurcation. Further evaluation with dedicated carotid ultrasound could be performed as clinically warranted Less than 50% focal stenosis at the right ICA at the bifurcation Carotid duplex ultrasound 04/12/2019: Less than 50% stenosis bilaterally, no area of ulcerated plaque is identified. Vertebral arterial flow is normal in appearance TTE 04/11/2019: The left ventricle is mildly dilated. There is moderate concentric left ventricular hypertrophy. A ventricular septal defect is suggested in some views. If indeed present, then it is consistent with a small perimembranous VSD. No other echocardiograms to for comparison is available. Left ventricular systolic function is moderate to severely reduced. The ejection fraction is estimated to be 30-35%. There is moderate global hypokinesis of the left ventricle. Septal motion is consistent with post-operative state. Diastolic parameters suggest probable normal left ventricular diastolic function and normal filling pressures. The right ventricle is moderately dilated. Right ventricular systolic function is mild to moderately reduced. The right ventricular systolic pressure is estimated to be at least 34 mmHg based on an estimated right atrial pressure of 3 mm Hg. The left atrium is severely dilated. The right atrium is mildly dilated. There is mild mitral regurgitation. The aortic valve is not well visualized. There is a mechanical aortic valve. The aortic valve mean gradient is 9 mmHg. There is trace aortic regurgitation. There is no other significant valvular heart disease. The aortic root is not well visualized. The aortic arch is mildly enlarged. Head CT 04/11/2019: No acute intracranial hemorrhage. Chest one view 04/11/2019: Cardiomegaly with findings suggesting pulmonary edema. Please correlate clinically. Hospital Course: Patient admitted with aphasia, decreased LOC and right-sided weakness. NIHSS 3. Symptoms present for undetermined length but probably took over 24 hours to resolve. MRI could not be done due to presence of pacemaker but based on duration of symptoms most likely he did have acute CVA. Head CT no bleed. CTA initial incomplete study but repeat CTA without major occlusion, showed 50% stenosis at left ICA bifurcation. Carotid duplex ultrasound less than 50% stenosis bilaterally. Patient was evaluated by speech therapy, PT and OT. He has excellent recovery and is on regular diet with thin liquids. He is advised to quit smoking. He is already on low-dose aspirin and warfarin for his AVR. His INR is 3.4 on day of discharge. He was continued on all medications as previously taken. He did ask for refill of his Percocet which was declined due to this is medication he should get from his regular provider. Also his ex- had mention he tends to run out early from his pain pills. Patient is discharged in good condition and at or close to baseline. He will follow-up with his PCP Dr. Megan Briceño at the [facility]. He sees his asp net developer every 6 months and will follow-up when appointment is due. He is followed at [facility] anticoagulation clinic for warfarin management. Status at Discharge Cognitive/behavioral status at discharge: oriented Functional status at discharge: independent ambulation Overall status at discharge: patient is back to baseline Time Spent with Patient Time spent: Greater than 30 minutes Exam Vital Signs (past 8 hours): - 04/13/19 04:40 04/13/19 08:00 04/13/19 08:37 Temperature 97.3 F L 97.3 F L Pulse Rate 76 67 67 Respiratory Rate 16 18 16 Blood Pressure 140/65 132/57 L Pulse Oximetry 96 95 95 Oxygen Delivery Method Room Air Oxygen Flow Rate 0 Objective Labs Result Diagrams: 04/12/19 05:02 04/12/19 05:02 Labs: Laboratory Results - last 24 hr 04/12/19 04/12/19 04/13/19 05:02 05:02 04:58 WBC 7.6 RBC 3.72 L Hgb 11.2 L Hct 33.7 L MCV 90.5 MCH 30.0 MCHC 33.2 RDW 16.7 H Plt Count 278 Neut % (Auto) 77.6 H Lymph % (Auto) 10.2 L Monroe % (Auto) 9.3 Eos % (Auto) 2.5 Baso % (Auto) 0.4 Neut # (Auto) 5900 Lymph # (Auto) 800 L [place] # (Auto) 700 Eos # (Auto) 200 Baso # (Auto) 0 PT 40.1 H D INR 3.4 H Hemoglobin A1c 4.5 Discharge Plan Discharge Plan Patient Disposition: Home Discharge comment: You were admitted due to a stroke likely due to plaque coming loose from your aorta. Your head and neck CTA and carotid duplex did not show anything concerning. Your ECHO showed congestion heart failure with EF 30-35%. Your INR today is 3.4. Resume all your medications as previously taken. Please stop smoking - you can use nicotine patch to help you stop smoking. Discharge orders & Medications Prescriptions: Continued atorvastatin 40 mg tablet 40 mg PO DAILY RF: 0 potassium chloride 10 mEq capsule, extended release 10 meq PO DAILY RF: 0 aspirin [Adult Aspirin Regimen] 81 mg tablet,delayed release (DR/EC) 81 mg PO DAILY RF: 0 spironolactone 25 mg tablet 25 mg PO DAILY RF: 0 amlodipine 10 mg tablet 10 mg PO DAILY RF: 0 gabapentin 300 mg capsule 600 mg PO TID PRN (Reason: Knee Oain) RF: 0 furosemide 20 mg tablet 10 mg PO DAILY RF: 0 colchicine 0.6 mg tablet 0.6 mg PO DAILY RF: 0 tiotropium bromide 18 mcg capsule, w/inhalation device 1 cap INHALATION DAILY RF: 0 duloxetine 60 mg capsule,delayed release(DR/EC) 60 mg PO BID RF: 0 metoprolol succinate 50 mg cap,sprinkle,ER 24hr dose pack 50 mg PO QID RF: 0 warfarin 3 mg tablet 6 - 7.5 mg PO DAILY RF: 0 oxycodone-acetaminophen 5-325 mg tablet 1 - 2 tab PO Q4-6H MDD 6 tabs PRN (Reason: pain) RF: 0 zolpidem 10 mg tablet 10 mg PO BEDTIME PRN (Reason: Sleep) RF: 0 Follow up/Referrals: Megan Barrera [Other] - 1 Week Discharge Health Status Multidrug resistant organism: No MDRO Diet/Activity/Treatments Diet: Regular Visit Report/Discharge Packet Instructions: DI for Stroke-Ischemic, DI for Aphasia, DI for Prescription Opioid Use Discharge Data Attending Provider: Dale Rossi Admit Date/Time: 04/11/19 17:28
--- NOTE | 2019-04-13 11:14 | ST.IPTN ---
Visit Care Team Role Provider Type Leslee Bustamante DO Emergency Provider Physician Address: [address] [place] [address], [id number] Dale Rossi MD Admit Provider Physician Attending Provider Address: [address] [place] [address], [id number] [employer] Treatment Note [employer] Treatment Note Start: 04/12/19 09:32 Freq: Status: Active Protocol: Document 04/13/19 10:56 LNK (Rec: 04/13/19 11:14 LNK [id number]) Speech Pathology Treatment Note Session Time Visit Start Time 10:35 Visit Stop Time 10:55 Total Visit Minutes 20 Setting Treatment Setting Acute Care Visit Type Note Type Treatment Note General Information General Information Patient is a 68-year-old male under care of outside unknown PCP with history of 2 vessel CABG, non mechanical aortic valve replacement, pacemaker, chronic warfarin anticoagulation brought to emergency department due to multiple falls and right-sided weakness. His ex- who lives with him is able to provide some history. She notes he may have been a little confused since last night. She noticed he was having difficulty forming words throughout the day and she had hard time understanding him today. He had fallen 3 times today. EMS was called when he fell to the ground and was unable to get up. They reported right- sided weakness. He was initially talking and answering questions but on route he became more unresponsive and unable to answer questions. Subjective Identification Type Name,ID Wristband Others Present Nursing Patient Knowledge/Awareness of J[employer] MECH[employer]IC Role Good in Treatment Objective Treatment Activities Pt was observed swallowing water from a straw x2-3 swallows. He refused any solids I don't have an appetite anymore. No immediate cough, no immediate throat clear. No delayed cough after 5 minutes. Safe swallow strategies reviewed with pt. Pt is scheduled to be discharged home today with ex-. Assessment Rehab Potential Good Impairments Identified Articulation,Cognitive- Linguistic Skills Additional Impairments Identified Mild dysarthria Plan Provided Patient/Caregiver Instruction Plan of Care Other Referrals Recommend outpatient ST for cognition/dysarthria (see initial assessment)
--- NOTE | 2019-04-13 11:15 | PT.IPTN ---
Current Diagnoses Cerebral infarction, unspecified (04/11/19) Physical Therapy Treatment Note M2 PT-IP Current Condition Start: 04/12/19 08:41 Freq: NEEDED Status: Active Protocol: Document 04/12/19 10:03 AW (Rec: 04/12/19 10:42 AW [id number]) Physical Therapy Current Condition Current Condition Evaluation Date 04/12/19 Treatment Diagnosis CVA, multiple falls, R-sided weakness, impaired mobility Onset Date 04/11/19 Weight Bearing Status Weight Bearing Status Full Weight Bearing M3 PT-IP Subjective Start: 04/12/19 08:41 Freq: NEEDED Status: Active Protocol: Document 04/13/19 12:15 AW (Rec: 04/13/19 12:22 AW [email or web address]) Subjective Physical Therapy Visit Type Type Treatment Note Visit Start Time 10:44 Visit Stop Time 11:58 Total Visit Minutes 14 Physical Therapy Visit Comments Patient Comments I got good sleep last night and feel a lot better. If you think I need PT, I'll consider it. Therapy Pain Assessment Pain When Pain Assessed At Rest Pain Present Pain Present Pain Reported Location bilateral ankles Intensity 8 Pain Behaviors Wincing Pain Management Techniques Distraction M4 PT-IP Mobility and Gait Start: 04/12/19 08:41 Freq: NEEDED Status: Active Protocol: Document 04/13/19 12:15 AW (Rec: 04/13/19 12:22 AW [email or web address]) PT-Bed Mobility Assessment Supine to Sit Supine to Sit Independent Scooting Scooting to Edge of Bed Independent Scooting Up and Down in Bed Independent PT-Transfer Assessment Sit to and From Stand Sit to and from Stand Independent Equipment Transfer Assistive Device None Orthotic/Prosthetic Devices or Brace: No Transfers Transfer Destination Bed Transfer Technique pt ambulated without AD Transfer Ability Level of Assist Independent Comments Mobility Comments Pt performed all bed mobility and transfers independently. Gait Assessment Gait Gait Assistance Required: Standby Assistance Distance (Feet) 300 Able to Maintain Weight Bearing Status Yes During Gait Assistive Devices Assistive Device None,Gait Belt Orthotic/Prosthetic Devices or Brace: No Gait Deviations General Gait Pattern Antalgic,Decreased Stride Length,Decreased Feet Clearance,Lateral Trunk Lean, Wide Based Gait Factors Limiting Gait Function Factors Limiting Gait Function Decreased Activity Tolerance, Decreased Strength,Pain,Poor Balance,Poor Safety Awareness Comments Gait Comments Pt ambulated >300 feet SBA without AD. He remained unsteady but with notable improvement compared with yesterday, scoring 8/12 on modified DGI (vs 4/12 one day prior). PT-Balance Assessment Sitting Balance and Reactions Static Sitting Balance Ability Good Dynamic Sitting Balance Ability Good Standing Balance and Reactions Static Standing Balance Ability Fair Dynamic Standing Balance Ability Fair Functional Assessments Functional Tests Dynamic Gait Index 8/12 on mDGI M5 PT-IP Objective Assessments Start: 04/12/19 08:41 Freq: NEEDED Status: Active Protocol: Document 04/12/19 10:03 AW (Rec: 04/12/19 10:42 AW [id number]) Orientation Orientation/Cognition Level of Alertness Alert Orientation Name,Day of Week,Place, Situation Language Function Ability Garbled Speech Safety Awareness Decreased Safety Awareness Memory Description Short Term Impaired Comments Mild slurring noted <10% of the time. Pt was unable to recall any of the threed words given (apple, table, bronson) after 5 minutes. Pt denies multiple falls but his high fall risk on dynamic gait testing makes this unlikely and may indicate the pt's underreporting or at least poor insight regarding his risk. Gross Range of Motion Upper Extremity ROM Assessment Within Functional Limits Lower Extremity ROM Assessment Within Functional Limits Strength Upper Extremity Strength Assessment Right Impaired Hand L 4+/5; R 4-/5 Lower Extremity Strength Assessment Bilaterally Impaired Hip L 4/5; R 4-/5 Knee L 4/5; R 4/5 Ankle L 4/5; R 4-/5 Comments Strength Comments Slight strength differential R vs L Coordination Assessment Gross Coordination Gross Coordination WNL Assessment Finger to Nose Test Normal Performance Pronation/Supination Test Normal Performance Heel on Cruz Test Normal Performance Coordination Comments No deficits on exam Sensation Assessment Sensation Gross Sensation WNL Comments Sensation Comments No deficits on exam Muscle Tone Muscle Tone WNL No Comments Muscle Tone Comments (-) clonus B ankles and wrists M6 PT-IP Treatment Start: 04/12/19 08:41 Freq: NEEDED Status: Active Protocol: Document 04/13/19 12:15 AW (Rec: 04/13/19 12:22 AW [email or web address]) Physical Therapy Treatment Education Education Provided Safety Other Treatments Other Treatment Performed Continued to educate pt on balance concerns affecting safety with gait. Pt confirmed he is more open to PT referral at this time. M7 PT-IP Assessment and Plan Start: 04/12/19 08:41 Freq: NEEDED Status: Active Protocol: Document 04/13/19 12:15 AW (Rec: 04/13/19 12:22 AW [email or web address]) PT Summary Assessment and Plan Potential Rehabilitation Potential Good Status of Condition at Evaluation Stable Summary Impairments Pain,Strength,Balance, Cognition,Transfers,Gait, Activity Tolerance Progress Towards Goals Progressing Toward Goals Goals Bed Mobility Goal Independent Transfer Goal Independent Gait Goal Independent,Four Wheel Walker Gait Distance 200 Other Goals - up/down 2 steps with L rail ascending independent - up/down single step without railing independent Days to Meet Goals 10 Frequency of Treatment Frequency Of Treatment Once a Day Treatment Plan Physical Therapy Treatment Plan Bed Mobility Training,Transfer Training,Gait Training, Therapeutic Exercise,Balance Retraining,Discharge Planning, Hot or Cold Pack,Neuromuscular Re-ed Recommendations To Nursing Amount of Assist Needed Standby Assistance Discharge Recommendations PT Discharge Recommendations Home with Assistance, Outpatient PT Transportation Needs at Discharge Private Vehicle
[2019-04-13 12:00] VITALS: BP 138/76; PULSE 73; RESP 16; TEMP 36.4; O2SAT 98
--- NOTE | 2019-04-13 12:21 | PC.NURSE ---
Pending discharge: Pt feels ready to d/c home. Has been seen by PT/OT/ST and given their final instructions. Referal has been sent by Dr. Rossi for PT/ST and pt will schedule those appts. Pt also understands he needs to schedule appt to see his md in the next week. Call today or tomorrow and have the records sent. Pt will be staying with his ex- and reports they have a good relationship. Reviewed discharge packet. No new rx. Reviewed stroke sxs, he needs to seek immed medical attention if his symptoms return. Use 911. He verb understanding. Questions answered. He is awaiting his ride.
--- NOTE | 2019-04-13 15:08 | PC.NURSE ---
Discharge: D/c home via auto, voiced no concerns.
== END 2019-04-13 13:00 | disposition home or self-care (01) | DRG 65 ==
LOC: ED 16:51 → AC 04-12 08:24
PROVIDERS: Internal Medicine; Nurse Practitioner Adult Health; Admitting Provider Internal Medicine; Emergency Provider Emergency Medicine; Visit Provider Internal Medicine
DX: I63.50 Cerebral infarction due to unspecified occlusion or stenosis of unspecified cerebral artery (principal); G81.91 Hemiplegia, unspecified affecting right dominant side; I50.22 Chronic systolic (congestive) heart failure; I44.2 Atrioventricular block, complete; R47.01 Aphasia; I11.0 Hypertensive heart disease with heart failure; G89.29 Other chronic pain; I25.5 Ischemic cardiomyopathy; J44.9 Chronic obstructive pulmonary disease, unspecified; F17.210 Nicotine dependence, cigarettes, uncomplicated; I25.10 Atherosclerotic heart disease of native coronary artery without angina pectoris; R29.6 Repeated falls; Z91.11 Patient's noncompliance with dietary regimen; Z91.19 Patient's noncompliance with other medical treatment and regimen; Z95.0 Presence of cardiac pacemaker; Z95.1 Presence of aortocoronary bypass graft; Z95.4 Presence of other heart-valve replacement
CPT/HCPCS: 36415; 70450; 70496; 70498; 71045; 80048; 80053; 80061; 80305; 81001; 82550; 82962; 83036; 84484; 85025; 85610; 85730; 92523; 92526; 92610; 93005; 93306; 93880; 94640; 97116; 97129; 97162; 97165; 97530; 99285; 99406; G0378; J7613; Q9967

== ENCOUNTER 2019-05-25 09:54 | Outpatient (CLI) | payer MEDICARE, SELFPAY ==
[2019-04-11 19:06] VITALS: BMI 31.5
[2019-05-25] VITALS (10 sets, daily range): BP systolic 128–161; BP diastolic 59–86; PULSE 70–77; RESP 16–18; TEMP 36.9; O2SAT 93–98
--- NOTE | 2019-05-25 09:56 | DI.RAD.S_ITS ---
PROCEDURE: PAIN L/SI FACET INJ/BLK 1STL INDICATIONS: SPONDYLOSIS FINDINGS: Fluoroscopic spot filming was performed to verify placement of spinal needles at the L3, L4, L5, S1 level(s), as labeled on the films. Appropriate location(s) of the needle tip(s) was confirmed by injection of iodinated contrast. Dictated by: Adrián Aguirre M.D. on 05/25/2019 at 14:54 Approved by: Adrián Aguirre M.D. on 05/25/2019 at 14:55
[2019-05-25] MEDS: MIDAZOLAM 5 MG/5 ML VIAL IV (10:37)
[2019-05-25] MEDS: fentaNYL 100 MCG/2 ML INJ 50 MCG IV (10:39)
[2019-05-25] MEDS: BUPIVACAINE 0.5% (PF) VIAL 2 ML INJ (10:46)
[2019-05-25] MEDS: IOPAMIDOL 15 ML VIAL 3 ML INJ (10:46)
[2019-05-25] MEDS: LIDOCAINE 1% 20 ML 10 ML INJ (10:46)
--- NOTE | 2019-05-25 10:50 | PC.NURSE ---
ASSISTING PT OFF TABLE AND TRANSPORTING TO POST PROC AREA IN STABLE CONDITION. PASSING RN CARE OF PT OFF TO SUNNY [place] RN.
--- NOTE | 2019-05-25 10:53 | PC.NURSE ---
1100: Received patient via WC by Nighat FLORIAN, awake and alert. Transferred to chair with stand by assist, VSS upon arrival.
--- NOTE | 2019-05-25 10:59 | PM.PROC.1 ---
Procedures Date/Time Date of procedure: 05/25/19 Time of procedure: 10:59 General Procedure description: POST OP DIAGNOSIS 1. FACET ARTHROPATHY PROCEDURES 1. Right L3, L4, L5 and S1 MB BLOCKS PHYSICIAN: Kael Eason DO INDICATIONS Sylvester is referred for treatment of Right Axial LBP. DESCRIPTION OF PROCEDURE Fluoroscopically guided, contrast-controlled right L3, L4, L5 and S1 medial branch blocks with 0.5cc of 0.5% Marcaine. Following review of allergy and review of potential side effects and complications, including, but not necessarily limited to, infection, allergic reaction, local tissue breakdown, nerve injury, paralysis, stroke and possible , the patient indicated that the patient understood and agreed to proceed. An informed consent document was signed by the patient, witnessed by a nurse, and placed in the patient's chart. After review of previous anaesthesic history and IV conscious sedation the patient was deemed safe to proceed with todays procedure with IV conscious sedation as ASA class II designation. Safety time-out was performed to confirm patient ID, procedure to be performed and site of procedure. IV sedation was accomplished with a combination of 3mg of Versed and 50mcg of Fentanyl was administered by the RN after DO order, titrated to patient comfort during the course of the procedure while the patient remained responsive to all verbal commands In the prone position, following sterile prep and drape of the lumbar region, the right L3, L4, L5 and S1 anatomical location of the medial branch of the dorsal ramus was identified fluoroscopically. Subsequently an anesthetic skin wheal using 1% lidocaine solution was initiated at each of the anatomical spots. Subsequently then a 22-gauge 3.5-inch spinal needle was atraumatically introduced and advanced under fluoroscopic guidance at each of the corresponding sites at the right L3, L4, L5 and S1 MB. After negative aspiration, 0.2 cc of Isovue 200 was injected, confirming placement without vascular or intrathecal uptake. Subsequently then 0.5 cc of 0.5% Marcaine solution was injected at each of the corresponding sites at the right L3, L4, L5 and S1 medial branch locations. The patient tolerated the procedure well without signs or symptoms of complications. The procedure tolerated the procedure well without signs or symptoms of complications prior to transfer to the recovery area continued monitoring without incident. Post-procedure, the patient was monitored initiating provocative activities to measure the amount of relief from block of the facetogenic pain. The patient reported a VAS of 7 prior to the procedure and a post-procedure VAS of 1. It has been a pleasure to assist in the diagnostic and therapeutic care of your patient. Total Fluoroscopy Time: 8 seconds Total Conscious Sedation Time: 24min POST OP INSTRUCTIONS The patient was provided with a Pain Log to complete over the next several hours and subsequent days prior to the patient's follow up with the ordering physician. If the patient has family practitioner relief to the solution applied, then they may be a candidate for medial branch rhizotomy. The patient is aware, was provided, once again, with a Pain Log and will follow up with the referring physician for review and clinical correlation Kael Eason DO Complications: none
--- NOTE | 2019-05-26 16:49 | PC.NURSE ---
FOLLOW UP CALL MADE. PT STATES HE FEELS GOOD AND STATES THAT PAIN IN DECREASED. DENIES QUESTIONS/CONCERNS. ENCOURAGED PT TO CONTINUE WITH PAIN LOG AND TO BRING IT TO FOLLOW-UP APPT. PT VERBALIZED UNDERSTANDING.
== END 2019-05-25 11:20 | disposition home or self-care (01) ==
LOC: RAD 09:55
PROVIDERS: Referring Provider Physical Medicine & Rehabilitation; Visit Provider Physical Medicine & Rehabilitation
DX: M47.816 Spondylosis without myelopathy or radiculopathy, lumbar region (principal); M47.817 Spondylosis without myelopathy or radiculopathy, lumbosacral region
CPT/HCPCS: 64493; 64494; 64495; 99152; J2250; J3010

== ENCOUNTER 2019-07-11 16:13 | Inpatient (IN) | payer MEDICARE, SELFPAY ==
[2019-04-11 19:06] VITALS: BMI 31.5
[2019-07-11] VITALS (9 sets, daily range): BP systolic 142–167; BP diastolic 65–80; PULSE 79–86; RESP 18–25; TEMP 36.4–36.8; O2SAT 90–100
[2019-07-11 16:58] LABS: PTT Partial Thromboplastin Tim 42 SECONDS (26.4-36.2)
[2019-07-11 16:59] LABS: Albumin 4.1 g/dL (3.5-5.0); Albumin Globulin Ratio 1.6 (1.0-2.8); Alkaline Phosphatase 192 U/L (38-126); BUN Creatinine Ratio 28.7 (6-22); Bilirubin Total 1.5 mg/dL (0.2-1.3); Blood Urea Nitrogen 33 mg/dL (9-20); Carbon Dioxide 18 mmol/L (22-32); Chloride 101 mmol/L (98-107); Estimated Glomerular Filt Rate > 60.0 mL/min (>60); Globulin 2.6 g/dL (1.7-4.1); Glucose 111 mg/dL (80-110); HEMOLYSIS < 15 (0-50); Lipase 40 U/L (23-300); Potassium 4.3 mmol/L (3.4-5.1); Sodium 130 mmol/L (137-145); Total Protein 6.7 g/dL (6.3-8.2)
[2019-07-11 17:00] LABS: Ammonia (NH3) < 9 umol/L (9-30)
[2019-07-11 17:07] LABS: Add Manual Diff / Slide Review NO; Basophils Absolute Auto 0 /uL (0-100); Basophils Percent Auto 0.1 % (0-2); Eosinophils Absolute Auto 0 /uL (0-450); Hematocrit 24.3 % (41-53); Hemoglobin 7.3 g/dL (13.5-17.5); Lymphocytes Absolute Auto 400 /uL (1100-4500); Lymphocytes Percent Auto 3.8 % (25-40); Mean Corpuscular HGB Conc 30.3 % (30-36); Mean Corpuscular Hemoglobin 22.5 PG (26-34); Mean Corpuscular Volume 74.3 fL (80-100); Monocytes Absolute Auto 1100 /uL (0-900); Monocytes Percent Auto 10.3 % (3-14); Neutrophils Absolute Auto 9500 /uL (1500-7000); Neutrophils Percent Auto 85.8 % (50-75); Platelet Count 368 X10^3/uL (150-400); Red Blood Cell Count 3.27 X10^6/uL (4.5-5.9); Red Cell Distribution Width 21.7 % (11.6-14.8); White Blood Cell Count 11.1 X10^3/uL (4.5-11.0)
[2019-07-11 17:09] LABS: Alanine Aminotransferase 1081 IU/L (<50); Aspartate Aminotransferase 832 IU/L (17-59); Prothrombin Time 74.6 SECONDS (10.1-12.7)
[2019-07-11 17:11] LABS: INR 6.6 (0.9-1.3)
[2019-07-11 17:44] LABS: Anisocytosis 2+; Hypochromasia 1+; Microcytosis 1+
[2019-07-11 17:45] LABS: Polychromasia 1+
--- NOTE | 2019-07-11 18:51 | ED.NAVMDI ---
HPI - Nausea/Vomiting/Diarrhea General Chief complaint: Nausea/Vomiting/Diarrhea Stated complaint: states, woke up with flu like symptoms Time Seen by Provider: 07/11/19 17:31 Source: patient and family Mode of arrival: Wheelchair Limitations: no limitations History of Present Illness HPI Narrative: 69-year-old male daily smoker with history of hypertension, stroke, and mechanical valve replacement is on Coumadin and presents with his due to the chief complaint increased fatigue, vague headache and nausea worsening over the past few days. He denies any fever chills. He has had a bit of runny nose and sneezing but denies any sore throat or cough. He states he becomes more fatigued with exertion. He denies any dietary or medication change. He denies any recent antibiotic use. He denies any abdominal pain or change in bowel such as color or consistency. He denies any dark, black or tarry like stool. He denies any bright red blood in urine or stool. He denies any dysuria, frequency or urgency. MD complaint: nausea Onset (ago): day(s) Description of Diarrhea: none Associated Abdominal Pain: No Relieving factors: none Exacerbating factors: none Associated symptoms: headaches, loss of appetite, nausea/vomiting and shortness of breath Related Data Home Medications Medication Instructions Recorded Confirmed amlodipine 10 mg tablet 10 mg PO DAILY 08/04/18 05/04/19 aspirin 81 mg tablet,delayed 81 mg PO DAILY 08/04/18 05/04/19 release atorvastatin 40 mg tablet 40 mg PO DAILY 08/04/18 05/04/19 colchicine 0.6 mg tablet 0.6 mg PO DAILY 08/04/18 05/04/19 duloxetine 60 mg capsule,delayed 60 mg PO BID 08/04/18 05/04/19 release furosemide 20 mg tablet 10 mg PO DAILY 08/04/18 05/04/19 metoprolol succinate 50 mg capsule 50 mg PO QID 08/04/18 05/04/19 sprinkle, ext. release 24 hr potassium chloride 10 mEq 10 meq PO DAILY 08/04/18 05/04/19 capsule,extended release spironolactone 25 mg tablet 25 mg PO DAILY 08/04/18 05/04/19 tiotropium bromide 18 mcg capsule 1 cap INHALATION DAILY 08/04/18 05/04/19 with inhalation device oxycodone-acetaminophen 1 - 2 tab PO Q4-6H PRN MDD 6 tabs 02/17/19 05/04/19 warfarin 6 - 7.5 mg PO DAILY 02/17/19 05/04/19 zolpidem 10 mg PO BEDTIME PRN 02/17/19 05/04/19 Previous Rx's Medication Instructions Recorded gabapentin 600 mg tablet 600 mg PO TID #90 tab 06/02/19 Allergies Allergy/AdvReac Type Severity Reaction Status Date / Time No Known Drug Allergies Allergy Verified 05/04/19 14:14 Review of Systems Constitutional Constitutional: Denies chills, Reports fatigue, Denies fever(s), Denies frequent falls, Reports headache(s), Denies lethargy and Reports weakness Eyes Eyes: Denies change in vision, Denies eye discharge, Denies irritation and Denies loss of vision ENT Ears, Nose, Mouth, and Throat: Denies change in voice, Denies dizziness, Reports headache(s), Reports nasal congestion, Denies neck pain, Denies sore throat and Denies throat swelling Cardiovascular Cardiovascular: Denies chest pain, Denies irregular heart rhythm, Denies lightheadedness, Denies palpitations, Reports dyspnea, Denies dyspnea on exertion and Denies orthopnea Respiratory Respiratory: Denies cough, Reports dyspnea, Denies dyspnea on exertion and Denies wheezing Gastrointestinal Gastrointestinal: Denies abdominal pain, Denies change in bowel habits, Denies diarrhea, Reports nausea and Denies vomiting Genitourinary Genitourinary: Denies hematuria, Denies flank pain, Denies urinary incontinence and Denies urinary urgency Musculoskeletal Musculoskeletal: Denies back pain, Denies muscle weakness, Denies neck pain, Denies numbness and Denies tingling Integumentary/Breasts Skin/Breast: Denies pruritus, Denies erythema, Denies rash and Denies wounds Neurologic Neurologic: Denies behavioral changes, Denies confusion, Denies dizziness, Denies frequent falls, Reports headache(s), Denies loss of vision, Denies numbness, Denies tingling and Reports weakness Psychiatric Psychiatric: Denies anxiety, Denies behavioral changes, Denies confusion, Denies depression, Denies homicidal ideation and Denies suicidal ideation Endocrine Endocrine: Reports fatigue, Denies flushing and Denies palpitations Hematologic/Lymphatic Hematologic/Lymphatic: Denies easy bruising Allergic/Immunologic Allergic/Immunologic: Denies urticaria, Denies throat swelling and Denies wheezing Patient History Medical History Chronic dislocation of right shoulder (Acute) Coronary artery disease (Acute) Facet arthropathy, lumbosacral (Acute) Hypertension (Acute) Lumbosacral spondylosis with radiculopathy (Acute) Pacemaker (Chronic) Scoliosis due to degenerative disease of spine in adult patient (Acute) Surgical History H/O aortic valve replacement (Acute) H/O aortic valve replacement (Acute) History of bilateral knee replacement (Acute) Social History household members: other Smoking Status: Current every day smoker alcohol intake: current Smoking Status: Current every day smoker tobacco type: cigarettes alcohol intake frequency: 0-2 drinks per day Substance Use Type: does not use Exam Narrative Exam Narrative: GENERAL: [69] year old patient appears stated age. Well-nourished, well-developed patient, in moderate distress. Appears fatigued and short of breath HEAD: Atraumatic. Normocephalic. EYES: Pupils equal round and reactive. Extraocular motions intact. No scleral icterus. No injection or drainage. ENT: Nose without bleeding, purulent drainage. Throat without erythema, tonsillar hypertrophy or exudate. Airway patent. NECK: Trachea midline. Non tender CARDIOVASCULAR: Regular rate and rhythm without click noted RESPIRATORY: Clear to auscultation. Breath sounds equal bilaterally. No wheezes, rales, or rhonchi. GASTROINTESTINAL: Abdomen soft, generalized epigastric discomfort, nondistended. EXTREMITIES: No edema or joint tenderness. BACK: Nontender without deformity or crepitance. No flank tenderness. NEURO: AOx3. SKIN: No rash or erythema of visible areas Initial Vital Signs Initial Vital Signs: Vital Signs Temperature 97.6 F 07/11/19 16:19 Pulse Rate 86 07/11/19 16:19 Respiratory Rate 18 07/11/19 16:19 Blood Pressure 149/70 H 07/11/19 16:19 Pulse Oximetry 100 07/11/19 16:19 Course Orders Ordered: ED Orders 07/11/19 16:25 Ammonia (NH3) Stat Complete Blood Count AUTO DIFF Stat Comprehensive Metabolic Panel Stat Lipase Stat Partial Thromboplastin Time Stat Prothrombin Time INR Stat EKG-12 Lead Stat 07/11/19 16:35 Acetaminophen Stat Gamma Glutamyl Transpeptidase Stat 07/11/19 19:05 Hemoglobin and Hematocrit Stat Packed Cells Stat Type and Screen Stat 07/11/19 19:07 US abdomen limited Stat 07/11/19 19:09 XR chest 1V Stat 07/11/19 19:23 C-Reactive Protein Quant Stat Ferritin Stat Lactate (Lactic Acid) Stat NT-proBNP (BNP-Adult 18+) Stat Procalcitonin Stat Troponin & CK Cardiac Panel Stat 07/11/19 20:29 CT chest abd pel w con Stat 07/11/19 21:53 Urinalysis and Microscopic Stat 07/11/19 23:05 Hepatitis Acute Panel Stat Discontinued Medications Furosemide (Lasix) 40 mg IV NOW ONE Stop: 07/11/19 22:42 Hydromorphone HCl (Dilaudid) 0.5 mg IV NOW ONE Stop: 07/11/19 19:08 Last Admin: 07/11/19 19:14 Dose: 0.5 mg Documented by: TAWANNA Hydromorphone HCl (Dilaudid) 0.5 mg IV NOW ONE Stop: 07/11/19 22:13 Last Admin: 07/11/19 22:16 Dose: 0.5 mg Documented by: SHUN Ceftriaxone Sodium/Dextrose (Rocephin) 2 gm in 50 mls @ 100 mls/hr IV NOW ONE Stop: 07/11/19 22:18 Last Admin: 07/11/19 22:11 Dose: 100 mls/hr Documented by: ADAM Azithromycin 500 mg/ Dextrose 250 mls @ 250 mls/hr IV NOW ONE Stop: 07/11/19 21:50 Phytonadione (Mephyton) 5 mg PO NOW ONE Stop: 07/11/19 19:08 Last Admin: 07/11/19 19:14 Dose: 5 mg Documented by: SCANLOLITA Consultations Consultation #1: call to Gen Surg (Julian) given presence of stones with elevated LFTs/Biliary. No surgical findings, no pain on exam. Will trend labs and happy to be involved in official consult inpatient if needed. Consultation #2: Call to GI at [facility] (Tristian) whom suggests that there is no obvious need for transfer or immediate biliary intervention. Shares opinion that LFTs require hepatitis labs and could very well be COVID-19 Consultation #3: hospitalist happy to accept Vital Signs Vital signs: Vital Signs - 8 hr 07/11/19 16:19 07/11/19 18:41 07/11/19 22:30 Temperature 97.6 F Pulse Rate 86 84 81 Respiratory Rate 18 Blood Pressure 149/70 H Blood Pressure [Left Arm] 142/65 H 167/77 H Pulse Oximetry 100 97 91 MDM - Nausea/Vomiting/Diarrhea Lab Data Result diagrams: 07/11/19 19:05 07/11/19 16:25 Labs: Lab Results 07/11/19 07/11/19 07/11/19 Range/Units 16:25 16:25 16:25 WBC 11.1 H (4.5-11.0) X10^3/uL RBC 3.27 L (4.5-5.9) X10^6/uL Hgb 7.3 L (13.5-17.5) g/dL Hct 24.3 L (41-53) % MCV 74.3 L (80-100) fL MCH 22.5 L (26-34) PG MCHC 30.3 (30-36) % RDW 21.7 H (11.6-14.8) % Plt Count 368 (150-400) X10^3/uL Neut % (Auto) 85.8 H (50-75) % Lymph % (Auto) 3.8 L (25-40) % [place] % (Auto) 10.3 (3-14) % Eos % (Auto) 0.0 L (2-4) % Baso % (Auto) 0.1 (0-2) % Neut # (Auto) 9500 H (2578-5695) /uL Lymph # (Auto) 400 L (4009-1821) /uL [place] # (Auto) 1100 H (0-900) /uL Eos # (Auto) 0 (0-450) /uL Baso # (Auto) 0 (0-100) /uL RBC Morphology See below Polychromasia 1+ H Hypochromasia 1+ H Anisocytosis 2+ H Microcytosis 1+ H PT 74.6 H (10.1-12.7) SECONDS INR 6.6 H* (0.9-1.3) APTT 42 H (26.4-36.2) SECONDS Sodium 130 L (137-145) mmol/L Potassium 4.3 (3.4-5.1) mmol/L Chloride 101 (98-107) mmol/L Carbon Dioxide 18 L (22-32) mmol/L BUN 33 H (9-20) mg/dL Creatinine 1.15 (0.66-1.25) mg/dL Estimated GFR > 60.0 (>60) mL/min BUN/Creatinine Ratio 28.7 H (6-22) Glucose 111 H (80-110) mg/dL Lactate (0.7-2.1) mmol/L Calcium 9.0 (8.4-10.2) mg/dL Ferritin (18-464) ng/mL Total Bilirubin 1.5 H (0.2-1.3) mg/dL GGT (15-73) U/L AST 832 H (17-59) IU/L ALT 1081 H (<50) IU/L Alkaline Phosphatase 192 H (38-126) U/L Ammonia (9-30) umol/L Total Creatine Kinase (55-170) U/L CK-MB (CK-2) (<2.37) ng/mL CK-MB (CK-2) Rel Index (1.5-5.0) % Troponin I (0.01-0.034) ng/mL C-Reactive Protein (<1.0) mg/dL NT-Pro-B Natriuret Pep (<125) pg/mL Total Protein 6.7 (6.3-8.2) g/dL Albumin 4.1 (3.5-5.0) g/dL Globulin 2.6 (1.7-4.1) g/dL Albumin/Globulin Ratio 1.6 (1.0-2.8) Lipase 40 (23-300) U/L Procalcitonin (<0.5) ng/mL Urine Color Urine Appearance Urine pH (4.5-8.0) Ur Specific [place] (1.000-1.035) Urine Protein (Negative) Urine Glucose (UA) (Negative) g/dL Urine Ketones (NEGATIVE) Urine Occult Blood (Negative) Urine Nitrate (Negative) Urine Bilirubin (NEGATIVE) Urine Urobilinogen (0.2) E.U./dL Ur Leukocyte Esterase (NEGATIVE) Urine RBC (0-5/HPF) Urine WBC (0-5/HPF) Urine Bacteria (None) Ur Culture Indicated? Micro UA Comment Acetaminophen (10-30) ug/mL Blood Type Antibody Screen Crossmatch 07/11/19 07/11/19 07/11/19 Range/Units 16:25 16:35 19:05 WBC (4.5-11.0) X10^3/uL RBC (4.5-5.9) X10^6/uL Hgb 7.5 L (13.5-17.5) g/dL Hct 24.6 L (41-53) % MCV (80-100) fL MCH (26-34) PG MCHC (30-36) % RDW (11.6-14.8) % Plt Count (150-400) X10^3/uL Neut % (Auto) (50-75) % Lymph % (Auto) (25-40) % [place] % (Auto) (3-14) % Eos % (Auto) (2-4) % Baso % (Auto) (0-2) % Neut # (Auto) (7248-8616) /uL Lymph # (Auto) (3594-3044) /uL [place] # (Auto) (0-900) /uL Eos # (Auto) (0-450) /uL Baso # (Auto) (0-100) /uL RBC Morphology Polychromasia Hypochromasia Anisocytosis Microcytosis PT (10.1-12.7) SECONDS INR (0.9-1.3) APTT (26.4-36.2) SECONDS Sodium (137-145) mmol/L Potassium (3.4-5.1) mmol/L Chloride (98-107) mmol/L Carbon Dioxide (22-32) mmol/L BUN (9-20) mg/dL Creatinine (0.66-1.25) mg/dL Estimated GFR (>60) mL/min BUN/Creatinine Ratio (6-22) Glucose (80-110) mg/dL Lactate (0.7-2.1) mmol/L Calcium (8.4-10.2) mg/dL Ferritin (18-464) ng/mL Total Bilirubin (0.2-1.3) mg/dL GGT 142 H (15-73) U/L AST (17-59) IU/L ALT (<50) IU/L Alkaline Phosphatase (38-126) U/L Ammonia < 9 L (9-30) umol/L Total Creatine Kinase (55-170) U/L CK-MB (CK-2) (<2.37) ng/mL CK-MB (CK-2) Rel Index (1.5-5.0) % Troponin I (0.01-0.034) ng/mL C-Reactive Protein (<1.0) mg/dL NT-Pro-B Natriuret Pep (<125) pg/mL Total Protein (6.3-8.2) g/dL Albumin (3.5-5.0) g/dL Globulin (1.7-4.1) g/dL Albumin/Globulin Ratio (1.0-2.8) Lipase (23-300) U/L Procalcitonin (<0.5) ng/mL Urine Color Urine Appearance Urine pH (4.5-8.0) Ur Specific [place] (1.000-1.035) Urine Protein (Negative) Urine Glucose (UA) (Negative) g/dL Urine Ketones (NEGATIVE) Urine Occult Blood (Negative) Urine Nitrate (Negative) Urine Bilirubin (NEGATIVE) Urine Urobilinogen (0.2) E.U./dL Ur Leukocyte Esterase (NEGATIVE) Urine RBC (0-5/HPF) Urine WBC (0-5/HPF) Urine Bacteria (None) Ur Culture Indicated? Micro UA Comment Acetaminophen < 10 L (10-30) ug/mL Blood Type Antibody Screen Crossmatch 07/11/19 07/11/19 07/11/19 Range/Units 19:05 19:23 19:23 WBC (4.5-11.0) X10^3/uL RBC (4.5-5.9) X10^6/uL Hgb (13.5-17.5) g/dL Hct (41-53) % MCV (80-100) fL MCH (26-34) PG MCHC (30-36) % RDW (11.6-14.8) % Plt Count (150-400) X10^3/uL Neut % (Auto) (50-75) % Lymph % (Auto) (25-40) % [place] % (Auto) (3-14) % Eos % (Auto) (2-4) % Baso % (Auto) (0-2) % Neut # (Auto) (0696-4154) /uL Lymph # (Auto) (1620-1944) /uL [place] # (Auto) (0-900) /uL Eos # (Auto) (0-450) /uL Baso # (Auto) (0-100) /uL RBC Morphology Polychromasia Hypochromasia Anisocytosis Microcytosis PT (10.1-12.7) SECONDS INR (0.9-1.3) APTT (26.4-36.2) SECONDS Sodium (137-145) mmol/L Potassium (3.4-5.1) mmol/L Chloride (98-107) mmol/L Carbon Dioxide (22-32) mmol/L BUN (9-20) mg/dL Creatinine (0.66-1.25) mg/dL Estimated GFR (>60) mL/min BUN/Creatinine Ratio (6-22) Glucose (80-110) mg/dL Lactate 1.4 (0.7-2.1) mmol/L Calcium (8.4-10.2) mg/dL Ferritin (18-464) ng/mL Total Bilirubin (0.2-1.3) mg/dL GGT (15-73) U/L AST (17-59) IU/L ALT (<50) IU/L Alkaline Phosphatase (38-126) U/L Ammonia (9-30) umol/L Total Creatine Kinase (55-170) U/L CK-MB (CK-2) (<2.37) ng/mL CK-MB (CK-2) Rel Index (1.5-5.0) % Troponin I (0.01-0.034) ng/mL C-Reactive Protein (<1.0) mg/dL NT-Pro-B Natriuret Pep (<125) pg/mL Total Protein (6.3-8.2) g/dL Albumin (3.5-5.0) g/dL Globulin (1.7-4.1) g/dL Albumin/Globulin Ratio (1.0-2.8) Lipase (23-300) U/L Procalcitonin 0.09 (<0.5) ng/mL Urine Color Urine Appearance Urine pH (4.5-8.0) Ur Specific [place] (1.000-1.035) Urine Protein (Negative) Urine Glucose (UA) (Negative) g/dL Urine Ketones (NEGATIVE) Urine Occult Blood (Negative) Urine Nitrate (Negative) Urine Bilirubin (NEGATIVE) Urine Urobilinogen (0.2) E.U./dL Ur Leukocyte Esterase (NEGATIVE) Urine RBC (0-5/HPF) Urine WBC (0-5/HPF) Urine Bacteria (None) Ur Culture Indicated? Micro UA Comment Acetaminophen (10-30) ug/mL Blood Type O Positive Antibody Screen Negative Crossmatch See Detail 07/11/19 07/11/19 07/11/19 Range/Units 19:23 19:23 19:23 WBC (4.5-11.0) X10^3/uL RBC (4.5-5.9) X10^6/uL Hgb (13.5-17.5) g/dL Hct (41-53) % MCV (80-100) fL MCH (26-34) PG MCHC (30-36) % RDW (11.6-14.8) % Plt Count (150-400) X10^3/uL Neut % (Auto) (50-75) % Lymph % (Auto) (25-40) % [place] % (Auto) (3-14) % Eos % (Auto) (2-4) % Baso % (Auto) (0-2) % Neut # (Auto) (9471-3895) /uL Lymph # (Auto) (1085-4109) /uL [place] # (Auto) (0-900) /uL Eos # (Auto) (0-450) /uL Baso # (Auto) (0-100) /uL RBC Morphology Polychromasia Hypochromasia Anisocytosis Microcytosis PT (10.1-12.7) SECONDS INR (0.9-1.3) APTT (26.4-36.2) SECONDS Sodium (137-145) mmol/L Potassium (3.4-5.1) mmol/L Chloride (98-107) mmol/L Carbon Dioxide (22-32) mmol/L BUN (9-20) mg/dL Creatinine (0.66-1.25) mg/dL Estimated GFR (>60) mL/min BUN/Creatinine Ratio (6-22) Glucose (80-110) mg/dL Lactate (0.7-2.1) mmol/L Calcium (8.4-10.2) mg/dL Ferritin 29 (18-464) ng/mL Total Bilirubin (0.2-1.3) mg/dL GGT (15-73) U/L AST (17-59) IU/L ALT (<50) IU/L Alkaline Phosphatase (38-126) U/L Ammonia (9-30) umol/L Total Creatine Kinase 1026 H (55-170) U/L CK-MB (CK-2) 13.90 H (<2.37) ng/mL CK-MB (CK-2) Rel Index 1.4 L (1.5-5.0) % Troponin I 0.026 (0.01-0.034) ng/mL C-Reactive Protein 4.7 H (<1.0) mg/dL NT-Pro-B Natriuret Pep 9040 H (<125) pg/mL Total Protein (6.3-8.2) g/dL Albumin (3.5-5.0) g/dL Globulin (1.7-4.1) g/dL Albumin/Globulin Ratio (1.0-2.8) Lipase (23-300) U/L Procalcitonin (<0.5) ng/mL Urine Color Urine Appearance Urine pH (4.5-8.0) Ur Specific [place] (1.000-1.035) Urine Protein (Negative) Urine Glucose (UA) (Negative) g/dL Urine Ketones (NEGATIVE) Urine Occult Blood (Negative) Urine Nitrate (Negative) Urine Bilirubin (NEGATIVE) Urine Urobilinogen (0.2) E.U./dL Ur Leukocyte Esterase (NEGATIVE) Urine RBC (0-5/HPF) Urine WBC (0-5/HPF) Urine Bacteria (None) Ur Culture Indicated? Micro UA Comment Acetaminophen (10-30) ug/mL Blood Type Antibody Screen Crossmatch 07/11/19 Range/Units 21:53 WBC (4.5-11.0) X10^3/uL RBC (4.5-5.9) X10^6/uL Hgb (13.5-17.5) g/dL Hct (41-53) % MCV (80-100) fL MCH (26-34) PG MCHC (30-36) % RDW (11.6-14.8) % Plt Count (150-400) X10^3/uL Neut % (Auto) (50-75) % Lymph % (Auto) (25-40) % [place] % (Auto) (3-14) % Eos % (Auto) (2-4) % Baso % (Auto) (0-2) % Neut # (Auto) (7668-8894) /uL Lymph # (Auto) (3412-2637) /uL [place] # (Auto) (0-900) /uL Eos # (Auto) (0-450) /uL Baso # (Auto) (0-100) /uL RBC Morphology Polychromasia Hypochromasia Anisocytosis Microcytosis PT (10.1-12.7) SECONDS INR (0.9-1.3) APTT (26.4-36.2) SECONDS Sodium (137-145) mmol/L Potassium (3.4-5.1) mmol/L Chloride (98-107) mmol/L Carbon Dioxide (22-32) mmol/L BUN (9-20) mg/dL Creatinine (0.66-1.25) mg/dL Estimated GFR (>60) mL/min BUN/Creatinine Ratio (6-22) Glucose (80-110) mg/dL Lactate (0.7-2.1) mmol/L Calcium (8.4-10.2) mg/dL Ferritin (18-464) ng/mL Total Bilirubin (0.2-1.3) mg/dL GGT (15-73) U/L AST (17-59) IU/L ALT (<50) IU/L Alkaline Phosphatase (38-126) U/L Ammonia (9-30) umol/L Total Creatine Kinase (55-170) U/L CK-MB (CK-2) (<2.37) ng/mL CK-MB (CK-2) Rel Index (1.5-5.0) % Troponin I (0.01-0.034) ng/mL C-Reactive Protein (<1.0) mg/dL NT-Pro-B Natriuret Pep (<125) pg/mL Total Protein (6.3-8.2) g/dL Albumin (3.5-5.0) g/dL Globulin (1.7-4.1) g/dL Albumin/Globulin Ratio (1.0-2.8) Lipase (23-300) U/L Procalcitonin (<0.5) ng/mL Urine Color Yellow Urine Appearance Clear Urine pH 5.0 (4.5-8.0) Ur Specific [place] 1.015 (1.000-1.035) Urine Protein Trace H (Negative) Urine Glucose (UA) Negative (Negative) g/dL Urine Ketones Trace H (NEGATIVE) Urine Occult Blood Negative (Negative) Urine Nitrate Negative (Negative) Urine Bilirubin Negative (NEGATIVE) Urine Urobilinogen 0.2 (0.2) E.U./dL Ur Leukocyte Esterase Negative (NEGATIVE) Urine RBC None seen (0-5/HPF) Urine WBC None seen (0-5/HPF) Urine Bacteria None seen (None) Ur Culture Indicated? Cult not indicated Micro UA Comment Microscopic normal Acetaminophen (10-30) ug/mL Blood Type Antibody Screen Crossmatch Imaging Data Chest x-ray: Radiologist's Impression: Chart Viewer Diagnostics DATE TYPE STATUS AUTHOR Hx 07/11/19 20:29 Shaye Hooker 07/11/19 19:09 Shaye Hooker 07/11/19 19:07 Shaye Hooker 05/25/19 09:56 Adrián Aguirre 04/13/19 08:10 Adrián Aguirre 04/12/19 00:00 Pineda Cox 04/11/19 18:05 Seth García 04/11/19 17:28 04/11/19 16:02 Michael Yepez 04/11/19 15:41 Michael Yepez 04/11/19 15:33 Michael Yepez 02/17/19 11:39 Joey Fernández 12/23/18 11:21 Dayanara Lewis 09/19/18 11:48 Michael Yepez 08/04/18 16:48 Pineda Cox 08/04/18 12:29 Sylvester Singleton, M0 1950 ADM [place], Main ED R05 106.141kg Search Chart No Data to Display ONSET Today 22:30 Sylvester Singleton M [address] [address] XRay Report Signed Patient: Sylvester Singleton R#: [id number] : [id number] Age/Sex: 69 / MDate of Service: 07/11/19 Loc: ED Accession Number: [id number] Procedure: XR chest 1V Ordering Provider: Mark Luna D.O. PROCEDURE: XR CHEST 1V INDICATIONS: SOB TECHNIQUE: One view of the chest was acquired. COMPARISON: [facility], , XR CHEST 1V, 04/11/2019, 16:27. FINDINGS: Surgical changes and devices: Dual-lead cardiac pacer is stable. Median sternotomy wires are stable. Cardiac or devices stable.. Lungs and pleura: Mild cephalization of pulmonary vasculature and interstitial prominence. Trace left pleural effusion. No pneumothorax. Mediastinum: Mediastinal contours appear normal. Heart is enlarged. Bones and chest wall: No suspicious bony lesions. Overlying soft tissues appear unremarkable. IMPRESSION: Cardiomegaly with interstitial prominence and cephalization of pulmonary vasculature concerning for CHF. Trace left pleural effusion. Dictated by: Shaye Hooker MD, PhD on 07/11/2019 at 19:24 Approved by: Shaye Hooker MD, PhD on 07/11/2019 at 19:25 US - abdomen: Radiologist's Impression: Sylvester Singleton 69 M [address] [address] Ultrasound Report Signed Patient: Sylvester Singleton R#: [id number] : [id number] Age/Sex: 69 / MDate of Service: 07/11/19 Loc: ED Accession Number: [id number] Procedure: US abdomen limited Ordering Provider: Mark Luna D.O. PROCEDURE: US ABDOMEN LIMITED INDICATIONS: JAUNDICE; ELEVATED LIVER/BILIARY LABS TECHNIQUE: Real-time focused scanning was performed of the abdomen, with image documentation. COMPARISON: None. FINDINGS: Liver is normal in size and homogeneous in echotexture. Gallbladder contains multiple small gallstones. No gallbladder wall thickening with gallbladder wall measuring 1.3 mm. No pericholecystic fluid. No sonographic Gil's sign. Biliary tree not dilated with common bile duct measuring 5 mm. Pancreas is sonographically normal IMPRESSION: 1. Cholelithiasis without sonographic evidence of cholecystitis. 2. No biliary ductal dilatation. Dictated by: Shaye Hooker MD, PhD on 07/11/2019 at 20:09 Approved by: Shaye Hooker MD, PhD on 07/11/2019 at 20:11 CT scan - abdomen/pelvis: Radiologist's Impression: Chart Viewer Diagnostics DATE TYPE STATUS AUTHOR Hx 07/11/19 20:29 Shaye Hooker 07/11/19 19:09 Shaye Hooker 07/11/19 19:07 Shaye Hooker 05/25/19 09:56 Adrián Aguirre 04/13/19 08:10 Adrián Aguirre 04/12/19 00:00 Pineda Cox 04/11/19 18:05 Seth García 04/11/19 17:28 04/11/19 16:02 Michael Yepez 04/11/19 15:41 Michael Yepez 04/11/19 15:33 Michael Yepez 02/17/19 11:39 Joey Fernández 12/23/18 11:21 Dayanara Lewis 09/19/18 11:48 Michael Yepez 08/04/18 16:48 Pineda Cox 08/04/18 12:29 Sylvester Singleton 69, M0 1950 ADM [place], Main ED R05 106.141kg Search Chart No Data to Display ONSET Today 22:30 Sylvester Singleton [address] [address] [address] Scan Report Signed Patient: TaylormarcelahaleyedithSylvester JMR#: [id number] : [id number]:[id number] Age/Sex: 69 / MDate of Service: 07/11/19 Loc: ED Accession Number: [id number] Procedure: CT chest abd pel w con Ordering Provider: Mark Luna D.O. PROCEDURE: CT CHEST ABD PEL W CON INDICATIONS: SOB, cough, weakness, anemia TECHNIQUE: After the administration of intravenous contrast, 5 mm thick sections acquired from the lung apices to the symphysis. 5 mm coronal and sagittal reformats were performed, with additional 7 mm MIP reformats through the lungs. For radiation dose reduction, the following was used: automated exposure control, adjustment of mA and/or kV according to patient size. COMPARISON: None. FINDINGS: Image quality: Excellent. CHEST: Lungs and pleura: Scattered ground glass nodules noted in the lungs bilaterally concerning for multilobar pneumonia. Central bronchial wall thickening noted. Trace bilateral pleural effusions. No pneumothorax. Central and peripheral airways appear patent and normal in caliber. Mediastinum: Heart is enlarged. Dense atherosclerotic calcifications are noted in the aorta, the great vessels in the coronary vasculature. Postsurgical changes compatible with prior CABG procedure noted. Post surgical changes compatible with aortic valve prosthesis placement.. No pericardial effusion. 1.6 cm right paratracheal mediastinal lymph node. 2.0 cm subcarinal mediastinal lymph node. 1.6 cm right hilar lymph node. Thoracic aorta and central pulmonary arteries are normal in size. Esophagus is normal in caliber. No hiatal hernia. Chest wall: Chronic right posterior 10th and 11th rib fractures. Dual lead left chest wall cardiac pacer. No axillary or supraclavicular adenopathy by size criteria. Thyroid gland contains a 1.7 cm hypoattenuating nodule in the right lobe. ABDOMEN: Solid organs: Liver is normal in size and enhancement. Liver has nodular margins suggesting hepatic cirrhosis. Gallbladder contains small gallstones. Biliary system is non dilated. Pancreas enhances normally. Fatty atrophy of the pancreas noted. Spleen is normal in size and enhancement. No adrenal nodules. Mild adrenal thickening noted bilaterally most compatible with adrenal hyperplasia. Multiple bilateral nonobstructing renal stones are noted ranging in size from 1 -7 mm. Kidneys demonstrate normal size and enhancement, without hydronephrosis. Mild bilateral renal perinephric stranding which could represent senescent change or could be related to urinary tract infection. 2.8 cm exophytic left renal cyst. Peritoneum and bowel: Bowel loops demonstrate normal wall thickness and caliber. Scattered diverticuli noted in the colon without evidence of diverticulitis. No free air. Small amount of free fluid noted in the paracolic gutters bilaterally. Mild stranding noted in the left lower pelvic mesentery. The appendix is normal. Nodes and vessels: No retroperitoneal or mesenteric adenopathy by size criteria. 3.1 x 3.7 cm infrarenal abdominal aortic aneurysm. The inferior vena cava is normal in size. Miscellaneous: No ventral hernias. PELVIS: Genitourinary: Bladder wall thickness is normal. Miscellaneous: No inguinal adenopathy. Fat containing left inguinal hernia. Bones: No suspicious bony lesions. No vertebral body compression fractures. Convex left lumbar spine scoliosis. Bilateral hip osteoarthritis. IMPRESSION: 1. Scattered groundglass nodules involving the bilateral lungs compatible with multilobar pneumonia. 2. Trace bilateral pleural effusions. 3. Mediastinal and right hilar lymphadenopathy which could be reactive or neoplastic. Recommend followup CT scan in one month. 4. Cardiomegaly. 5. Atherosclerosis including the coronary vasculature. Status post CABG procedure. 6. 1.7 cm right thyroid nodule. Recommend thyroid ultrasound when clinically feasible. 7. Liver has nodular margins suggesting hepatic cirrhosis. Recommend correlation with clinical and laboratory data. 8. Bilateral nonobstructing renal stones ranging in size from 1-7 mm. 9. Bilateral renal perinephric stranding which could represent senescent change versus urinary tract infection. Recommend correlation with urinalysis data. 10. Small amount of free fluid in the paracolic gutters bilaterally with mild mesenteric stranding in the left lower quadrant. Peritonitis cannot be excluded. 11. No evidence of appendicitis 12. 3.1 x 3.7 cm infrarenal abdominal aortic aneurysm. 13. Colonic diverticulosis without evidence of diverticulitis. 14. Cholelithiasis. 15. Large fat containing left inguinal hernia. Dictated by: Shaye Hooker MD, PhD on 07/11/2019 at 21:24 Approved by: Shaye Hooker MD, PhD on 07/11/2019 at 21:37 [facility] Narrative Medical decision making narrative: Patient fatigue is likely multifactorial. Symptomatic anemia, CHF, and pneumonia all considered with COVID highly likely. Patient has history of iron deficiency anemia which could be suggested by his low MCV today, however given critically elevated INR blood loss is certainly considered. Rectal was heme-negative. Given recent EF of 30-35% and suggestion CHF on x-ray with elevated BNP we elected to give vitamin K, hold Coumadin and avoid FFP at this point time. Patient is not currently a candidate for 4 factor PCC. 1 unit of blood ordered with Lasix. Critical Care Time Critical Care Time Critical Care Time: Yes Total Critical Care Time: 30 Attestation: The high probability of a clinically significant, sudden or life threatening deterioration of the [CV] system(s) required my full and direct attention, intervention and personal management. The aggregate critical care time was [30] minutes. This time is in addition to time spent performing reported procedures but includes the following: [x] Data Review and interpretation [x] Patient assessment and monitoring of vital signs [x] Documentation [x] Medication orders and management Discharge Plan Departure Patient Disposition: Admitted As Inpatient Clinical Impression: Suspected COVID-19 virus infection, Community acquired pneumonia, bilateral, Elevated transaminase level Admit Date/Time: 07/11/19 23:01 Admit Provider: Phillip Sung
--- NOTE | 2019-07-11 19:07 | DI.US.S_ITS ---
PROCEDURE: US ABDOMEN LIMITED INDICATIONS: JAUNDICE; ELEVATED LIVER/BILIARY LABS TECHNIQUE: Real-time focused scanning was performed of the abdomen, with image documentation. COMPARISON: None. FINDINGS: Liver is normal in size and homogeneous in echotexture. Gallbladder contains multiple small gallstones. No gallbladder wall thickening with gallbladder wall measuring 1.3 mm. No pericholecystic fluid. No sonographic Gil's sign. Biliary tree not dilated with common bile duct measuring 5 mm. Pancreas is sonographically normal IMPRESSION: 1. Cholelithiasis without sonographic evidence of cholecystitis. 2. No biliary ductal dilatation. Dictated by: Shaye Hooker MD, PhD on 07/11/2019 at 20:09 Approved by: Shaye Hooker MD, PhD on 07/11/2019 at 20:11
--- NOTE | 2019-07-11 19:09 | DI.RAD.S_ITS ---
PROCEDURE: XR CHEST 1V INDICATIONS: SOB TECHNIQUE: One view of the chest was acquired. COMPARISON: [facility], CR, XR CHEST 1V, 04/11/2019, 16:27. FINDINGS: Surgical changes and devices: Dual-lead cardiac pacer is stable. Median sternotomy wires are stable. Cardiac or devices stable.. Lungs and pleura: Mild cephalization of pulmonary vasculature and interstitial prominence. Trace left pleural effusion. No pneumothorax. Mediastinum: Mediastinal contours appear normal. Heart is enlarged. Bones and chest wall: No suspicious bony lesions. Overlying soft tissues appear unremarkable. IMPRESSION: Cardiomegaly with interstitial prominence and cephalization of pulmonary vasculature concerning for CHF. Trace left pleural effusion. Dictated by: Shaye Hooker MD, PhD on 07/11/2019 at 19:24 Approved by: Shaye Hooker MD, PhD on 07/11/2019 at 19:25
[2019-07-11 19:11] LABS: Hematocrit 24.6 % (41-53); Hemoglobin 7.5 g/dL (13.5-17.5)
[2019-07-11] MEDS: PHYTONADIONE (VIT K1) 5 MG TABLET PO (19:14)
[2019-07-11] MEDS: HYDROMORPHONE 0.5 MG INJ IV ×2 (19:14→22:16)
[2019-07-11 19:49] LABS: Creatine Kinase 1026 U/L (55-170)
[2019-07-11 19:50] LABS: Lactate (Lactic Acid) 1.4 mmol/L (0.7-2.1)
[2019-07-11 19:54] LABS: C-Reactive Protein Quant 4.7 mg/dL (<1.0)
[2019-07-11 19:59] LABS: NT-proBNP (BNP-Adult 18+) 9040 pg/mL (<125)
[2019-07-11 20:02] LABS: Troponin I 0.026 ng/mL (0.01-0.034)
[2019-07-11 20:04] LABS: CKMB % Relative Index 1.4 % (1.5-5.0)
[2019-07-11 20:26] LABS: Ferritin 29 ng/mL (18-464)
[2019-07-11 20:29] LABS: Procalcitonin 0.09 ng/mL (<0.5)
--- NOTE | 2019-07-11 20:29 | DI.CT.S_ITS ---
PROCEDURE: CT CHEST ABD PEL W CON INDICATIONS: SOB, cough, weakness, anemia TECHNIQUE: After the administration of intravenous contrast, 5 mm thick sections acquired from the lung apices to the symphysis. 5 mm coronal and sagittal reformats were performed, with additional 7 mm MIP reformats through the lungs. For radiation dose reduction, the following was used: automated exposure control, adjustment of mA and/or kV according to patient size. COMPARISON: None. FINDINGS: Image quality: Excellent. CHEST: Lungs and pleura: Scattered ground glass nodules noted in the lungs bilaterally concerning for multilobar pneumonia. Central bronchial wall thickening noted. Trace bilateral pleural effusions. No pneumothorax. Central and peripheral airways appear patent and normal in caliber. Mediastinum: Heart is enlarged. Dense atherosclerotic calcifications are noted in the aorta, the great vessels in the coronary vasculature. Postsurgical changes compatible with prior CABG procedure noted. Post surgical changes compatible with aortic valve prosthesis placement.. No pericardial effusion. 1.6 cm right paratracheal mediastinal lymph node. 2.0 cm subcarinal mediastinal lymph node. 1.6 cm right hilar lymph node. Thoracic aorta and central pulmonary arteries are normal in size. Esophagus is normal in caliber. No hiatal hernia. Chest wall: Chronic right posterior 10th and 11th rib fractures. Dual lead left chest wall cardiac pacer. No axillary or supraclavicular adenopathy by size criteria. Thyroid gland contains a 1.7 cm hypoattenuating nodule in the right lobe. ABDOMEN: Solid organs: Liver is normal in size and enhancement. Liver has nodular margins suggesting hepatic cirrhosis. Gallbladder contains small gallstones. Biliary system is non dilated. Pancreas enhances normally. Fatty atrophy of the pancreas noted. Spleen is normal in size and enhancement. No adrenal nodules. Mild adrenal thickening noted bilaterally most compatible with adrenal hyperplasia. Multiple bilateral nonobstructing renal stones are noted ranging in size from 1 -7 mm. Kidneys demonstrate normal size and enhancement, without hydronephrosis. Mild bilateral renal perinephric stranding which could represent senescent change or could be related to urinary tract infection. 2.8 cm exophytic left renal cyst. Peritoneum and bowel: Bowel loops demonstrate normal wall thickness and caliber. Scattered diverticuli noted in the colon without evidence of diverticulitis. No free air. Small amount of free fluid noted in the paracolic gutters bilaterally. Mild stranding noted in the left lower pelvic mesentery. The appendix is normal. Nodes and vessels: No retroperitoneal or mesenteric adenopathy by size criteria. 3.1 x 3.7 cm infrarenal abdominal aortic aneurysm. The inferior vena cava is normal in size. Miscellaneous: No ventral hernias. PELVIS: Genitourinary: Bladder wall thickness is normal. Miscellaneous: No inguinal adenopathy. Fat containing left inguinal hernia. Bones: No suspicious bony lesions. No vertebral body compression fractures. Convex left lumbar spine scoliosis. Bilateral hip osteoarthritis. IMPRESSION: 1. Scattered groundglass nodules involving the bilateral lungs compatible with multilobar pneumonia. 2. Trace bilateral pleural effusions. 3. Mediastinal and right hilar lymphadenopathy which could be reactive or neoplastic. Recommend followup CT scan in one month. 4. Cardiomegaly. 5. Atherosclerosis including the coronary vasculature. Status post CABG procedure. 6. 1.7 cm right thyroid nodule. Recommend thyroid ultrasound when clinically feasible. 7. Liver has nodular margins suggesting hepatic cirrhosis. Recommend correlation with clinical and laboratory data. 8. Bilateral nonobstructing renal stones ranging in size from 1-7 mm. 9. Bilateral renal perinephric stranding which could represent senescent change versus urinary tract infection. Recommend correlation with urinalysis data. 10. Small amount of free fluid in the paracolic gutters bilaterally with mild mesenteric stranding in the left lower quadrant. Peritonitis cannot be excluded. 11. No evidence of appendicitis 12. 3.1 x 3.7 cm infrarenal abdominal aortic aneurysm. 13. Colonic diverticulosis without evidence of diverticulitis. 14. Cholelithiasis. 15. Large fat containing left inguinal hernia. Dictated by: Shaye Hooker MD, PhD on 07/11/2019 at 21:24 Approved by: Shaye Hooker MD, PhD on 07/11/2019 at 21:37
[2019-07-11 22:06] LABS: Bacteria Urine None Seen; RBC Urine None Seen (0-5/HPF); WBC Urine None Seen (0-5/HPF)
[2019-07-11 22:08] LABS: Appearance Urine UA CLEAR; Bilirubin Urine UA NEGATIVE (NEGATIVE); Color Urine UA YELLOW; Glucose Urine UA NEGATIVE (Negative); Ketones Urine UA TRACE (NEGATIVE); Leukocyte Esterase Urine UA NEGATIVE (NEGATIVE); Nitrite Urine UA NEGATIVE (Negative); Occult Blood Urine UA NEGATIVE (Negative); Protein Urine UA TRACE (Negative); Specific Gravity Urine UA 1.015 (1.000-1.035); Urobilinogen Urine UA 0.2 E.U./dL (0.2)
[2019-07-11 22:08] LABS: Acetaminophen < 10 ug/mL (10-30); Gamma Glutamyl Transpeptidase 142 U/L (15-73)
[2019-07-11] MEDS: CEFTRIAXONE 2 GM/50 ML FROZ.PIGGY IV (22:11)
[2019-07-11 22:35] LABS: Culture Indicated Urine Cult Not Indicated; Urine Comments Microscopic Normal
--- NOTE | 2019-07-11 23:23 | PM.HP.1 ---
History of Present Illness History of Present Illness Date Patient Seen: 07/12/19 Time Patient Seen: 01:50 Chief complaint: states, woke up with flu like symptoms Narrative: Mr. Sylvester Singleton is a 69-year-old male with a past medical history significant for CVA, CAD status post 2 vessel CABG, mechanical aortic valve replacement, dual-chamber pacemaker, chronic warfarin anticoagulation hypertension, systolic heart failure and chronic lumbar back pain with radiculopathy who presents to the ER reporting 2 days of fatigue and worsening shortness of breath. He reports having a headache, dry nonproductive cough and intermittent wheezing but denies headaches or dizziness nasal congestion or sore throat. Reports no fevers or chills. She denies complaints of chest pain or palpitations. He has exertional dyspnea and has difficulties with stairs at baseline. He denies abdominal pain, nausea vomiting or changes in bowel or bladder habits. Upon arrival the ER he is afebrile with a temperature 97.6?, heart rate of 86, blood pressure 149/70, respirations of 18 saturating 100% on room air. Patient has CT of the chest abdomen and pelvis with multiple significant findings including scattered ground-glass nodules involving bilateral lungs compatible with multilobar pneumonia, trace bilateral effusions, mediastinal and right hilar lymphadenopathy possibly reactive or neoplastic, cardiomegaly, atherosclerosis of the coronary vasculature E, 1.7 cm a thyroid nodule, nodular liver margins suggestive of cirrhosis, bilateral nonobstructing renal stones ranging in size from 1-7 mm, bilateral renal celio phrenic stranding which could represent cysts in changes versus urinary tract infection, small amount of fluid in the pericolic gutters with mild mesenteric stranding in left lower quadrant, no evidence of appendicitis, 3.1 x 3 points 7 abdominal aortic aneurysm, colonic diverticulosis without evidence of diverticulitis, cholelithiasis and large fat containing left inguinal hernia. Ultrasound the abdomen finds cholelithiasis negative Gil sign, no gallbladder thickening or celio cholestatic fluid, normal ducts and pancreas. On laboratory analysis the patient has white count of 11.1, hemoglobin of 7.5, hematocrit of 24.6 and platelets 368. He has a left shift with increased neutrophils at 85.8%. His MCV is 74.3 and MCH is 22.5. On coagulation he has a PT of 74.6, INR 6.6 and PTT of 42. On chemistries is electrolytes are normal limits and he has a BUN of 33 and creatinine 1.15. His nonfasting glucose is 111. He has a bilirubin of 1.5, AST of 832, ALT of 1081 and AST 192. His albumin is 4.1. His ammonia is less than 9. He has a procalcitonin of 0.09 and lactic acid 1.4 and CRP is 4.7. He has a total CK of 1026, CK-MB of 13.9 and index 1.4, his troponin is 0.026 and proBNP is 9040. In the ER the patient is started on azithromycin 500 mg IV and ceftriaxone 2 g IV. 5 mg of vitamin K is administered for INR 6.6. He is also administered 1 unit of blood with 40 mg of Lasix. Your provider contacted Dr. Jordan in relation to liver functions and received no specific recommendations as well as consulted with GI who felt there was no need to transfer at this time. The patient is admitted to the medicine service for treatment of pneumonia, anemia and acute liver failure. Patient History Medical History (Updated 07/12/19 @ 03:57 by BRI Dang) Chronic dislocation of right shoulder (Acute) COPD (chronic obstructive pulmonary disease) (Acute) Coronary artery disease (Acute) CVA (cerebral vascular accident) (Inactive) Facet arthropathy, lumbosacral (Acute) Hypertension (Acute) Lumbosacral spondylosis with radiculopathy (Acute) Pacemaker (Chronic) Scoliosis due to degenerative disease of spine in adult patient (Acute) Systolic heart failure (Acute) Surgical History (Updated 07/12/19 @ 03:57 by BRI Dang) H/O aortic valve replacement (Acute) History of bilateral knee replacement (Acute) Family & Social History Family History (Updated 07/12/19 @ 03:49 by BRI Dang) Father Cancer Mother Alcohol abuse Stroke Sister Heart attack Social History: household members other Safety & Behavioral: Feels Safe in Current Yes Environment Been Physically Hurt or No Threatened By a Person Tobacco & Substance use: Tobacco type cigarettes Smoking Status Current every day smoker alcohol intake current alcohol intake frequency 0-2 drinks per day Substance Use Type does not use Comment: Advanced directives: In direct discussion with the patient he states wish to be FULL CODE. He designates his sister Sheila to be his surrogate decision maker in conjunction with his ex Carolynn who is is primary caregiver. Meds Home Medications and Allergies Home Medications Medication Instructions Recorded Confirmed Type amlodipine 10 mg tablet 10 mg PO DAILY 08/04/18 07/12/19 History aspirin 81 mg tablet,delayed 81 mg PO DAILY 08/04/18 07/12/19 History release atorvastatin 40 mg tablet 40 mg PO DAILY 08/04/18 07/12/19 History colchicine 0.6 mg tablet 0.6 mg PO DAILY 08/04/18 07/12/19 History duloxetine 60 mg capsule,delayed 120 mg PO DAILY 08/04/18 07/12/19 History release furosemide 20 mg tablet 10 mg PO DAILY 08/04/18 07/12/19 History metoprolol succinate 50 mg capsule 100 mg PO BID 08/04/18 07/12/19 History sprinkle, ext. release 24 hr potassium chloride 10 mEq 10 meq PO DAILY 08/04/18 07/12/19 History capsule,extended release spironolactone 25 mg tablet 25 mg PO DAILY 08/04/18 07/12/19 History tiotropium bromide 18 mcg capsule 1 cap INHALATION DAILY 08/04/18 07/12/19 History with inhalation device oxycodone-acetaminophen 1 - 2 tab PO Q4-6H PRN MDD 6 tabs 02/17/19 07/12/19 History warfarin 6 - 7.5 mg PO DAILY 02/17/19 07/12/19 History gabapentin 600 mg tablet 600 mg PO TID #90 tab 06/02/19 07/12/19 Rx Allergies Allergy/AdvReac Type Severity Reaction Status Date / Time No Known Drug Allergies Allergy Verified 05/04/19 14:14 Exam Vital Signs (past 8 hours): - 07/11/19 16:19 07/11/19 18:41 07/11/19 22:30 Temperature 97.6 F Pulse Rate 86 84 81 Respiratory Rate 18 Blood Pressure 149/70 H Blood Pressure [Left Arm] 142/65 H 167/77 H Pulse Oximetry 100 97 91 07/11/19 23:21 Temperature 98.3 F Pulse Rate 83 Respiratory Rate 20 Blood Pressure 154/72 H Blood Pressure [Left Arm] Pulse Oximetry Oxygen Delivery Method Room Air Narrative Exam Narrative: GENERAL APPEARANCE: well developed, obese male in no acute distress HEENT: Normocephalic, PERRLA, conjunctiva clear, EOMs intact without nystagmus, no sinus tenderness to percussion, no rhinorrhea, mucous membranes are moist and pink without lesions or exudate. NECK/THYROID: neck supple, no JVD, no carotid bruit, trachea midline. LYMPH NODES: no cervical or supraclavicular lymphadenopathy. SKIN: Pale, warm and dry, no visible lesions, rashes, ulcerations or petechiae. HEART: regular rate and rhythm, S1-S2, aortic click, no rubs or gallops, brisk capillary refill, trace bilateral edema LUNGS: Diminished in all larry with mild bibasilar crackles, and expiratory wheeze, no cough present CHEST: Symmetrical movement, no accessory muscle use, good tidal volume. ABDOMEN: Soft, no distention, no abdominal tenderness, no guarding or peritoneal signs, no organomegaly, negative Gil sign, no flank or suprapubic tenderness, active bowel tones. BACK: Normal curvature, nontender to palpation, no CVA tenderness on percussion EXTREMITIES: moves all extremities, strength is 5/5 and symmetrical, no deformities or joint effusions. NEUROLOGIC: AAO x4, no focal neurologic deficits, cranial nerves II-XII grossly intact, sensation intact to light touch, hearing grossly normal to speech. PSYCH: Briskly interactive, good eye contact, cooperative, appropriate with stable behavior Objective Labs Result Diagrams: 07/11/19 19:05 07/11/19 16:25 Labs: Laboratory Results - last 24 hr 07/11/19 07/11/19 07/11/19 16:25 16:25 16:25 WBC 11.1 H RBC 3.27 L Hgb 7.3 L Hct 24.3 L MCV 74.3 L MCH 22.5 L MCHC 30.3 RDW 21.7 H Plt Count 368 Neut % (Auto) 85.8 H Lymph % (Auto) 3.8 L [place] % (Auto) 10.3 Eos % (Auto) 0.0 L Baso % (Auto) 0.1 Neut # (Auto) 9500 H Lymph # (Auto) 400 L [place] # (Auto) 1100 H Eos # (Auto) 0 Baso # (Auto) 0 RBC Morphology See below Polychromasia 1+ H Hypochromasia 1+ H Anisocytosis 2+ H Microcytosis 1+ H PT 74.6 H INR 6.6 H* APTT 42 H Sodium 130 L Potassium 4.3 Chloride 101 Carbon Dioxide 18 L BUN 33 H Creatinine 1.15 Estimated GFR > 60.0 BUN/Creatinine Ratio 28.7 H Glucose 111 H Lactate Calcium 9.0 Ferritin Total Bilirubin 1.5 H GGT AST 832 H ALT 1081 H Alkaline Phosphatase 192 H Ammonia Total Creatine Kinase CK-MB (CK-2) CK-MB (CK-2) Rel Index Troponin I C-Reactive Protein NT-Pro-B Natriuret Pep Total Protein 6.7 Albumin 4.1 Globulin 2.6 Albumin/Globulin Ratio 1.6 Lipase 40 Procalcitonin Urine Color Urine Appearance Urine pH Ur Specific [place] Urine Protein Urine Glucose (UA) Urine Ketones Urine Occult Blood Urine Nitrate Urine Bilirubin Urine Urobilinogen Ur Leukocyte Esterase Urine RBC Urine WBC Urine Bacteria Ur Culture Indicated? Micro UA Comment Acetaminophen Blood Type Antibody Screen Crossmatch 07/11/19 07/11/19 07/11/19 16:25 16:35 19:05 WBC RBC Hgb 7.5 L Hct 24.6 L MCV MCH MCHC RDW Plt Count Neut % (Auto) Lymph % (Auto) [place] % (Auto) Eos % (Auto) Baso % (Auto) Neut # (Auto) Lymph # (Auto) [place] # (Auto) Eos # (Auto) Baso # (Auto) RBC Morphology Polychromasia Hypochromasia Anisocytosis Microcytosis PT INR APTT Sodium Potassium Chloride Carbon Dioxide BUN Creatinine Estimated GFR BUN/Creatinine Ratio Glucose Lactate Calcium Ferritin Total Bilirubin GGT 142 H AST ALT Alkaline Phosphatase Ammonia < 9 L Total Creatine Kinase CK-MB (CK-2) CK-MB (CK-2) Rel Index Troponin I C-Reactive Protein NT-Pro-B Natriuret Pep Total Protein Albumin Globulin Albumin/Globulin Ratio Lipase Procalcitonin Urine Color Urine Appearance Urine pH Ur Specific [place] Urine Protein Urine Glucose (UA) Urine Ketones Urine Occult Blood Urine Nitrate Urine Bilirubin Urine Urobilinogen Ur Leukocyte Esterase Urine RBC Urine WBC Urine Bacteria Ur Culture Indicated? Micro UA Comment Acetaminophen < 10 L Blood Type Antibody Screen Crossmatch 07/11/19 07/11/19 07/11/19 19:05 19:23 19:23 WBC RBC Hgb Hct MCV MCH MCHC RDW Plt Count Neut % (Auto) Lymph % (Auto) [place] % (Auto) Eos % (Auto) Baso % (Auto) Neut # (Auto) Lymph # (Auto) [place] # (Auto) Eos # (Auto) Baso # (Auto) RBC Morphology Polychromasia Hypochromasia Anisocytosis Microcytosis PT INR APTT Sodium Potassium Chloride Carbon Dioxide BUN Creatinine Estimated GFR BUN/Creatinine Ratio Glucose Lactate 1.4 Calcium Ferritin Total Bilirubin GGT AST ALT Alkaline Phosphatase Ammonia Total Creatine Kinase CK-MB (CK-2) CK-MB (CK-2) Rel Index Troponin I C-Reactive Protein NT-Pro-B Natriuret Pep Total Protein Albumin Globulin Albumin/Globulin Ratio Lipase Procalcitonin 0.09 Urine Color Urine Appearance Urine pH Ur Specific [place] Urine Protein Urine Glucose (UA) Urine Ketones Urine Occult Blood Urine Nitrate Urine Bilirubin Urine Urobilinogen Ur Leukocyte Esterase Urine RBC Urine WBC Urine Bacteria Ur Culture Indicated? Micro UA Comment Acetaminophen Blood Type O Positive Antibody Screen Negative Crossmatch See Detail 07/11/19 07/11/19 07/11/19 19:23 19:23 19:23 WBC RBC Hgb Hct MCV MCH MCHC RDW Plt Count Neut % (Auto) Lymph % (Auto) [place] % (Auto) Eos % (Auto) Baso % (Auto) Neut # (Auto) Lymph # (Auto) [place] # (Auto) Eos # (Auto) Baso # (Auto) RBC Morphology Polychromasia Hypochromasia Anisocytosis Microcytosis PT INR APTT Sodium Potassium Chloride Carbon Dioxide BUN Creatinine Estimated GFR BUN/Creatinine Ratio Glucose Lactate Calcium Ferritin 29 Total Bilirubin GGT AST ALT Alkaline Phosphatase Ammonia Total Creatine Kinase 1026 H CK-MB (CK-2) 13.90 H CK-MB (CK-2) Rel Index 1.4 L Troponin I 0.026 C-Reactive Protein 4.7 H NT-Pro-B Natriuret Pep 9040 H Total Protein Albumin Globulin Albumin/Globulin Ratio Lipase Procalcitonin Urine Color Urine Appearance Urine pH Ur Specific [place] Urine Protein Urine Glucose (UA) Urine Ketones Urine Occult Blood Urine Nitrate Urine Bilirubin Urine Urobilinogen Ur Leukocyte Esterase Urine RBC Urine WBC Urine Bacteria Ur Culture Indicated? Micro UA Comment Acetaminophen Blood Type Antibody Screen Crossmatch 07/11/19 21:53 WBC RBC Hgb Hct MCV MCH MCHC RDW Plt Count Neut % (Auto) Lymph % (Auto) [place] % (Auto) Eos % (Auto) Baso % (Auto) Neut # (Auto) Lymph # (Auto) [place] # (Auto) Eos # (Auto) Baso # (Auto) RBC Morphology Polychromasia Hypochromasia Anisocytosis Microcytosis PT INR APTT Sodium Potassium Chloride Carbon Dioxide BUN Creatinine Estimated GFR BUN/Creatinine Ratio Glucose Lactate Calcium Ferritin Total Bilirubin GGT AST ALT Alkaline Phosphatase Ammonia Total Creatine Kinase CK-MB (CK-2) CK-MB (CK-2) Rel Index Troponin I C-Reactive Protein NT-Pro-B Natriuret Pep Total Protein Albumin Globulin Albumin/Globulin Ratio Lipase Procalcitonin Urine Color Yellow Urine Appearance Clear Urine pH 5.0 Ur Specific [place] 1.015 Urine Protein Trace H Urine Glucose (UA) Negative Urine Ketones Trace H Urine Occult Blood Negative Urine Nitrate Negative Urine Bilirubin Negative Urine Urobilinogen 0.2 Ur Leukocyte Esterase Negative Urine RBC None seen Urine WBC None seen Urine Bacteria None seen Ur Culture Indicated? Cult not indicated Micro UA Comment Microscopic normal Acetaminophen Blood Type Antibody Screen Crossmatch Assessment & Plan Assessment & Plan narrative: 1. Bilateral multilobar pneumonia, acute, present on admission, active -the patient reports and acute change in health approximately 2 days ago with worsening shortness of breath and exertional dyspnea beyond his baseline. -CT imaging finds scattered ground-glass nodules involving bilateral lungs compatible with multilobar pneumonia, trace bilateral pleural effusions and mediastinal and right hilar lymphadenopathy representing reactive or neoplastic process. -patient has a white count of 11.1 with left shift with neutrophils at 85.8%. Procalcitonin is 0.09 and lactic acid is 1.4. CRP is elevated at 4.7. -ordered azithromycin 500 mg IV daily with 1st dose administered in the ER. -ordered ceftriaxone 2 g IV daily with 1st dose administered in the emergency department. -respiratory therapy to consult, evaluate and treat. -albuterol treatment every 2 hours as needed -will follow-up procalcitonin and CBC. 2. Acute Symptomatic anemia, present on admission, active. -patient has a hemoglobin of 7.5 and hematocrit of 24.6 on admission labs, hemoglobin was 11.2 on previous lab dated 04/12/2019 -the patient is on warfarin who presents with supratherapeutic INR of 6.6. He reports no abnormal bruising or bleeding, melena, hematochezia, hematuria, hematemesis or hemoptysis. -he underwent colonoscopy 3 months ago in [place] with no untoward findings per patient report. -the patient has a significant history of personal and familial coronary artery disease and is transfused 1 unit of packed red cells in the ER with 40 Lasix concurrently -will monitor the patient's response to transfusion, and guaiac stool. -will follow blood count closely. 3. Acute liver failure, present on admission, active -patient presents with a marked elevation in liver functions with a total bilirubin of 1.5, AST of 832, ALT of 1081 and alkaline phosphatase of 192. 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 -on ultrasound liver is described as homogeneous however CT scan identifies nodular margins suggestive of hepatic cirrhosis. Ultrasound further finds cholelithiasis without obstructing stones or ductal dilatation. -Tylenol level assessed and found to be less than 10, he has had no change in recent medications. -etiology may be related to perfusion and heart failure. 4. Mild acute exacerbation of chronic systolic heart failure, present on admission active. -the recent reports worsening exertional dyspnea. He reports no chest pain or palpitations and describes intermittent wheezing. Trace bilateral lower extremity edema. -history of ischemic cardiomyopathy and permanent pacemaker for complete AV block. -patient has an elevated total CK of 1026, CK MB is 13.9 with an index low at 1.4. Troponin is 0.026 and proBNP is 9040. -last echocardiogram dated 04/12/2019 finds a mildly dilated left ventricle with moderate concentric hypertrophy. Suggestion of ventricular septal defect on exam. Ejection fracture is 30-35% with moderate global hypokinesis, right ventricle is mildly dilated right ventricular systolic function mild to moderately reduced. -the patient received 40 mg Lasix with blood transfusion and has diuresed well. -continue home regimen of furosemide 10 mg daily and spironolactone 25 mg daily. -will repeat echocardiogram. 5. Long-term anticoagulation on warfarin with supratherapeutic INR, acute, present on admission, active. -patient states complaint with medications and follows with clinic in [place] for routine monitoring. -no reports of bruising or bleeding, melena, hematochezia, hematuria, hematemesis or hemoptysis. GI bleedings assessed with stool guaiac. -the patient received vitamin K 5 mg in the ER. -will recheck INR in the morning. 6. History of atrial flutter, in sinus rhythm, stable. -12 lead EKG shows sinus mechanism with ventricular pacing. -status post radiofrequency ablation in May 2014. -3rd degree heart block she with permanent pacer with dual chamber pacing. 7. Chronic back pain with opioid dependency, present on admission, active -patient reports ongoing low back pain. -patient is receiving delighted 0.5 mg IV as opposed to his typical oxycodone acetaminophen due to his elevated liver functions. Isolation: Droplet, COVID-19 screening. VTE prophylaxis: Bilateral SCDs, supratherapeutic INR IV fluid: Saline lock Diet: Heart healthy low-sodium Code status: FULL CODE. The pace admitted to the hospital for treatment of pneumonia acute anemia and acute liver failure the patient is admitted as an inpatient with expected length stay to be greater than 2 midnights.
[2019-07-11 23:54] LABS: Magnesium 1.9 mg/dL (1.6-2.3); Phosphorous 3.9 mg/dL (2.3-3.7)
[2019-07-12] VITALS (11 sets, daily range): BP systolic 132–165; BP diastolic 60–91; PULSE 65–85; RESP 16–25; TEMP 36.1–36.8; O2SAT 90–97; BMI 32.7
[2019-07-12] MEDS: FUROSEMIDE 40 MG/4 ML VIAL IV (00:16)
[2019-07-12] MEDS: PANTOPRAZOLE 40 MG VIAL IV ×3 (00:48→21:15)
[2019-07-12] MEDS: SODIUM CHLORIDE 0.9% FLUSH 10 ML IV ×4 (01:15→21:36)
[2019-07-12] MEDS: AZITHROMYCIN 500 MG in DEXTROSE 5% IN WATER 250 ML IV ×2 (01:15→21:30)
[2019-07-12] MEDS: SODIUM CHLORIDE 0.9% 250 ML 21 ML IV (01:15)
[2019-07-12] MEDS: HYDROMORPHONE 1 MG INJ 0.5 MG IV ×3 (01:34→16:41)
--- NOTE | 2019-07-12 03:03 | PC.ADMIT ---
Addendum entered by Eryn Hdz R.N. 07/12/19 05:04: Patient complaining of 6/10 back/right shoulder pain; discussed with BRI Boone, as too early to give additional Dilaudid. New order received for Oxycodone and medication administered. Patient COVID-19 came back negative and respiratory panel was also negative; precautions discontinued and patient informed. Original Note: Patient admitted to room 219 per stretcher from ER. Able to ambulate into room and sit on bed; assisted with 1 assist. Is alert and oriented. Breath sounds with expiratory wheezes throughout; RA sat 92% and is on continuous oximetry. Denies cough or SOB. HRR; placed on telemetry with reading of SR w/1st degree AVB + BBB. Does have pacemaker. BP elevated at 159/77 which is consistent with previously recorded BP's. Denies nausea at present time but did have presenting sx of nausea when came to ER. BT present and abdomen is soft. Voiding frequently related to Lasix administered prior to admission; needing to stand at bedside to use urinal and denies dysuria. Is able to move self in bed. Reports he is wobbly due to scoliosis and has started using a cane when walking. Reports 13 pound weight loss in last 3 months as states he hasn't been hungry so has had poor dietary intake. Bruising noted on bilateral UE. Has scars on mid chest, left forearm and left knee. Trace bilateral ankle edema noted. Reports falling 1 month ago and hitting head but no other injury at that time; fall risk score is high and bed alarm is activated. Bilateral calf SCD's have been applied. Blood transfusion in progress upon admission (started in ER) and completed at 0214. Complained of 7/10 back and right shoulder pain and was medicated with IV Dilaudid with pain improving to 4/10. Placed in contact/droplet/specialized droplet for aerosolized Rx until respiratory panel/COVID-19 test results back. Oriented to call light and bed controls. 1416 Admission Note: The patient,Sylvester Singleton,69 y/o, was given written information regarding hospital policies, unit procedures and contact persons. Patient's smoking status: Current every day smoker. Vital Signs - 8 hr 07/11/19 22:30 07/11/19 23:21 07/11/19 23:36 Temperature 98.3 F 98.0 F Pulse Rate 81 83 79 Respiratory Rate 20 22 Blood Pressure 154/72 H 154/77 H Blood Pressure [Left Arm] 167/77 H Pulse Oximetry 91 07/12/19 01:12 07/12/19 02:14 Temperature 97.0 F L 97.0 F L Pulse Rate 80 74 Respiratory Rate 24 20 Blood Pressure 159/77 H 132/73 Blood Pressure [Left Arm] Pulse Oximetry 92 93
[2019-07-12 03:18] LABS: COVID19 Sendout Not Detected (Not Detect)
--- NOTE | 2019-07-12 03:27 | DI.ECHO.S_ITS ---
[facility] + [facility] +---------+ : : [address] : : : : [place], : : : : [place] [id number] : : : : Phone: [phone] + [facility]-2011 Echocardiogram Report + + :Name: HARVINDER NEAL Study Date: 07/12/2019 Height: 72 in : :Hospital Weight: 241 lb : : Gender: Male BSA: 2.3 m2 : :: 1950 Age: 69 yrs BP: 165/79 mmHg: :Reason For Study: systolic heart failure : :Ordering Physician: [place] : :Hospitalist Performed By: Rosie Coffey : :Referring: VANESSA GARCES : + + Interpretation Summary Moderate concentric left ventricular hypertrophy with ejection fraction 30- 35%. Septal motion is consistent with post-operative state. Severe hypokinesis of apical anterior wall, apical septum and apex. Mild hypokinesis of apical inferior wall. There appears to be a perimembranous VSD present. Mildly dilated right ventricle with mildly reduced right ventricular systolic function. There is a catheter/pacemaker lead seen in the right atrium. Severely dilated left atrium. Moderate to severely dilated right atrium. There is a mechanical aortic valve. Mild mitral annular calcification. Mild mitral regurgitation. Mild tricuspid regurgitation. Moderate pulmonary hypertension. The right ventricular systolic pressure is estimated to be at least 55 mmHg based on an estimated right atrial pressure of 8 mm Hg. Comparison is made with the echocardiogram of 04/12/2019, pulmonary artery systolic pressure has increased. Procedure: A two-dimensional transthoracic echocardiogram with color flow and Doppler was performed. The study quality was technically adequate. Comparison is made with the echocardiogram of 04/12/2019. The patient had occasional PVCs during the exam. The heart rate ranged between 81-95 bpm during the study. Left Ventricle: There is moderate concentric left ventricular hypertrophy. The left ventricle is normal in size. There appears to be a perimembranous VSD present. The ejection fraction is estimated to be 30-35%. Septal motion is consistent with post-operative state. There is apical anterior wall severe hypokinesis. There is apical septal wall severe hypokinesis. There is apical severe hypokinesis. There is apical inferior wall mild hypokinesis. There are no other obvious focal wall motion abnormalities. Right Ventricle: The right ventricle is mildly dilated. Right ventricular systolic function is mildly reduced. Atria: The left atrium is severely dilated. There is a catheter/pacemaker lead seen in the right atrium. The right atrium is moderate to severely dilated. The interatrial septum is intact with no evidence for an atrial septal defect. Mitral Valve: The mitral valve leaflets appear mildly thickened, but open well. There is mild mitral annular calcification. There is mild mitral regurgitation. Aortic Valve: The aortic valve is not well visualized. There is a mechanical aortic valve. There is trace aortic regurgitation. Tricuspid Valve: The tricuspid valve is not well visualized, but is grossly normal. There is mild tricuspid regurgitation. The right ventricular systolic pressure is estimated to be at least 55 mmHg based on an estimated right atrial pressure of 8 mm Hg. There is moderate pulmonary hypertension. Pulmonic Valve: The pulmonic valve is not well visualized. Great Vessels: The aortic root is normal size. The ascending aorta could not be visualized. The IVC is dilated (diameter is greater than 2.1 cm) yet it collapses greater than 50% with a sniff. This suggests a right atrial pressure of 8 mm Hg. Pericardium/ Pleura There is no pericardial effusion. There is no pleural effusion. MMode/2D Measurements & Calculations LVIDd: 5.5 cm LVOT diam: 2.3 cm LVIDs: 4.7 cm IVSd: 1.5 cm LVPWd: 1.3 cm LV gamboa. diameter/BSA (cm/m^2): 2.4 LV sys. diameter/BSA (cm/m^2): 2.0 FS: 14.1 % EPSS: 1.8 cm LA A2 area: 36.5 cm2 RA long axis: 7.4 cm LA A4 area: 33.3 cm2 RA area: 30.5 cm2 LA length (vol): 7.1 cm RA vol: 107.3 ml LA vol: 145.2 ml RA : 46.5 ml/m2 LA vol index: 63.0 ml/m2 RVD1 (basal): 5.0 cm TAPSE: 1.4 cm Doppler Measurements & Calculations Ao V2 max: 244.1 cm/sec LVOT Max Bob: 128.8 cm/sec Ao V2 mean: 144.3 cm/sec LV V1 max P.6 mmHg Ao V2 VTI: 38.4 cm LV V1 VTI: 23.4 cm Ao max P.0 mmHg Ao mean P.3 mmHg QUINN(I,D): 2.5 cm2 MV E max bob: 95.1 cm/sec QUINN(V,D): 2.1 cm2 MV A max bob: 1.7 cm/sec QUINN indexed to BSA (cm^2/m^2): 1.1 MV E/A: 56.1 sev ratio: 0.61 Med Peak E' Bob: 3.2 cm/sec E/E' med: 30.0 Lat Peak E' Bob: 7.9 cm/sec E/E' lat: 12.0 E/e' average: 21.0 MV dec time: 0.22 sec TR max bob: 345.3 cm/sec TR max P.7 mmHg PA V2 max: 70.2 cm/sec SV(LVOT): 94.7 ml PA V2 mean: 49.9 cm/sec PA mean P.1 mmHg PA pr(Accel): 41.3 mmHg Electronically signed by: Allison Coats on Reading Physician:07/12/2019 10:13 AM
[2019-07-12 04:13] LABS: Adenovirus Not Detected (Not Detect); Bordetella pertussis Not Detected (Not Detect); Chlamydophila pneumoniae Not Detected (Not Detect); Coronavirus 229E Not Detected (Not Detect); Coronavirus HKU1 Not Detected (Not Detect); Coronavirus NL 63 Not Detected (Not Detect); Coronavirus OC43 Not Detected (Not Detect); Human Metapneumovirus Not Detected (Not Detect); Human Rhinovirus/Enterovirus Not Detected (Not Detect); Influenza A Not Detected (Not Detect); Influenza B Not Detected (Not Detect); Mycoplasma pneumoniae Not Detected (Not Detect); Parainfluenza Virus 1 Not Detected (Not Detect); Parainfluenza Virus 2 Not Detected (Not Detect); Parainfluenza Virus 3 Not Detected (Not Detect); Parainfluenza Virus 4 Not Detected (Not Detect); Respiratory Syncytial Virus Not Detected (Not Detect)
[2019-07-12] MEDS: OXYCODONE 5 MG/5 ML ORAL SOLUTION PO ×2 (05:01→09:14)
[2019-07-12 05:45] LABS: Prothrombin Time 72.3 SECONDS (10.1-12.7)
[2019-07-12 05:48] LABS: INR 6.4 (0.9-1.3)
[2019-07-12 05:50] LABS: Albumin 3.8 g/dL (3.5-5.0); Albumin Globulin Ratio 1.5 (1.0-2.8); Alkaline Phosphatase 171 U/L (38-126); Aspartate Aminotransferase 637 IU/L (17-59); BUN Creatinine Ratio 28.9 (6-22); Bilirubin Total 2.3 mg/dL (0.2-1.3); Blood Urea Nitrogen 28 mg/dL (9-20); Calcium 8.6 mg/dL (8.4-10.2); Carbon Dioxide 23 mmol/L (22-32); Chloride 102 mmol/L (98-107); Cholesterol 90 mg/dL (140-199); Estimated Glomerular Filt Rate > 60.0 mL/min (>60); Globulin 2.6 g/dL (1.7-4.1); Glucose 108 mg/dL (80-110); HDL Cholesterol 17 mg/dL (40-60); HEMOLYSIS < 15 (0-50); LDL Cholesterol Calculated 57 mg/dL (<100); Potassium 4.1 mmol/L (3.4-5.1); Sodium 133 mmol/L (137-145); Total Protein 6.4 g/dL (6.3-8.2); Triglycerides 79 mg/dL (35-150)
[2019-07-12 06:20] LABS: Alanine Aminotransferase 1008 IU/L (<50)
[2019-07-12 06:26] LABS: Add Manual Diff / Slide Review NO; Basophils Absolute Auto 0 /uL (0-100); Basophils Percent Auto 0.3 % (0-2); Eosinophils Absolute Auto 0 /uL (0-450); Eosinophils Percent Auto 0.4 % (2-4); Hematocrit 25.2 % (41-53); Hemoglobin 7.9 g/dL (13.5-17.5); Lymphocytes Absolute Auto 300 /uL (1100-4500); Lymphocytes Percent Auto 3.7 % (25-40); Mean Corpuscular HGB Conc 31.2 % (30-36); Mean Corpuscular Hemoglobin 23.5 PG (26-34); Mean Corpuscular Volume 75.3 fL (80-100); Monocytes Absolute Auto 1100 /uL (0-900); Monocytes Percent Auto 11.7 % (3-14); Neutrophils Absolute Auto 7800 /uL (1500-7000); Neutrophils Percent Auto 83.9 % (50-75); Platelet Count 296 X10^3/uL (150-400); Red Blood Cell Count 3.35 X10^6/uL (4.5-5.9); Red Cell Distribution Width 21.5 % (11.6-14.8); White Blood Cell Count 9.3 X10^3/uL (4.5-11.0)
[2019-07-12 07:11] LABS: Anisocytosis 2+
--- NOTE | 2019-07-12 08:11 | RT ---
Unable to give inhaler at this time. Patient is having an ECHO. Will check back in a little bit.
[2019-07-12] MEDS: ASPIRIN EC 81 MG TABLET PO (09:12)
[2019-07-12] MEDS: DULOXETINE 30 MG CAPSULE 120 MG PO (09:13)
[2019-07-12] MEDS: COLCHICINE 0.6 MG TABLET PO (09:13)
[2019-07-12] MEDS: FUROSEMIDE 20 MG TABLET 10 MG PO (09:13)
[2019-07-12] MEDS: AMLODIPINE 5 MG TABLET 10 MG PO (09:13)
[2019-07-12] MEDS: GABAPENTIN 600 MG TABLET PO ×3 (09:14→21:15)
[2019-07-12] MEDS: SPIRONOLACTONE 25 MG TABLET PO (09:14)
[2019-07-12] MEDS: METOPROLOL ER 50 MG TABLET 100 MG PO ×2 (09:14→21:12)
[2019-07-12] MEDS: TIOTROPIUM BROMIDE 18 MCG INHALER INH (09:15)
--- NOTE | 2019-07-12 10:18 | CM.DANOTE ---
DCP/Assessment: Reviewed chart. Patient is a 69yr old male admitted to [facility] with flu like symptoms. PCP is Dr. Barrera in [place]. Primary payor is 1)Medicare 2)[facility]. Met with patient explained CM/SW role. Patient reports that he currently resides with his x-/Carolynn in [place]. Patient reports that he uses cane at baseline. Patient also has walker at home if needed. Patient drives and reports that he is pretty active at baseline. Patient COVID tested and negative. Provider anticipates that patient will be hospitalized for the next few days. Patient does not anticipate any d/c planning needs. [facility] Post Discharge Planning/Care Management CM Discharge Assessment Start: 07/12/19 10:14 Freq: Status: Active Protocol: Document 07/12/19 10:14 KJS (Rec: 07/12/19 10:18 [id number]) Discharge Planning Assessment Assigned Apartment Property Manager [facility]GAR Post Contact Information Sheila Singleton (sister) Advance Directives? Yes Advance Directives on File No History Provided By Patient Has Patient been admitted in last 30 No days? Prior Living Arrangements House Household Members friend(s) Comment Patient resides with x-/ Carolynn # [phone] Type of transporation used prior to Drives own vehicle admit Independent with ADL's Yes Is patient alert and oriented? Yes Caregiver for Another No DME Already Rented / Owned Wheelchair,Cane Barriers to Discharge No Discharge Plan Home Transportation Arrangement Ex- Whiteboard Updated in Patient Room with Yes name and ext. # of Apartment Property Manager Review Status In Process Next Review Type Continued Stay Review
--- NOTE | 2019-07-12 11:55 | DIET.PN ---
Dietary Progress Note Assessment: Mr. Singleton is a 69-year-old male with a past medical history of CVA, CAD, mechanical aortic valve replacement, dual-chamber pacemaker, chronic warfarin anticoagulation hypertension, systolic heart failure and chronic lumbar back pain who presents to the ER reporting 2 days of fatigue and worsening shortness of breath. He reports nausea and reduced appetite over the weekend. Nutritional concerns r/t obesity and acute liver disease with possible cirrhosis. Pt admits he does not follow a healthy eating habits. HT: 182.88cm WT: 109.5kg UBW: 112.5kg BMI: 32.7 Labs: Na: 133 Cr: 28 Phos: 3.9 T Bili: 2.3 AST: 637 ALT: 1008 Alk Phos: 171 MNA: 10 Gelacio: 19 Nutrition Diagnosis: Altered nutrition related laboratory values r/t liver dysfunction aeb increased AST, ALT, T bili. Interventions: 1. Discussed cirrhosis MNT. Recommended pt reduce sodium/cholesterol intake and increase fiber (f/v) and water. Provided handouts. 2. Discussed importance of weight management for heart health. Pt agrees to making more healthy dietary choices. Diet Order: Heart Healthy EER: 2300 marc @ 30 marc/kg IBW; Pro 110g @ 1 g/kg Monitoring/Evaluations: weight, PO's, associated labs
--- NOTE | 2019-07-12 12:54 | P.PN_ITS ---
Subjective Subjective Date Patient Seen: 07/12/19 Time Patient Seen: 12:55 Interval history: Mr. Sylvester Singleton is a 69-year-old male with a past medical history significant for CVA, CAD status post 2 vessel CABG, mechanical aortic valve replacement, dual-chamber pacemaker, chronic warfarin anticoagulation hypertension, systolic heart failure and chronic lumbar back pain with radiculopathy who presents to the ER reporting 2 days of fatigue and worsening shortness of breath. He was admitted yesterday evening for possible bilateral pneumonia, congestive heart failure, and acute liver injury. He is seen for follow-up today. He states that he feels somewhat improved, with improved shortness of breath and fatigue. He denies any fevers or chills, a bdominal pain, nausea today. His COVID-19 test was negative. His liver enzymes slightly declined but not much. His T bili did jump up a bit but this usually lags behind enzymes. His INR is elevated still at 6.4 but he does not show evidence of active bleeding and his hemoglobin has trended up since admission. Echocardiogram today showed an EF of 30-35%. Exam Vital Signs (past 8 hours): - 07/12/19 07:30 07/12/19 10:50 Temperature 98 F Pulse Rate 82 65 Respiratory Rate 18 Blood Pressure 141/68 H Pulse Oximetry 94 95 Oxygen Delivery Method Room Air Oxygen Flow Rate 0 Narrative Exam Narrative: GENERAL APPEARANCE: Chronically ill appearing but well nourished male, appears older than stated age, in no acute distress. SKIN: Inspection of the skin reveals no rashes, ulcerations or petechiae. HEENT: Normocephalic atraumatic, extraocular muscles are intact, oropharynx is clear and mucous membranes are moist, neck is supple without adenopathy NECK: Supple and symmetric. There was no thyroid enlargement, and no tenderness, or masses were felt. CHEST: Normal AP diameter and normal contour without any kyphoscoliosis. LUNGS: Auscultation of the lungs revealed bibasilar crackles without wheezing bilaterally. He is not in respiratory distress. He is not on supplemental oxygen. CARDIOVASCULAR: There was a regular rate and rhythm without any murmurs, gallops, rubs. Peripheral pulses were 2+ and symmetric. ABDOMEN: Soft and nontender with normal bowel sounds. No ascites was noted. MUSCULOSKELETAL: There was no tenderness or effusions noted. Muscle strength and tone were normal. EXTREMITIES: No cyanosis, clubbing. There is 1 to 2+ pitting edema bilaterally in his lower extremities. NEUROLOGIC: Alert and oriented x 3. Normal affect. Strength is +5/5 in the Upper Extremities and Lower Extremities Bilaterally. Sensation to touch was normal. Objective Labs Result Diagrams: 07/12/19 05:25 07/12/19 05:25 Labs: Laboratory Results - last 24 hr 07/11/19 07/11/19 07/11/19 16:25 16:25 16:25 WBC 11.1 H RBC 3.27 L Hgb 7.3 L Hct 24.3 L MCV 74.3 L MCH 22.5 L MCHC 30.3 RDW 21.7 H Plt Count 368 Neut % (Auto) 85.8 H Lymph % (Auto) 3.8 L [place] % (Auto) 10.3 Eos % (Auto) 0.0 L Baso % (Auto) 0.1 Neut # (Auto) 9500 H Lymph # (Auto) 400 L [place] # (Auto) 1100 H Eos # (Auto) 0 Baso # (Auto) 0 RBC Morphology See below Polychromasia 1+ H Hypochromasia 1+ H Anisocytosis 2+ H Microcytosis 1+ H PT 74.6 H INR 6.6 H* APTT 42 H Sodium 130 L Potassium 4.3 Chloride 101 Carbon Dioxide 18 L BUN 33 H Creatinine 1.15 Estimated GFR > 60.0 BUN/Creatinine Ratio 28.7 H Glucose 111 H Lactate Calcium 9.0 Phosphorus Magnesium Ferritin Total Bilirubin 1.5 H GGT AST 832 H ALT 1081 H Alkaline Phosphatase 192 H Ammonia Total Creatine Kinase CK-MB (CK-2) CK-MB (CK-2) Rel Index Troponin I C-Reactive Protein NT-Pro-B Natriuret Pep Total Protein 6.7 Albumin 4.1 Globulin 2.6 Albumin/Globulin Ratio 1.6 Triglycerides Cholesterol LDL Cholesterol, Calc HDL Cholesterol Lipase 40 Procalcitonin Urine Color Urine Appearance Urine pH Ur Specific [place] Urine Protein Urine Glucose (UA) Urine Ketones Urine Occult Blood Urine Nitrate Urine Bilirubin Urine Urobilinogen Ur Leukocyte Esterase Urine RBC Urine WBC Urine Bacteria Ur Culture Indicated? Micro UA Comment Acetaminophen Chlamy pneumoniae PCR Adenovirus (PCR) B.parapertussis DNA PCR Coronavirus OC43 (PCR) Coronavirus HKU1 (PCR) Coronavirus 229E (PCR) COVID-19 PCR Coronavirus NL63 (PCR) Human Metapneumovir PCR Influenza Type A (PCR) Influenza Type B (PCR) M. pneumoniae (PCR) Parainfluenza 1 (PCR) Parainfluenza 2 (PCR) Parainfluenza 3 (PCR) Parainfluenza 4 (PCR) RSV (PCR) Entero/Rhino (PCR) Blood Type Antibody Screen Crossmatch 07/11/19 07/11/19 07/11/19 16:25 16:35 19:05 WBC RBC Hgb 7.5 L Hct 24.6 L MCV MCH MCHC RDW Plt Count Neut % (Auto) Lymph % (Auto) [place] % (Auto) Eos % (Auto) Baso % (Auto) Neut # (Auto) Lymph # (Auto) [place] # (Auto) Eos # (Auto) Baso # (Auto) RBC Morphology Polychromasia Hypochromasia Anisocytosis Microcytosis PT INR APTT Sodium Potassium Chloride Carbon Dioxide BUN Creatinine Estimated GFR BUN/Creatinine Ratio Glucose Lactate Calcium Phosphorus Magnesium Ferritin Total Bilirubin GGT 142 H AST ALT Alkaline Phosphatase Ammonia < 9 L Total Creatine Kinase CK-MB (CK-2) CK-MB (CK-2) Rel Index Troponin I C-Reactive Protein NT-Pro-B Natriuret Pep Total Protein Albumin Globulin Albumin/Globulin Ratio Triglycerides Cholesterol LDL Cholesterol, Calc HDL Cholesterol Lipase Procalcitonin Urine Color Urine Appearance Urine pH Ur Specific [place] Urine Protein Urine Glucose (UA) Urine Ketones Urine Occult Blood Urine Nitrate Urine Bilirubin Urine Urobilinogen Ur Leukocyte Esterase Urine RBC Urine WBC Urine Bacteria Ur Culture Indicated? Micro UA Comment Acetaminophen < 10 L Chlamy pneumoniae PCR Adenovirus (PCR) B.parapertussis DNA PCR Coronavirus OC43 (PCR) Coronavirus HKU1 (PCR) Coronavirus 229E (PCR) COVID-19 PCR Coronavirus NL63 (PCR) Human Metapneumovir PCR Influenza Type A (PCR) Influenza Type B (PCR) M. pneumoniae (PCR) Parainfluenza 1 (PCR) Parainfluenza 2 (PCR) Parainfluenza 3 (PCR) Parainfluenza 4 (PCR) RSV (PCR) Entero/Rhino (PCR) Blood Type Antibody Screen Crossmatch 07/11/19 07/11/19 07/11/19 19:05 19:23 19:23 WBC RBC Hgb Hct MCV MCH MCHC RDW Plt Count Neut % (Auto) Lymph % (Auto) [place] % (Auto) Eos % (Auto) Baso % (Auto) Neut # (Auto) Lymph # (Auto) [place] # (Auto) Eos # (Auto) Baso # (Auto) RBC Morphology Polychromasia Hypochromasia Anisocytosis Microcytosis PT INR APTT Sodium Potassium Chloride Carbon Dioxide BUN Creatinine Estimated GFR BUN/Creatinine Ratio Glucose Lactate 1.4 Calcium Phosphorus Magnesium Ferritin Total Bilirubin GGT AST ALT Alkaline Phosphatase Ammonia Total Creatine Kinase CK-MB (CK-2) CK-MB (CK-2) Rel Index Troponin I C-Reactive Protein NT-Pro-B Natriuret Pep Total Protein Albumin Globulin Albumin/Globulin Ratio Triglycerides Cholesterol LDL Cholesterol, Calc HDL Cholesterol Lipase Procalcitonin 0.09 Urine Color Urine Appearance Urine pH Ur Specific [place] Urine Protein Urine Glucose (UA) Urine Ketones Urine Occult Blood Urine Nitrate Urine Bilirubin Urine Urobilinogen Ur Leukocyte Esterase Urine RBC Urine WBC Urine Bacteria Ur Culture Indicated? Micro UA Comment Acetaminophen Chlamy pneumoniae PCR Adenovirus (PCR) B.parapertussis DNA PCR Coronavirus OC43 (PCR) Coronavirus HKU1 (PCR) Coronavirus 229E (PCR) COVID-19 PCR Coronavirus NL63 (PCR) Human Metapneumovir PCR Influenza Type A (PCR) Influenza Type B (PCR) M. pneumoniae (PCR) Parainfluenza 1 (PCR) Parainfluenza 2 (PCR) Parainfluenza 3 (PCR) Parainfluenza 4 (PCR) RSV (PCR) Entero/Rhino (PCR) Blood Type O Positive Antibody Screen Negative Crossmatch See Detail 07/11/19 07/11/19 07/11/19 19:23 19:23 19:23 WBC RBC Hgb Hct MCV MCH MCHC RDW Plt Count Neut % (Auto) Lymph % (Auto) [place] % (Auto) Eos % (Auto) Baso % (Auto) Neut # (Auto) Lymph # (Auto) [place] # (Auto) Eos # (Auto) Baso # (Auto) RBC Morphology Polychromasia Hypochromasia Anisocytosis Microcytosis PT INR APTT Sodium Potassium Chloride Carbon Dioxide BUN Creatinine Estimated GFR BUN/Creatinine Ratio Glucose Lactate Calcium Phosphorus Magnesium Ferritin 29 Total Bilirubin GGT AST ALT Alkaline Phosphatase Ammonia Total Creatine Kinase 1026 H CK-MB (CK-2) 13.90 H CK-MB (CK-2) Rel Index 1.4 L Troponin I 0.026 C-Reactive Protein 4.7 H NT-Pro-B Natriuret Pep 9040 H Total Protein Albumin Globulin Albumin/Globulin Ratio Triglycerides Cholesterol LDL Cholesterol, Calc HDL Cholesterol Lipase Procalcitonin Urine Color Urine Appearance Urine pH Ur Specific [place] Urine Protein Urine Glucose (UA) Urine Ketones Urine Occult Blood Urine Nitrate Urine Bilirubin Urine Urobilinogen Ur Leukocyte Esterase Urine RBC Urine WBC Urine Bacteria Ur Culture Indicated? Micro UA Comment Acetaminophen Chlamy pneumoniae PCR Adenovirus (PCR) B.parapertussis DNA PCR Coronavirus OC43 (PCR) Coronavirus HKU1 (PCR) Coronavirus 229E (PCR) COVID-19 PCR Coronavirus NL63 (PCR) Human Metapneumovir PCR Influenza Type A (PCR) Influenza Type B (PCR) M. pneumoniae (PCR) Parainfluenza 1 (PCR) Parainfluenza 2 (PCR) Parainfluenza 3 (PCR) Parainfluenza 4 (PCR) RSV (PCR) Entero/Rhino (PCR) Blood Type Antibody Screen Crossmatch 07/11/19 07/11/19 07/11/19 20:00 21:53 23:05 WBC RBC Hgb Hct MCV MCH MCHC RDW Plt Count Neut % (Auto) Lymph % (Auto) [place] % (Auto) Eos % (Auto) Baso % (Auto) Neut # (Auto) Lymph # (Auto) [place] # (Auto) Eos # (Auto) Baso # (Auto) RBC Morphology Polychromasia Hypochromasia Anisocytosis Microcytosis PT INR APTT Sodium Potassium Chloride Carbon Dioxide BUN Creatinine Estimated GFR BUN/Creatinine Ratio Glucose Lactate Calcium Phosphorus Magnesium 1.9 Ferritin Total Bilirubin GGT AST ALT Alkaline Phosphatase Ammonia Total Creatine Kinase CK-MB (CK-2) CK-MB (CK-2) Rel Index Troponin I C-Reactive Protein NT-Pro-B Natriuret Pep Total Protein Albumin Globulin Albumin/Globulin Ratio Triglycerides Cholesterol LDL Cholesterol, Calc HDL Cholesterol Lipase Procalcitonin Urine Color Yellow Urine Appearance Clear Urine pH 5.0 Ur Specific [place] 1.015 Urine Protein Trace H Urine Glucose (UA) Negative Urine Ketones Trace H Urine Occult Blood Negative Urine Nitrate Negative Urine Bilirubin Negative Urine Urobilinogen 0.2 Ur Leukocyte Esterase Negative Urine RBC None seen Urine WBC None seen Urine Bacteria None seen Ur Culture Indicated? Cult not indicated Micro UA Comment Microscopic normal Acetaminophen Chlamy pneumoniae PCR Adenovirus (PCR) B.parapertussis DNA PCR Coronavirus OC43 (PCR) Coronavirus HKU1 (PCR) Coronavirus 229E (PCR) COVID-19 PCR Not detected Coronavirus NL63 (PCR) Human Metapneumovir PCR Influenza Type A (PCR) Influenza Type B (PCR) M. pneumoniae (PCR) Parainfluenza 1 (PCR) Parainfluenza 2 (PCR) Parainfluenza 3 (PCR) Parainfluenza 4 (PCR) RSV (PCR) Entero/Rhino (PCR) Blood Type Antibody Screen Crossmatch 07/11/19 07/12/19 07/12/19 23:05 02:38 05:25 WBC RBC Hgb Hct MCV MCH MCHC RDW Plt Count Neut % (Auto) Lymph % (Auto) [place] % (Auto) Eos % (Auto) Baso % (Auto) Neut # (Auto) Lymph # (Auto) [place] # (Auto) Eos # (Auto) Baso # (Auto) RBC Morphology Polychromasia Hypochromasia Anisocytosis Microcytosis PT 72.3 H INR 6.4 H* APTT Sodium Potassium Chloride Carbon Dioxide BUN Creatinine Estimated GFR BUN/Creatinine Ratio Glucose Lactate Calcium Phosphorus 3.9 H Magnesium Ferritin Total Bilirubin GGT AST ALT Alkaline Phosphatase Ammonia Total Creatine Kinase CK-MB (CK-2) CK-MB (CK-2) Rel Index Troponin I C-Reactive Protein NT-Pro-B Natriuret Pep Total Protein Albumin Globulin Albumin/Globulin Ratio Triglycerides Cholesterol LDL Cholesterol, Calc HDL Cholesterol Lipase Procalcitonin Urine Color Urine Appearance Urine pH Ur Specific [place] Urine Protein Urine Glucose (UA) Urine Ketones Urine Occult Blood Urine Nitrate Urine Bilirubin Urine Urobilinogen Ur Leukocyte Esterase Urine RBC Urine WBC Urine Bacteria Ur Culture Indicated? Micro UA Comment Acetaminophen Chlamy pneumoniae PCR Not detected Adenovirus (PCR) Not detected B.parapertussis DNA PCR Not detected Coronavirus OC43 (PCR) Not detected Coronavirus HKU1 (PCR) Not detected Coronavirus 229E (PCR) Not detected COVID-19 PCR Coronavirus NL63 (PCR) Not detected Human Metapneumovir PCR Not detected Influenza Type A (PCR) Not detected Influenza Type B (PCR) Not detected M. pneumoniae (PCR) Not detected Parainfluenza 1 (PCR) Not detected Parainfluenza 2 (PCR) Not detected Parainfluenza 3 (PCR) Not detected Parainfluenza 4 (PCR) Not detected RSV (PCR) Not detected Entero/Rhino (PCR) Not detected Blood Type Antibody Screen Crossmatch 07/12/19 07/12/19 05:25 05:25 WBC 9.3 RBC 3.35 L Hgb 7.9 L Hct 25.2 L MCV 75.3 L MCH 23.5 L MCHC 31.2 RDW 21.5 H Plt Count 296 Neut % (Auto) 83.9 H Lymph % (Auto) 3.7 L [place] % (Auto) 11.7 Eos % (Auto) 0.4 L Baso % (Auto) 0.3 Neut # (Auto) 7800 H Lymph # (Auto) 300 L [place] # (Auto) 1100 H Eos # (Auto) 0 Baso # (Auto) 0 RBC Morphology Not Reportable Polychromasia Hypochromasia Anisocytosis 2+ H Microcytosis PT INR APTT Sodium 133 L Potassium 4.1 Chloride 102 Carbon Dioxide 23 BUN 28 H Creatinine 0.97 Estimated GFR > 60.0 BUN/Creatinine Ratio 28.9 H Glucose 108 Lactate Calcium 8.6 Phosphorus Magnesium Ferritin Total Bilirubin 2.3 H GGT AST 637 H ALT 1008 H Alkaline Phosphatase 171 H Ammonia Total Creatine Kinase CK-MB (CK-2) CK-MB (CK-2) Rel Index Troponin I C-Reactive Protein NT-Pro-B Natriuret Pep Total Protein 6.4 Albumin 3.8 Globulin 2.6 Albumin/Globulin Ratio 1.5 Triglycerides 79 Cholesterol 90 L LDL Cholesterol, Calc 57 HDL Cholesterol 17 L Lipase Procalcitonin Urine Color Urine Appearance Urine pH Ur Specific [place] Urine Protein Urine Glucose (UA) Urine Ketones Urine Occult Blood Urine Nitrate Urine Bilirubin Urine Urobilinogen Ur Leukocyte Esterase Urine RBC Urine WBC Urine Bacteria Ur Culture Indicated? Micro UA Comment Acetaminophen Chlamy pneumoniae PCR Adenovirus (PCR) B.parapertussis DNA PCR Coronavirus OC43 (PCR) Coronavirus HKU1 (PCR) Coronavirus 229E (PCR) COVID-19 PCR Coronavirus NL63 (PCR) Human Metapneumovir PCR Influenza Type A (PCR) Influenza Type B (PCR) M. pneumoniae (PCR) Parainfluenza 1 (PCR) Parainfluenza 2 (PCR) Parainfluenza 3 (PCR) Parainfluenza 4 (PCR) RSV (PCR) Entero/Rhino (PCR) Blood Type Antibody Screen Crossmatch Assessment & Plan Assessment & Plan narrative: Mr. Sylvester Singleton is a 69-year-old male with a past medical history significant for CVA, CAD status post 2 vessel CABG, mechanical aortic valve replacement, dual-chamber pacemaker, chronic warfarin anticoagulation hypertension, systolic heart failure and chronic lumbar back pain with radiculopathy who presents to the ER reporting 2 days of fatigue and worsening shortness of breath. He was admitted yesterday evening for possible bilateral pneumonia, congestive heart failure, and acute liver injury. 1. Bilateral multilobar pneumonia, acute, present on admission, active -the patient reports and acute change in health approximately 2 days ago with worsening shortness of breath and exertional dyspnea beyond his baseline. -CT imaging finds scattered ground-glass nodules involving bilateral lungs compatible with multilobar pneumonia, trace bilateral pleural effusions and mediastinal and right hilar lymphadenopathy representing reactive or neoplastic process. -COVID 19 testing was negative, as was respiratory panel. -continue azithromycin 500 mg IV daily with 1st dose administered in the ER. -continue ceftriaxone 2 g IV daily with 1st dose administered in the emergency department. -respiratory therapy to consult, evaluate and treat. -albuterol treatment every 2 hours as needed 2. Acute Symptomatic anemia, present on admission, active. -patient has a hemoglobin of 7.5 and hematocrit of 24.6 on admission labs, hemoglobin was 11.2 on previous lab dated 04/12/2019 -the patient is on warfarin who presents with supratherapeutic INR of 6.6. He reports no abnormal bruising or bleeding, melena, hematochezia, hematuria, hematemesis or hemoptysis. -he underwent colonoscopy 3 months ago in [place] with no untoward findings per patient report. -the patient has a significant history of personal and familial coronary artery disease and is transfused 1 unit of packed red cells in the ER with 40 Lasix concurrently. Improved to 7.9 after transfusion. -guaiac was negative. -will follow blood count and INR closely. 3. Acute liver failure, present on admission, active -patient presents with a marked elevation in liver functions with a total bilirubin of 1.5, AST of 832, ALT of 1081 and alkaline phosphatase of 192. Liver enzymes have slightly improved today, T bili [place] is slightly up. Will continue to follow. 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 -on ultrasound liver is described as homogeneous however CT scan identifies nodular margins suggestive of hepatic cirrhosis. Ultrasound further finds cholelithiasis without obstructing stones or ductal dilatation. -Tylenol level assessed and found to be less than 10, he has had no change in recent medications. -etiology is likely related to ischemia, possibly heart failure however it is rare to have congestive hepatopathy cause transaminases this high. Further possibilities include hepatitis, although serology testing was negative. 4. acute exacerbation of chronic systolic heart failure, present on admission active. -the recent reports worsening exertional dyspnea. He reports no chest pain or palpitations and describes intermittent wheezing. Trace bilateral lower extremity edema. -history of ischemic cardiomyopathy and permanent pacemaker for complete AV block. -patient has an elevated total CK of 1026, CK MB is 13.9 with an index low at 1.4. Troponin is 0.026 and proBNP is 9040. -last echocardiogram dated 04/12/2019 finds a mildly dilated left ventricle with moderate concentric hypertrophy. Suggestion of ventricular septal defect on exam. Ejection fracture is 30-35% with moderate global hypokinesis, right ventricle is mildly dilated right ventricular systolic function mild to mod erately reduced. TTE was similar here today. -the patient received 40 mg Lasix with blood transfusion and has diuresed well. Will continue 40 mg BID for further diuresis. 5. Long-term anticoagulation on warfarin with supratherapeutic INR, acute, present on admission, active. -patient states complaint with medications and follows with clinic in [place] for routine monitoring. -no reports of bruising or bleeding, melena, hematochezia, hematuria, hematemesis or hemoptysis. GI bleedings assessed with stool guaiac which was negative. -the patient received vitamin K 5 mg in the ER. -continue to follow INR daily. 6. History of atrial flutter, in sinus rhythm, stable. -12 lead EKG shows sinus mechanism with ventricular pacing. -status post radiofrequency ablation in May 2014. -3rd degree heart block she with permanent pacer with dual chamber pacing. 7. Chronic back pain with opioid dependency, present on admission, active -patient reports ongoing low back pain. -patient is receiving dilaudid 0.5 mg IV as opposed to his typical oxycodone acetaminophen due to his elevated liver functions. Isolation: [place], COVID 19 negative. VTE prophylaxis: Bilateral SCDs, supratherapeutic INR IV fluid: Saline lock, being diuresed. Diet: Heart healthy low-sodium Code status: FULL CODE. The pace admitted to the hospital for treatment of pneumonia acute anemia and acute liver failure the patient is admitted as an inpatient with expected length stay to be greater than 2 midnights. Quality VTE Deep Vein Thrombosis/Pulmonary Embolism Present on Admission: No
[2019-07-12] MEDS: ATORVASTATIN 20 MG TABLET 40 MG PO (21:15)
[2019-07-12] MEDS: CEFTRIAXONE 2 GM/50 ML FROZ.PIGGY IV (22:47)
[2019-07-13] VITALS (9 sets, daily range): BP systolic 134–148; BP diastolic 72–91; PULSE 79–87; RESP 16–21; TEMP 36.3–36.6; O2SAT 90–96
[2019-07-13 01:13] LABS: HBsAg Screen Negative (Negative); Hepatitis A Antibody IgM Negative (Negative); Hepatitis B Core Antibody IgM Negative (Negative); Hepatitis C Antibody <0.1 s/co ratio (0.0-0.9)
[2019-07-13] MEDS: OXYCODONE IR 10 MG TABLET PO ×3 (08:11→18:50)
[2019-07-13] MEDS: GABAPENTIN 600 MG TABLET PO ×3 (08:11→20:24)
[2019-07-13] MEDS: SPIRONOLACTONE 25 MG TABLET PO (08:11)
[2019-07-13] MEDS: COLCHICINE 0.6 MG TABLET PO (08:12)
[2019-07-13] MEDS: AMLODIPINE 5 MG TABLET 10 MG PO (08:12)
[2019-07-13] MEDS: ASPIRIN EC 81 MG TABLET PO (08:12)
[2019-07-13] MEDS: DULOXETINE 30 MG CAPSULE 120 MG PO (08:12)
[2019-07-13] MEDS: DOCUSATE 100 MG CAPSULE PO (08:12)
[2019-07-13] MEDS: METOPROLOL ER 50 MG TABLET 100 MG PO ×2 (08:12→20:27)
[2019-07-13] MEDS: SODIUM CHLORIDE 0.9% FLUSH 10 ML IV ×2 (08:13→21:54)
[2019-07-13] MEDS: PANTOPRAZOLE 40 MG VIAL IV ×2 (08:13→20:23)
[2019-07-13] MEDS: TIOTROPIUM BROMIDE 18 MCG INHALER INH (08:14)
[2019-07-13 08:24] LABS: Add Manual Diff / Slide Review NO; Basophils Absolute Auto 0 /uL (0-100); Basophils Percent Auto 0.3 % (0-2); Eosinophils Absolute Auto 0 /uL (0-450); Eosinophils Percent Auto 0.3 % (2-4); Hematocrit 25.5 % (41-53); Hemoglobin 7.8 g/dL (13.5-17.5); Lymphocytes Absolute Auto 400 /uL (1100-4500); Mean Corpuscular HGB Conc 30.6 % (30-36); Monocytes Absolute Auto 900 /uL (0-900); Monocytes Percent Auto 9.5 % (3-14); Neutrophils Absolute Auto 7900 /uL (1500-7000); Neutrophils Percent Auto 85.9 % (50-75); Platelet Count 324 X10^3/uL (150-400); Red Blood Cell Count 3.39 X10^6/uL (4.5-5.9); Red Cell Distribution Width 21.9 % (11.6-14.8); White Blood Cell Count 9.1 X10^3/uL (4.5-11.0)
[2019-07-13 08:34] LABS: Prothrombin Time 66.5 SECONDS (10.1-12.7)
[2019-07-13 08:36] LABS: INR 5.9 (0.9-1.3)
[2019-07-13 08:39] LABS: BUN Creatinine Ratio 32.1 (6-22); Blood Urea Nitrogen 26 mg/dL (9-20); Calcium 8.8 mg/dL (8.4-10.2); Carbon Dioxide 24 mmol/L (22-32); Chloride 100 mmol/L (98-107); Estimated Glomerular Filt Rate > 60.0 mL/min (>60); Glucose 117 mg/dL (80-110); HEMOLYSIS < 15 (0-50); Potassium 3.9 mmol/L (3.4-5.1); Sodium 133 mmol/L (137-145)
[2019-07-13 08:52] LABS: Anisocytosis 2+; Hypochromasia 2+
[2019-07-13 08:53] LABS: HEMOLYSIS < 15 (0-50)
[2019-07-13 08:57] LABS: Alanine Aminotransferase 823 IU/L (<50)
[2019-07-13 09:35] LABS: Albumin 3.8 g/dL (3.5-5.0); Albumin Globulin Ratio 1.5 (1.0-2.8); Alkaline Phosphatase 181 U/L (38-126); Aspartate Aminotransferase 388 IU/L (17-59); Bilirubin Total 1.2 mg/dL (0.2-1.3); Bilirubin Unconjugated 0.8 mg/dL (0.0-1.1); Globulin 2.5 g/dL (1.7-4.1); Total Protein 6.3 g/dL (6.3-8.2)
--- NOTE | 2019-07-13 14:14 | PC.NURSE ---
Day shift: Pt agrees to jnot get OOB or chair without help from staff. Chair alarm is in place. Door to room open. Pt has been calm and cooperative and not impulsive. Call light in reach.
--- NOTE | 2019-07-13 15:13 | P.PN_ITS ---
Subjective Subjective Date Patient Seen: 07/13/19 Time Patient Seen: 13:00 Interval history: Mr. Sylvester Singleton is a 69-year-old male with a past medical history significant for CVA, CAD status post 2 vessel CABG, mechanical aortic valve replacement, dual-chamber pacemaker, chronic warfarin anticoagulation hypertension, systolic heart failure and chronic lumbar back pain with radiculopathy who presents to the ER reporting 2 days of fatigue and worsening shortness of breath. He was admitted yesterday evening for possible bilateral pneumonia, congestive heart failure, and acute liver injury. He is seen for follow-up today. He states that he feels somewhat improved, with improved shortness of breath and fatigue. His liver enzymes are improving, but his INR remains elevated. He still had significant edema on exam, and did not diuresed much so patient was placed on a fluid restriction and his dose of Lasix will be increased. Exam Vital Signs (past 8 hours): - 07/13/19 07:28 07/13/19 08:19 07/13/19 11:56 Temperature 97.6 F 97.3 F L Pulse Rate 85 87 84 Respiratory Rate 16 20 16 Blood Pressure 148/75 H 148/91 H Pulse Oximetry 96 96 94 Oxygen Delivery Method Room Air Oxygen Flow Rate 0 Narrative Exam Narrative: GENERAL APPEARANCE: Chronically ill appearing but well nourished male, appears older than stated age, in no acute distress. SKIN: Inspection of the skin reveals no rashes, ulcerations or petechiae. HEENT: Normocephalic atraumatic, extraocular muscles are intact, oropharynx is clear and mucous membranes are moist, neck is supple without adenopathy NECK: Supple and symmetric. There was no thyroid enlargement, and no tenderness, or masses were felt. CHEST: Normal AP diameter and normal contour without any kyphoscoliosis. LUNGS: Auscultation of the lungs revealed bibasilar crackles without wheezing bilaterally. He is not in respiratory distress. He is not on supplemental oxygen. CARDIOVASCULAR: There was a regular rate and rhythm without any murmurs, gallops, rubs. Peripheral pulses were 2+ and symmetric. ABDOMEN: Soft and nontender with normal bowel sounds. No ascites was noted. MUSCULOSKELETAL: There was no tenderness or effusions noted. Muscle strength and tone were normal. EXTREMITIES: No cyanosis, clubbing. There is 1 to 2+ pitting edema bilaterally in his lower extremities. NEUROLOGIC: Alert and oriented x 3. Normal affect. Strength is +5/5 in the Upper Extremities and Lower Extremities Bilaterally. Sensation to touch was normal. Objective Labs Result Diagrams: 07/13/19 08:10 07/13/19 08:10 Labs: Laboratory Results - last 24 hr 07/11/19 07/13/19 07/13/19 23:05 08:10 08:10 WBC 9.1 RBC 3.39 L Hgb 7.8 L Hct 25.5 L MCV 75.0 L MCH 23.0 L MCHC 30.6 RDW 21.9 H Plt Count 324 Neut % (Auto) 85.9 H Lymph % (Auto) 4.0 L [place] % (Auto) 9.5 Eos % (Auto) 0.3 L Baso % (Auto) 0.3 Neut # (Auto) 7900 H Lymph # (Auto) 400 L [place] # (Auto) 900 Eos # (Auto) 0 Baso # (Auto) 0 RBC Morphology Not Reportable Hypochromasia 2+ H Anisocytosis 2+ H PT INR Sodium 133 L Potassium 3.9 Chloride 100 Carbon Dioxide 24 BUN 26 H Creatinine 0.81 Estimated GFR > 60.0 BUN/Creatinine Ratio 32.1 H Glucose 117 H Calcium 8.8 Total Bilirubin Conjugated Bilirubin Unconjugated Bilirubin AST ALT Alkaline Phosphatase Total Protein Albumin Globulin Albumin/Globulin Ratio Hepatitis A IgM Ab Negative Hep Bs Antigen Negative Hep B Core IgM Ab Negative Hepatitis C Antibody <0.1 Hep C Ab Signal/Cutoff Comment 07/13/19 07/13/19 08:10 08:10 WBC RBC Hgb Hct MCV MCH MCHC RDW Plt Count Neut % (Auto) Lymph % (Auto) [place] % (Auto) Eos % (Auto) Baso % (Auto) Neut # (Auto) Lymph # (Auto) [place] # (Auto) Eos # (Auto) Baso # (Auto) RBC Morphology Hypochromasia Anisocytosis PT 66.5 H D INR 5.9 H* Sodium Potassium Chloride Carbon Dioxide BUN Creatinine Estimated GFR BUN/Creatinine Ratio Glucose Calcium Total Bilirubin 1.2 Conjugated Bilirubin 0.0 Unconjugated Bilirubin 0.8 AST 388 H ALT 823 H Alkaline Phosphatase 181 H Total Protein 6.3 Albumin 3.8 Globulin 2.5 Albumin/Globulin Ratio 1.5 Hepatitis A IgM Ab Hep Bs Antigen Hep B Core IgM Ab Hepatitis C Antibody Hep C Ab Signal/Cutoff Assessment & Plan Assessment & Plan narrative: Mr. Sylvester Singleton is a 69-year-old male with a past medical history significant for CVA, CAD status post 2 vessel CABG, mechanical aortic valve replacement, dual-chamber pacemaker, chronic warfarin anticoagulation hypertension, systolic heart failure and chronic lumbar back pain with radiculopathy who presents to the ER reporting 2 days of fatigue and worsening shortness of breath. He was admitted for possible bilateral pneumonia, congestive heart failure, and acute liver injury. 1. Bilateral multilobar pneumonia, acute, present on admission, active -the patient reports and acute change in health approximately 2 days ago with worsening shortness of breath and exertional dyspnea beyond his baseline. -CT imaging finds scattered ground-glass nodules involving bilateral lungs compatible with multilobar pneumonia, trace bilateral pleural effusions and mediastinal and right hilar lymphadenopathy representing reactive or neoplastic process. -COVID 19 testing was negative, as was respiratory panel. -continue azithromycin 500 mg IV daily for 3 doses -continue ceftriaxone 2 g IV daily with 1st dose administered in the emergency department. -respiratory therapy to consult, evaluate and treat. -albuterol treatment every 2 hours as needed 2. Acute Symptomatic anemia, present on admission, active. -patient has a hemoglobin of 7.5 and hematocrit of 24.6 on admission labs, hemoglobin was 11.2 on previous lab dated 04/12/2019 -the patient is on warfarin who presents with supratherapeutic INR of 6.6. He reports no abnormal bruising or bleeding, melena, hematochezia, hematuria, hematemesis or hemoptysis. -he underwent colonoscopy 3 months ago in [place] with no untoward findings per patient report. -the patient has a significant history of personal and familial coronary artery disease and is transfused 1 unit of packed red cells in the ER with 40 Lasix concurrently. Improved to 7.9 after transfusion, and stable today at 7.8. -guaiac was negative. -will follow blood count and INR closely. 3. Acute liver failure, present on admission, active -patient presents with a marked elevation in liver functions with a total bilirubin of 1.5, AST of 832, ALT of 1081 and alkaline phosphatase of 192. Liver enzymes have slightly and Tbili has improved today as well. Will continue to follow. 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 -on ultrasound liver is described as homogeneous however CT scan identifies nodular margins suggestive of hepatic cirrhosis. Ultrasound further finds cholelithiasis without obstructing stones or ductal dilatation. -Tylenol level assessed and found to be less than 10, he has had no change in recent medications. -etiology is likely related to ischemia, possibly heart failure bu this does not usually cause transaminases this high. Further possibilities include hepatitis, although serology testing was negative. 4. acute exacerbation of chronic systolic heart failure, present on admission active. -the recent reports worsening exertional dyspnea. He reports no chest pain or palpitations and describes intermittent wheezing. Trace bilateral lower extremity edema. -history of ischemic cardiomyopathy and permanent pacemaker for complete AV block. -patient has an elevated total CK of 1026, CK MB is 13.9 with an index low at 1.4. Troponin is 0.026 and proBNP is 9040. -last echocardiogram dated 04/12/2019 finds a mildly dilated left ventricle with moderate concentric hypertrophy. Suggestion of ventricular septal defect on exam. Ejection fracture is 30-35% with moderate global hypokinesis, right ventricle is mildly dilated right ventricular systolic function mild to moderat marguerite reduced. TTE was similar here today. -the patient received 40 mg Lasix with blood transfusion and has diuresed well. Will increase to 80 mg BID for further diuresis. -fluid restrict and strict Is and Os. 5. Long-term anticoagulation on warfarin with supratherapeutic INR, acute, present on admission, active. -patient states complaint with medications and follows with clinic in [place] for routine monitoring. -no reports of bruising or bleeding, melena, hematochezia, hematuria, hematemesis or hemoptysis. GI bleedings assessed with stool guaiac which was negative. -the patient received vitamin K 5 mg in the ER. -continue to follow INR daily. -restart coumadin at low dose when between 2-3 and continue to follow closely. 6. History of atrial flutter, in sinus rhythm, stable. -12 lead EKG shows sinus mechanism with ventricular pacing. -status post radiofrequency ablation in May 2014. -3rd degree heart block she with permanent pacer with dual chamber pacing. 7. Chronic back pain with opioid dependency, present on admission, active -patient reports ongoing low back pain. -patient is receiving dilaudid 0.5 mg IV as opposed to his typical oxycodone acetaminophen due to his elevated liver functions. Isolation: [place], COVID 19 negative. VTE prophylaxis: Bilateral SCDs, supratherapeutic INR IV fluid: Saline lock, being diuresed. Diet: Heart healthy low-sodium Code status: FULL CODE. The pace admitted to the hospital for treatment of pneumonia acute anemia and acute liver failure the patient is admitted as an inpatient with expected length stay to be greater than 2 midnights. Quality VTE Deep Vein Thrombosis/Pulmonary Embolism Present on Admission: No
--- NOTE | 2019-07-13 17:02 | PC.NURSE ---
Pt is okay with niaren Allen Ksenia having patient information. Her phone number is [phone].
[2019-07-13] MEDS: FUROSEMIDE 100 MG/10 ML VIAL 80 MG IV (20:19)
[2019-07-13] MEDS: MELATONIN 3 MG TABLET 6 MG PO (20:24)
[2019-07-13] MEDS: ATORVASTATIN 20 MG TABLET 40 MG PO (20:25)
[2019-07-13] MEDS: AZITHROMYCIN 500 MG in DEXTROSE 5% IN WATER 250 ML IV (21:19)
[2019-07-13] MEDS: CEFTRIAXONE 2 GM/50 ML FROZ.PIGGY IV (22:52)
[2019-07-14] VITALS (10 sets, daily range): BP systolic 132–148; BP diastolic 64–86; PULSE 69–81; RESP 16–20; TEMP 36.4–36.7; O2SAT 91–96
[2019-07-14 05:50] LABS: INR 4.4 (0.9-1.3); Prothrombin Time 49.4 SECONDS (10.1-12.7)
[2019-07-14 05:51] LABS: Add Manual Diff / Slide Review NO; Basophils Absolute Auto 0 /uL (0-100); Basophils Percent Auto 0.4 % (0-2); Eosinophils Absolute Auto 0 /uL (0-450); Eosinophils Percent Auto 0.5 % (2-4); Hematocrit 24.4 % (41-53); Hemoglobin 7.4 g/dL (13.5-17.5); Lymphocytes Absolute Auto 500 /uL (1100-4500); Lymphocytes Percent Auto 6.9 % (25-40); Mean Corpuscular HGB Conc 30.5 % (30-36); Mean Corpuscular Hemoglobin 23.1 PG (26-34); Mean Corpuscular Volume 75.5 fL (80-100); Monocytes Absolute Auto 800 /uL (0-900); Monocytes Percent Auto 11.3 % (3-14); Neutrophils Absolute Auto 6000 /uL (1500-7000); Neutrophils Percent Auto 80.9 % (50-75); Platelet Count 271 X10^3/uL (150-400); Red Blood Cell Count 3.22 X10^6/uL (4.5-5.9); Red Cell Distribution Width 21.8 % (11.6-14.8); White Blood Cell Count 7.5 X10^3/uL (4.5-11.0)
[2019-07-14 06:08] LABS: HEMOLYSIS < 15 (0-50); Potassium 4.2 mmol/L (3.4-5.1)
[2019-07-14 06:09] LABS: Alanine Aminotransferase 622 IU/L (<50); Albumin 3.5 g/dL (3.5-5.0); Albumin Globulin Ratio 1.4 (1.0-2.8); Alkaline Phosphatase 166 U/L (38-126); Aspartate Aminotransferase 240 IU/L (17-59); BUN Creatinine Ratio 32.6 (6-22); Bilirubin Unconjugated 0.6 mg/dL (0.0-1.1); Blood Urea Nitrogen 28 mg/dL (9-20); Calcium 8.5 mg/dL (8.4-10.2); Carbon Dioxide 24 mmol/L (22-32); Chloride 101 mmol/L (98-107); Estimated Glomerular Filt Rate > 60.0 mL/min (>60); Globulin 2.5 g/dL (1.7-4.1); Glucose 119 mg/dL (80-110); Sodium 134 mmol/L (137-145)
[2019-07-14 07:05] LABS: Anisocytosis 2+; Poikilocytosis 1+
[2019-07-14 07:06] LABS: Polychromasia 1+
[2019-07-14] MEDS: METOPROLOL ER 50 MG TABLET 100 MG PO ×2 (08:10→21:04)
[2019-07-14] MEDS: SPIRONOLACTONE 25 MG TABLET PO (08:10)
[2019-07-14] MEDS: GABAPENTIN 600 MG TABLET PO ×3 (08:10→21:05)
[2019-07-14] MEDS: FUROSEMIDE 100 MG/10 ML VIAL 80 MG IV ×2 (08:10→21:07)
[2019-07-14] MEDS: COLCHICINE 0.6 MG TABLET PO (08:10)
[2019-07-14] MEDS: DOCUSATE 100 MG CAPSULE PO ×2 (08:10→21:05)
[2019-07-14] MEDS: AMLODIPINE 5 MG TABLET 10 MG PO (08:10)
[2019-07-14] MEDS: OXYCODONE IR 10 MG TABLET PO ×4 (08:10→21:04)
[2019-07-14] MEDS: ASPIRIN EC 81 MG TABLET PO (08:10)
[2019-07-14] MEDS: PANTOPRAZOLE 40 MG VIAL IV ×2 (08:10→21:04)
[2019-07-14] MEDS: DULOXETINE 30 MG CAPSULE 120 MG PO (08:11)
[2019-07-14] MEDS: SODIUM CHLORIDE 0.9% FLUSH 10 ML IV (08:11)
[2019-07-14] MEDS: TIOTROPIUM BROMIDE 18 MCG INHALER INH (09:07)
[2019-07-14] MEDS: polyethylene glycoL 3350 17 GM POWD.PACK PO (16:00)
[2019-07-14] MEDS: ALBUTEROL HFA 60 PUFF/8 GM INH INH (18:25)
--- NOTE | 2019-07-14 18:35 | P.PN_ITS ---
Subjective Subjective Date Patient Seen: 07/14/19 Interval history: Sylvester Singleton is a 69-year-old male with a past medical history significant for CVA, CAD status post CABG x 2 vessels, mechanical aortic valve replacement on warfarin, dual-chamber pacemaker, systolic congestive heart failure, hypertension, hyperlipidemia and chronic lumbar back pain with radiculopathy and opiate dependence who presented to the ED with progressive worsening shortness of breath and fatigue. The patient is resting in bed comfortably. He reports his lower extremity swelling and shortness of breath have improved since admission. He continues to have mild shortness of breath with chest tightness and requests inhaler. The patient is net -3.5 L. His CHF exacerbation and congestive hepatopathy are resolving. He complains of mild headache and constipation. He has no other complaints and denies cough, chest pain, abdominal pain, nausea, vomiting, fever, chills, dysuria, or diarrhea. He is voiding without difficulty. He has not had a bowel movement since admission and a bowel regimen has been implemented. He or she is up ambulating without or with assistance. Exam Vital Signs (past 8 hours): - 07/14/19 12:00 07/14/19 12:11 07/14/19 16:36 Temperature 97.7 F 97.7 F 97.8 F Pulse Rate 81 81 73 Respiratory Rate 18 18 20 Blood Pressure 140/86 140/86 138/64 Pulse Oximetry 94 94 92 Oxygen Delivery Method Room Air Oxygen Flow Rate 0 Narrative Exam Narrative: General: Older gentleman lying in bed and in no acute distress, appears older than stated age and chronically ill, pale, well-developed, well-nourished, appropriately interactive. HEENT: Normocephalic, atraumatic. External ears without defect. Pupils equal, round, and reactive to light. Anicteric sclerae, moist but pale conjunctivae, and no lid lag. Oropharynx free of erythema and cobble stoning with moist mucosa. Neck: Supple with full range of motion. Mild jugular venous distension. No lymphadenopathy or thyromegaly. Cardiovascular: Regular rate and rhythm without murmurs, rubs, or gallops appreciated. Pulmonary: Diminished throughout but clear to auscultation bilaterally with fine bibasilar crackles. No wheezes or rhonchi. Normal respiratory effort with no use of accessory muscles. Abdomen: Soft, obese, bowel sounds present, nontender, nondistended. No hepatosplenomegaly or masses appreciated. Extremities: No clubbing or cyanosis. Bilateral mild pitting edema to pretibial area. Skin: Normal temperature, turgor, and texture; no rash, ulcers, or subcutaneous nodules appreciated. Neurological: Cranial nerves grossly intact. Psychiatric: Normal mood and affect. Alert and oriented to person, place, and time. Objective Labs Result Diagrams: 07/16/19 05:10 07/16/19 05:10 Labs: Laboratory Results - last 24 hr 07/14/19 07/14/19 07/14/19 05:15 05:15 05:15 WBC 7.5 RBC 3.22 L Hgb 7.4 L Hct 24.4 L MCV 75.5 L MCH 23.1 L MCHC 30.5 RDW 21.8 H Plt Count 271 Neut % (Auto) 80.9 H Lymph % (Auto) 6.9 L [place] % (Auto) 11.3 Eos % (Auto) 0.5 L Baso % (Auto) 0.4 Neut # (Auto) 6000 Lymph # (Auto) 500 L [place] # (Auto) 800 Eos # (Auto) 0 Baso # (Auto) 0 RBC Morphology See below Polychromasia 1+ H Poikilocytosis 1+ H Anisocytosis 2+ H PT 49.4 H D INR 4.4 H Sodium 134 L Potassium 4.2 Chloride 101 Carbon Dioxide 24 BUN 28 H Creatinine 0.86 Estimated GFR > 60.0 BUN/Creatinine Ratio 32.6 H Glucose 119 H Calcium 8.5 Magnesium 2.0 Total Bilirubin 1.0 Conjugated Bilirubin 0.0 Unconjugated Bilirubin 0.6 AST 240 H ALT 622 H Alkaline Phosphatase 166 H Total Protein 6.0 L Albumin 3.5 Globulin 2.5 Albumin/Globulin Ratio 1.4 Assessment & Plan Assessment & Plan narrative: Sylvester Singleton is a 69-year-old male with a past medical history significant for CVA, CAD status post CABG x 2 vessels, mechanical aortic valve replacement on warfarin, dual-chamber pacemaker, systolic congestive heart failure, hypertension, hyperlipidemia and chronic lumbar back pain with radiculopathy and opiate dependence who presented to the ED with progressive worsening shortness of breath and fatigue. 1. Acute systolic congestive heart failure exacerbation, present on admission. Resolving. -Patient presented with progressive worsening shortness of breath and fatigue. He denies chest pain or palpitations. Patient reports intermittent wheezing. -Likely multifactorial and related to CHF exacerbation, symptomatic anemia with supratherpeutic INR but no evidence of bleed, and possible multilobar pneumonia. -History of ischemic cardiomyopathy and permanent pacemaker for complete AV block. -Patient has an elevated total CK of 1026, CK MB is 13.9 with an index low at 1.4. Troponin is 0.026 and proBNP is 9040. Chest x-ray demonstrated cardiomegaly with interstitial prominence and cephalization of pulmonary vasculature concerning for CHF with trace left pleural effusion. -Last echocardiogram dated 04/12/2019 finds a mildly dilated left ventricle with moderate concentric hypertrophy. Suggestion of ventricular septal defect on exam. Ejection fracture is 30-35% with moderate global hypokinesis, right ventricle is mildly dilated right ventricular systolic function mild to moderately reduced. Repeat TTE was similar wityh slightly elevated PA pressure. -Received furosemide 40 mg IV in ED. Continue furosemide increased from 40 mg to 80 mg IV twice daily for further diuresis. -Continue strict I&Os and daily weights. Net -3.5 L. -Continue 1.5 L fluid restriction and low sodium < 2g per day diet. 2. Acute congestive hepatopathy, in setting of probable liver cirrhosis, present on admission. Resolving. -Likely secondary to congestion from fluid overload but may possibly be a component of ischemia? as heart failure does not usually cause transaminitis to this degree. Further possibilities include hepatitis, although serology testing was negative. 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 -Liver ultrasound described liver as homogeneous, however, CT abdomen and pelvis demonstrated nodular margins of liver suggestive of hepatic cirrhosis. Ultrasound further finds cholelithiasis without obstructing stones or ductal dilatation. -Acetaminophen level < 10. Patient denies change in recent medications. Continue statin for now as LFTs improving. Continue home oxycodone without acetaminophen for now. -Patient presented with a marked elevation in LFTs : Total bilirubin 1.5, AST 832, ALT 1081 and alkaline phosphatase of 192. LFTs improving with diuresis. Continue to monitor LFTs daily. -Continue furosemide as above and spironolactone 25 mg daily. 3. Possible acute bilateral multilobar pneumonia, present on admission. Resolved. -Patient presented with progressive worsening shortness of breath and exertional dyspnea for 2 days. -CT chest demonstrated scattered ground-glass nodules involving bilateral lungs, trace bilateral pleural effusions and mediastinal and right hilar lymphadenopathy representing reactive or neoplastic process. -Initial WBC mildly elevated at 11.1 and normalized. Procalcitonin negative. -COVID 19 negative. Respiratory viral PCR negative. -Continue respiratory therapy evaluation and treatment. Continue albuterol treatment every 2 hours as needed. -Received azithromycin 500 mg IV daily x 3 doses and ceftriaxone 2 g IV daily which has been discontinued as WBC normalized, procalcitonin was negative, and clinically patient's pneumonia if present initially has resolved by clinical exam. 4. Acute symptomatic anemia, present on admission. Active. -Initial hemoglobin 7.5 with progressive worsening shortness of breath and fatigue. Previous hemoglobin was 11.2 on 04/12/2019. -Patient is on chronic warfarin for anticoagulation. Initial INR supratherpeutic at 6.6 without overt signs of bleeding such as abnormal bruising or bleeding, melena, hematochezia, hematuria, hematemesis or hemoptysis. -Previous EGD and colonoscopy 3 months ago in [place] with no untoward findings per patient report. Stool guaiac was negative but may want to consider repeat endoscopy or pill endoscopy and recommend close follow-up with outpatient GI. If GI work-up unrevealing may consider referral to hematology. -Patient has a significant history of personal and familial coronary artery disease. Received 1 unit PRBC with furosemide 40 IV concurrently with hemoglobin improved to 7.9. Hemoglobin now trending down 7.4. -Iron profile demonstrated iron deficiency and anemia of chronic disease. -Continue to monitor H&H and INR daily. Continue to monitor for signs of bleeding. 5. Mechanical aortic valve on anticoagulation with warfarin, now with acute almendarez pratherapeutic INR, present on admission. Resolving. -Secondary to congestive hepatopathy. -Patient reports he is complaint with his home medications and follows with [facility] for routine warfarin and INR monitoring. -No reports of bruising or bleeding, melena, hematochezia, hematuria, hematemesis or hemoptysis. GI bleed assessed with stool guaiac which was negative. -Initial INR 6.6. Received vitamin K 5 mg PO x 1 in the ED. INR now 4.4. Continue to hold warfarin. -Continue to monitor INR daily. 6. History of atrial fibrillation/flutter, status post cardiac ablation and pacemaker insertion, present on admission. Stable. -EKG demonstrated sinus rhythm with ventricular pacing. -Continue home metoprolol succinate 100 mg twice daily. Held warfarin due to congestive hepatopathy with supratherapeutic INR as above. 7. Chronic back pain with opiate dependence, present on admission. Stable. -Continue home oxycodone (without acetaminophen due to congestive hepatopathy as above) 10 mg every 6 hours as need for pain. Code status: FULL CODE VTE prophylaxis: Bilateral SCDs, supratherapeutic INR Disposition: Patient will likely discharge home once adequately diuresed and blood counts stable. Quality VTE Deep Vein Thrombosis/Pulmonary Embolism Present on Admission: No
[2019-07-14 18:56] LABS: HEMOLYSIS < 15 (0-50); Iron 21 ug/dL (49-181)
[2019-07-14 19:07] LABS: Percent Iron Saturation 6 % (20-50); Total Iron Binding Capacity 360 ug/dL (261-462); Transferrin 295 mg/dL (206-381)
[2019-07-14] MEDS: IRON SUCROSE 200 MG in SODIUM CHLORIDE 0.9% 100 ML 220 ML IV (19:24)
[2019-07-14] MEDS: MELATONIN 3 MG TABLET 6 MG PO (21:04)
[2019-07-14] MEDS: CEFTRIAXONE 2 GM/50 ML FROZ.PIGGY IV (21:05)
[2019-07-14] MEDS: ATORVASTATIN 20 MG TABLET 40 MG PO (21:05)
[2019-07-14] MEDS: LACTULOSE 20 GM/30 ML SOLUTION 30 GM PO (23:35)
[2019-07-14 23:46] LABS: Procalcitonin < 0.05 ng/mL (<0.5)
[2019-07-15] VITALS (11 sets, daily range): BP systolic 124–159; BP diastolic 59–84; PULSE 73–86; RESP 16–18; TEMP 36.3–36.8; O2SAT 90–95
--- NOTE | 2019-07-15 02:42 | PC.NURSE ---
Addendum entered by Eryn Hdz R.N. 07/15/19 04:38: Complains of 8/10 chronic, sharp, low back pain; medicated with Oxycodone Original Note: Patient seen and assessed at 2350. Is alert and oriented with some hearing loss in right ear. Breath sounds CTA but has audible expiratory wheeze with exertion; RA sat 93%. HRR with telemetry reading of v-paced. Denies nausea. BT present and is passing flatus but reports no BM x 4 days; given Colace on evening shift and was medicated with Lactulose this shift. Is voiding on toilet; urine is clear but very dark tray/brown. Able to turn self in bed. Is provided assistance when out of bed as still weak in bilateral LE. Did complain of 7/10 lower back pain which he states is chronic and tolerable at that level; currently asleep with FLACC of 0. Has edema bilateral LE with right > left. Skin has mild jaundiced appearance. No new skin issues noted. Initially declined to wear SCD's but after discussion agreeable to having them on; bilateral calf SCD's applied. Fluid restriction of 1200cc being maintained; patient verbalizes understanding. Fall risk score is high and bed alarm is activated.
[2019-07-15] MEDS: OXYCODONE IR 10 MG TABLET PO ×4 (04:35→20:08)
[2019-07-15 06:01] LABS: Basophils Absolute Auto 0 /uL (0-100); Basophils Percent Auto 0.4 % (0-2); Eosinophils Absolute Auto 100 /uL (0-450); Eosinophils Percent Auto 1.5 % (2-4); Hematocrit 24.5 % (41-53); Hemoglobin 7.6 g/dL (13.5-17.5); Lymphocytes Absolute Auto 400 /uL (1100-4500); Lymphocytes Percent Auto 6.2 % (25-40); Mean Corpuscular HGB Conc 31.2 % (30-36); Mean Corpuscular Hemoglobin 23.3 PG (26-34); Mean Corpuscular Volume 74.9 fL (80-100); Monocytes Absolute Auto 800 /uL (0-900); Neutrophils Absolute Auto 5100 /uL (1500-7000); Neutrophils Percent Auto 79.9 % (50-75); Platelet Count 266 X10^3/uL (150-400); Red Blood Cell Count 3.27 X10^6/uL (4.5-5.9); White Blood Cell Count 6.4 X10^3/uL (4.5-11.0)
[2019-07-15 06:03] LABS: INR 2.4 (0.9-1.3)
[2019-07-15 06:06] LABS: Alanine Aminotransferase 477 IU/L (<50); Albumin 3.6 g/dL (3.5-5.0); Albumin Globulin Ratio 1.4 (1.0-2.8); Alkaline Phosphatase 166 U/L (38-126); Aspartate Aminotransferase 124 IU/L (17-59); BUN Creatinine Ratio 31.5 (6-22); Bilirubin Unconjugated 0.6 mg/dL (0.0-1.1); Blood Urea Nitrogen 28 mg/dL (9-20); Calcium 8.8 mg/dL (8.4-10.2); Carbon Dioxide 29 mmol/L (22-32); Chloride 102 mmol/L (98-107); Estimated Glomerular Filt Rate > 60.0 mL/min (>60); Globulin 2.6 g/dL (1.7-4.1); Glucose 112 mg/dL (80-110); HEMOLYSIS < 15 (0-50); Potassium 4.1 mmol/L (3.4-5.1); Sodium 136 mmol/L (137-145); Total Protein 6.2 g/dL (6.3-8.2)
[2019-07-15 06:10] LABS: Add Manual Diff / Slide Review SLIDE REVIEW
[2019-07-15 07:17] LABS: Anisocytosis 2+; Polychromasia 1+
[2019-07-15] MEDS: ASPIRIN EC 81 MG TABLET PO (09:58)
[2019-07-15] MEDS: COLCHICINE 0.6 MG TABLET PO (09:58)
[2019-07-15] MEDS: DOCUSATE 100 MG CAPSULE PO ×2 (09:58→20:08)
[2019-07-15] MEDS: AMLODIPINE 5 MG TABLET 10 MG PO (09:58)
[2019-07-15] MEDS: FUROSEMIDE 100 MG/10 ML VIAL 80 MG IV ×2 (09:58→20:08)
[2019-07-15] MEDS: DULOXETINE 30 MG CAPSULE 120 MG PO (09:58)
[2019-07-15] MEDS: GABAPENTIN 600 MG TABLET PO ×3 (09:59→20:08)
[2019-07-15] MEDS: SPIRONOLACTONE 25 MG TABLET PO (09:59)
[2019-07-15] MEDS: METOPROLOL ER 50 MG TABLET 100 MG PO ×2 (09:59→20:07)
[2019-07-15] MEDS: polyethylene glycoL 3350 17 GM POWD.PACK PO (09:59)
[2019-07-15] MEDS: SODIUM CHLORIDE 0.9% FLUSH 10 ML IV ×2 (09:59→20:46)
[2019-07-15] MEDS: PANTOPRAZOLE 40 MG VIAL IV ×2 (09:59→20:08)
[2019-07-15] MEDS: ALBUTEROL HFA 60 PUFF/8 GM INH INH (10:15)
[2019-07-15] MEDS: TIOTROPIUM BROMIDE 18 MCG INHALER INH (10:15)
--- NOTE | 2019-07-15 13:02 | P.PN_ITS ---
Subjective Subjective Date Patient Seen: 07/15/19 Interval history: Sylvester Singleton is a 69-year-old male with a past medical history significant for CVA, CAD status post CABG x 2 vessels, mechanical aortic valve replacement on warfarin, dual-chamber pacemaker, systolic congestive heart failure, hypertension, hyperlipidemia and chronic lumbar back pain with radiculopathy and opiate dependence who presented to the ED with progressive worsening shortness of breath and fatigue. The patient is resting in bed comfortably. He reports his lower extremity swelling and shortness of breath have improved since admission. He continues to have mild shortness of breath which is likely due to anemia at this point (as approaching euvolemia) and will plan to transfuse 1 U PRBC. The patient is net - 5.2 L. His CHF exacerbation and congestive hepatopathy are resolving. He has no other complaints and denies cough, chest pain, abdominal pain, nausea, vomiting, fever, chills, dysuria,constipation or diarrhea. He is voiding and eliminating without difficulty. He is up ambulating with assistance. Exam Vital Signs (past 8 hours): - 07/15/19 14:08 07/15/19 15:20 07/15/19 19:00 Temperature 98.2 F 97.8 F 98.2 F Pulse Rate 76 76 82 Respiratory Rate 18 18 16 Blood Pressure 134/71 143/59 H 159/69 H Pulse Oximetry 95 95 Oxygen Delivery Method Room Air Oxygen Flow Rate 0 Narrative Exam Narrative: General: Older gentleman lying in bed and in no acute distress, appears older than stated age and chronically ill, pale, well-developed, well-nourished, appropriately interactive. HEENT: Normocephalic, atraumatic. External ears without defect. Pupils equal, round, and reactive to light. Anicteric sclerae, moist but pale conjunctivae, and no lid lag. Oropharynx free of erythema and cobble stoning with moist mucosa. Neck: Supple with full range of motion. Mild jugular venous distension resolved. No lymphadenopathy or thyromegaly. Cardiovascular: Regular rate and rhythm without murmurs, rubs, or gallops appreciated. Pulmonary: Diminished throughout but clear to auscultation bilaterally with no crackles, wheezes or rhonchi. Normal respiratory effort with no use of accessory muscles. Abdomen: Soft, obese, bowel sounds present, nontender, nondistended. No hepatosplenomegaly or masses appreciated. Extremities: No clubbing or cyanosis. Bilateral mild pitting edema to ankles, improving. Skin: Normal temperature, turgor, and texture; no rash, ulcers, or subcutaneous nodules appreciated. Neurological: Cranial nerves grossly intact. Psychiatric: Normal mood and affect. Alert and oriented to person, place, and time. Objective Labs Result Diagrams: 07/16/19 05:10 07/16/19 05:10 Labs: Laboratory Results - last 24 hr 07/14/19 07/15/19 07/15/19 05:15 05:20 05:20 WBC 6.4 RBC 3.27 L Hgb 7.6 L Hct 24.5 L MCV 74.9 L MCH 23.3 L MCHC 31.2 RDW 22.0 H Plt Count 266 Neut % (Auto) 79.9 H Lymph % (Auto) 6.2 L Mcdowell % (Auto) 12.0 Eos % (Auto) 1.5 L Baso % (Auto) 0.4 Neut # (Auto) 5100 Lymph # (Auto) 400 L Mcdowell # (Auto) 800 Eos # (Auto) 100 Baso # (Auto) 0 RBC Morphology See below Polychromasia 1+ H Anisocytosis 2+ H PT 27.0 H D INR 2.4 H Sodium Potassium Chloride Carbon Dioxide BUN Creatinine Estimated GFR BUN/Creatinine Ratio Glucose Calcium Magnesium Total Bilirubin Conjugated Bilirubin Unconjugated Bilirubin AST ALT Alkaline Phosphatase Total Protein Albumin Globulin Albumin/Globulin Ratio Procalcitonin < 0.05 Blood Type Antibody Screen Crossmatch 07/15/19 07/15/19 05:20 08:15 WBC RBC Hgb Hct MCV MCH MCHC RDW Plt Count Neut % (Auto) Lymph % (Auto) Mcdowell % (Auto) Eos % (Auto) Baso % (Auto) Neut # (Auto) Lymph # (Auto) Mcdowell # (Auto) Eos # (Auto) Baso # (Auto) RBC Morphology Polychromasia Anisocytosis PT INR Sodium 136 L Potassium 4.1 Chloride 102 Carbon Dioxide 29 BUN 28 H Creatinine 0.89 Estimated GFR > 60.0 BUN/Creatinine Ratio 31.5 H Glucose 112 H Calcium 8.8 Magnesium 2.0 Total Bilirubin 1.0 Conjugated Bilirubin 0.0 Unconjugated Bilirubin 0.6 AST 124 H ALT 477 H Alkaline Phosphatase 166 H Total Protein 6.2 L Albumin 3.6 Globulin 2.6 Albumin/Globulin Ratio 1.4 Procalcitonin Blood Type O Positive Antibody Screen Negative Crossmatch See Detail Assessment & Plan Assessment & Plan narrative: Sylvester Singleton is a 69-year-old male with a past medical history significant for CVA, CAD status post CABG x 2 vessels, mechanical aortic valve replacement on warfarin, dual-chamber pacemaker, systolic congestive heart failure, hypertension, hyperlipidemia and chronic lumbar back pain with radiculopathy and opiate dependence who presented to the ED with progressive worsening shortness of breath and fatigue. 1. Acute systolic congestive heart failure exacerbation, present on admission. Resolving. -Patient presented with progressive worsening shortness of breath and fatigue. He denies chest pain or palpitations. Patient reports intermittent wheezing. -Likely multifactorial and related to CHF exacerbation, symptomatic anemia with supratherpeutic INR but no evidence of bleed, and possible multilobar pneumonia. -History of ischemic cardiomyopathy and permanent pacemaker for complete AV block. -Patient has an elevated total CK of 1026, CK MB is 13.9 with an index low at 1.4. Troponin is 0.026 and proBNP is 9040. Chest x-ray demonstrated cardiomegaly with interstitial prominence and cephalization of pulmonary vasculature concerning for CHF with trace left pleural effusion. -Last echocardiogram dated 04/12/2019 finds a mildly dilated left ventricle with moderate concentric hypertrophy. Suggestion of ventricular septal defect on exam. Ejection fracture is 30-35% with moderate global hypokinesis, right ventricle is mildly dilated right ventricular systolic function mild to moderately reduced. Repeat TTE was similar with slightly elevated PA pressure. -Received furosemide 40 mg IV in ED. Continue furosemide 80 mg IV twice daily and will likely transition to PO tomorrow at time of discharge. -Continue strict I&Os and daily weights. Net -5.2 L. -Continue 1.5 L fluid restriction and low sodium < 2g per day diet. 2. Acute congestive hepatopathy, in setting of probable liver cirrhosis, present on admission. Resolving. -Likely secondary to congestion from fluid overload but may possibly be a component of ischemia? as heart failure does not usually cause transaminitis to this degree. Further possibilities include hepatitis, although serology testing was negative. 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 -Liver ultrasound described liver as homogeneous, however, CT abdomen and pelvis demonstrated nodular margins of liver suggestive of hepatic cirrhosis. Ultrasound further finds cholelithiasis without obstructing stones or ductal dilatation. -Acetaminophen level < 10. Patient denies change in recent medications. Continue statin for now as LFT elevation resolving. Continue home oxycodone without acetaminophen for now. -Patient presented with a marked elevation in LFTs : Total bilirubin 1.5, AST 832, ALT 1081 and alkaline phosphatase of 192. LFT elevation resolving with diuresis. Continue to monitor LFTs daily. -Continue furosemide as above and spironolactone 25 mg daily. 3. Possible acute bilateral multilobar pneumonia, present on admission. Resolved. -Patient presented with progressive worsening shortness of breath and exertional dyspnea for 2 days. -CT chest demonstrated scattered ground-glass nodules involving bilateral lungs, trace bilateral pleural effusions and mediastinal and right hilar lymphadenopathy representing reactive or neoplastic process. -Initial WBC mildly elevated at 11.1 and normalized. Procalcitonin negative. -COVID 19 negative. Respiratory viral PCR negative. -Continue respiratory therapy evaluation and treatment. Continue albuterol treatment every 2 hours as needed. -Received azithromycin 500 mg IV daily x 3 doses and ceftriaxone 2 g IV daily which has been discontinued as WBC normalized, procalcitonin was negative, and clinically patient's pneumonia if present initially has resolved by clinical exam. 4. Acute symptomatic anemia, present on admission. Active. -Initial hemoglobin 7.5 with progressive worsening shortness of breath and fatigue. Previous hemoglobin was 11.2 on 04/12/2019. -Patient is on chronic warfarin for anticoagulation. Initial INR supratherpeutic at 6.6 without overt signs of bleeding such as abnormal bruising or bleeding, melena, hematochezia, hematuria, hematemesis or hemoptysis. -Previous EGD and colonoscopy 3 months ago in [place] with no untoward findings per patient report. Stool guaiac was negative but may want to consider repeat endoscopy or pill endoscopy and recommend close follow-up with outpatient GI. If GI work-up unrevealing may consider referral to hematology. -Patient has a significant history of personal and familial coronary artery disease. Received 1 unit PRBC with furosemide 40 IV concurrently with hemoglobin improved to 7.9. Hemoglobin stable at 7.6, however, patient continues to be symptomatic with shortness of breath despite approaching euvolemia and shanti quately treated possible pneumonia and will plan to transfuse an additional 1 U PRBC today. Transfusion goal hemoglobin < 8.0. -Iron profile demonstrated iron deficiency and anemia of chronic disease. Started ferrous gluconate 324 mg daily. -Continue to monitor H&H and INR daily. Continue to monitor for signs of bleeding. 5. Mechanical aortic valve on anticoagulation with warfarin, now with acute supratherapeutic INR, present on admission. Resolving. -Secondary to congestive hepatopathy. -Patient reports he is complaint with his home medications and follows with [facility] anticoagulation clinic for routine warfarin and INR monitoring. -No reports of bruising or bleeding, melena, hematochezia, hematuria, hematemesis or hemoptysis. GI bleed assessed with stool guaiac which was negative. -Initial INR 6.6. Received vitamin K 5 mg PO x 1 in the ED. INR now 2.4. Continue to hold warfarin and will likely restart tomorrow. -Continue to monitor INR daily. 6. History of atrial fibrillation/flutter, status post cardiac ablation and pacemaker insertion, present on admission. Stable. -EKG demonstrated sinus rhythm with ventricular pacing. -Continue home metoprolol succinate 100 mg twice daily. Held warfarin due to congestive hepatopathy with supratherapeutic INR as above. 7. Chronic back pain with opiate dependence, present on admission. Stable. -Continue home oxycodone (without acetaminophen due to congestive hepatopathy as above) 10 mg every 6 hours as need for pain. Code status: FULL CODE VTE prophylaxis: Bilateral SCDs, supratherapeutic INR Disposition: Patient will likely discharge home tomorrow after blood transfusion and adequate diuresis. Quality VTE Deep Vein Thrombosis/Pulmonary Embolism Present on Admission: No
[2019-07-15] MEDS: FERROUS GLUCONATE 324 MG TABLET PO (15:37)
[2019-07-15] MEDS: LACTULOSE 20 GM/30 ML SOLUTION 30 GM PO (15:38)
[2019-07-15] MEDS: MELATONIN 3 MG TABLET 6 MG PO (20:08)
[2019-07-15] MEDS: ATORVASTATIN 20 MG TABLET 40 MG PO (20:08)
[2019-07-16] MEDS: OXYCODONE IR 10 MG TABLET PO ×3 (01:04→11:23)
[2019-07-16 05:31] VITALS: BP 141/95; PULSE 119; RESP 18; TEMP 36.2; O2SAT 92
[2019-07-16 06:02] LABS: INR 1.7 (0.9-1.3); Prothrombin Time 19.2 SECONDS (10.1-12.7)
[2019-07-16 06:10] LABS: Alanine Aminotransferase 348 IU/L (<50); Albumin 3.5 g/dL (3.5-5.0); Albumin Globulin Ratio 1.3 (1.0-2.8); Alkaline Phosphatase 158 U/L (38-126); Aspartate Aminotransferase 75 IU/L (17-59); BUN Creatinine Ratio 28.9 (6-22); Bilirubin Total 1.2 mg/dL (0.2-1.3); Blood Urea Nitrogen 24 mg/dL (9-20); Calcium 8.6 mg/dL (8.4-10.2); Carbon Dioxide 30 mmol/L (22-32); Chloride 100 mmol/L (98-107); Estimated Glomerular Filt Rate > 60.0 mL/min (>60); Globulin 2.7 g/dL (1.7-4.1); Glucose 109 mg/dL (80-110); HEMOLYSIS < 15 (0-50); Magnesium 1.8 mg/dL (1.6-2.3); Potassium 3.8 mmol/L (3.4-5.1); Sodium 137 mmol/L (137-145); Total Protein 6.2 g/dL (6.3-8.2)
[2019-07-16 06:11] LABS: Add Manual Diff / Slide Review NO; Basophils Absolute Auto 0 /uL (0-100); Basophils Percent Auto 0.4 % (0-2); Eosinophils Absolute Auto 100 /uL (0-450); Eosinophils Percent Auto 2.1 % (2-4); Hematocrit 27.7 % (41-53); Hemoglobin 8.8 g/dL (13.5-17.5); Lymphocytes Absolute Auto 500 /uL (1100-4500); Lymphocytes Percent Auto 6.7 % (25-40); Mean Corpuscular HGB Conc 31.8 % (30-36); Mean Corpuscular Hemoglobin 24.1 PG (26-34); Mean Corpuscular Volume 75.7 fL (80-100); Monocytes Absolute Auto 800 /uL (0-900); Monocytes Percent Auto 11.2 % (3-14); Neutrophils Absolute Auto 5600 /uL (1500-7000); Neutrophils Percent Auto 79.6 % (50-75); Platelet Count 252 X10^3/uL (150-400); Red Blood Cell Count 3.66 X10^6/uL (4.5-5.9); Red Cell Distribution Width 21.8 % (11.6-14.8); White Blood Cell Count 7.1 X10^3/uL (4.5-11.0)
[2019-07-16 06:39] LABS: Anisocytosis 2+; Poikilocytosis 1+
[2019-07-16 06:40] LABS: Hypochromasia 1+; Polychromasia 1+
[2019-07-16 07:30] VITALS: BP 150/63; PULSE 75; RESP 16; TEMP 36.3; O2SAT 96
[2019-07-16] MEDS: TIOTROPIUM BROMIDE 18 MCG INHALER INH (07:45)
[2019-07-16] MEDS: ALBUTEROL HFA 60 PUFF/8 GM INH INH (07:46)
[2019-07-16 07:58] VITALS: PULSE 78; RESP 16; O2SAT 94
[2019-07-16 09:11] VITALS: BP 148/68; PULSE 80
[2019-07-16] MEDS: METOPROLOL ER 50 MG TABLET 100 MG PO (09:11)
[2019-07-16] MEDS: GABAPENTIN 600 MG TABLET PO (09:11)
[2019-07-16] MEDS: COLCHICINE 0.6 MG TABLET PO (09:13)
[2019-07-16] MEDS: ASPIRIN EC 81 MG TABLET PO (09:13)
[2019-07-16] MEDS: DULOXETINE 30 MG CAPSULE 120 MG PO (09:13)
[2019-07-16] MEDS: SPIRONOLACTONE 25 MG TABLET PO (09:13)
[2019-07-16] MEDS: AMLODIPINE 5 MG TABLET 10 MG PO (09:14)
[2019-07-16] MEDS: FERROUS GLUCONATE 324 MG TABLET PO (09:23)
[2019-07-16] MEDS: SODIUM CHLORIDE 0.9% FLUSH 10 ML IV (09:24)
[2019-07-16] MEDS: FUROSEMIDE 40 MG TABLET 80 MG PO (09:46)
[2019-07-16] MEDS: PANTOPRAZOLE 40 MG TABLET PO (09:46)
[2019-07-16 11:00] VITALS: BP 150/72; PULSE 80; RESP 18; TEMP 36.6; O2SAT 94
--- NOTE | 2019-07-16 12:09 | P.DS_ITS ---
History of Present Illness History of Present Illness Date Patient Seen: 07/11/19 Chief complaint: states, woke up with flu like symptoms Narrative: Written by Phillip GREGORY: Mr. Sylvester Singleton is a 69-year-old male with a past medical history significant for CVA, CAD status post 2 vessel CABG, mechanical aortic valve replacement, dual-chamber pacemaker, chronic warfarin anticoagulation hypertension, systolic heart failure and chronic lumbar back pain with radiculopathy who presents to the ER reporting 2 days of fatigue and worsening shortness of breath. He reports having a headache, dry nonproductive cough and intermittent wheezing but denies headaches or dizziness nasal congestion or sore throat. Reports no fevers or chills. She denies complaints of chest pain or palpitations. He has exertional dyspnea and has difficulties with stairs at baseline. He denies abdominal pain, nausea vomiting or changes in bowel or bladder habits. Upon arrival the ER he is afebrile with a temperature 97.6?, heart rate of 86, blood pressure 149/70, respirations of 18 saturating 100% on room air. Patient has CT of the chest abdomen and pelvis with multiple significant findings including scattered ground-glass nodules involving bilateral lungs compatible with multilobar pneumonia, trace bilateral effusions, mediastinal and right hilar lymphadenopathy possibly reactive or neoplastic, cardiomegaly, atherosclerosis of the coronary vasculature E, 1.7 cm a thyroid nodule, nodular liver margins suggestive of cirrhosis, bilateral nonobstructing renal stones ranging in size from 1-7 mm, bilateral renal celio phrenic stranding which could represent cysts in changes versus urinary tract infection, small amount of fluid in the pericolic gutters with mild mesenteric stranding in left lower quadrant, no evidence of appendicitis, 3.1 x 3 points 7 abdominal aortic aneurysm, colonic diverticulosis without evidence of diverticulitis, cholelithiasis and large fat containing left inguinal hernia. Ultrasound the abdomen finds cholelithiasis negative Gil sign, no gallbladder thickening or celio cholestatic fluid, normal ducts and pancreas. On laboratory analysis the patient has white count of 11.1, hemoglobin of 7.5, hematocrit of 24.6 and platelets 368. He has a left shift with increased neutrophils at 85.8%. His MCV is 74.3 and MCH is 22.5. On coagulation he has a PT of 74.6, INR 6.6 and PTT of 42. On chemistries is electrolytes are normal limits and he has a BUN of 33 and creatinine 1.15. His nonfasting glucose is 111. He has a bilirubin of 1.5, AST of 832, ALT of 1081 and AST 192. His albumin is 4.1. His ammonia is less than 9. He has a procalcitonin of 0.09 and lactic acid 1.4 and CRP is 4.7. He has a total CK of 1026, CK-MB of 13.9 and index 1.4, his troponin is 0.026 and proBNP is 9040. In the ER the patient is started on azithromycin 500 mg IV and ceftriaxone 2 g IV. 5 mg of vitamin K is administered for INR 6.6. He is also administered 1 unit of blood with 40 mg of Lasix. Your provider contacted Dr. Jordan in relation to liver functions and received no specific recommendations as well as consulted with GI who felt there was no need to transfer at this time. The patient is admitted to the medicine service for treatment of pneumonia, anemia and acute liver failure. Discharge Providers Provider Date of admission: 07/11/19 23:01 Discharge Date: 07/16/19 Consults: 07/11/19 23:38 Consult to Dietitian, Adult Routine Comment: Reason For Exam: Acute liver disease, probable cirrhosis 07/12/19 01:08 Consult to Dietitian, Adult Routine Comment: Reason For Exam: MNA score = 10 07/12/19 03:02 Consult to Respiratory Therapy Evaluate & Treat Comment: COPD, pneumonia, CHF Physician Instructions: Evaluate and treat Discharge provider: Lucy Molina DO Summary Hospital Course Discharge Diagnosis: 1. Acute systolic congestive heart failure exacerbation, present on admission. Resolved. 2. Acute congestive hepatopathy, in setting of probable liver cirrhosis, present on admission. Resolving. 3. Possible acute bilateral multilobar pneumonia, present on admission. Resolved. 4. Acute symptomatic anemia, present on admission. Resolved. 5. Mechanical aortic valve on anticoagulation with warfarin, now with acute supratherapeutic INR, present on admission. Resolving. 6. History of atrial fibrillation/flutter, status post cardiac ablation and pacemaker insertion, present on admission. Stable. 7. Chronic back pain with opiate dependence, present on admission. Stable. Hospital Course: Sylvester Singleton is a 69-year-old male with a past medical history significant for CVA, CAD status post CABG x 2 vessels, mechanical aortic valve replacement on warfarin, dual-chamber pacemaker, systolic congestive heart failure, hypertension, hyperlipidemia and chronic lumbar back pain with radiculopathy and opiate dependence who presented to the ED with progressive worsening shortness of breath and fatigue. 1. Acute systolic congestive heart failure exacerbation, present on admission. Resolved. -Patient presented with progressive worsening shortness of breath and fatigue. He denies chest pain or palpitations. Patient reports intermittent wheezing. -Likely multifactorial and related to CHF exacerbation, symptomatic anemia with supratherpeutic INR but no evidence of bleed, and possible multilobar pneumonia. -History of ischemic cardiomyopathy and permanent pacemaker for complete AV block. -Patient has an elevated total CK of 1026, CK MB is 13.9 with an index low at 1.4. Troponin is 0.026 and proBNP is 9040. Chest x-ray demonstrated cardiomegaly with interstitial prominence and cephalization of pulmonary vasculature concerning for CHF with trace left pleural effusion. -Last echocardiogram dated 04/12/2019 finds a mildly dilated left ventricle with moderate concentric hypertrophy. Suggestion of ventricular septal defect on exam. Ejection fracture is 30-35% with moderate global hypokinesis, right ventricle is mildly dilated right ventricular systolic function mild to moderately reduced. Repeat TTE was similar with slightly elevated PA pressure. -Received furosemide 40 mg IV in ED. Continue furosemide 80 mg IV twice daily and discharged on furosemide 80 mg daily at time of discharge. -Continued strict I&Os and daily weights. Net -6.4 L. -Continued to monitor electrolytes and replete as necessary. -Continued 1.5 L fluid restriction and low sodium < 2g per day diet. 2. Acute congestive hepatopathy, in setting of probable liver cirrhosis, present on admission. Resolving. -Likely secondary to congestion from fluid overload but may possibly be a component of ischemia? as heart failure does not usually cause transaminitis to this degree. Further possibilities include hepatitis, although serology testing was negative. 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 -Liver ultrasound described liver as homogeneous, however, CT abdomen and pelvis demonstrated nodular margins of liver suggestive of hepatic cirrhosis. Ultrasound further finds cholelithiasis without obstructing stones or ductal dilatation. -Acetaminophen level < 10. Patient denies change in recent medications. Continued statin for now as LFT elevation resolving. Continued home oxycodone without acetaminophen while hospitalized. -Patient presented with a marked elevation in LFTs : Total bilirubin 1.5, AST 832, ALT 1081 and alkaline phosphatase of 192. LFT elevation nearly resolved now with diuresis: Total bilirubin 1.2, AST 75, ALT 348, alk-phos 158. Continued to monitor LFTs daily. Recommended repeat LFTS in 3-5 days with PCP and a referral to GI for possible pill camera to look at small intestines for bleed and further evaluation of liver cirrhosis. -Continued furosemide as above and spironolactone 25 mg daily. 3. Possible acute bilateral multilobar pneumonia, present on admission. Resolved. -Patient presented with progressive worsening shortness of breath and exertional dyspnea for 2 days. -CT chest demonstrated scattered ground-glass nodules involving bilateral lungs, trace bilateral pleural effusions and mediastinal and right hilar lymphadenopathy representing reactive or neoplastic process. -Initial WBC mildly elevated at 11.1 and normalized. Procalcitonin negative. -COVID 19 negative. Respiratory viral PCR negative. -Continued respiratory therapy evaluation and treatment. Continue albuterol treatment every 2 hours as needed. -Received azithromycin 500 mg IV daily x 3 doses and ceftriaxone 2 g IV daily which has been discontinued as WBC normalized, procalcitonin was negative, and clinically patient's pneumonia if present initially has resolved by clinical exam. 4. Acute symptomatic anemia, present on admission. Resolved. -Initial hemoglobin 7.5 with progressive worsening shortness of breath and fati john. Previous hemoglobin was 11.2 on 04/12/2019. -Patient is on chronic warfarin for anticoagulation. Initial INR supratherpeutic at 6.6 without overt signs of bleeding such as abnormal bruising or bleeding, melena, hematochezia, hematuria, hematemesis or hemoptysis. -Previous EGD and colonoscopy 3 months ago in [place] with no untoward findings per patient report. Stool guaiac was negative but may want to consider repeat upper and lower endoscopy or pill endoscopy and recommend close follow-up with outpatient GI. If GI work-up unrevealing may consider referral to hematology. -Patient has a significant history of personal and familial coronary artery disease. Received 1 unit PRBC with furosemide 40 IV concurrently with hemoglobin improved to 7.9. Hemoglobin was stable but patient continued to be symptomatic with shortness of breath despite approaching euvolemia and adequately treated possible pneumonia and received an additional 1 U PRBC with adequate compensa tion with hemoglobin 8.8. Transfusion goal hemoglobin < 8.0. -Iron profile demonstrated iron deficiency and anemia of chronic disease. Started and continued ferrous gluconate 324 mg daily. -Continued to monitor H&H and INR daily. Continued to monitor for signs of bleeding. Recommended repeat CBC in 3-5 days with PCP. 5. Mechanical aortic valve on anticoagulation with warfarin, now with acute supratherapeutic INR, present on admission. Resolving. -Secondary to congestive hepatopathy. -Patient reports he is complaint with his home medications and follows with [facility] for routine warfarin and INR monitoring. -No reports of bruising or bleeding, melena, hematochezia, hematuria, hematemesis or hemoptysis. GI bleed assessed with stool guaiac which was negative. -Initial INR 6.6. Received vitamin K 5 mg PO x 1 in the ED. INR now 1.7. Continued to hold warfarin throughout hospitalization. Patient instructed to restart warfarin at usual dosing and follow up at [facility] on Tuesday 07/18. -Continued to monitor INR daily. 6. History of atrial fibrillation/flutter, status post cardiac ablation and pacemaker insertion, present on admission. Stable. -EKG demonstrated sinus rhythm with ventricular pacing. -Continued home metoprolol succinate 100 mg twice daily. Held warfarin due to congestive hepatopathy with supratherapeutic INR as above. 7. Chronic back pain with opiate dependence, present on admission. Stable. -Continued home oxycodone (without acetaminophen during hospitalization due to congestive hepatopathy as above) 10 mg every 6 hours as need for pain. Patient instructed to restart home percocet at time of discharge. Exam Vital Signs (past 8 hours): - 07/16/19 05:31 07/16/19 07:30 07/16/19 07:58 Temperature 97.2 F L 97.4 F L Pulse Rate 119 H 75 78 Respiratory Rate 18 16 16 Blood Pressure 141/95 H 150/63 H Pulse Oximetry 92 96 94 07/16/19 09:11 Temperature Pulse Rate 80 Respiratory Rate Blood Pressure 148/68 H Pulse Oximetry Oxygen Delivery Method Room Air Oxygen Flow Rate 0 Narrative Exam Narrative: General: Older gentleman lying in bed and in no acute distress, appears older than stated age and chronically ill, pale, well-developed, well-nourished, appropriately interactive. HEENT: Normocephalic, atraumatic. External ears without defect. Pupils equal, round, and reactive to light. Anicteric sclerae, moist but pale conjunctivae, and no lid lag. Oropharynx free of erythema and cobble stoning with moist mucosa. Neck: Supple with full range of motion. No jugular venous distension. No lymphadenopathy or thyromegaly. Cardiovascular: Regular rate and rhythm without murmurs, rubs, or gallops appreciated. Pulmonary: Diminished throughout but clear to auscultation bilaterally with no crackles, wheezes or rhonchi. Normal respiratory effort with no use of accessory muscles. Abdomen: Soft, obese, bowel sounds present, nontender, nondistended. No hepatosplenomegaly or masses appreciated. Extremities: No clubbing or cyanosis. Trace bilateral pitting edema to ankles. Skin: Normal temperature, turgor, and texture; no rash, ulcers, or subcutaneous nodules appreciated. Neurological: Cranial nerves grossly intact. Psychiatric: Normal mood and affect. Alert and oriented to person, place, and time. Objective Labs Result Diagrams: 07/16/19 05:10 07/16/19 05:10 Labs: Laboratory Results - last 24 hr 07/15/19 07/16/19 07/16/19 08:15 05:10 05:10 WBC 7.1 RBC 3.66 L Hgb 8.8 L Hct 27.7 L MCV 75.7 L MCH 24.1 L MCHC 31.8 RDW 21.8 H Plt Count 252 Neut % (Auto) 79.6 H Lymph % (Auto) 6.7 L [place] % (Auto) 11.2 Eos % (Auto) 2.1 Baso % (Auto) 0.4 Neut # (Auto) 5600 Lymph # (Auto) 500 L [place] # (Auto) 800 Eos # (Auto) 100 Baso # (Auto) 0 RBC Morphology See below Polychromasia 1+ H Hypochromasia 1+ H Poikilocytosis 1+ H Anisocytosis 2+ H PT 19.2 H D INR 1.7 H Sodium Potassium Chloride Carbon Dioxide BUN Creatinine Estimated GFR BUN/Creatinine Ratio Glucose Calcium Magnesium Total Bilirubin Conjugated Bilirubin Unconjugated Bilirubin AST ALT Alkaline Phosphatase Total Protein Albumin Globulin Albumin/Globulin Ratio Crossmatch See Detail 07/16/19 05:10 WBC RBC Hgb Hct MCV MCH MCHC RDW Plt Count Neut % (Auto) Lymph % (Auto) [place] % (Auto) Eos % (Auto) Baso % (Auto) Neut # (Auto) Lymph # (Auto) [place] # (Auto) Eos # (Auto) Baso # (Auto) RBC Morphology Polychromasia Hypochromasia Poikilocytosis Anisocytosis PT INR Sodium 137 Potassium 3.8 Chloride 100 Carbon Dioxide 30 BUN 24 H Creatinine 0.83 Estimated GFR > 60.0 BUN/Creatinine Ratio 28.9 H Glucose 109 Calcium 8.6 Magnesium 1.8 Total Bilirubin 1.2 Conjugated Bilirubin 0.0 Unconjugated Bilirubin 1.0 AST 75 H ALT 348 H Alkaline Phosphatase 158 H Total Protein 6.2 L Albumin 3.5 Globulin 2.7 Albumin/Globulin Ratio 1.3 Crossmatch Discharge Plan Discharge Plan Patient Disposition: Home Discharge comment: You are being discharged home. You had a heart failure exacerbation, a liver injury due to your heart failure in the setting of your liver cirrhosis, and severe anemia (low blood count) with concern for GI bleeding. You received 2 units of blood and your hemoglobin is now 8.8. Your warfarin was temporarily held due to your anemia and concern for bleeding. Your INR is now 1.7. You may restart your warfarin at your normal scheduled dose starting today and please follow up with [facility] on Friday. Your furosemide dose has been changed to 80 mg daily. Please abide by a 1.5 L fluid restricted diet and low-sodium less than 2 g per day. Please follow-up with your PCP, Dr. Barrera, in the next 3-5 days with repeat labs including blood counts, metabolic panel, and magnesium and recommend a referral to GI for possible pill camera to look at small intestines for bleed and further evaluation of your liver cirrhosis. Discharge orders & Medications Prescriptions: New docusate sodium [DOK] 100 mg Capsule 100 mg PO BID Qty: 60 RF: 0 ferrous gluconate 324 mg (38 mg iron) Tablet 324 mg PO DAILY Qty: 30 RF: 0 polyethylene glycol 3350 17 gram Powder In Packet 17 gm PO DAILY Qty: 30 RF: 0 albuterol sulfate [Ventolin HFA] 90 mcg/actuation Hfa Aerosol Inhaler 2 puff INH Q4-6H PRN (Reason: Shortness Of Breath Or Wheezing) Qty: 1 RF: 0 lactulose 20 gram/30 mL solution 30 gram PO DAILY PRN (Reason: constipation) Qty: 1200 RF: 0 furosemide 80 mg tablet 80 mg PO DAILY Qty: 30 RF: 0 Continued atorvastatin 40 mg tablet 40 mg PO DAILY RF: 0 potassium chloride 10 mEq capsule, extended release 10 meq PO DAILY RF: 0 aspirin [Adult Aspirin Regimen] 81 mg tablet,delayed release (DR/EC) 81 mg PO DAILY RF: 0 spironolactone 25 mg tablet 25 mg PO DAILY RF: 0 amlodipine 10 mg tablet 10 mg PO DAILY RF: 0 colchicine 0.6 mg tablet 0.6 mg PO DAILY RF: 0 tiotropium bromide 18 mcg capsule, w/inhalation device 1 cap INHALATION DAILY RF: 0 duloxetine 60 mg capsule,delayed release(DR/EC) 120 mg PO DAILY RF: 0 metoprolol succinate 50 mg cap,sprinkle,ER 24hr dose pack 100 mg PO BID RF: 0 gabapentin 600 mg tablet 600 mg PO TID Qty: 90 RF: 2 warfarin 3 mg tablet 6 - 7.5 mg PO DAILY RF: 0 oxycodone-acetaminophen 5-325 mg tablet 1 - 2 tab PO Q4-6H MDD 6 tabs PRN (Reason: pain) RF: 0 Discontinued furosemide 20 mg tablet 10 mg PO DAILY RF: 0 Diet/Activity/Treatments Diet: Low-fat, Low-sodium and Low-cholesterol Diet comment: Less than 2g or 2000 mg sodium a day, 1.5 L fluid restriction (all fluids) Activity: Activity as tolerated Visit Report/Discharge Packet Instructions: DI for Heart Failure, DI for Blood Transfusion, DI for Cirrhosis, Fluid Restricted Diet, Low-Sodium Diet, How to Keep Track of Your Weight When You Have Heart Failure, How to Restrict Fluids, Heart Failure: Salt and Fluids, Heart Failure Exacerbations Discharges patient from system. Discharge Date/Time: 07/16/19 13:00 Quality VTE Deep Vein Thrombosis/Pulmonary Embolism Present on Admission: No
--- NOTE | 2019-07-16 14:12 | PC.NURSE ---
Discharge: Pt feels ready to d/c home, seen by MD and received her instructions. IV out. tele off. Reviewed d/c packet. Reviewed heart failure material and understands he needs to weigh self daily and follow his fluid restriction of 1.5L a day. Questions answered. Pt d/c home via auto w/spouse.
== END 2019-07-16 13:00 | disposition home or self-care (01) | DRG 441 ==
LOC: ED 22:53 → AC 23:02
PROVIDERS: Emergency Medicine; Internal Medicine; Admitting Provider Nurse Practitioner Adult Health; Emergency Provider Emergency Medicine; Referring Provider Emergency Medicine; Visit Provider Nurse Practitioner Adult Health
DX: K72.00 Acute and subacute hepatic failure without coma (principal); J18.9 Pneumonia, unspecified organism; I50.23 Acute on chronic systolic (congestive) heart failure; I44.2 Atrioventricular block, complete; I48.92 Unspecified atrial flutter; I11.0 Hypertensive heart disease with heart failure; D64.9 Anemia, unspecified; I25.10 Atherosclerotic heart disease of native coronary artery without angina pectoris; G89.29 Other chronic pain; Z79.01 Long term (current) use of anticoagulants; Z95.0 Presence of cardiac pacemaker; Z03.818 Encounter for observation for suspected exposure to other biological agents ruled out; Z95.1 Presence of aortocoronary bypass graft; Z95.2 Presence of prosthetic heart valve; Z79.891 Long term (current) use of opiate analgesic
CPT/HCPCS: 36415; 36430; 71045; 71260; 74177; 76705; 80048; 80053; 80061; 80074; 80076; 80329; 81001; 82140; 82550; 82553; 82728; 82977; 83540; 83550; 83605; 83690; 83735; 83880; 84100; 84145; 84484; 85014; 85018; 85025; 85610; 85730; 86140; 86850; 86900; 86901; 87633; 87635; 93005; 93306; 94640; 94760; 96365; 96375; 96376; 99285; 99291; P9016; C9113; G0480; J0696; J1170; J1756; J1940; Q9967